=== PATIENT | female | born 1935 | race Caucasian/White ===

== ENCOUNTER 2017-03-30 09:23 | Emergency (ER) | payer OTHER ==
[2017-03-30 09:27] VITALS: BP 141/53; PULSE 71; TEMP 98.2; BMI 34.9
--- NOTE | 2017-03-30 10:12 | PDOC ---
History of Present Illness - General Chief Complaint: Pain Stated Complaint: PAIN IN LEFT ARM Time Seen by Provider: 03/30/17 09:46 History Source: Patient Exam Limitations: No Limitations - History of Present Illness Initial Comments: 03/30/17 10:08 Patient is here with complaints of left upper arm shoulder and elbow pain 1 month. Patient states had a blood draw and pain incurred after that incident. Patient is concerned may have a blood clot. Denies chest pain palpitations or shortness of breath, denies fever, redness but states has some mild swelling to her wrist. No numbness or tingling to hand. Occurred: reports: other Severity: reports: mild, moderate Pain Location: reports: upper extremity (left upper arm) Modifying Factors: improves with: None Past History - Travel Traveled outside of the country in the last 30 days: No Close contact w/someone who was outside of country & ill: No - Past Medical History Allergies/Adverse Reactions: Allergies Allergy/AdvReac Type Severity Reaction Status Date / Time No Known Allergies Allergy Verified 03/30/17 09:27 Home Medications: Ambulatory Orders Amlodipine Besylate 5 mg PO DAILY 03/30/17 Valsartan 320 mg PO DAILY 03/30/17 HTN: Yes Hypercholesterolemia: Yes Other medical history: ARHTRITIS - Surgical History Cholecystectomy: Yes - Psycho/Social/Smoking Cessation Hx Anxiety: No Suicidal Ideation: No Smoking History: Never smoked Hx Alcohol Use: No Drug/Substance Use Hx: No Substance Use Type: None Trauma Specific PMHX - Complaint Specific PMHX Back Injury: No Neck Injury: No Review of Systems - Review of Systems Able to Perform ROS?: Yes Is the patient limited German proficient: Yes Constitutional: Yes: Symptoms Reported, See HPI, Malaise HEENTM: Yes: See HPI. No: Symptoms Reported Respiratory: Yes: See HPI. No: Symptoms reported, Cough, Wheezing Cardiac (ROS): Yes: See HPI. No: Symptoms Reported, Chest Pain, Lightheadedness , Palpitations Musculoskeletal: Yes: Symptoms Reported, See HPI, Muscle Pain, Joint Stiffness ( left shoulder ) Hematologic/Lymphatic: Yes: Other All Other Systems: Reviewed and Negative *Physical Exam - Vital Signs Last Vital Signs Temp Pulse Resp BP Pulse Ox 98.2 F 71 20 141/53 98 03/30/17 09:24 03/30/17 09:24 03/30/17 09:24 03/30/17 09:24 03/30/17 09:24 - Physical Exam General Appearance: Yes: Nourished, Appropriately Dressed, Apparent Distress, Mild Distress HEENT: positive: BONNY, Normal ENT Inspection, Normal Voice, TMs Normal, Pharynx Normal Neck: positive: Supple. negative: Tender Respiratory/Chest: positive: Lungs Clear, Normal Breath Sounds Cardiovascular: positive: Regular Rhythm Gastrointestinal/Abdominal: positive: Soft. negative: Tender Musculoskeletal: positive: Normal Inspection, Other (and with flexion and extension at elbow, able to supinate and pronate without pain, has strong grasp , strong radial and ulnar pulses, and neurovascular intact fingers. Has no reproduced tenderness along the radius, ulna, or humeral shaft. Range of motion is slightly limited but has full range of motion active and passive at shoulder. No clavicle or scapular pain. Tenderness or erythema in antecubital fossa, no evidence of hematoma) Extremity: positive: Normal Capillary Refill, Normal Inspection. negative: Normal Range of Motion, Swelling (no ) Integumentary: positive: Normal Color, Dry, Warm, Pale, Other (no redness , swelling or ) Neurologic: positive: cattle dipper II-XII NML intact, Fully Oriented, Alert, Normal Mood/ Affect, Normal Response, Motor Strength 5/5 ED Treatment Course - RADIOLOGY Radiology Studies Ordered: Category Date Time Status DUPLEX VASCUL US-1 ARM [US] Stat Ultrasound 03/30/17 10:07 Ordered Progress Note - Progress Note Progress Note: Left shoulder pain, will have continue anti-inflammatories and have follow up with Orth O for possible physical therapy or other treatment. Ultrasound negative for DVT or clot, any vascular issue *DC/Admit/Observation/Transfer Diagnosis at time of Disposition: Sprain of shoulder, left Qualifiers: Encounter type: initial encounter Shoulder sprain type: unspecified sprain Qualified Code(s): S43.402A - Unspecified sprain of left shoulder joint, initial encounter - Discharge Dispostion Disposition: HOME Condition at time of disposition: Stable Admit: No - Referrals Referrals: STAFF,NOT ON [Primary Care Provider] - - Patient Instructions Additional Instructions: Rest, ice to area on and off for 15 minutes 4-6 times a day Avoid heavy lifting or exercise until pain and swelling is resolved or until further directed Keep area highly elevated to reduce swelling Use splints/Casey wrap as directed Followup with orthopedist in one to 2 days if not improving, if significantly improved may wait one week for followup with orthopedist May use ibuprofen 2-200 mg tablets every 6 hours as needed for pain - Post Discharge Activity
== END 2017-03-30 11:55 | disposition home or self-care (01) ==
LOC: JERFT 09:23
DX: S43.402A Unspecified sprain of left shoulder joint, initial encounter (principal); I10 Essential (primary) hypertension; E78.00 Pure hypercholesterolemia, unspecified; M12.9 Arthropathy, unspecified
CPT/HCPCS: 93971; 99281-25

== ENCOUNTER 2017-08-12 08:22 | Inpatient (IN) | payer OTHER ==
[2017-08-12 08:37] VITALS: BMI 34.9
[2017-08-12] MEDS ORDERED: ADENOSINE 6 MG/2 ML VIAL IVPUSH ONE ×6 (08:51→09:23)
--- NOTE | 2017-08-12 08:52 | PDOC ---
History of Present Illness - General Chief Complaint: Tachycardia Stated Complaint: Blood Pressure Problem Time Seen by Provider: 08/12/17 08:25 History Source: Patient, Family - History of Present Illness Presenting Symptoms: Chest Pain, Dizziness, Short of Breath Past History - Past Medical History Allergies/Adverse Reactions: Allergies Allergy/AdvReac Type Severity Reaction Status Date / Time No Known Allergies Allergy Verified 08/12/17 08:38 Home Medications: Ambulatory Orders Amlodipine Besylate 5 mg PO DAILY 03/30/17 Valsartan 320 mg PO DAILY 03/30/17 Metoprolol Tartrate 12.5 mg PO DAILY 08/12/17 Cardiac Disorders: Yes COPD: No HTN: Yes Hypercholesterolemia: Yes - Surgical History Cholecystectomy: Yes - Suicide/Smoking/Psychosocial Hx Smoking History: Never smoked Hx Alcohol Use: No Drug/Substance Use Hx: No Substance Use Type: None Review of Systems - Review of Systems Constitutional: No: Chills, Fever HEENTM: No: Blurred Vision Respiratory: Yes: Shortness of Breath. No: Cough Cardiac (ROS): Yes: Chest Pain ABD/GI: No: Nausea, Vomiting Neurological: Yes: Dizziness. No: Headache, Weakness *Physical Exam - Vital Signs Last Vital Signs Temp Pulse Resp BP Pulse Ox 98.4 F 113 H 16 115/56 98 08/12/17 10:25 08/12/17 10:25 08/12/17 10:25 08/12/17 10:25 08/12/17 10:25 - Physical Exam General Appearance: Yes: Appropriately Dressed. No: Apparent Distress HEENT: positive: Normal Voice Neck: positive: Supple Respiratory/Chest: positive: Lungs Clear, Normal Breath Sounds. negative: Respiratory Distress Cardiovascular: positive: S1, S2, Tachycardia Gastrointestinal/Abdominal: positive: Soft. negative: Tender Extremity: positive: Pedal Edema (trace edema b/l, s/p amp of R 2nd toe, pedal pulses intact b/l) Integumentary: positive: Dry, Warm Neurologic: positive: Fully Oriented, Alert, Normal Mood/Affect, Motor Strength 5/5, Finger to Nose. negative: Facial Droop, Confused, Disoriented ED Treatment Course - LABORATORY CBC & Chemistry Diagram: 08/12/17 09:00 08/12/17 09:00 - ADDITIONAL ORDERS Additional order review: Laboratory Results 08/12/17 09:00 Sodium 136 Potassium 4.1 Chloride 102 Carbon Dioxide 23 Anion Gap 11 BUN 18 Creatinine 1.3 H Creat Clearance w eGFR 39.31 Random Glucose 119 H Calcium 9.4 Total Bilirubin 0.9 AST 14 L ALT 20 Alkaline Phosphatase 114 Creatine Kinase 78 Troponin I 0.22 H B-Natriuretic Peptide 3318.03 H Total Protein 8.3 H Albumin 4.2 08/12/17 09:00 RBC 4.42 MCV 91.8 MCHC 33.3 RDW 13.5 MPV 8.8 Neutrophils % 74.9 Lymphocytes % 18.0 Monocytes % 5.6 Eosinophils % 0.5 Basophils % 1.0 - RADIOLOGY Radiology Studies Ordered: Category Date Time Status CHEST X-RAY PORTABLE* [RAD] Stat Radiology 08/12/17 08:37 Completed DUPLEX VASCUL US-1 LEG [US] Stat Ultrasound 08/12/17 10:14 Ordered - Medications Given in the ED: ED Medications Discontinued Medications Generic Name Dose Route Start Last Admin Trade Name Freq PRN Reason Stop Dose Admin Adenosine 6 mg 08/12/17 08:52 08/12/17 08:56 Adenocard - IVPUSH 08/12/17 08:53 6 mg ONCE ONE Administration Adenosine 12 mg 08/12/17 09:09 08/12/17 09:24 Adenocard - IVPUSH 08/12/17 09:10 Not Given ONCE ONE Adenosine 12 mg 08/12/17 09:21 08/12/17 09:24 Adenocard - IVPUSH 08/12/17 09:22 12 mg ONCE ONE Administration Adenosine 6 mg 08/12/17 09:23 08/12/17 09:24 Adenocard - IVPUSH 08/12/17 09:24 Not Given ONCE ONE Diltiazem HCl 10 mg 08/12/17 09:50 08/12/17 09:53 Cardizem Injection - IVPUSH 08/12/17 09:51 10 mg ONCE ONE Administration Diltiazem HCl 30 mg 08/12/17 10:04 08/12/17 10:10 Cardizem - PO 08/12/17 10:05 30 mg ONCE ONE Administration Medical Decision Making - Medical Decision Making 08/12/17 08:38 81-year-old female, history of HTN, on multiple medications, HLD, PVD, s/p right lower extremity angioplasty, s/p amputation of right second toe, brought in by relative for dizziness, chest pain and shortness of breath in the setting of hypotension and tachycardia. Patient states for the past 3 days when she checks her vitals at home, blood pressure has been 80s over 60s with "fast" heart rate. C/o mostly constant dizziness with no exacerbating or alleviating factors. No vertigo, GUILLEN, slurred speech or focal weakness. Also complaining of non-radiating left chest pressure with shortness of breath that appears to worsen with ambulation. States she had a stress test done a year ago but does not remember results. Also has a online marketing strategist, but does not remember name of M.D. No recent medication adjustment. States she is scheduled for surgery of R foot at outside hospital next week but does not details of surgery See exam Tachycardia C/o chest pain, sob and dizziness x 3 days Possibly SVT to 140s on EKG and monitor as d/w ED attg -adenosine/reassess -cxr -labs -admit 08/12/17 09:43 No improvement w/ 1 dose of adenosine. As per ED attg, possibly aflutter. Will consult w/ cards at this time. 08/12/17 09:56 Trop of 0.22 w/ BNP >3K, no old to compare. Possible demand ischemia. No e/o fluid overload on CXR but tarce edema on exam. Possible h/o CHF per relative but not on diuretics at home. Rpt EKG in progress. Cardizem ordered by Dr Mccallum as pt still tachy on monitor 08/12/17 09:58 08/12/17 10:04 After IV dose of Cardizem given, rpt ekg shows rate controlled afib on repeat EKG. Po cardizem in progress. Will hold off on lasix at this time as per Dr. Mccallum. Cards consult still pending. Will contact hospitalist to arrange admission at this time 08/12/17 10:[address] Mendes 08/12/17 11:09 Cards c/s and recommended cary. Hospitalist aware *DC/Admit/Observation/Transfer Diagnosis at time of Disposition: New onset a-fib, Dizziness Chest pain Qualifiers: Chest pain type: unspecified Qualified Code(s): R07.9 - Chest pain, unspecified - Discharge Dispostion Condition at time of disposition: Fair Admit: Yes Decision to Admit order Date/Time: Decision to Admit Order Category Date Time Status Decision to Admit to Hospital Routine Admission 08/12/17 10:38 Active - Referrals Referrals: Cosme Gipson [Primary Care Provider] -
[2017-08-12 09:20] LABS: EOSINOPHIL 0.5 % (0-4.5); MCH 30.5 pg (25.7-33.7); MCHC 33.3 g/dl (32.0-36.0); MEAN CELL VOLUME 91.8 fl (80-96); MEAN PLT VOLUME 8.8 fl (7.5-11.1); NEUTROPHILS 74.9 % (42.8-82.8); PLATELET COUNT 249 K/MM3 (134-434); RDW 13.5 % (11.6-15.6); WHITE BLOOD COUNT 6.3 K/mm3 (4.0-10.0)
--- NOTE | 2017-08-12 09:40 | PDOC ---
*Physical Exam - Vital Signs Last Vital Signs Temp Pulse Resp BP Pulse Ox 97.6 F 135 H 16 122/72 100 08/12/17 08:26 08/12/17 09:29 08/12/17 09:27 08/12/17 09:27 08/12/17 09:29 Heart Score/ECG Review - ECG Impressions Comment:: 08/12/17 10:47 Twelve-lead EKG was performed and reviewed by me. ekg originally performated at 8:40am Regular reate of 144 no P waves visible TWI in anterior/lateral leads, possible demand ischemia q wave in III no old ekg for [facility] ED Treatment Course - LABORATORY CBC & Chemistry Diagram: 08/12/17 09:00 08/12/17 09:00 - ADDITIONAL ORDERS Additional order review: 08/12/17 09:00 RBC 4.42 MCV 91.8 MCHC 33.3 RDW 13.5 MPV 8.8 Neutrophils % 74.9 Lymphocytes % 18.0 Monocytes % 5.6 Eosinophils % 0.5 Basophils % 1.0 - Medications Given in the ED: ED Medications Discontinued Medications Generic Name Dose Route Start Last Admin Trade Name Daniella PRN Reason Stop Dose Admin Adenosine 6 mg 08/12/17 08:52 08/12/17 08:56 Adenocard - IVPUSH 08/12/17 08:53 6 mg ONCE ONE Administration Adenosine 12 mg 08/12/17 09:09 08/12/17 09:24 Adenocard - IVPUSH 08/12/17 09:10 Not Given ONCE ONE Adenosine 12 mg 08/12/17 09:21 08/12/17 09:24 Adenocard - IVPUSH 08/12/17 09:22 12 mg ONCE ONE Administration Adenosine 6 mg 08/12/17 09:23 08/12/17 09:24 Adenocard - IVPUSH 08/12/17 09:24 Not Given ONCE ONE Medical Decision Making - Medical Decision Making 08/12/17 09:34 81y F hx of htn presents with lightheadedness, palpitations for the past 3 days , associated with chest pain yesterday. The pt notes she has had a history of some sort of arrythmia before but is uncler which but states she was never on blood thiners beside asa. on arrival the pts HR was at 144, bp was sbp 130s as documented, exam otherwise unremarkable ekg showed SVT vs aflutter with a RBBB pt was given adenosine 6, 6, 12mg - her HR slowed down, an there was an underlying P wave of 300. suspect aflutter and hiroy was in 2:1 block awaiitng call back from cards will give her 20 diltiazem 08/12/17 10:36 pt was given 10mg of dilt HR improved to 70s apperas to be underlying afib will give pt 30mg PO dilitazem and will start ac after d/w cardiology will admit for further management CRITICAL CARE DOCUMENTATION: I spent 45 minutes of Critical Care time, excluding separately billable procedures, involving high complexity decision making to assess, manipulate and support vital system function(s) to treat single or multiple vital organ system failure and/or to prevent further life threatening deterioration of the patient' s condition. A portion of this note was documented by scribe services under my direction. I have reviewed the details of the note, within reason, and agree with the documentation with the following case summary and management plan written by me 08/12/17 10:[address] talbot agreed pt will qualify for eliquis 5mg bid pt is awaitng DVT study *DC/Admit/Observation/Transfer Diagnosis at time of Disposition: New onset a-fib, Dizziness Chest pain Qualifiers: Chest pain type: unspecified Qualified Code(s): R07.9 - Chest pain, unspecified - Discharge Dispostion Condition at time of disposition: Fair - Referrals Referrals: Cosme Gipson [Primary Care Provider] -
[2017-08-12 09:41] LABS: ALBUMIN 4.2 g/dl (3.4-5.0); ANION GAP 11 (8-16); BILIRUBIN,TOTAL 0.9 mg/dL (0.2-1.0); CALCIUM 9.4 mg/dL (8.5-10.1); CO2 23 mmol/L (21-32); CREATININE 1.3 mg/dL (0.55-1.02); GLUCOSE,RANDOM 119 mg/dL (74-106); SGOT/AST 14 U/L (15-37); SGPT/ALT 20 U/L (12-78); TOT PROT 8.3 g/dl (6.4-8.2)
[2017-08-12 09:44] LABS: ALK PHOS 114 U/L (45-117); CPK 78 IU/L (26-192); TROPONIN I 0.22 ng/ml (0.00-0.05)
[2017-08-12] MEDS ORDERED: dilTIAZem HCL 50 MG/10 ML - 10 ML VIAL IVPUSH ONE ×2 (09:50→13:51)
[2017-08-12] MEDS ORDERED: dilTIAZem HCL 125 MG/25 ML - 25 ML VIAL ONE (09:55)
[2017-08-12] MEDS ORDERED: dilTIAZem HCL 30 MG TABLET (FP) PO ONE ×2 (10:04→18:15)
[2017-08-12] MEDS ORDERED: dilTIAZem HCL 30 MG TABLET (FP) ONE (10:05)
[2017-08-12] MEDS ORDERED: APIXABAN 5 MG TABLET PO ONE (10:45)
--- NOTE | 2017-08-12 11:12 | HP ---
CHIEF COMPLAINT: Lightheadedness and SOB PCP: HISTORY OF PRESENT ILLNESS: 81yo F with significant PMHx of HTN, HLD, PVD, s/p right lower extremity angioplasty, s/p amputation of right second toe,presents with 3 day history of shortness of breath and dizziness. Patient states that SOB has progressed over the past three day with associated orthopnea. Also complaining of intermittent non-radiating 5/10 left chest pressure with shortness of breath that appears to worsen with ambulation. Unsure of her previous CV testing or results. . No recent medication adjustment. States she is scheduled for surgery of R foot at outside hospital next week but does not details of surgery. Denies GUILLEN, fever, chills, abdominal pain , urinary symptoms or N/V. ER course was notable for: (1)Intial EKG showed rate of 144 SVT vs. Aflutter with RBB- given adenosine and rhythm was aflutter--> given 10mg of Cardizem rate slowed to 74 (2)Elevated troponin and BNP (3) Recent Travel:Denies PAST MEDICAL HISTORY: HTN, HLD, PVD PAST SURGICAL HISTORY:right lower extremity angioplasty, amputation of right second toe, CCY Social History: Smoking:never Alcohol: denies Drugs: denies Family History: Allergies No Known Allergies Allergy (Verified 08/12/17 08:38) HOME MEDICATIONS: Home Medications Medication Instructions Recorded Amlodipine Besylate 5 mg PO DAILY 03/30/17 Valsartan 320 mg PO DAILY 03/30/17 Metoprolol Tartrate 12.5 mg PO DAILY 08/12/17 REVIEW OF SYSTEMS CONSTITUTIONAL: Absent: fever, chills, diaphoresis, generalized weakness, malaise, loss of appetite, weight change HEENT: Absent: rhinorrhea, nasal congestion, throat pain, throat swelling, difficulty swallowing, mouth swelling, ear pain, eye pain, visual changes CARDIOVASCULAR: chest pain,palpitations, irregular heart rate, lightheadedness Absent: , syncope, , peripheral edema RESPIRATORY: shortness of breath, dyspnea with exertion, orthopnea, Absent: cough, wheezing, stridor, hemoptysis GASTROINTESTINAL: Absent: abdominal pain, abdominal distension, nausea, vomiting, diarrhea, constipation, melena, hematochezia GENITOURINARY: Absent: dysuria, frequency, urgency, hesitancy, hematuria, flank pain, genital pain MUSCULOSKELETAL: Absent: myalgia, arthralgia, joint swelling, back pain, neck pain SKIN: Absent: rash, itching, pallor HEMATOLOGIC/IMMUNOLOGIC: Absent: easy bleeding, easy bruising, lymphadenopathy, frequent infections ENDOCRINE: Absent: unexplained weight gain, unexplained weight loss, heat intolerance, cold intolerance NEUROLOGIC: Absent: headache, focal weakness or paresthesias, dizziness, unsteady gait, seizure, mental status changes, bladder or bowel incontinence PSYCHIATRIC: Absent: anxiety, depression, suicidal or homicidal ideation, hallucinations. PHYSICAL EXAMINATION Vital Signs - 24 hr 08/12/17 08/12/17 08/12/17 08:26 09:00 09:27 Temperature 97.6 F Pulse Rate 145 H Pulse Rate [ 136 H 136 H Left Apical] Respiratory 18 16 16 Rate Blood Pressure 132/82 Blood Pressure 113/81 122/72 [Right Arm] O2 Sat by Pulse 100 100 100 Oximetry (%) 08/12/17 08/12/17 08/12/17 09:29 09:45 10:25 Temperature 98.4 F Pulse Rate 135 H Pulse Rate [ 134 H 113 H Left Apical] Respiratory 16 16 Rate Blood Pressure Blood Pressure 127/80 115/56 [Right Arm] O2 Sat by Pulse 100 98 98 Oximetry (%) GENERAL:AAOx3 , mild distress HEAD: AT/NC EYES: PERRLA,EOMI, sclera anicteric, conjunctiva clear. No lid lag. EARS, NOSE, THROAT: Moist mucous membranes. NECK: Normal range of motion, supple without lymphadenopathy, JVD, or masses. LUNGS: Breath sounds equal, clear to auscultation bilaterally. No wheezes, and no crackles. No accessory muscle use. HEART: Irregularly irregular, normal s1 and s2 ABDOMEN: Soft, nontender, not distended, normoactive bowel sounds, no guarding, no rebound, no masses. No hepatomegaly or splenomegaly. MUSCULOSKELETAL: Normal range of motion at all joints. No bony deformities or tenderness. No CVA tenderness. UPPER EXTREMITIES: 2+ pulses, warm, well-perfused. No cyanosis. No clubbing. No peripheral edema. LOWER EXTREMITIES: 2+ pulses, warm, well-perfused. No calf tenderness. No peripheral edema. NEUROLOGICAL: Cranial nerves II-XII intact. Normal speech. Normal gait. PSYCHIATRIC: Cooperative. Good eye contact. Appropriate mood and affect. SKIN: Warm, dry, normal turgor, no rashes or lesions noted, normal capillary refill. Laboratory Results - last 24 hr 08/12/17 08/12/17 09:00 09:00 WBC 6.3 RBC 4.42 Hgb 13.5 Hct 40.6 MCV 91.8 MCH 30.5 MCHC 33.3 RDW 13.5 Plt Count 249 MPV 8.8 Neutrophils % 74.9 Lymphocytes % 18.0 Monocytes % 5.6 Eosinophils % 0.5 Basophils % 1.0 Sodium 136 Potassium 4.1 Chloride 102 Carbon Dioxide 23 Anion Gap 11 BUN 18 Creatinine 1.3 H Creat Clearance w eGFR 39.31 Random Glucose 119 H Calcium 9.4 Total Bilirubin 0.9 AST 14 L ALT 20 Alkaline Phosphatase 114 Creatine Kinase 78 Troponin I 0.22 H B-Natriuretic Peptide 3318.03 H Total Protein 8.3 H Albumin 4.2 ASSESSMENT/PLAN: 81yo F with significant PMHx of HTN, HLD, PVD presented with 3 day h/o worsening SOB found to be in new onset afib will be admitted to Telemetry. Problem List - Problem (1) New onset a-fib Assessment/Plan: * New onset of Afib from uncertain etiology * Admit to tele and Cardiology consult. * [id number]= 5 will need AC; will start eliquis as per Cardiology (Dr. Carrion) * TSH, UA, CXR, and duplex(r/o DVT) pending. * initially elevated BNP with no previous to compare may represent CHF but no distinct history of CHF. * Will obtain Echo to assess LV size and function as well as any valvular abnormalities. * May need sleep study as outpatient. * Repeat EKG. (2) Elevated troponin I level Assessment/Plan: * May represent demand ischemia. * Will trend trops Q6H * Echo pending. (3) HTN (hypertension) Code(s): I10 - ESSENTIAL (PRIMARY) HYPERTENSION Qualifiers: Hypertension type: essential hypertension Qualified Code(s): I10 - Essential (primary) hypertension; I10 - Essential (primary) hypertension; I10 - Essential (primary) hypertension (4) HLD (hyperlipidemia) Qualifiers: Hyperlipidemia type: unspecified Qualified Code(s): E78.5 - Hyperlipidemia, unspecified; E78.5 - Hyperlipidemia, unspecified; E78.5 - Hyperlipidemia, unspecified (5) PVD (peripheral vascular disease) Visit type - Emergency Visit Emergency Visit: Yes ED Registration Date: 08/12/17 Care time: The patient presented to the Emergency Department on the above date and was hospitalized for further evaluation of their emergent condition. - New Patient This patient is new to me today: Yes Date on this admission: 08/14/17 - Critical Care Critical Care patient: No
[2017-08-12 11:22] LABS: URINE APPEARANCE CLEAR; URINE BILIRUBIN NEGATIVE (NEGATIVE); URINE BLOOD NEGATIVE (NEGATIVE); URINE COLOR LTYELLOW; URINE GLUCOSE (UA) NEGATIVE (NEGATIVE); URINE KETONE NEGATIVE (NEGATIVE); URINE NITRITE NEGATIVE (NEGATIVE); URINE UROBILINOGEN NEGATIVE mg/dL (0.2-1.0)
[2017-08-12 11:25] LABS: URINE PROTEIN 1+ (NEGATIVE)
[2017-08-12 11:29] LABS: URINE HYALINE CAST 4 /lpf; URINE MUCUS RARE
--- NOTE | 2017-08-12 13:21 | HP ---
CHIEF COMPLAINT: Dizziness PCP: Dr. Jacob Medrano HISTORY OF PRESENT ILLNESS: Ms Méndez is an 81yo F with PMHx of HTN (on 3 antihypertensives), HLD, PVD (s/p RLE angioplasty and R 2nd toe amputation), who presented to the ER with dizziness for the past few days. She also has associated substernal chest pressure that often happens when she is anxious, sometimes with exertion. She states that she has had "numerous workups" in the past, but never a cardiac cath. She has associated palpitations and SOB which occurs mostly with exertion. She denies any pulmonary disorders, denies smoking, denies drinking. Endorses compliance with all medications. Pt states she has had an "abnormal heart murmur" as a child, does not recollect being told she has an abnormal heart rhythm. ER course was notable for: (1) EKG --> Sinus Tach 140s --> Adenosine --> New EKG shows Aflutter --> IV Cardizem 10mg IV x1 --> New EKG shows Afib --> PO Cardizem 30 (2) Call to [facility] (Cardio) - reccs Eliquis 5mg BID (3) Trop 0.22 --> 0.17 PAST MEDICAL HISTORY: HTN, HLD, PVD PAST SURGICAL HISTORY: R second toe amputation Social History: Lives at home alone Smoking: Denies Alcohol: Denies Drugs: Denies Allergies: No Known Allergies Allergy (Verified 08/12/17 08:38) HOME MEDICATIONS: Home Medications Medication Instructions Recorded Amlodipine Besylate 5 mg PO DAILY 03/30/17 Valsartan 320 mg PO DAILY 03/30/17 Metoprolol Tartrate 12.5 mg PO DAILY 08/12/17 REVIEW OF SYSTEMS CONSTITUTIONAL: Absent: fever, chills, diaphoresis, generalized weakness, malaise, loss of appetite, weight change HEENT: Absent: rhinorrhea, nasal congestion, throat pain, throat swelling, difficulty swallowing, mouth swelling, ear pain, eye pain, visual changes CARDIOVASCULAR: Absent: chest pain, syncope, palpitations, irregular heart rate, lightheadedness , peripheral edema RESPIRATORY: Absent: cough, shortness of breath, dyspnea with exertion, orthopnea, wheezing, stridor, hemoptysis GASTROINTESTINAL: Absent: abdominal pain, abdominal distension, nausea, vomiting, diarrhea, constipation, melena, hematochezia GENITOURINARY: Absent: dysuria, frequency, urgency, hesitancy, hematuria, flank pain, genital pain MUSCULOSKELETAL: Absent: myalgia, arthralgia, joint swelling, back pain, neck pain SKIN: Absent: rash, itching, pallor HEMATOLOGIC/IMMUNOLOGIC: Absent: easy bleeding, easy bruising, lymphadenopathy, frequent infections ENDOCRINE: Absent: unexplained weight gain, unexplained weight loss, heat intolerance, cold intolerance NEUROLOGIC: Absent: headache, focal weakness or paresthesias, dizziness, unsteady gait, seizure, mental status changes, bladder or bowel incontinence PSYCHIATRIC: Absent: anxiety, depression, suicidal or homicidal ideation, hallucinations. Vital Signs Temperature 98.4 F 08/12/17 10:25 Pulse Rate 113 H 08/12/17 10:25 Respiratory Rate 16 08/12/17 10:25 Blood Pressure 115/56 08/12/17 10:25 O2 Sat by Pulse Oximetry (%) 98 08/12/17 10:25 PHYSICAL EXAMINATION GEN: AAOx3, NAD, Not in respiratory distress HEENT: PERRLA, EOMI CV: S1, S2, tachycardic rate and irregularly irregular rhythm LUNG: CTABL ABD: Soft, NT, ND, normoactive BS MSK UE: No edema, no erythema, full ROM MSK LE: RLE - mild venous stasis, R 2nd toe amputation, +DP pulses, 1+ edema; LLE no amputation, no edema, no erythema, +DP pulses (weaker than R) NEURO: Strength and sensation intact, CN 2-12 grossly intact Laboratory Last Values WBC 6.3 K/mm3 (4.0-10.0) 08/12/17 09:00 RBC 4.42 M/mm3 (3.60-5.2) 08/12/17 09:00 Hgb 13.5 GM/dL (10.7-15.3) 08/12/17 09:00 Hct 40.6 % (32.4-45.2) 08/12/17 09:00 MCV 91.8 fl (80-96) 08/12/17 09:00 MCH 30.5 pg (25.7-33.7) 08/12/17 09:00 MCHC 33.3 g/dl (32.0-36.0) 08/12/17 09:00 RDW 13.5 % (11.6-15.6) 08/12/17 09:00 Plt Count 249 K/MM3 (134-434) 08/12/17 09:00 MPV 8.8 fl (7.5-11.1) 08/12/17 09:00 Neutrophils % 74.9 % (42.8-82.8) 08/12/17 09:00 Lymphocytes % 18.0 % (8-40) 08/12/17 09:00 Monocytes % 5.6 % (3.8-10.2) 08/12/17 09:00 Eosinophils % 0.5 % (0-4.5) 08/12/17 09:00 Basophils % 1.0 % (0-2.0) 08/12/17 09:00 Sodium 136 mmol/L (136-145) 08/12/17 09:00 Potassium 4.1 mmol/L (3.5-5.1) 08/12/17 09:00 Chloride 102 mmol/L (98-107) 08/12/17 09:00 Carbon Dioxide 23 mmol/L (21-32) 08/12/17 09:00 Anion Gap 11 (8-16) 08/12/17 09:00 BUN 18 mg/dL (7-18) 08/12/17 09:00 Creatinine 1.3 mg/dL (0.55-1.02) H 08/12/17 09:00 Creat Clearance w eGFR 39.31 (>60) 08/12/17 09:00 Random Glucose 119 mg/dL (74-106) H 08/12/17 09:00 Calcium 9.4 mg/dL (8.5-10.1) 08/12/17 09:00 Total Bilirubin 0.9 mg/dL (0.2-1.0) 08/12/17 09:00 AST 14 U/L (15-37) L 08/12/17 09:00 ALT 20 U/L (12-78) 08/12/17 09:00 Alkaline Phosphatase 114 U/L (45-117) 08/12/17 09:00 Creatine Kinase 78 IU/L (26-192) 08/12/17 09:00 Troponin I 0.22 ng/ml (0.00-0.05) H 08/12/17 09:00 B-Natriuretic Peptide 3318.03 pg/ml (5-450) H 08/12/17 09:00 Total Protein 8.3 g/dl (6.4-8.2) H 08/12/17 09:00 Albumin 4.2 g/dl (3.4-5.0) 08/12/17 09:00 Urine Color Ltyellow 08/12/17 10:14 Urine Appearance Clear 08/12/17 10:14 Urine pH 7.0 (5.0-8.0) 08/12/17 10:14 Ur Specific [place] 1.012 (1.001-1.035) 08/12/17 10:14 Urine Protein 1+ (NEGATIVE) H 08/12/17 10:14 Urine Glucose (UA) Negative (NEGATIVE) 08/12/17 10:14 Urine Ketones Negative (NEGATIVE) 08/12/17 10:14 Urine Blood Negative (NEGATIVE) 08/12/17 10:14 Urine Nitrite Negative (NEGATIVE) 08/12/17 10:14 Urine Bilirubin Negative (NEGATIVE) 08/12/17 10:14 Urine Urobilinogen Negative mg/dL (0.2-1.0) 08/12/17 10:14 Urine RBC 1 /hpf (0-3) 08/12/17 10:14 Urine WBC <1 /hpf (3-5) 08/12/17 10:14 Ur Epithelial Cells Rare /hpf (FEW) 08/12/17 10:14 Hyaline Casts 4 /lpf 08/12/17 10:14 Urine Mucus Rare 08/12/17 10:14 Home Medication List Medication Instructions Recorded Confirmed Type Amlodipine Besylate 5 mg PO DAILY 03/30/17 08/12/17 History Valsartan 320 mg PO DAILY 03/30/17 08/12/17 History Metoprolol Tartrate 12.5 mg PO DAILY 08/12/17 08/12/17 History Active Medications Generic Name Dose Route Start Last Admin Trade Name Freq PRN Reason Stop Dose Admin Apixaban 5 mg 08/12/17 22:00 Eliquis - PO BID [facility] Diltiazem HCl 30 mg 08/13/17 10:00 Cardizem - PO DAILY [facility] Sodium Chloride 1,000 mls @ 50 mls/hr 08/12/17 16:15 Normal Saline - IV 08/13/17 12:14 ASDIR NIKUNJ ASSESSMENT/PLAN: Ms Méndez is an 81yo F with PMHx of HTN (on 3 antihypertensives), HLD, PVD (s/p RLE angioplasty and R 2nd toe amputation), who presented to the ER with dizziness and palpitations for the past few days, found to have Afib. # Atrial Fibrillation - New onset according to PCP, hemodynamically stable, HR came down, could be 2/2 Ischemic HD, HTN, CHF, Cardiomyopathy, HyperT, unlikely pulmonary - HR improved from 140s --> 110s s/p IV Cardizem 10mg, currently on Cardizem 30mg QD, will titrate up as needed, goal HR <120, if consistently high, will start Cardizem drip at 10mg and uptitrate - [id number] score 5, continue Eliquis 5mg BID - Echo, TSH, pt never had stress test or cath # Elevated Troponins - trending down, likely 2/2 demand ischemia from tachycardia, will trend Q6H w/ serial EKGs # Shortness of Breath - likely 2/2 tachycardia, unlikely PE, Wells score 1.5, Duplex negative, CXR clear, continue to monitor # DANIELA - B/L 1.0 according to PCP, hasnt been eating, likely pre-renal, start 1 bag of IVNS, will obtain Ulytes, hold Valsartan # Frequency - No suprapubic tenderness, trace LE with 1 WBC, will not treat huseyin , monitor symptoms # HTN - well controlled now on Cardizem 30mg QD, hold Valsartan and Metoprolol and Norvasc, can titrate Cardizem up if needed # HLD - lipid panel ordered # FEN - No IVF, electrolytes wnl, sodium controlled diet for now # PPx - On Eliquis, No GI ppx, PT not needed huseyin, pt is ambulatory # Dispo - Admit to med/surg, ensure HR controlled, await cardio reccs, await echo (called echo dept, asked to take echo today) d/w Dr. Vaughn Lombardo MD - PGY1 Internal Medicine Visit type - Emergency Visit Emergency Visit: Yes ED Registration Date: 08/12/17 Care time: The patient presented to the Emergency Department on the above date and was hospitalized for further evaluation of their emergent condition. - New Patient This patient is new to me today: Yes Date on this admission: 08/12/17 - Critical Care Critical Care patient: No
[2017-08-12 13:43] LABS: URINE LEUK ESTERASE TRACE (NEGATIVE); URINE RBC 0
[2017-08-12 13:44] LABS: URINE WBC 1
--- NOTE | 2017-08-12 14:17 | CON.CARD ---
Cardiology Consult (text) - Consultation Consultation Note: CC: new onset afib 81yo F with PMHx of HTN, HLD, PVD (s/p RLE angioplasty and R 2nd toe amputation) , who presented to the ER with dizziness and noted to be in aflutter with rvr. + hypotension at home with associated blurry vision. + palps/chest discomfort with dizziness, sob. states she was told she had a cardiac arrhythmia in the past and was given metoprolol but she stopped it b/c she thought it was making her sob. states she was never told she needed a blood thinner for this rhythm abnormality. + claudication, stable. + erythema at site of toe ulceration. s/p IV Cardizem 10mg IV x1 , PO Cardizem 30 in ER. also started on eliquis and given gentle IVF. + intermediate troponin elevation. no orthopnea, pnd, le edema, PAST MEDICAL HISTORY: HTN, HLD, PVD PAST SURGICAL HISTORY: R second toe amputation Social History: Lives at home alone, never smoker, no etoh. fam hx: no premature cad ros: per hpi, no n/v/d, f/c/s, cough, congestion, h/a. Ambulatory Orders Amlodipine Besylate 5 mg PO DAILY 03/30/17 Valsartan 320 mg PO DAILY 03/30/17 Metoprolol Tartrate 12.5 mg PO DAILY 08/12/17 Current Medications Diltiazem HCl (Cardizem -) 30 mg PO DAILY [facility] Vital Signs - 24 hr 08/12/17 08/12/17 08/12/17 08:26 09:00 09:27 Temperature 97.6 F Pulse Rate 145 H Pulse Rate [ 136 H 136 H Left Apical] Respiratory 18 16 16 Rate Blood Pressure 132/82 Blood Pressure 113/81 122/72 [Right Arm] O2 Sat by Pulse 100 100 100 Oximetry (%) 08/12/17 08/12/17 08/12/17 09:29 09:45 10:25 Temperature 98.4 F Pulse Rate 135 H Pulse Rate [ 134 H 113 H Left Apical] Respiratory 16 16 Rate Blood Pressure Blood Pressure 127/80 115/56 [Right Arm] O2 Sat by Pulse 100 98 98 Oximetry (%) Intake & Output 08/10/17 08/11/17 08/12/17 08/13/17 07:59 07:59 07:59 07:59 Weight 179 lb nad, calm jvd flat, neck supple ctab, nl effort irregularly, irregular, nl s1, s2 + bs soft nt nd ext without e/c/c + dp/pt aaox3 no jaundice, diaphoresis. CBC, BMP 08/12/17 09:00 08/12/17 09:00 Laboratory Tests 08/12/17 08/12/17 09:00 15:10 Hemoglobin A1c % Magnesium Total Bilirubin 0.9 AST 14 L ALT 20 Alkaline Phosphatase 114 Creatine Kinase 78 Troponin I 0.22 H 0.17 H B-Natriuretic Peptide 3318.03 H Total Protein 8.3 H Albumin 4.2 Triglycerides Cholesterol Total LDL Cholesterol HDL Cholesterol TSH EKG: atrial tachycardia/SVT. rbbb. inferolateral ST-Twave ab subsequent EKG's: atrial tach/atrial flutter with variable conduction, rbbb. improving ST t wave ab. tele: aflutter with variable conduction, vr 100's cxr wnl echo 08/2017: 1+ conc lvh. nl fn. RV not well seen. 1+ mr. rvsp 30-40. < 1 cm pericardial effusion. 81yo F with PMHx of HTN, HLD, PVD (s/p RLE angioplasty and R 2nd toe amputation) , who presented to the ER with dizziness and noted to be in aflutter with rvr. new aflutter - rate control with diltiazem 30 po qid, ac with eliquis - echo wnl - no signs of volume overload. s/p gentle hydration in ER. mild troponin elevation - flat trend. + EKG changes when in RVR. No concern for acs, but likely demand in setting of underlying cad - medical mgm't. ? timing of ischemic evaluation. htn - con't current regimen, monitor with uptitration PVD - statin, no asa (on AC). - [facility] - monitor wound for signs of infection.
[2017-08-12 15:50] LABS: TROPONIN I 0.17 ng/ml (0.00-0.05)
--- NOTE | 2017-08-12 16:08 | PN ---
Teaching Attending Note Name of Resident: Nubia Lombardo ATTENDING PHYSICIAN STATEMENT I saw and evaluated the patient. I reviewed the resident's note and discussed the case with the resident. I agree with the resident's findings and plan as documented. SUBJECTIVE:81yo F with PMHx of HTN (on 3 antihypertensives), HLD, PVD (s/p RLE angioplasty and R 2nd toe amputation), who presented to the ER with dizziness x3 days. worse on standing up from a sitting position. started to develop retrosternal Chest pressure radiating to the epigastric area. assoc with SOB. states she never had similar symptoms in the past. reports poor po intake during this time. has had echo prior but no stress test or cardiac cath. claims medication compliances. denies fever, chills, cough, N/V/C/D OBJECTIVE: Last Vital Signs Temp Pulse Resp BP Pulse Ox 98.4 F 64 16 116/53 98 08/12/17 14:21 08/12/17 14:21 08/12/17 14:21 08/12/17 14:21 08/12/17 14:21 General NAD HEENT dry oral mucosa CV S1 S2 irregular irregular tachy Lungs CTA B/L no wheezing/rales/rhonchi Abdomen soft NT/ND Extremiteis 1+ pitting edema ASSESSMENT AND PLAN: 81yo F with PMHx of HTN (on 3 antihypertensives), HLD, PVD (s/p RLE angioplasty and R 2nd toe amputation), who presented to the ER with dizziness x3 days and found to be in SVT, was given adenosine which it broke into aflutter than afib 1. New onset afib with RVR- admit to [facility] for continuous cardiac monitoring. HR currently 140. received cardizem 10mg IVP x1 and cardizem 30mg po. will give additional 10mg IVP and monitor HR. if does not decrease to <120 will start cardizem ggt. increase cardizem po to 60mg. trend cardiac enzymes q6H, check TSH , no signs of infection (no symptoms, CXR and UA negative). [id number] 5. will start eliquis. check echo. cardio consulted 2. DANIELA- baseline Cr normal. dehydration vs medication induced. will give 1L NS. check urine lytes. avoid neprhrotoxic agents. hold ARB. if does not improve will do full renal workup 3. HTN- currently normotensive. will hold home medications. on cardizem. will re -start as needed to optimize BP 4. dyslipidemia- statin 5. PVD- s/p stent 6. DVT ppx- eliquis
[2017-08-12] MEDS ORDERED: SODIUM CHLORIDE 1,000 ML IV SCH (16:15)
[2017-08-12] MEDS: APIXABAN 5 MG TABLET PO SCH (21:34)
[2017-08-12 21:56] LABS: TROPONIN I 0.16 ng/ml (0.00-0.05)
[2017-08-13 07:26] LABS: ANION GAP 6 (8-16); CHOLESTEROL 174 mg/dL (50-200); CO2 25 mmol/L (21-32); GLUCOSE,RANDOM 91 mg/dL (74-106); MAGNESIUM 1.9 mg/dL (1.8-2.4); PHOSPHOROUS 3.2 mg/dL (2.5-4.9)
[2017-08-13 07:34] LABS: THYROID STIMULATING HORMONE 1.92 uIU/ml (0.358-3.74)
[2017-08-13] MEDS ORDERED: PT OWN MED DRAWER 7, Y5N ONE (08:00)
[2017-08-13] MEDS: dilTIAZem HCL 30 MG TABLET (FP) PO SCH ×5 (08:05→17:43)
[2017-08-13 08:08] LABS: BASOPHIL 0.9 % (0-2.0); EOSINOPHIL 1.2 % (0-4.5); MCH 31.1 pg (25.7-33.7); MCHC 33.5 g/dl (32.0-36.0); MEAN PLT VOLUME 9.2 fl (7.5-11.1); NEUTROPHILS 56.6 % (42.8-82.8); PLATELET COUNT 174 K/MM3 (134-434); RDW 13.4 % (11.6-15.6); WHITE BLOOD COUNT 4.7 K/mm3 (4.0-10.0)
[2017-08-13] MEDS: APIXABAN 5 MG TABLET PO SCH ×2 (09:30→22:17)
[2017-08-13] MEDS ORDERED: dilTIAZem HCL 50 MG/10 ML - 10 ML VIAL IVPUSH ONE (09:45)
[2017-08-13 10:17] LABS: URINE RBC 1; URINE WBC < 1
[2017-08-13 10:18] LABS: URINE HYALINE CAST 4 /lpf; URINE MUCUS RARE
--- NOTE | 2017-08-13 11:39 | PN ---
Progress Note (short form) - Note Progress Note: asymptomatic. denies feeling palpitatins, CP, SOB, fever, chills, Cough, N/V/C/D Current Medications Generic Name Dose Route Start Last Admin Trade Name Daniella PRN Reason Stop Dose Admin Apixaban 5 mg 08/12/17 22:00 08/13/17 09:30 Eliquis - PO 5 mg BID NIKUNJ Administration Diltiazem HCl 30 mg 08/13/17 10:00 08/13/17 09:35 Cardizem - PO Not Given DAILY NIKUNJ Sodium Chloride 1,000 mls @ 50 mls/hr 08/12/17 16:15 08/12/17 17:27 Normal Saline - IV 08/13/17 12:14 50 mls/hr ASDIR NIKUNJ Administration Last Vital Signs Temp Pulse Resp BP Pulse Ox 98.2 F 146 H 16 126/76 99 08/13/17 08:00 08/13/17 09:36 08/13/17 09:36 08/13/17 09:36 08/13/17 06:00 General NAD HEENT moist oral mucosa CV S1 S2 irregular irregular Lungs CTA B/L no wheezing/rales/rhonchi Abdomen soft NT/ND Extremiteis trace pitting edema CBCD WBC 4.7 K/mm3 (4.0-10.0) 08/13/17 05:10 RBC 3.72 M/mm3 (3.60-5.2) 08/13/17 05:10 Hgb 11.6 GM/dL (10.7-15.3) D 08/13/17 05:10 Hct 34.6 % (32.4-45.2) 08/13/17 05:10 MCV 93.0 fl (80-96) 08/13/17 05:10 MCHC 33.5 g/dl (32.0-36.0) 08/13/17 05:10 RDW 13.4 % (11.6-15.6) 08/13/17 05:10 Plt Count 174 K/MM3 (134-434) D 08/13/17 05:10 MPV 9.2 fl (7.5-11.1) 08/13/17 05:10 CMP Sodium 140 mmol/L (136-145) 08/13/17 05:10 Potassium 4.0 mmol/L (3.5-5.1) 08/13/17 05:10 Chloride 109 mmol/L (98-107) H 08/13/17 05:10 Carbon Dioxide 25 mmol/L (21-32) 08/13/17 05:10 Anion Gap 6 (8-16) L 08/13/17 05:10 BUN 18 mg/dL (7-18) 08/13/17 05:10 Creatinine 1.0 mg/dL (0.55-1.02) D 08/13/17 05:10 Creat Clearance w eGFR 39.31 (>60) 08/12/17 09:00 Calcium 8.0 mg/dL (8.5-10.1) L 08/13/17 05:10 Total Bilirubin 0.9 mg/dL (0.2-1.0) 08/12/17 09:00 AST 14 U/L (15-37) L 08/12/17 09:00 ALT 20 U/L (12-78) 08/12/17 09:00 Alkaline Phosphatase 114 U/L (45-117) 08/12/17 09:00 Total Protein 8.3 g/dl (6.4-8.2) H 08/12/17 09:00 Albumin 4.2 g/dl (3.4-5.0) 08/12/17 09:00 ASSESSMENT AND PLAN: 81yo F with PMHx of HTN (on 3 antihypertensives), HLD, PVD (s/p RLE angioplasty and R 2nd toe amputation), who presented to the ER with dizziness x3 days and found to be in SVT, was given adenosine which it broke into aflutter than afib 1. New onset afib with RVR- HR uncontrolled. 72-146. received cardizem 10mg IVPx2 and 30mg po x2 yesterday. HR remains uncontrolled. gave 10mg IVP stat this AM with good response. HR now 90-110. remains in afib. will give additional 30mg po and adjust cardizem dosing for tomorrow. cont to titrate as needed to maintain HR <120. pt is asymptomatic and hemodynamically stable therfore no indication for emergent cardioversion. TSH WNL. on eliquis. Cardio on board. 2. Troponemia- Trop 0.22->0.17->0.16. likely demand ischemia due to RVR. no chest pain. may require ischemia eval. which can likely be done as outpatient. 3. DANIELA- baseline Cr normal. dehydration vs medication induced. now resolved. will d/c IVF 4. HTN- currently normotensive. will hold home medications. on cardizem. will re -start as needed to optimize BP 5. dyslipidemia- statin 6. PVD- s/p stent 7. DVT ppx- eliquis Visit type - Emergency Visit Emergency Visit: Yes ED Registration Date: 08/12/17 Care time: The patient presented to the Emergency Department on the above date and was hospitalized for further evaluation of their emergent condition. - New Patient This patient is new to me today: No - Critical Care Critical Care patient: No - Discharge Referral Referred to [facility] No
[2017-08-13] MEDS ORDERED: dilTIAZem HCL 30 MG TABLET (FP) PO ONE (12:00)
--- NOTE | 2017-08-13 15:57 | PN ---
Progress Note (short form) - Note Progress Note: CC: new onset afib S: started on po diltiazem regimen today with improved rate control. Patient sx's improved. no cp, palps, dizziness, sob. Ambulatory Orders Amlodipine Besylate 5 mg PO DAILY 03/30/17 Valsartan 320 mg PO DAILY 03/30/17 Metoprolol Tartrate 12.5 mg PO DAILY 08/12/17 Current Medications Apixaban (Eliquis -) 5 mg PO BID [facility] Last Admin: 08/13/17 09:30 Dose: 5 mg Diltiazem HCl (Cardizem -) 30 mg PO QID [facility] Last Admin: 08/13/17 14:45 Dose: Not Given Vital Signs - 24 hr 08/12/17 08/12/17 08/12/17 16:49 18:25 21:00 Temperature 98.2 F Pulse Rate 118 H 138 H Respiratory 16 14 18 Rate Blood Pressure 134/94 120/74 O2 Sat by Pulse 98 96 Oximetry (%) 08/12/17 08/13/17 08/13/17 22:00 02:00 06:00 Temperature 98.8 F 97.5 F L 97.8 F Pulse Rate 100 H 115 H 72 Respiratory 14 16 18 Rate Blood Pressure 133/63 125/80 130/77 O2 Sat by Pulse 99 Oximetry (%) 08/13/17 08/13/17 08/13/17 08:00 09:36 14:00 Temperature 98.2 F 99.2 F Pulse Rate 146 H 146 H 75 Respiratory 18 16 20 Rate Blood Pressure 132/82 126/76 128/66 O2 Sat by Pulse Oximetry (%) Intake & Output 08/11/17 08/12/17 08/13/17 08/14/17 07:59 07:59 07:59 06:59 Intake Total 1560 Balance 1560 Weight 179 lb nad, calm jvd flat, neck supple ctab, nl effort irregularly, irregular, nl s1, s2 + bs soft nt nd ext without e/c/c diminishe dp/pt on right aaox3 no jaundice, diaphoresis. CBC, BMP 08/13/17 05:10 08/13/17 05:10 Laboratory Tests 08/12/17 08/12/17 08/12/17 09:00 15:10 20:30 Magnesium Troponin I 0.22 H 0.17 H 0.16 H Triglycerides Cholesterol Total LDL Cholesterol HDL Cholesterol TSH 08/13/17 05:10 Magnesium 1.9 Troponin I Triglycerides 162 H Cholesterol 174 Total LDL Cholesterol 121 H HDL Cholesterol 29 L TSH 1.92 EKG: atrial tachycardia/SVT. rbbb. inferolateral ST-Twave ab subsequent EKG's: atrial tach/atrial flutter with variable conduction, rbbb. improving ST t wave ab. tele: aflutter with variable conduction, vr 130's overnight, improved to 90's cxr wnl echo 08/2017: 1+ conc lvh. nl fn. RV not well seen. 1+ mr. rvsp 30-40. < 1 cm pericardial effusion. 81yo F with PMHx of HTN, HLD, PVD (s/p RLE angioplasty and R 2nd toe amputation) , who presented to the ER with dizziness and noted to be in aflutter with rvr. new aflutter - rate control with diltiazem 30 po qid uptitrate as needed, ac with eliquis - echo wnl - no signs of volume overload. s/p gentle hydration in ER --> normalization of cr. - lyte repletion, tsh wnl. mild troponin elevation - flat trend. + EKG changes when in RVR. No concern for acs, but likely demand in setting of underlying cad - medical mgm't, will start statin. ? timing of ischemic evaluation. htn - con't current regimen, monitor with uptitration PVD - statin, no asa (on AC). - [facility] - monitor wound for signs of infection.
--- NOTE | 2017-08-13 16:32 | EKG ---
Test Reason : Blood Pressure : / mmHG Vent. Rate : 144 BPM Atrial Rate : 076 BPM P-R Int : 000 ms QRS Dur : 122 ms QT Int : 310 ms P-R-T Axes : 000 038 -59 degrees QTc Int : 479 ms ATRIAL TACHYCARDIA RIGHT BUNDLE BRANCH BLOCK NO PREVIOUS ECGS AVAILABLE Confirmed by ELISEO ANTONIO MD ([id number]) on 08/13/2017 4:31:51 PM Referred By: Confirmed By:ELISEO ANTONIO MD
--- NOTE | 2017-08-13 16:36 | EKG ---
Test Reason : Blood Pressure : / mmHG Vent. Rate : 067 BPM Atrial Rate : 277 BPM P-R Int : 000 ms QRS Dur : 130 ms QT Int : 392 ms P-R-T Axes : 000 047 018 degrees QTc Int : 414 ms ATRIAL FLUTTER WITH VARIABLE A-V BLOCK RIGHT BUNDLE BRANCH BLOCK NONSPECIFIC T WAVE ABNORMALITY ABNORMAL ECG WHEN COMPARED WITH ECG OF 12-AUG-2017 08:40, VENT. RATE HAS DECREASED BY 77 BPM Confirmed by ELISEO ANTONIO MD ([id number]) on 08/13/2017 4:36:33 PM Referred By: Confirmed By:ELISEO ANTONIO MD
[2017-08-13] MEDS: dilTIAZem HCL 60 MG TABLET (FP) PO SCH (22:18)
--- NOTE | 2017-08-14 09:16 | PN ---
Progress Note (short form) - Note Progress Note: c/o palpitations assoc with chest tightness. symptoms at rest, has not gotten out of bed much. denies SOB, fever, chills, Cough, N/V/C/D Current Medications Generic Name Dose Route Start Last Admin Trade Name Aurelianoq PRN Reason Stop Dose Admin Apixaban 5 mg 08/12/17 22:00 08/13/17 22:17 Eliquis - PO 5 mg BID NIKUNJ Administration Diltiazem HCl 60 mg 08/13/17 22:00 08/13/17 22:18 Cardizem - PO 60 mg QID NIKUNJ Administration Last Vital Signs Temp Pulse Resp BP Pulse Ox 97.9 F 67 18 159/69 95 08/14/17 06:00 08/14/17 06:00 08/14/17 06:00 08/14/17 06:00 08/13/17 21:00 General NAD CV S1 S2 irregular irregular tachycardic Lungs CTA B/L no wheezing/rales/rhonchi Abdomen soft NT/ND Extremities trace pitting edema ASSESSMENT AND PLAN: 81yo F with PMHx of HTN (on 3 antihypertensives), HLD, PVD (s/p RLE angioplasty and R 2nd toe amputation), who presented to the ER with dizziness x3 days and found to be in SVT, was given adenosine which it broke into aflutter than afib 1. New onset afib with RVR- HR uncontrolled. 130-140. started on cardizem 60mg Q6H. received a total of 90mg yesterday. give AM dose of cardizem and monitor if remains above goal will increase cardizem. will need to consider synchornized cardioversion if HR does not improve over next 24H. on eliquis. Cardio on board. 2. Troponemia- Trop 0.22->0.17->0.16. likely demand ischemia due to RVR. no chest pain. may require ischemia eval. which can likely be done as outpatient. 3. DANIELA- baseline Cr normal. dehydration vs medication induced. now resolved. 4. HTN- currently normotensive. will hold home medications. on cardizem. will re -start as needed to optimize BP 5. dyslipidemia- statin 6. PVD- s/p stent 7. DVT ppx- eliquis Visit type - Emergency Visit Emergency Visit: Yes ED Registration Date: 08/12/17 Care time: The patient presented to the Emergency Department on the above date and was hospitalized for further evaluation of their emergent condition. - New Patient This patient is new to me today: No - Critical Care Critical Care patient: No - Discharge Referral Referred to [facility] Med [facility] No
[2017-08-14] MEDS: APIXABAN 5 MG TABLET PO SCH ×2 (09:46→21:40)
[2017-08-14] MEDS: dilTIAZem HCL 60 MG TABLET (FP) PO SCH ×3 (09:46→17:09)
[2017-08-14] MEDS ORDERED: dilTIAZem HCL 60 MG TABLET (FP) PO SCH ×3 (10:00→18:00)
--- NOTE | 2017-08-14 14:12 | PN ---
Progress Note (short form) - Note Progress Note: CC: new onset afib S: diltiazem uptitrated to 60 qid yesterday. HR reasonably controlled until this morning (written for QID and not q6h) diltiazem dosing and therefore did not receive diltiazem overnight. Current Medications Apixaban (Eliquis -) 5 mg PO BID [facility] Last Admin: 08/14/17 09:46 Dose: 5 mg Atorvastatin Calcium (Lipitor -) 80 mg PO HS [facility] Diltiazem HCl (Cardizem -) 60 mg PO Q6H [facility] Vital Signs - 24 hr 08/13/17 08/13/17 08/13/17 18:00 20:10 21:00 Temperature 98.0 F 98.2 F Pulse Rate 83 113 H Respiratory 19 18 Rate Blood Pressure 141/63 121/61 O2 Sat by Pulse 95 Oximetry (%) 08/14/17 08/14/17 08/14/17 02:00 06:00 09:00 Temperature 97.8 F 97.9 F Pulse Rate 88 67 Respiratory 18 18 18 Rate Blood Pressure 117/66 159/69 O2 Sat by Pulse 95 Oximetry (%) 08/14/17 10:00 Temperature 97.8 F Pulse Rate 135 H Respiratory 18 Rate Blood Pressure 162/75 O2 Sat by Pulse Oximetry (%) Intake & Output 08/12/17 08/13/17 08/14/17 08/15/17 08:59 08:59 07:59 07:59 Intake Total Balance Weight nad, calm jvd flat, neck supple ctab, nl effort irregularly, irregular, nl s1, s2 + bs soft nt nd ext without e/c/c diminishe dp/pt on right aaox3 no jaundice, diaphoresis. no CBC, BMP EKG: atrial tachycardia/SVT. rbbb. inferolateral ST-Twave ab subsequent EKG's: atrial tach/atrial flutter with variable conduction, rbbb. improving ST t wave ab. tele: aflutter with variable conduction, vr 60's-70's yesterday, then 120's this morning, now improved to 90's. cxr wnl echo 08/2017: 1+ conc lvh. nl fn. RV not well seen. 1+ mr. rvsp 30-40. < 1 cm pericardial effusion. 81yo F with PMHx of HTN, HLD, PVD (s/p RLE angioplasty and R 2nd toe amputation) , who presented to the ER with dizziness and noted to be in aflutter with rvr. new aflutter 08/14: HR uncontrolled this am b/c on QID dosing did not get meds from 10pm to 10 am. Corrected dosing to q6h. If HR still elevated will increase regimen to 90 mg q6h - ac with eliquis - echo wnl - no signs of volume overload. s/p gentle hydration in ER --> normalization of cr. - lyte repletion, tsh wnl. mild troponin elevation - flat trend. + EKG changes when in RVR. No concern for acs, but likely demand in setting of underlying cad - medical mgm't, will start statin. - Likely has underlying CAD, but too soon to hold diltiazem for stress testing. Plan on inpatient vs. outpatient stress testing pending stability of heart rate control. started on statin. No asa (on ac) htn - con't current regimen, monitor with uptitration PVD - statin, no asa (on AC). - [facility] - monitor wound for signs of infection. .
[2017-08-14 14:30] LABS: URINE CREATININE 89.2 mg/dL (20-320)
[2017-08-14] MEDS: ATORVASTATIN CA 80 MG TABLET (FP) PO SCH (21:40)
[2017-08-15] MEDS: dilTIAZem HCL 60 MG TABLET (FP) PO SCH ×6 (00:47→21:36)
--- NOTE | 2017-08-15 07:25 | PN ---
Physical Exam: SUBJECTIVE: Patient seen and examined. Did well overnight, but stated that after her dose of Cardizem at 6pm, she felt dizzy and chest pressure, no longer has it this AM. No fevers, chills, SOB. OBJECTIVE: Vital Signs Period Temp Pulse Resp BP Sys/Hu Pulse Ox Last 24 Hr 97.5 F-98.5 F 73-135 18-20 126-162/62-78 95-99 GEN: AAOx3, NAD, Not in respiratory distress HEENT: PERRLA, EOMI CV: S1, S2, tachycardic rate and irregularly irregular rhythm LUNG: CTABL ABD: Soft, NT, ND, normoactive BS MSK UE: No edema, no erythema, full ROM MSK LE: RLE - mild venous stasis, R 2nd toe amputation, +DP pulses, 1+ edema; LLE no amputation, no edema, no erythema, +DP pulses (weaker than R) NEURO: Strength and sensation intact, CN 2-12 grossly intact Laboratory Last Values WBC 4.7 K/mm3 (4.0-10.0) 08/13/17 05:10 RBC 3.72 M/mm3 (3.60-5.2) 08/13/17 05:10 Hgb 11.6 GM/dL (10.7-15.3) D 08/13/17 05:10 Hct 34.6 % (32.4-45.2) 08/13/17 05:10 MCV 93.0 fl (80-96) 08/13/17 05:10 MCH 31.1 pg (25.7-33.7) 08/13/17 05:10 MCHC 33.5 g/dl (32.0-36.0) 08/13/17 05:10 RDW 13.4 % (11.6-15.6) 08/13/17 05:10 Plt Count 174 K/MM3 (134-434) D 08/13/17 05:10 MPV 9.2 fl (7.5-11.1) 08/13/17 05:10 Neutrophils % 56.6 % (42.8-82.8) D 08/13/17 05:10 Lymphocytes % 32.6 % (8-40) D 08/13/17 05:10 Monocytes % 8.7 % (3.8-10.2) 08/13/17 05:10 Eosinophils % 1.2 % (0-4.5) D 08/13/17 05:10 Basophils % 0.9 % (0-2.0) 08/13/17 05:10 Sodium 140 mmol/L (136-145) 08/13/17 05:10 Potassium 4.0 mmol/L (3.5-5.1) 08/13/17 05:10 Chloride 109 mmol/L (98-107) H 08/13/17 05:10 Carbon Dioxide 25 mmol/L (21-32) 08/13/17 05:10 Anion Gap 6 (8-16) L 08/13/17 05:10 BUN 18 mg/dL (7-18) 08/13/17 05:10 Creatinine 1.0 mg/dL (0.55-1.02) D 08/13/17 05:10 Creat Clearance w eGFR 39.31 (>60) 08/12/17 09:00 Random Glucose 91 mg/dL (74-106) D 08/13/17 05:10 Hemoglobin A1c % 5.5 % (4.8-6.0) 08/13/17 05:10 Calcium 8.0 mg/dL (8.5-10.1) L 08/13/17 05:10 Phosphorus 3.2 mg/dL (2.5-4.9) 08/13/17 05:10 Magnesium 1.9 mg/dL (1.8-2.4) 08/13/17 05:10 Total Bilirubin 0.9 mg/dL (0.2-1.0) 08/12/17 09:00 AST 14 U/L (15-37) L 08/12/17 09:00 ALT 20 U/L (12-78) 08/12/17 09:00 Alkaline Phosphatase 114 U/L (45-117) 08/12/17 09:00 Creatine Kinase 59 IU/L (26-192) 08/12/17 20:30 Troponin I 0.16 ng/ml (0.00-0.05) H 08/12/17 20:30 B-Natriuretic Peptide 3318.03 pg/ml (5-450) H 08/12/17 09:00 Total Protein 8.3 g/dl (6.4-8.2) H 08/12/17 09:00 Albumin 4.2 g/dl (3.4-5.0) 08/12/17 09:00 Triglycerides 162 mg/dL (35-160) H 08/13/17 05:10 Cholesterol 174 mg/dL (50-200) 08/13/17 05:10 Total LDL Cholesterol 121 mg/dL (5-100) H 08/13/17 05:10 HDL Cholesterol 29 mg/dL (40-60) L 08/13/17 05:10 TSH 1.92 uIU/ml (0.358-3.74) 08/13/17 05:10 Urine Color Ltyellow 08/12/17 10:14 Urine Appearance Clear 08/12/17 10:14 Urine pH 7.0 (5.0-8.0) 08/12/17 10:14 Ur Specific [place] 1.012 (1.001-1.035) 08/12/17 10:14 Urine Protein 1+ (NEGATIVE) H 08/12/17 10:14 Urine Glucose (UA) Negative (NEGATIVE) 08/12/17 10:14 Urine Ketones Negative (NEGATIVE) 08/12/17 10:14 Urine Blood Negative (NEGATIVE) 08/12/17 10:14 Urine Nitrite Negative (NEGATIVE) 08/12/17 10:14 Urine Bilirubin Negative (NEGATIVE) 08/12/17 10:14 Urine Urobilinogen Negative mg/dL (0.2-1.0) 08/12/17 10:14 Ur Leukocyte Esterase Trace (NEGATIVE) H 08/12/17 10:14 Urine RBC 1 08/12/17 10:14 Urine WBC < 1 08/12/17 10:14 Ur Epithelial Cells Rare /HPF 08/12/17 10:14 Hyaline Casts 4 /lpf 08/12/17 10:14 Urine Mucus Rare 08/12/17 10:14 Ur Random Sodium 141 MMOL/L 08/14/17 13:56 Ur Random Potassium 32.1 MMOL/L 08/14/17 13:56 Ur Random Chloride 166 MMOL/L 08/14/17 13:56 Urine Creatinine 89.2 mg/dL (20-320) 08/14/17 13:56 Active Medications Generic Name Dose Route Start Last Admin Trade Name Freq PRN Reason Stop Dose Admin Apixaban 5 mg 08/12/17 22:00 08/14/17 21:40 Eliquis - PO 5 mg BID NIKUNJ Administration Atorvastatin Calcium 80 mg 08/14/17 22:00 08/14/17 21:40 Lipitor - PO 80 mg HS NIKUNJ Administration Diltiazem HCl 90 mg 08/14/17 18:00 08/15/17 06:31 Cardizem - PO 90 mg Q6HPO NIKUNJ Administration ASSESSMENT/PLAN: Ms Méndez is an 81yo F with PMHx of HTN (on 3 antihypertensives), HLD, PVD (s/p RLE angioplasty and R 2nd toe amputation), who presented to the ER with dizziness and palpitations for the past few days, found to have Afib. # Atrial Fibrillation - New onset, presented in RVR, likely 2/2 ischemic HD, TSH wnl, Echo wnl, on Eliquis 5m BID - Rate controlled on Cardizem 90mg Q6H, but pt feels dizzy, per Cardio reccs , will decrease to 60mg Q6H. Also felt chest pressure, but troponins are trending down. - Scheduled for persantine stress test tmrw (NPO after midnight, no need to hold Cardizem) # Elevated Troponins - trending down, was likely 2/2 demand ischemia from Afib w / RVR # DANIELA - resolved, B/L 1.0 according to PCP, resolved w/ fluids # HTN - well controlled, reduced Cardizem to 60mg Q6H, hold home meds (Valsartan , Toprol, Norvasc), monitor BP on lowered dose # HLD - lipid panel ordered, LDL >100, started on Lipitor 80mg QHS # FEN - No IVF, electrolytes wnl, sodium controlled diet for now, NPO after midnight for stress test # PPx - On Eliquis, No GI ppx, PT not needed huseyin, pt is ambulatory # Dispo Get HR and symptoms under control, nuclear stress test 08/16 as per Cardio d/w Dr Mendes and Dr. Natalya Lombardo MD - PGY1 Internal Medicine Visit type - Emergency Visit Emergency Visit: No - New Patient This patient is new to me today: No - Critical Care Critical Care patient: No - Discharge Referral Referred to [facility] Med P.C.: No
[2017-08-15] MEDS: APIXABAN 5 MG TABLET PO SCH ×2 (09:51→21:36)
[2017-08-15 10:38] LABS: BASOPHIL 0.9 % (0-2.0); MCH 30.7 pg (25.7-33.7); MCHC 33.1 g/dl (32.0-36.0); MEAN CELL VOLUME 92.7 fl (80-96); MEAN PLT VOLUME 9.1 fl (7.5-11.1); PLATELET COUNT 200 K/MM3 (134-434); RDW 13.6 % (11.6-15.6); WHITE BLOOD COUNT 6.3 K/mm3 (4.0-10.0)
[2017-08-15 11:02] LABS: ANION GAP 12 (8-16); CALCIUM 8.8 mg/dL (8.5-10.1); CO2 22 mmol/L (21-32); GLUCOSE,RANDOM 113 mg/dL (74-106)
[2017-08-15 12:13] LABS: CPK 65 IU/L (26-192); TROPONIN I 0.07 ng/ml (0.00-0.05)
--- NOTE | 2017-08-15 12:22 | PN ---
Progress Note, Physician Chief Complaint: afib History of Present Illness: transient dizziness and bilat chest heaviness yest pm after diltiazem dose given no more of these sx's today no sob, orthopnea no palpitations never cigs - Current Medication List Current Medications: Active Medications Apixaban (Eliquis -) 5 mg PO BID [facility] Last Admin: 08/15/17 09:51 Dose: 5 mg Atorvastatin Calcium (Lipitor -) 80 mg PO HS [facility] Last Admin: 08/14/17 21:40 Dose: 80 mg Diltiazem HCl (Cardizem -) 90 mg PO Q6HPO [facility] Last Admin: 08/15/17 06:31 Dose: 90 mg - Objective Vital Signs: Vital Signs Temperature 97.8 F 08/15/17 10:00 Pulse Rate 80 08/15/17 10:00 Respiratory Rate 18 08/15/17 10:00 Blood Pressure 148/69 08/15/17 10:00 O2 Sat by Pulse Oximetry (%) 99 08/15/17 09:00 Constitutional: Yes: No Distress, Calm, Obese Eyes: No: Sclera Icterus HENT: No: Nasal Congestion Cardiovascular: Yes: Pulse Irregular, S1, S2, Other (PMI non diplaced). No: JVD , Gallop, Murmur Respiratory: Yes: CTA Bilaterally. No: Accessory Muscle Use, Rales, Wheezes Gastrointestinal: Yes: Normal Bowel Sounds, Soft. No: Tenderness Musculoskeletal: Yes: Other (No kyphosis) Extremities: No: Cold Edema: No Integumentary: No: Jaundice Neurological: Yes: Alert, Oriented (x3) Psychiatric: No: Agitated Labs: CBC, BMP 08/15/17 10:10 08/15/17 10:10 - ....Imaging EKG: Other (afib, HR 60s-70s) Assessment/Plan EKG: atrial tachycardia/SVT. rbbb. inferolateral ST-Twave ab subsequent EKG's: atrial tach/atrial flutter with variable conduction, rbbb. improving ST t wave ab. cxr: clear lungs/pleura echo 08/2017: 1+ conc lvh. nl LV fn. RV not well seen. 1+ mr. rvsp 30-40. < 1 cm pericardial effusion. 81yo F with PMHx of HTN, HLD, PVD (s/p RLE angioplasty and R 2nd toe amputation) , who presented to the ER with dizziness and noted to be in aflutter with rvr. new aflutter -08/14: HR uncontrolled on diltiazem 60mg QID, then q6h schedule--incr'd to 90mg q6h. -08/25: pt became dizzy after 90mg dose this am; HRs 60s-70s--change back to 60mg q6h -cont ac with eliquis - echo wnl mild troponin elevation - flat trend. + EKG changes when in RVR. not c/w ACS--likely demand ischemia in setting of underlying cad - atyp sx's here (chest heaviness after diltiazem dose, assctd with dizziness) - cont statin. - no ASA (on AC) - rec risk stratification with nuclear stress test (pharm) without holding CCB-- ordered for 08/16 htn - con't current regimen, monitor with uptitration PVD - statin, no asa (on AC). - [facility] - per hospitalist
--- NOTE | 2017-08-15 13:18 | PN ---
Teaching Attending Note Name of Resident: Nubia Lombardo ATTENDING PHYSICIAN STATEMENT I saw and evaluated the patient. I reviewed the resident's note and discussed the case with the resident. I agree with the resident's findings and plan as documented. SUBJECTIVE:c/o dizziness assoc with chest pressure after getting cardizem dose last night. no repeat in symptoms. have not gotten out of bed much since hospitalization and unable to assess if she has on exertion. denies fever, chills, cough, N/V/C/D OBJECTIVE: Last Vital Signs Temp Pulse Resp BP Pulse Ox 97.8 F 80 18 148/69 99 08/15/17 10:00 08/15/17 10:00 08/15/17 10:00 08/15/17 10:00 08/15/17 09:00 General NAD CV S1 S2 irregular irregular Lungs CTA B/L no wheezing/rales/rhonchi ASSESSMENT AND PLAN: 81yo F with PMHx of HTN (on 3 antihypertensives), HLD, PVD (s/p RLE angioplasty and R 2nd toe amputation), who presented to the ER with dizziness x3 days and found to be in SVT, was given adenosine which it broke into aflutter than afib 1. New onset afib with RVR- HR controlled. symptomatic may be due to decreased HR. will check cardiac markers to ensure no more demand on the heart due to persistent tachycardia the past few days. spoke with cardio. agree with decreasing cardizem dose to 60mg (was increased to 90mg last night) and monitoring. NPO for NMST in the AM. on eliquis. 2. Troponemia- Trop 0.22->0.17->0.16. likely demand ischemia due to RVR. repeat troponin now. NMST in the AM 3. DANIELA- baseline Cr normal. dehydration vs medication induced. now resolved. 4. HTN- currently normotensive. will hold home medications. on cardizem. will re -start as needed to optimize BP 5. dyslipidemia- statin 6. PVD- s/p stent 7. DVT ppx- eliquis
[2017-08-15] MEDS: ATORVASTATIN CA 80 MG TABLET (FP) PO SCH (21:36)
--- NOTE | 2017-08-16 08:38 | PN ---
Physical Exam: SUBJECTIVE: Patient seen and examined. Asymptomatic. No CP, SOB, fevers, chills. States that she doesnt feel dizzy, but hasn't walked far since PT saw her yesterday. On tele, no VT, pt is 70s-80s while awake, and 40s-50s at times w / some 2 sec pauses. OBJECTIVE: Vital Signs Period Temp Pulse Resp BP Sys/Hu Pulse Ox Last 24 Hr 97.8 F-99.3 F 55-96 18-19 128-152/57-77 99-99 GEN: AAOx3, NAD, Not in respiratory distress HEENT: PERRLA, EOMI CV: S1, S2, tachycardic rate and irregularly irregular rhythm LUNG: CTABL ABD: Soft, NT, ND, normoactive BS MSK UE: No edema, no erythema, full ROM MSK LE: RLE - mild venous stasis, R 2nd toe amputation, +DP pulses, 1+ edema; LLE no amputation, no edema, no erythema, +DP pulses NEURO: Strength and sensation intact, CN 2-12 grossly intact Laboratory Last Values WBC 6.3 K/mm3 (4.0-10.0) D 08/15/17 10:10 RBC 3.76 M/mm3 (3.60-5.2) 08/15/17 10:10 Hgb 11.5 GM/dL (10.7-15.3) 08/15/17 10:10 Hct 34.8 % (32.4-45.2) 08/15/17 10:10 MCV 92.7 fl (80-96) 08/15/17 10:10 MCH 30.7 pg (25.7-33.7) 08/15/17 10:10 MCHC 33.1 g/dl (32.0-36.0) 08/15/17 10:10 RDW 13.6 % (11.6-15.6) 08/15/17 10:10 Plt Count 200 K/MM3 (134-434) 08/15/17 10:10 MPV 9.1 fl (7.5-11.1) 08/15/17 10:10 Neutrophils % 64.0 % (42.8-82.8) 08/15/17 10:10 Lymphocytes % 25.8 % (8-40) D 08/15/17 10:10 Monocytes % 8.3 % (3.8-10.2) 08/15/17 10:10 Eosinophils % 1.0 % (0-4.5) 08/15/17 10:10 Basophils % 0.9 % (0-2.0) 08/15/17 10:10 Sodium 139 mmol/L (136-145) 08/15/17 10:10 Potassium 3.8 mmol/L (3.5-5.1) 08/15/17 10:10 Chloride 105 mmol/L (98-107) 08/15/17 10:10 Carbon Dioxide 22 mmol/L (21-32) 08/15/17 10:10 Anion Gap 12 (8-16) 08/15/17 10:10 BUN 15 mg/dL (7-18) 08/15/17 10:10 Creatinine 1.0 mg/dL (0.55-1.02) 08/15/17 10:10 Creat Clearance w eGFR 39.31 (>60) 08/12/17 09:00 Random Glucose 113 mg/dL (74-106) H D 08/15/17 10:10 Hemoglobin A1c % 5.5 % (4.8-6.0) 08/13/17 05:10 Calcium 8.8 mg/dL (8.5-10.1) 08/15/17 10:10 Phosphorus 3.2 mg/dL (2.5-4.9) 08/13/17 05:10 Magnesium 1.9 mg/dL (1.8-2.4) 08/13/17 05:10 Total Bilirubin 0.9 mg/dL (0.2-1.0) 08/12/17 09:00 AST 14 U/L (15-37) L 08/12/17 09:00 ALT 20 U/L (12-78) 08/12/17 09:00 Alkaline Phosphatase 114 U/L (45-117) 08/12/17 09:00 Creatine Kinase 65 IU/L (26-192) 08/15/17 10:10 Troponin I 0.07 ng/ml (0.00-0.05) H 08/15/17 10:10 B-Natriuretic Peptide 3318.03 pg/ml (5-450) H 08/12/17 09:00 Total Protein 8.3 g/dl (6.4-8.2) H 08/12/17 09:00 Albumin 4.2 g/dl (3.4-5.0) 08/12/17 09:00 Triglycerides 162 mg/dL (35-160) H 08/13/17 05:10 Cholesterol 174 mg/dL (50-200) 08/13/17 05:10 Total LDL Cholesterol 121 mg/dL (5-100) H 08/13/17 05:10 HDL Cholesterol 29 mg/dL (40-60) L 08/13/17 05:10 TSH 1.92 uIU/ml (0.358-3.74) 08/13/17 05:10 Urine Color Ltyellow 08/12/17 10:14 Urine Appearance Clear 08/12/17 10:14 Urine pH 7.0 (5.0-8.0) 08/12/17 10:14 Ur Specific [place] 1.012 (1.001-1.035) 08/12/17 10:14 Urine Protein 1+ (NEGATIVE) H 08/12/17 10:14 Urine Glucose (UA) Negative (NEGATIVE) 08/12/17 10:14 Urine Ketones Negative (NEGATIVE) 08/12/17 10:14 Urine Blood Negative (NEGATIVE) 08/12/17 10:14 Urine Nitrite Negative (NEGATIVE) 08/12/17 10:14 Urine Bilirubin Negative (NEGATIVE) 08/12/17 10:14 Urine Urobilinogen Negative mg/dL (0.2-1.0) 08/12/17 10:14 Ur Leukocyte Esterase Trace (NEGATIVE) H 08/12/17 10:14 Urine RBC 1 08/12/17 10:14 Urine WBC < 1 08/12/17 10:14 Ur Epithelial Cells Rare /HPF 08/12/17 10:14 Hyaline Casts 4 /lpf 08/12/17 10:14 Urine Mucus Rare 08/12/17 10:14 Ur Random Sodium 141 MMOL/L 08/14/17 13:56 Ur Random Potassium 32.1 MMOL/L 08/14/17 13:56 Ur Random Chloride 166 MMOL/L 08/14/17 13:56 Urine Creatinine 89.2 mg/dL (20-320) 08/14/17 13:56 Active Medications Generic Name Dose Route Start Last Admin Trade Name Freq PRN Reason Stop Dose Admin Apixaban 5 mg 08/12/17 22:00 08/15/17 21:36 Eliquis - PO 5 mg BID NIKUNJ Administration Atorvastatin Calcium 80 mg 08/14/17 22:00 08/15/17 21:36 Lipitor - PO 80 mg HS NIKUNJ Administration Diltiazem HCl 60 mg 08/15/17 14:00 08/15/17 21:36 Cardizem - PO 60 mg QID NIKUNJ Administration ASSESSMENT/PLAN: Ms Méndez is an 81yo F with PMHx of HTN (on 3 antihypertensives), HLD, PVD (s/p RLE angioplasty and R 2nd toe amputation), who presented to the ER with dizziness and palpitations for the past few days, found to have Afib. # Atrial Fibrillation - New onset, presented in RVR, likely 2/2 ischemic HD, TSH wnl, Echo wnl, on Eliquis 5m BID - On Cardizem 60mg Q6H, pauses < 3 sec at night, pt is tachy (130s-140s) w/ activity, d/w [place], not concerning, will keep current dose - Persantine stress test today # Elevated Troponins - trending down, was likely 2/2 demand ischemia from Afib w / RVR # DANIELA - resolved w/ fluids # HTN - well controlled, on Cardizem, continue to hold home meds (Valsartan, Toprol, Norvasc) # HLD - LDL >100, started on Lipitor 80mg QHS # FEN - No IVF, elec wnl, NPO for stress test # PPx - On Eliquis, No GI ppx, PT ordered. Pt walks 50ft, limited by dizziness # Dispo Continue controlling HR, stress test today d/w Dr Andrews and Dr. Willie Lombardo MD - PGY1 Internal Medicine Visit type - Emergency Visit Emergency Visit: No - New Patient This patient is new to me today: No - Critical Care Critical Care patient: No - Discharge Referral Referred to [facility] Med P.C.: No
--- NOTE | 2017-08-16 09:14 | EKG ---
Test Reason : Blood Pressure : / mmHG Vent. Rate : 088 BPM Atrial Rate : 086 BPM P-R Int : 000 ms QRS Dur : 124 ms QT Int : 400 ms P-R-T Axes : 000 046 006 degrees QTc Int : 484 ms ATRIAL FLUTTER WITH VARIABLE A-V BLOCK RIGHT BUNDLE BRANCH BLOCK NONSPECIFIC T WAVE ABNORMALITY ABNORMAL ECG WHEN COMPARED WITH ECG OF 12-AUG-2017 14:52, NO SIGNIFICANT CHANGE WAS FOUND Confirmed by PACO ROSADO, ELISEO ([id number]) on 08/16/2017 9:14:04 AM Referred By: Confirmed By:ELISEO ANTONIO MD
[2017-08-16] MEDS ORDERED: DIPYRIDAMOLE STRESS TEST IVPB ONE (10:30)
[2017-08-16] MEDS ORDERED: WATER IVPB ONE (10:30)
[2017-08-16] MEDS ORDERED: DEXTROSE 5% IVPB ONE (10:30)
--- NOTE | 2017-08-16 12:25 | PN ---
Teaching Attending Note Name of Resident: Nubia Lombardo ATTENDING PHYSICIAN STATEMENT I saw and evaluated the patient. I reviewed the resident's note and discussed the case with the resident. I agree with the resident's findings and plan as documented. SUBJECTIVE: patient seen and examined, came back from stress test, no complaints. Denies any chest pain, palpitations, dyspnea, dizziness, abdominal or urinary symptoms. OBJECTIVE: Vital Signs Period Temp Pulse Resp BP Sys/Hu Pulse Ox Last 24 Hr 97.5 F-99.3 F 55-96 18-19 128-152/57-77 99-99 Intake & Output 08/14/17 08/14/17 08/15/17 08/16/17 00:59 23:59 23:59 23:59 Intake Total 1070 10 Balance 1070 10 Home Medication List Medication Instructions Recorded Confirmed Type Amlodipine Besylate 5 mg PO DAILY 03/30/17 08/12/17 History Valsartan 320 mg PO DAILY 03/30/17 08/12/17 History Metoprolol Tartrate 12.5 mg PO DAILY 08/12/17 08/12/17 History Active Medications Generic Name Dose Route Start Last Admin Trade Name Freq PRN Reason Stop Dose Admin Apixaban 5 mg 08/12/17 22:00 08/15/17 21:36 Eliquis - PO 5 mg BID NIKUNJ Administration Atorvastatin Calcium 80 mg 08/14/17 22:00 08/15/17 21:36 Lipitor - PO 80 mg HS NIKUNJ Administration Diltiazem HCl 60 mg 08/15/17 14:00 08/15/17 21:36 Cardizem - PO 60 mg QID NIKUNJ Administration ASSESSMENT AND PLAN: 81 yof with HTN, HLD, PVD (RLE angioplasty with right 2nd toe amputation) admitted with dizziness x 3 days, initially SVT, s/p adenosis, broke into atrial flutter then atrial fibrillation -Atrial fibrillation with RVR -Possible tachy monalisa syndrome on cardizem (with upto 2 sec pauses on telemetry) -Elevated troponin, suspect demand induced type II NSTEMI from rapid AFib, with EKG changes suggests underlying CAD -HTN Plan: Cardizem decreased, follow up with cardiology. Continue eliquis. follow up stress test results. Continue statin. HOld additional anti-hypertensives for now. Dispo planning pending stress test and rate control. PT eval.
[2017-08-16] MEDS ORDERED: WATER IVPUSH ONE (12:45)
[2017-08-16] MEDS ORDERED: DEXTROSE 5% IVPUSH ONE (12:45)
[2017-08-16] MEDS ORDERED: AMINOPHYLLINE IVPUSH ONE (12:45)
[2017-08-16] MEDS: APIXABAN 5 MG TABLET PO SCH ×2 (13:14→22:08)
[2017-08-16] MEDS: dilTIAZem HCL 60 MG TABLET (FP) PO SCH ×4 (13:14→22:08)
[2017-08-16] MEDS: ATORVASTATIN CA 80 MG TABLET (FP) PO SCH (22:07)
--- NOTE | 2017-08-17 08:58 | PN ---
Physical Exam: SUBJECTIVE: Patient seen and examined. States overnight no events, but this AM while eating breakfast and talking she felt dizzy. HR at the time was 110s- 140s. Overnight she was 90s in late afternoon, 60s while sleeping OBJECTIVE: Vital Signs Period Temp Pulse Resp BP Sys/Hu Pulse Ox Last 24 Hr 97.8 F-98.7 F 77-144 18-18 118-160/41-81 99-99 GEN: AAOx3, NAD, Not in respiratory distress HEENT: PERRLA, EOMI CV: S1, S2, tachycardic rate and irregularly irregular rhythm LUNG: CTABL ABD: Soft, NT, ND, normoactive BS MSK UE: No edema, no erythema, full ROM MSK LE: RLE - mild venous stasis, R 2nd toe amputation, +DP pulses, 1+ edema; LLE no amputation, no edema, no erythema, +DP pulses NEURO: Strength and sensation intact, CN 2-12 grossly intact Active Medications Generic Name Dose Route Start Last Admin Trade Name Aurelianoq PRN Reason Stop Dose Admin Apixaban 5 mg 08/12/17 22:00 08/17/17 10:06 Eliquis - PO 5 mg BID NIKUNJ Administration Atorvastatin Calcium 80 mg 08/14/17 22:00 08/16/17 22:07 Lipitor - PO 80 mg HS NIKUNJ Administration Metoprolol Succinate 50 mg 08/17/17 14:06 Toprol Xl - PO BID NIKUNJ ASSESSMENT/PLAN: Ms Méndez is an 81yo F with PMHx of HTN (on 3 antihypertensives), HLD, PVD (s/p RLE angioplasty and R 2nd toe amputation), who presented to the ER with dizziness and palpitations for the past few days, found to have Afib. # Atrial Fibrillation - New onset, presented in RVR, likely 2/2 ischemic HD, TSH wnl, Echo wnl, on Eliquis 5m BID - On Cardizem 60mg Q6H, pt tachy with minimal mvmt (110s-140s) w/ dizziness. Spoke to Cardio, change to Metoprolol XL 50mg BID - Persantine stress test shows small subtle anteroseptal wall defects, cannot r/o ischemia, insignificant as per Cardio # Elevated Troponins - trending down, was likely 2/2 demand ischemia from Afib w / RVR # DANIELA - resolved w/ fluids # HTN - well controlled, on Cardizem, continue to hold home meds (Valsartan, Toprol, Norvasc) # HLD - LDL >100, started on Lipitor 80mg QHS # FEN - No IVF, elec wnl, sodium controlled diet # PPx - On Eliquis, No GI ppx, PT ordered. Pt walks 50ft, limited by dizziness # Dispo Continue controlling HR, since pt gets tachy w/ movement, changed Cardizem to Toprol XL, as per Cardio no need to cardiovert huseyin d/w Dr Andrews and Dr Sheyla Lombardo MD - PGY1 Internal Medicine Visit type - Emergency Visit Emergency Visit: No - New Patient This patient is new to me today: No - Critical Care Critical Care patient: No - Discharge Referral [facility] Med [facility] No
[2017-08-17] MEDS: dilTIAZem HCL 60 MG TABLET (FP) PO SCH ×2 (10:06→14:17)
[2017-08-17] MEDS: APIXABAN 5 MG TABLET PO SCH ×2 (10:06→21:28)
--- NOTE | 2017-08-17 11:47 | PN ---
Progress Note (short form) - Note Progress Note: Chief Complaint: afib History of Present Illness: no cp sob palps; +dizzy Current Medications Generic Name Dose Route Start Last Admin Trade Name Daniella PRN Reason Stop Dose Admin Apixaban 5 mg 08/12/17 22:00 08/17/17 10:06 Eliquis - PO 5 mg BID NIKUNJ Administration Atorvastatin Calcium 80 mg 08/14/17 22:00 08/16/17 22:07 Lipitor - PO 80 mg HS NIKUNJ Administration Diltiazem HCl 60 mg 08/15/17 14:00 08/17/17 10:06 Cardizem - PO 60 mg QID NIKUNJ Administration Vital Signs Period Temp Pulse Resp BP Sys/Hu Pulse Ox Last 24 Hr 97.8 F-98.7 F 77-144 18-18 118-160/41-81 99 Constitutional: Yes: No Distress, Calm, Obese Eyes: No: Sclera Icterus HENT: No: Nasal Congestion Cardiovascular: Yes: Pulse Irregular, S1, S2, Other (PMI non diplaced). No: JVD , Gallop, Murmur Respiratory: Yes: CTA Bilaterally. No: Accessory Muscle Use, Rales, Wheezes Gastrointestinal: Yes: Normal Bowel Sounds, Soft. No: Tenderness Musculoskeletal: Yes: Other (No kyphosis) Extremities: No: Cold Edema: No Integumentary: No: Jaundice Neurological: Yes: Alert, Oriented (x3) Psychiatric: No: Agitated Labs: CBC, BMP 08/15/17 10:10 08/15/17 10:10 - ....Imaging EKG: Other (afib, HR controlled) EKG: atrial tachycardia/SVT. rbbb. inferolateral ST-Twave ab subsequent EKG's: atrial tach/atrial flutter with variable conduction, rbbb. improving ST t wave ab. cxr: clear lungs/pleura echo 08/2017: 1+ conc lvh. nl LV fn. RV not well seen. 1+ mr. rvsp 30-40. < 1 cm pericardial effusion. a/p: 81yo F with PMHx of HTN, HLD, PVD (s/p RLE angioplasty and R 2nd toe amputation), who presented to the ER with dizziness and noted to be in aflutter with rvr. new aflutter -rate controlled on dilt -echo wnl -cont ac with eliquis mild troponin elevation - flat trend. + EKG changes when in RVR. not c/w ACS--likely demand ischemia in setting of underlying cad - atyp sx's here (chest heaviness after diltiazem dose, assctd with dizziness) - cont statin. - no ASA (on AC) - rec risk stratification with nuclear stress test-->done here and showed no significant ischemia. htn -stable PVD - statin, no asa (on AC). - [facility] - per hospitalist
--- NOTE | 2017-08-17 12:58 | PN ---
Teaching Attending Note Name of Resident: Nubia Lombardo ATTENDING PHYSICIAN STATEMENT Time of evaluation: 10:30 AM I saw and evaluated the patient. I reviewed the resident's note and discussed the case with the resident. I agree with the resident's findings and plan as documented. SUBJECTIVE: Patient seen and examined. Had an episode of dizziness earlier today while having breakfast, last episode yesterday afternoon. Otherwise feels well. OBJECTIVE: Vital Signs Period Temp Pulse Resp BP Sys/Hu Pulse Ox Last 24 Hr 97.8 F-98.7 F 77-144 18-18 118-160/41-81 99 Intake & Output 08/14/17 08/15/17 08/16/17 08/17/17 23:59 23:59 23:59 23:59 Intake Total 1070 400 Balance 1070 400 General: sitting in bed in no acute distress CVS S1S2 irregularly irregular Chest CTAB, no rales or wheezing abdomen soft, obese, NT Extremities no edema Home Medication List Medication Instructions Recorded Confirmed Type Amlodipine Besylate 5 mg PO DAILY 03/30/17 08/12/17 History Valsartan 320 mg PO DAILY 03/30/17 08/12/17 History Metoprolol Tartrate 12.5 mg PO DAILY 08/12/17 08/12/17 History Active Medications Generic Name Dose Route Start Last Admin Trade Name Aurelianoq PRN Reason Stop Dose Admin Apixaban 5 mg 08/12/17 22:00 08/17/17 10:06 Eliquis - PO 5 mg BID NIKUNJ Administration Atorvastatin Calcium 80 mg 08/14/17 22:00 08/16/17 22:07 Lipitor - PO 80 mg HS NIKUNJ Administration Diltiazem HCl 60 mg 08/15/17 14:00 08/17/17 10:06 Cardizem - PO 60 mg QID NIKUNJ Administration Stress test small subtle anteroseptal wall defect ASSESSMENT AND PLAN: 81 yof with HTN, HLD, PVD (RLE angioplasty with right 2nd toe amputation) admitted with dizziness x 3 days, initially SVT, s/p adenosine, broke into atrial flutter then atrial fibrillation -Atrial fibrillation with RVR -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 INtermittent tachycardia, overall corelates with symptoms of dizziness. Dr. Carrion to discuss further plan, ?cardioversion given intermittent tachy 140s with symptoms. Continue eliquis Stress test noted, Continue medical management and follow up with cardiology. Continue statin. Hold additional anti-hypertensives for now. Dispo pending HR control and cardiology input. PLan discussed with patient in detail, all questions answered.
--- NOTE | 2017-08-17 13:25 | EKG ---
Test Reason : Blood Pressure : / mmHG Vent. Rate : 089 BPM Atrial Rate : 300 BPM P-R Int : 000 ms QRS Dur : 136 ms QT Int : 366 ms P-R-T Axes : 000 052 -26 degrees QTc Int : 445 ms ATRIAL FLUTTER WITH VARIABLE A-V BLOCK RIGHT BUNDLE BRANCH BLOCK NONSPECIFIC T WAVE ABNORMALITY ABNORMAL ECG WHEN COMPARED WITH ECG OF 12-AUG-2017 14:58, NO SIGNIFICANT CHANGE WAS FOUND Confirmed by PACO ROSADO, ELISEO ([id number]) on 08/17/2017 1:25:10 PM Referred By: Esthela FERRIS Confirmed By:ELISEO ANTONIO MD
[2017-08-17] MEDS: METOPROLOL SUCCINATE 50 MG TAB.SR.24H (FP) PO SCH ×2 (14:21→21:28)
[2017-08-17] MEDS: ATORVASTATIN CA 80 MG TABLET (FP) PO SCH (21:28)
[2017-08-18] MEDS: APIXABAN 5 MG TABLET PO SCH ×2 (11:05→21:13)
[2017-08-18] MEDS: METOPROLOL SUCCINATE 50 MG TAB.SR.24H (FP) PO SCH (11:05)
--- NOTE | 2017-08-18 11:25 | PN ---
Teaching Attending Note Name of Resident: Nubia Lombardo ATTENDING PHYSICIAN STATEMENT Time of evaluation: 9:30 AM I saw and evaluated the patient. I reviewed the resident's note and discussed the case with the resident. I agree with the resident's findings and plan as documented. SUBJECTIVE: Patient seen and examined. Feels weak and dizzy after walking from bed to the chair. Was fine this AM, while walking but some dizziness prior to visit, feeling better now. No chest pain or dyspnea noted. OBJECTIVE: Vital Signs Period Temp Pulse Resp BP Sys/Hu Pulse Ox Last 24 Hr 97.9 F-98.4 F 64-98 18-20 129-144/65-81 96 Intake & Output 08/15/17 08/16/17 08/17/17 08/18/17 23:59 23:59 23:59 23:59 Intake Total 1070 400 0 Balance 1070 400 0 General: sitting in chair, no acute distress CVS S1S2 irregular rapid Chest CTAB, no rales or wheezing abdomen soft, obese, non tender Extremities no edema Home Medication List Medication Instructions Recorded Confirmed Type Amlodipine Besylate 5 mg PO DAILY 03/30/17 08/12/17 History Valsartan 320 mg PO DAILY 03/30/17 08/12/17 History Metoprolol Tartrate 12.5 mg PO DAILY 08/12/17 08/12/17 History Active Medications Generic Name Dose Route Start Last Admin Trade Name Freq PRN Reason Stop Dose Admin Apixaban 5 mg 08/12/17 22:00 08/18/17 11:05 Eliquis - PO 5 mg BID NIKUNJ Administration Atorvastatin Calcium 80 mg 08/14/17 22:00 08/17/17 21:28 Lipitor - PO 80 mg HS NIKUNJ Administration Metoprolol Succinate 50 mg 08/17/17 14:06 08/18/17 11:05 Toprol Xl - PO 50 mg BID NIKUNJ Administration ASSESSMENT AND PLAN: 81 yof with HTN, HLD, PVD (RLE angioplasty with right 2nd toe amputation) admitted with dizziness x 3 days, initially SVT, s/p adenosine, broke into atrial flutter then atrial fibrillation -Atrial fibrillation with RVR -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 Still symptomatic tachycardia with minimal activity, discussed with cardiology, increase metoprolol to 75 mg BID, follow up if will need cardioversion if persistent tachycardia and medications limited by bradycardia. Continue eliquis. Interval labs to check lytes. Stress test noted, Continue medical management and follow up with cardiology. Continue statin. Hold additional anti-hypertensives for now. Dispo pending HR control and cardiology input. PLan discussed with patient in detail, all questions answered.
--- NOTE | 2017-08-18 11:47 | PN ---
Physical Exam: SUBJECTIVE: Patient seen and examined. Doing well this AM. No events overnight. HR was in 70s throughout night. Walked with pt this AM, HR went up to 120s, with some dizziness afterwards. No CP, SOB, fevers, chills. OBJECTIVE: Vital Signs Period Temp Pulse Resp BP Sys/Hu Pulse Ox Last 24 Hr 97.9 F-98.4 F 64-98 18-20 129-144/65-81 96 GEN: AAOx3, NAD, Not in respiratory distress HEENT: PERRLA, EOMI CV: S1, S2, tachycardic rate and irregularly irregular rhythm LUNG: CTABL ABD: Soft, NT, ND, normoactive BS MSK UE: No edema, no erythema, full ROM MSK LE: RLE - mild venous stasis, R 2nd toe amputation, +DP pulses, 1+ edema; LLE no amputation, no edema, no erythema, +DP pulses NEURO: Strength and sensation intact, CN 2-12 grossly intact Active Medications Generic Name Dose Route Start Last Admin Trade Name Aurelianoq PRN Reason Stop Dose Admin Apixaban 5 mg 08/12/17 22:00 08/18/17 11:05 Eliquis - PO 5 mg BID NIKUNJ Administration Atorvastatin Calcium 80 mg 08/14/17 22:00 08/17/17 21:28 Lipitor - PO 80 mg HS NIKUNJ Administration Metoprolol Succinate 50 mg 08/17/17 14:06 08/18/17 11:05 Toprol Xl - PO 50 mg BID NIKUNJ Administration ASSESSMENT/PLAN: Ms Méndez is an 81yo F with PMHx of HTN (on 3 antihypertensives), HLD, PVD (s/p RLE angioplasty and R 2nd toe amputation), who presented to the ER with dizziness and palpitations for the past few days, found to have Afib. # Atrial Fibrillation - New onset, presented in RVR, likely 2/2 ischemic HD, TSH wnl, Echo wnl, on Eliquis 5m BID - With Metoprolol XL 50mg BID, pt still still tachy (120s) + dizzy w/ minimal effort, spoke to Dr. Carrion (cardio), will change to Metoprolol XL 75mg BID - Persantine stress test shows insignificant small subtle anteroseptal wall defects # Elevated Troponins - trended down, was likely 2/2 demand ischemia from Afib w / RVR # DANIELA - resolved w/ fluids # HTN - well controlled, on Cardizem, continue to hold home meds (Valsartan, Toprol, Norvasc) # HLD - LDL >100, started on Lipitor 80mg QHS # FEN - No IVF, elec wnl, sodium controlled diet # PPx - On Eliquis, No GI ppx, PT ordered. Pt walks 50ft, limited by dizziness # Dispo Since pt gets tachy w/ movement, increased dose Metoprolol XL 75mg BID , as per Cardio no need to cardiovert huseyin, will likely d/c tmrw if HR is controlled w/ movement on new Toprol dose. d/w Dr Andrews and Dr Sheyla Lombardo MD - PGY1 Internal Medicine Visit type - Emergency Visit Emergency Visit: No - New Patient This patient is new to me today: No - Critical Care Critical Care patient: No - Discharge Referral Referred to [facility] No
--- NOTE | 2017-08-18 12:36 | PN ---
Progress Note (short form) - Note Progress Note: Chief Complaint: afib History of Present Illness: no cp sob palps; +dizzy but less than yesterday Current Medications Generic Name Dose Route Start Last Admin Trade Name Daniella PRN Reason Stop Dose Admin Apixaban 5 mg 08/12/17 22:00 08/18/17 11:05 Eliquis - PO 5 mg BID NIKUNJ Administration Atorvastatin Calcium 80 mg 08/14/17 22:00 08/17/17 21:28 Lipitor - PO 80 mg HS NIKUNJ Administration Metoprolol Succinate 75 mg 08/18/17 12:28 Toprol Xl - PO BID NIKUNJ Metoprolol Succinate 25 mg 08/18/17 12:29 Toprol Xl - PO 08/18/17 12:30 ONCE ONE Vital Signs Period Temp Pulse Resp BP Sys/Hu Pulse Ox Last 24 Hr 97.9 F-98.4 F 64-98 18-20 129-144/65-81 96 Constitutional: Yes: No Distress, Calm, Obese Eyes: No: Sclera Icterus HENT: No: Nasal Congestion Cardiovascular: Yes: Pulse Irregular, S1, S2, Other (PMI non diplaced). No: JVD , Gallop, Murmur Respiratory: Yes: CTA Bilaterally. No: Accessory Muscle Use, Rales, Wheezes Gastrointestinal: Yes: Normal Bowel Sounds, Soft. No: Tenderness Musculoskeletal: Yes: Other (No kyphosis) Extremities: No: Cold Edema: No Integumentary: No: Jaundice Neurological: Yes: Alert, Oriented (x3) Psychiatric: No: Agitated Labs: CBC, BMP 08/15/17 10:10 08/15/17 10:10 - ....Imaging EKG: Other (afib, HR mostly controlled) EKG: atrial tachycardia/SVT. rbbb. inferolateral ST-Twave ab subsequent EKG's: atrial tach/atrial flutter with variable conduction, rbbb. improving ST t wave ab. cxr: clear lungs/pleura echo 08/2017: 1+ conc lvh. nl LV fn. RV not well seen. 1+ mr. rvsp 30-40. < 1 cm pericardial effusion. a/p: 81yo F with PMHx of HTN, HLD, PVD (s/p RLE angioplasty and R 2nd toe amputation), who presented to the ER with dizziness and noted to be in aflutter with rvr. new aflutter -rate better controlled after changing dilt to toprol -still with some rvr with activity so will increase toprol to 75 bid today and monitor on tele -echo wnl -cont ac with eliquis mild troponin elevation - flat trend. + EKG changes when in RVR. not c/w ACS--likely demand ischemia in setting of underlying cad - atyp sx's here (chest heaviness after diltiazem dose, assctd with dizziness) - cont statin. - no ASA (on AC) - rec risk stratification with nuclear stress test-->done here and showed no significant ischemia. htn -stable PVD - statin, no asa (on AC). - follows with [facility] - per hospitalist
[2017-08-18] MEDS ORDERED: METOPROLOL SUCCINATE 25 MG TAB.SR.24H (FP) PO ONE (12:45)
[2017-08-18 13:01] LABS: MCHC 32.9 g/dl (32.0-36.0); PLATELET COUNT 248 K/MM3 (134-434); RDW 13.5 % (11.6-15.6); WHITE BLOOD COUNT 6.9 K/mm3 (4.0-10.0)
[2017-08-18 13:24] LABS: ANION GAP 6 (8-16); CALCIUM 8.7 mg/dL (8.5-10.1); CO2 29 mmol/L (21-32); CREATININE 1.1 mg/dL (0.55-1.02); GLUCOSE,RANDOM 124 mg/dL (74-106)
[2017-08-18] MEDS: ATORVASTATIN CA 80 MG TABLET (FP) PO SCH (21:13)
[2017-08-18] MEDS ORDERED: METOPROLOL SUCCINATE 25 MG TAB.SR.24H (FP) PO SCH (22:00)
[2017-08-18] MEDS ORDERED: METOPROLOL SUCCINATE 50 MG TAB.SR.24H (FP) PO SCH (22:00)
--- NOTE | 2017-08-19 07:51 | PN ---
Physical Exam: SUBJECTIVE: Patient seen and examined. Doing well, slept well last night. Asymptomatic. HR max 130s yest afternoon, overnight 90s-low 100s. Walked pt today, asymptomatic, HR stayed stable. OBJECTIVE: Vital Signs Period Temp Pulse Resp BP Sys/Hu Pulse Ox Last 24 Hr 97.7 F-98.6 F 88-123 18-20 116-148/66-97 97-98 GEN: AAOx3, NAD, Not in respiratory distress HEENT: PERRLA, EOMI CV: S1, S2, tachycardic rate and irregularly irregular rhythm LUNG: CTABL ABD: Soft, NT, ND, normoactive BS MSK UE: No edema, no erythema, full ROM MSK LE: RLE - mild venous stasis, R 2nd toe amputation, +DP pulses, 1+ edema; LLE no amputation, no edema, no erythema, +DP pulses NEURO: Strength and sensation intact, CN 2-12 grossly intact Laboratory Results - last 24 hr 08/18/17 08/18/17 12:40 12:40 WBC 6.9 RBC 3.98 Hgb 12.3 Hct 37.4 MCV 94.0 MCH 31.0 MCHC 32.9 RDW 13.5 Plt Count 248 D MPV 9.0 Sodium 139 Potassium 4.2 Chloride 104 Carbon Dioxide 29 D Anion Gap 6 L BUN 18 Creatinine 1.1 H Random Glucose 124 H Calcium 8.7 Active Medications Generic Name Dose Route Start Last Admin Trade Name Freq PRN Reason Stop Dose Admin Apixaban 5 mg 08/12/17 22:00 08/18/17 21:13 Eliquis - PO 5 mg BID NIKUNJ Administration Atorvastatin Calcium 80 mg 08/14/17 22:00 08/18/17 21:13 Lipitor - PO 80 mg HS NIKUNJ Administration Metoprolol Succinate 50 mg 08/18/17 22:00 08/18/17 21:13 Toprol Xl - PO 50 mg BID NIKUNJ Administration Metoprolol Succinate 25 mg 08/18/17 22:00 08/18/17 21:14 Toprol Xl - PO 25 mg BID NIKUNJ Administration ASSESSMENT/PLAN: Ms Méndez is an 81yo F with PMHx of HTN (on 3 antihypertensives), HLD, PVD (s/p RLE angioplasty and R 2nd toe amputation), who presented to the ER with dizziness and palpitations for the past few days, found to have Afib. # Atrial Fibrillation - New onset, presented in RVR, likely 2/2 ischemic HD, TSH wnl, Echo wnl, on Eliquis 5m BID - Will increase to Toprol 100mg BID for better control - Persantine stress test shows insignificant small subtle anteroseptal wall defects # Elevated Troponins - trended down, was likely 2/2 demand ischemia from Afib w / RVR # DANIELA - resolved w/ fluids # HTN - well controlled, on Toprol XL, continue to hold home meds (Valsartan, Toprol, Norvasc) # HLD - continue Lipitor 80mg QHS # FEN - No IVF, elec wnl, sodium controlled diet # PPx - On Eliquis, No GI ppx # Dispo Pt doing better on new Toprol dose 75mg BID, but still highest 110s- 120s, will increase to 100mg BID, likely dc today, will d/w cardio to d/w Dr Andrews and Dr Sheyla Lombardo MD - PGY1 Internal Medicine Visit type - Emergency Visit Emergency Visit: No - New Patient This patient is new to me today: No - Critical Care Critical Care patient: No - Discharge Referral Referred to [facility] No
[2017-08-19] MEDS: APIXABAN 5 MG TABLET PO SCH ×2 (09:50→21:46)
[2017-08-19] MEDS: METOPROLOL SUCCINATE 100 MG TAB.SR.24H (FP) PO SCH ×2 (09:50→21:46)
--- NOTE | 2017-08-19 11:15 | PN ---
Progress Note (short form) - Note Progress Note: Chief Complaint: afib History of Present Illness: no cp sob palps; feeling better today, no further dizzy Current Medications Generic Name Dose Route Start Last Admin Trade Name Daniella PRN Reason Stop Dose Admin Apixaban 5 mg 08/12/17 22:00 08/19/17 09:50 Eliquis - PO 5 mg BID NIKUNJ Administration Atorvastatin Calcium 80 mg 08/14/17 22:00 08/18/17 21:13 Lipitor - PO 80 mg HS NIKUNJ Administration Metoprolol Succinate 100 mg 08/19/17 09:27 08/19/17 09:50 Toprol Xl - PO 100 mg BID NIKUNJ Administration Vital Signs Period Temp Pulse Resp BP Sys/Hu Pulse Ox Last 24 Hr 97.7 F-98.7 F 95-123 18-20 116-161/71-97 97-97 Constitutional: Yes: No Distress, Calm, Obese Eyes: No: Sclera Icterus HENT: No: Nasal Congestion Cardiovascular: Yes: Pulse Irregular, S1, S2, Other (PMI non diplaced). No: JVD , Gallop, Murmur Respiratory: Yes: CTA Bilaterally. No: Accessory Muscle Use, Rales, Wheezes Gastrointestinal: Yes: Normal Bowel Sounds, Soft. No: Tenderness Musculoskeletal: Yes: Other (No kyphosis) Extremities: No: Cold Edema: No Integumentary: No: Jaundice Neurological: Yes: Alert, Oriented (x3) Psychiatric: No: Agitated Labs: CBC, BMP 08/18/17 12:40 08/18/17 12:40 - ....Imaging EKG: Other (afib, HR acceptable) EKG: atrial tachycardia/SVT. rbbb. inferolateral ST-Twave ab subsequent EKG's: atrial tach/atrial flutter with variable conduction, rbbb. improving ST t wave ab. cxr: clear lungs/pleura echo 08/2017: 1+ conc lvh. nl LV fn. RV not well seen. 1+ mr. rvsp 30-40. < 1 cm pericardial effusion. a/p: 81yo F with PMHx of HTN, HLD, PVD (s/p RLE angioplasty and R 2nd toe amputation), who presented to the ER with dizziness and noted to be in aflutter with rvr. new aflutter -rate better controlled after changing dilt to toprol 75 bid -today pt reports no further dizziness -HR mostly acceptable, could be slightly better, so will increase toprol to 100 bid -echo wnl -cont ac with eliquis mild troponin elevation - flat trend. + EKG changes when in RVR. not c/w ACS--likely demand ischemia in setting of underlying cad - atyp sx's here (chest heaviness after diltiazem dose, assctd with dizziness) - cont statin. - no ASA (on AC) - rec risk stratification with nuclear stress test-->done here and showed no significant ischemia. htn -stable PVD - statin, no asa (on AC). - [facility] with [facility]
--- NOTE | 2017-08-19 13:14 | DS ---
Physical Exam: SUBJECTIVE: Patient seen and examined. No symptoms. She states that she is no longer dizzy. No CP, SOB, fevers, chills OBJECTIVE: Vital Signs Period Temp Pulse Resp BP Sys/Hu Pulse Ox Last 24 Hr 97.7 F-98.7 F 95-123 18-20 116-161/71-97 97-97 PHYSICAL EXAM GEN: AAOx3, NAD, Not in respiratory distress HEENT: PERRLA, EOMI CV: S1, S2, tachycardic rate and irregularly irregular rhythm LUNG: CTABL ABD: Soft, NT, ND, normoactive BS MSK UE: No edema, no erythema, full ROM MSK LE: RLE - mild venous stasis, R 2nd toe amp, +DP pulses, 1+ edema; LLE no amp, no edema, no erythema, +DP pulses NEURO: Strength and sensation intact, CN 2-12 grossly intact LABS Laboratory Results - last 24 hr 08/18/17 08/18/17 12:40 12:40 WBC 6.9 RBC 3.98 Hgb 12.3 Hct 37.4 MCV 94.0 MCH 31.0 MCHC 32.9 RDW 13.5 Plt Count 248 D MPV 9.0 Sodium 139 Potassium 4.2 Chloride 104 Carbon Dioxide 29 D Anion Gap 6 L BUN 18 Creatinine 1.1 H Random Glucose 124 H Calcium 8.7 HOSPITAL COURSE: Date of Admission:08/12/17 Date of Discharge: 08/19/17 Briefly, Ms Méndez, is an 81yo F with a PMHx of HTN (on 3 antihypertensives), HLD , RLE AVM (s/p RLE angioplasty and R 2nd toe amputation), who presented to the ER with dizziness for the past few days. She was found to have new onset Atrial Fibrillation, presenting in rapid ventricular response with HR in the 140s- 150s. She was started on Cardizem, which was titrated up with minimal response. She was then switched to Toprol XL with improved response, and will be discharged on Toprol XL 100mg BID. A persantine stress test showed insignificant small subtle anteroseptal wall defects. She was also started on Eliquis 5mg BID, to be continued as an outpatient. Her blood pressure was well managed on Toprol. She will discontinue her home BP medications (Norvasc, Valsartan, and Toprol immediate release). Patient understands the hospital course and agrees with the plan. Minutes to complete discharge: 45 Discharge Summary Reason For Visit: NEW ONSET ATRIAL FIB Current Active Problems Dizziness (Acute) Elevated troponin I level (Acute) New onset a-fib (Acute) HLD (hyperlipidemia) (Chronic) HTN (hypertension) (Chronic) PVD (peripheral vascular disease) (Chronic) Condition: Improved - Instructions Diet, Activity, Other Instructions: RECOMMENDATIONS: - You were diagnosed with Atrial Fibrillation, an abnormal heart rhythm. - Take your new medications exactly as directed - Learn to take your own heart rate, keep a note of when your heart rate gets too fast - Limit your intake of coffee, tea, cola, and other beverages with caffeine - Do not take stimulants such as amphetamines or cocaine - Call your provider if you experience weakness, dizziness, fainting, fatigue - You are started on blood thinner Eliquis. Please take as directed. Notify your doctor if any bleeding that doesn't stop. Also you cannot have spinal procedures or puncture while on this medication. -If occasionally dizzy transiently, notify your doctor about the same. If persistent or increased dizziness call 911 or come to ED. -Advise home BP monitoring till your doctor visit. Notify your doctor if SBP (upper BP) < 100 or persistently > 140 or any dizziness noted. MEDICATIONS CHANGES: - STOP taking your Metoprolol Tartrate - STOP taking your Valsartan - STOP taking your Norvasc (Amlodipine) - START taking Metoprolol Succinate XL 100mg two times a day - START taking Eliquis (Apixaban) 5mg two times a day - START taking Atorvastatin 80mg once at night FOLLOWUPS: - Dr. Jacob Medrano (Primary Care Provider) - please followup with him in 1 week to check your heart rate and blood pressure and see if you need to change your medications - Dr. Carrion (Cloth Framer) - please followup in 1 week. If you experience any severe chest pain and shortness of breath, please return back to the ER Referrals: Jacob Medrano [Other] - 1 Week Krzysztof Carrion MD [Staff Physician] - 1 Week Disposition: HOME - Home Medications Comprehensive Discharge Medication List: Ambulatory Orders Apixaban [Eliquis -] 5 mg PO BID #60 tablet 08/19/17 Atorvastatin Ca [Lipitor] 80 mg PO HS #30 tablet 08/19/17 Metoprolol Succinate [Toprol XL -] 100 mg PO BID #60 tab.sr.24h 08/19/17 This patient is new to me today: No Emergency Visit: No Critical Care patient: No - Discharge Referral Referred to [facility] No
--- NOTE | 2017-08-19 16:31 | PN ---
Teaching Attending Note Name of Resident: Nubia Lombardo ATTENDING PHYSICIAN STATEMENT Time of evaluation: 9:40 AM I saw and evaluated the patient. I reviewed the resident's note and discussed the case with the resident. I agree with the resident's findings and plan as documented. SUBJECTIVE: Patient seen and examined. no complaints. no further dizziness over last 24 hours. OBJECTIVE: Vital Signs Period Temp Pulse Resp BP Sys/Hu Pulse Ox Last 24 Hr 97.7 F-98.7 F 95-123 18-20 116-161/73-97 97-97 Intake & Output 08/16/17 08/17/17 08/18/17 08/19/17 23:59 23:59 23:59 23:59 Intake Total 400 0 240 0 Balance 400 0 240 0 General: sitting in bed in no acute distress CVS: S1S2 irregular Chest CTAB, no rales or wheezing abdomen: soft, obese, NT extremities no edema Active Medications Generic Name Dose Route Start Last Admin Trade Name Freq PRN Reason Stop Dose Admin Apixaban 5 mg 08/12/17 22:00 08/19/17 09:50 Eliquis - PO 5 mg BID NIKUNJ Administration Atorvastatin Calcium 80 mg 08/14/17 22:00 08/18/17 21:13 Lipitor - PO 80 mg HS NIKUNJ Administration Metoprolol Succinate 100 mg 08/19/17 09:27 08/19/17 09:50 Toprol Xl - PO 100 mg BID NIKUNJ Administration ASSESSMENT AND PLAN: -New onset AFib with RVR -NSTEMI type II, demand induced from tachycardia -HTN Plan: HR improved 90s-100s, asymptomatic with activity. Discussed with cardiology, increase metoprolol to 100 mg PO BID with outpatient follow up for additional cardiac testing. Discussed in detail about apixaban,bleeding risk and need for monitoring. Patient relays full understanding. D/c home today with outpatient cardiology follow up.
[2017-08-19] MEDS: ATORVASTATIN CA 80 MG TABLET (FP) PO SCH (21:46)
[2017-08-20 07:17] VITALS: BP 140/98; PULSE 117; TEMP 98
[2017-08-20] MEDS: METOPROLOL SUCCINATE 100 MG TAB.SR.24H (FP) PO SCH (08:07)
[2017-08-20] MEDS: APIXABAN 5 MG TABLET PO SCH (08:07)
--- NOTE | 2017-08-20 08:49 | PN ---
Teaching Attending Note Name of Resident: Ramandeep Andrews ATTENDING PHYSICIAN STATEMENT Time of evaluation: 8:30 AM I saw and evaluated the patient. I reviewed the resident's note and discussed the case with the resident. I agree with the resident's findings and plan as documented. SUBJECTIVE: Patient seen and examined, no complaints, uneventful overnight. OBJECTIVE: Vital Signs Period Temp Pulse Resp BP Sys/Hu Pulse Ox Last 24 Hr 97.4 F-98.7 F 95-124 18-20 137-161/73-98 97-98 Intake & Output 08/17/17 08/18/17 08/19/17 08/20/17 23:59 23:59 23:59 23:59 Intake Total 0 240 0 Balance 0 240 0 General sitting in bed in no acute distress CVS: S1S2 irregular Chest: CTAB, no rales or wheezing abdomen: soft, NT ASSESSMENT AND PLAN: -New onset AFib with RVR 0Symptomatic dizziness -NSTEMI type II demand induced in the setting of tachycardia -HLD -HTN Plan; tele reviewed, uneventful overnight. did not leave yesterday as no ride and unable to reach family. D.c home today.
== END 2017-08-20 08:32 | disposition home or self-care (01) | DRG 281 ==
LOC: JER 08:22 → JERBED 10:38 → J4W 16:31
PROVIDERS: ADMIT Internal Medicine; ATTEND Hospitalist
DX: I48.91 Unspecified atrial fibrillation (principal); I21.A1 Myocardial infarction type 2; N17.9 Acute kidney failure, unspecified; I10 Essential (primary) hypertension; E78.00 Pure hypercholesterolemia, unspecified; I73.9 Peripheral vascular disease, unspecified; Z89.421 Acquired absence of other right toe(s); I48.92 Unspecified atrial flutter; I25.10 Atherosclerotic heart disease of native coronary artery without angina pectoris; I45.10 Unspecified right bundle-branch block; E66.9 Obesity, unspecified; Z68.35 Body mass index [BMI] 35.0-35.9, adult; R42 Dizziness and giddiness
CPT/HCPCS: 36415; 71010-TC; 78452-TC; 80048; 80053; 80061; 81003; 81015; 82436; 82550; 82570; 83036; 83721; 83735; 83880; 84100; 84133; 84300; 84443; 84484; 85025; 85027; 93005; 93010; 93017; 93306-TC; 93971-TC; 97116-GP; 97161-GP; 99285-25; A9502

== ENCOUNTER 2017-08-29 05:06 | Inpatient (IN) | payer OTHER ==
[2017-08-29 05:29] VITALS: BMI 32.7
--- NOTE | 2017-08-29 05:32 | PDOC ---
History of Present Illness - General History Source: Patient Exam Limitations: No Limitations - History of Present Illness Initial Comments: 08/29/17 06:44 Patient is a 81 year old female with a significant past medical history of HTN ( on 3 antihypertensives), HLD, PVD (s/p RLE angioplasty and R 2nd toe amputation) , who presents to the ED with complaints of chest pain that began 2 weeks ago. Patient reports experiencing chest pain that began 2 weeks ago, leading to her getting admitted to hospital. Patient was discharged August 15 from hospital and prescribed medication. She reports taking medication prescribed but states she felt increased increased SOB, weakness and dizziness after ingestion. She reports experiencing intermittent back pain but is not sure if it is related to her chest pain. Patient states she has an appointment on tuesday with PCP. Patient states SOB is currently resolved with O2 Denies fever, chills. Denies nausea, vomiting. Denies out of state travel, contact with sick individuals. Denies any other symptoms. Allergies: None Social history: No smoking. No alcohol. No illicit drugs. Surgical history: R second toe amputation PMD: Dr. Jacob Medrano <Jame Patterson - Last Filed: 08/29/17 06:44> <Lawrence Myers - Last Filed: 09/01/17 08:15> - General Chief Complaint: Shortness of Breath Stated Complaint: SHORTNESS OF BREATH Time Seen by Provider: 08/29/17 05:31 Past History <Jame Patterson - Last Filed: 08/29/17 06:44> - Past Medical History Cardiac Disorders: Yes COPD: No HTN: Yes Hypercholesterolemia: Yes - Surgical History Cholecystectomy: Yes - Suicide/Smoking/Psychosocial Hx Smoking History: Never smoked Have you smoked in the past 12 months: No Information on smoking cessation initiated: No Hx Alcohol Use: No Drug/Substance Use Hx: No Substance Use Type: None <Lawrence Myers - Last Filed: 09/01/17 08:15> - Past Medical History Allergies/Adverse Reactions: Allergies Allergy/AdvReac Type Severity Reaction Status Date / Time No Known Allergies Allergy Verified 08/29/17 05:27 Home Medications: Ambulatory Orders Apixaban [Eliquis -] 5 mg PO BID #60 tablet 08/19/17 Atorvastatin Ca [Lipitor] 80 mg PO HS #30 tablet 08/19/17 Metoprolol Succinate [Toprol XL -] 100 mg PO BID #60 tab.sr.24h 08/19/17 Amoxicillin/Potassium Clav [Augmentin 875-125 Tablet] 1 each PO BID #14 tablet 08/31/17 Azithromycin 500 mg PO DAILY #3 tablet 08/31/17 Review of Systems - Review of Systems Able to Perform ROS?: Yes Comments:: 08/29/17 06:44 GENERAL/CONSTITUTIONAL: No fever or chills. No weakness. HEAD, EYES, EARS, NOSE AND THROAT: No change in vision. No ear pain or discharge. No sore throat. CARDIOVASCULAR: +Chest pain. +SOB. RESPIRATORY: No cough, wheezing, or hemoptysis. GASTROINTESTINAL: No nausea, vomiting, diarrhea or constipation. GENITOURINARY: No dysuria, frequency, or change in urination. MUSCULOSKELETAL: +Back pain. No joint or muscle swelling or pain. No neck SKIN: No rash NEUROLOGIC: +Dizziness. No headache, vertigo, loss of consciousness, ENDOCRINE: No increased thirst. No abnormal weight change. HEMATOLOGIC/LYMPHATIC: No anemia, easy bleeding, or history of blood clots. ALLERGIC/IMMUNOLOGIC: No hives or skin allergy. All Other Systems: Reviewed and Negative <Jame Patterson - Last Filed: 08/29/17 06:44> *Physical Exam - Vital Signs Last Vital Signs Temp Pulse Resp BP Pulse Ox 98.1 F 62 16 207/65 96 08/29/17 05:27 08/29/17 05:27 08/29/17 05:27 08/29/17 05:27 08/29/17 05:27 - Physical Exam Comments: 08/29/17 06:44 GENERAL: Awake, alert, and fully oriented, in no acute distress HEAD: No signs of trauma EYES: PERRLA, EOMI, sclera anicteric, conjunctiva clear ENT: Auricles normal inspection, hearing grossly normal, nares patent, oropharynx clear without exudates. Moist mucosa NECK: Normal ROM, supple, no lymphadenopathy, JVD, or masses LUNGS: Breath sounds equal, clear to auscultation bilaterally. No wheezes, and no crackles HEART: Regular rate and rhythm, normal S1 and S2, no murmurs, rubs or gallops ABDOMEN: Soft, nontender, normoactive bowel sounds. No guarding, no rebound. No masses EXTREMITIES: Normal range of motion, no edema. No clubbing or cyanosis. No cords, erythema, or tenderness NEUROLOGICAL: Cranial nerves II through XII grossly intact. Normal speech, SKIN: Warm, Dry, normal turgor, no rashes or lesions noted. <Jame Patterson - Last Filed: 08/29/17 06:44> - Vital Signs Last Vital Signs Temp Pulse Resp BP Pulse Ox 98.1 F 62 16 207/65 96 08/29/17 05:27 08/29/17 05:27 08/29/17 05:27 08/29/17 05:27 08/29/17 05:27 <Lawrence Myers - Last Filed: 09/01/17 08:15> ED Treatment Course - LABORATORY CBC & Chemistry Diagram: 08/29/17 06:00 08/29/17 06:00 <Jame Patterson - Last Filed: 08/29/17 06:44> - LABORATORY CBC & Chemistry Diagram: 08/30/17 06:49 08/30/17 06:49 <Lawrence Myers - Last Filed: 09/01/17 08:15> *DC/Admit/Observation/Transfer - Attestations Scribe Attestion: 08/29/17 06:45 Documentation prepared by Jame Patterson, acting as director biomedical engineering for Lawrence Myers MD/. <Jame Patterson - Last Filed: 08/29/17 06:44> - Attestations Physician Attestion: 08/29/17 05:31 I, Dr. Lawrence Myers, attest that this document has been prepared under my direction and personally reviewed by me in its entirety. I further attest, that it accurately reflects all work, treatment, procedures and medical decision -making performed by me. <Lawrence Myers - Last Filed: 09/01/17 08:15> Diagnosis at time of Disposition: Dyspnea Qualifiers: Dyspnea type: unspecified Qualified Code(s): R06.00 - Dyspnea, unspecified Pneumonia Qualifiers: Pneumonia type: due to unspecified organism Laterality: unspecified laterality Lung location: unspecified part of lung Qualified Code(s): J18.9 - Pneumonia, unspecified organism CHF (congestive heart failure) Qualifiers: Congestive heart failure type: combined Congestive heart failure chronicity: acute on chronic Qualified Code(s): I50.43 - Acute on chronic combined systolic (congestive) and diastolic (congestive) heart failure - Discharge Dispostion Condition at time of disposition: Fair
[2017-08-29] MEDS ORDERED: ASPIRIN 81 MG CHEWABLE TABLETS PO ONE (05:50)
[2017-08-29] MEDS ORDERED: SODIUM CHLORIDE 1,000 ML IV SCH (06:00)
[2017-08-29 06:44] LABS: BASOPHIL 0.5 % (0-2.0); EOSINOPHIL 0.8 % (0-4.5); MCHC 33.5 g/dl (32.0-36.0); MEAN CELL VOLUME 92.4 fl (80-96); MEAN PLT VOLUME 9.5 fl (7.5-11.1); PLATELET COUNT 199 K/MM3 (134-434); RDW 13.6 % (11.6-15.6); WHITE BLOOD COUNT 7.7 K/mm3 (4.0-10.0)
[2017-08-29] MEDS ORDERED: ASPIRIN 81 MG CHEWABLE TABLETS ONE (06:45)
[2017-08-29 07:14] LABS: INR 2.48 (0.82-1.09)
--- NOTE | 2017-08-29 07:19 | PDOC ---
*Physical Exam - Vital Signs Last Vital Signs Temp Pulse Resp BP Pulse Ox 98.1 F 62 16 207/65 96 08/29/17 05:27 08/29/17 05:27 08/29/17 05:27 08/29/17 05:27 08/29/17 05:27 - Physical Exam Comments: 08/29/17 07:28 Gen: awake, nad heart: +s1s2 reg Lungs: diminished bs b/l bases abd: mild epigastric ttp ext: trace edema LE ED Treatment Course - LABORATORY CBC & Chemistry Diagram: 08/29/17 06:00 08/29/17 06:00 - ADDITIONAL ORDERS Additional order review: Laboratory Results 08/29/17 06:00 PT with INR 28.00 H INR 2.48 H 08/29/17 06:00 RBC 3.50 L MCV 92.4 MCHC 33.5 RDW 13.6 MPV 9.5 Neutrophils % 84.0 H D Lymphocytes % 8.2 D Monocytes % 6.5 Eosinophils % 0.8 Basophils % 0.5 - Medications Given in the ED: ED Medications Discontinued Medications Generic Name Dose Route Start Last Admin Trade Name Aurelianoq PRN Reason Stop Dose Admin Aspirin 162 mg 08/29/17 05:50 08/29/17 06:52 Asa - PO 08/29/17 05:51 162 mg ONCE ONE Administration Medical Decision Making - Medical Decision Making 08/29/17 07:29 a/p: 81yo female with SOB -signed out from the prior attending pending re-eval, labs, cxr -cxr shows poss early infiltrate to L base. Pt admits to cough recently. No fevers. Will start abx -labs pending 08/29/17 08:58 microblog sent to hospitalists who state that Dr. Miranda is doing unassigned admissions even though the patient was on their service 2 weeks ago elevated bnp, congestion on xray, lll infiltrate will start lasix and abx cultures sent 08/29/17 08:[address] miranda who accepts the patient to the hospital. *DC/Admit/Observation/Transfer Diagnosis at time of Disposition: Dyspnea, Pneumonia, CHF (congestive heart failure) - Discharge Dispostion Condition at time of disposition: Fair Admit: Yes - Referrals - Patient Instructions - Post Discharge Activity
[2017-08-29 07:30] LABS: ALBUMIN 3.4 g/dl (3.4-5.0); ANION GAP 7 (8-16); CALCIUM 8.6 mg/dL (8.5-10.1); CO2 28 mmol/L (21-32); CREATININE 1.1 mg/dL (0.55-1.02); GLUCOSE,RANDOM 103 mg/dL (74-106); MAGNESIUM 1.9 mg/dL (1.8-2.4); SGOT/AST 18 U/L (15-37); SGPT/ALT 48 U/L (12-78); TOT PROT 6.6 g/dl (6.4-8.2)
[2017-08-29] MEDS ORDERED: LEVOFLOXACIN 750 MG IVPB 750 MG/150 ML BAG IVPB ONE ×2 (07:30→08:30)
[2017-08-29 07:33] LABS: ALK PHOS 117 U/L (45-117); CPK 58 IU/L (26-192); TROPONIN I 0.05 ng/ml (0.00-0.05)
[2017-08-29] MEDS ORDERED: FUROSEMIDE 40 MG/4 ML INJECTABLE VIAL IVPUSH ONE (08:08)
[2017-08-29] MEDS ORDERED: FUROSEMIDE 40 MG/4 ML INJECTABLE VIAL ONE (08:46)
[2017-08-29 08:59] LABS: URINE APPEARANCE SLCLOUDY; URINE BILIRUBIN NEGATIVE (NEGATIVE); URINE BLOOD NEGATIVE (NEGATIVE); URINE COLOR YELLOW; URINE GLUCOSE (UA) NEGATIVE (NEGATIVE); URINE KETONE NEGATIVE (NEGATIVE); URINE NITRITE NEGATIVE (NEGATIVE); URINE UROBILINOGEN NEGATIVE mg/dL (0.2-1.0)
[2017-08-29 09:01] LABS: URINE PROTEIN 2+ (NEGATIVE)
[2017-08-29 09:07] LABS: URINE MUCUS RARE; URINE RBC 1; URINE WBC 4
[2017-08-29 13:37] LABS: URINE LEUK ESTERASE Negative (NEGATIVE)
--- NOTE | 2017-08-29 13:57 | EKG ---
Test Reason : Blood Pressure : / mmHG Vent. Rate : 057 BPM Atrial Rate : 057 BPM P-R Int : 158 ms QRS Dur : 130 ms QT Int : 456 ms P-R-T Axes : 063 058 012 degrees QTc Int : 443 ms SINUS BRADYCARDIA RIGHT BUNDLE BRANCH BLOCK ABNORMAL ECG WHEN COMPARED WITH ECG OF 13-AUG-2017 11:20, SINUS RHYTHM HAS REPLACED ATRIAL FIBRILLATION VENT. RATE HAS DECREASED BY 32 BPM T WAVE VARIATION Confirmed by FARSHAD SHERMAN MD ([id number]) on 08/29/2017 1:57:22 PM Referred By: Confirmed By:FARSHAD SHERMAN MD
--- NOTE | 2017-08-29 16:56 | HP ---
Admitting History and Physical - Primary Care Physician PCP: Dani Duran - Admission History of Present Illness: a 81 year old female with a significant past medical history of HTN (on 3 antihypertensives), HLD, PVD (s/p RLE angioplasty and R 2nd toe amputation), who presents to the ED with complaints of chest pain that began 2 weeks ago. Patient reports experiencing chest pain that began 2 weeks ago, leading to her getting admitted to hospital. Patient was discharged August 15 from hospital and prescribed medication. She reports taking medication prescribed but states she felt increased increased SOB, weakness and dizziness after ingestion. She reports experiencing intermittent back pain but is not sure if it is related to her chest pain. Patient states she has an appointment on tuesday with PCP. - Past Medical History Cardiovascular: Yes: HTN, Hyperlipdemia - Smoking History Smoking history: Never smoked Have you smoked in the past 12 months: No - Alcohol/Substance Use Hx Alcohol Use: No Home Medications - Allergies Allergies/Adverse Reactions: Allergies Allergy/AdvReac Type Severity Reaction Status Date / Time No Known Allergies Allergy Verified 08/29/17 05:27 - Home Medications Home Medications: Ambulatory Orders Apixaban [Eliquis -] 5 mg PO BID #60 tablet 08/19/17 Atorvastatin Ca [Lipitor] 80 mg PO HS #30 tablet 08/19/17 Metoprolol Succinate [Toprol XL -] 100 mg PO BID #60 tab.sr.24h 08/19/17 Physical Examination Vital Signs: Vital Signs Temperature 98.6 F 08/29/17 13:36 Pulse Rate 55 L 08/29/17 13:36 Respiratory Rate 20 08/29/17 13:36 Blood Pressure 146/61 08/29/17 13:36 O2 Sat by Pulse Oximetry (%) 2 L 08/29/17 10:15 Constitutional: Yes: No Distress HENT: Yes: Atraumatic Neck: Yes: Supple Cardiovascular: Yes: Regular Rate and Rhythm Respiratory: Yes: CTA Bilaterally Gastrointestinal: Yes: Normal Bowel Sounds Extremities: Yes: WNL Neurological: Yes: Alert, Oriented Labs: CBC, BMP 08/29/17 06:00 08/29/17 06:00 Problem List - Problems (1) Dyspnea Code(s): R06.00 - DYSPNEA, UNSPECIFIED (2) Pneumonia Assessment/Plan: on iv abx bcx Code(s): J18.9 - PNEUMONIA, UNSPECIFIED ORGANISM (3) HLD (hyperlipidemia) Assessment/Plan: on meds Code(s): E78.5 - HYPERLIPIDEMIA, UNSPECIFIED Qualifiers: (4) HTN (hypertension) Assessment/Plan: on meds stable Code(s): I10 - ESSENTIAL (PRIMARY) HYPERTENSION Qualifiers: Assessment/Plan Laboratory Tests 08/29/17 08/29/17 08/29/17 06:00 06:00 06:00 WBC 7.7 RBC 3.50 L Hgb 10.8 D Hct 32.3 L MCV 92.4 MCH 31.0 MCHC 33.5 RDW 13.6 Plt Count 199 MPV 9.5 Neutrophils % 84.0 H D Lymphocytes % 8.2 D Monocytes % 6.5 Eosinophils % 0.8 Basophils % 0.5 PT with INR 28.00 H INR 2.48 H Sodium 138 Potassium 4.0 Chloride 103 Carbon Dioxide 28 Anion Gap 7 L BUN 13 D Creatinine 1.1 H Creat Clearance w eGFR 47.67 Random Glucose 103 Calcium 8.6 Magnesium 1.9 Total Bilirubin 1.0 AST 18 D ALT 48 D Alkaline Phosphatase 117 Creatine Kinase 58 Troponin I 0.05 B-Natriuretic Peptide 1148.47 H Total Protein 6.6 D Albumin 3.4 Urine Color Urine Appearance Urine pH Ur Specific [place] Urine Protein Urine Glucose (UA) Urine Ketones Urine Blood Urine Nitrite Urine Bilirubin Urine Urobilinogen Ur Leukocyte Esterase Urine WBC (Auto) Urine RBC (Auto) Ur Epithelial Cells Urine Mucus Blood Type Antibody Screen 08/29/17 08/29/17 06:00 07:34 WBC RBC Hgb Hct MCV MCH MCHC RDW Plt Count MPV Neutrophils % Lymphocytes % Monocytes % Eosinophils % Basophils % PT with INR INR Sodium Potassium Chloride Carbon Dioxide Anion Gap BUN Creatinine Creat Clearance w eGFR Random Glucose Calcium Magnesium Total Bilirubin AST ALT Alkaline Phosphatase Creatine Kinase Troponin I B-Natriuretic Peptide Total Protein Albumin Urine Color Yellow Urine Appearance Slcloudy Urine pH 5.0 D Ur Specific [place] 1.019 Urine Protein 2+ H Urine Glucose (UA) Negative Urine Ketones Negative Urine Blood Negative Urine Nitrite Negative Urine Bilirubin Negative Urine Urobilinogen Negative Ur Leukocyte Esterase Negative Urine WBC (Auto) 4 Urine RBC (Auto) 1 Ur Epithelial Cells Rare Urine Mucus Rare Blood Type O POSITIVE Antibody Screen Negative Active Medications Generic Name Dose Route Start Last Admin Trade Name Freq PRN Reason Stop Dose Admin Apixaban 5 mg 08/29/17 22:00 Eliquis - PO BID NIKUNJ Atorvastatin Calcium 80 mg 08/29/17 22:00 Lipitor - PO HS NIKUNJ Sodium Chloride 1,000 mls @ 125 mls/hr 08/29/17 06:00 08/29/17 06:52 Normal Saline - IV 125 mls/hr ASDIR NIKUNJ Administration Metoprolol Succinate 100 mg 08/29/17 22:00 Toprol Xl - PO BID NIKUNJ
--- NOTE | 2017-08-29 17:03 | CON.ID ---
Consult Consult Specialty:: infectious diseases Reason for Consultation:: pna,sob - History of Present Illness Chief Complaint: sob History of Present Illness: 81 year old female with a significant past medical history of HTN , HLD, PVD ( and R 2nd toe amputation, admitted with complaints of chest pain that began 2 weeks ago. Patient reports experiencing chest pain that began 2 weeks ago, leading to her getting admitted to hospital. Patient was discharged August 15 from hospital and prescribed medication. She reports taking medication prescribed but states she felt increased increased SOB, weakness and dizziness after ingestion. She reports experiencing intermittent back pain but is not sure if it is related to her chest pain. Patient states she has an appointment on tuesday with PCP. currently she feels ok but when she lies down gets sob - History Source History Provided By: Patient, Medical Record Limitations to Obtaining History: Language Barrier - Alcohol/Substance Use Hx Alcohol Use: No - Smoking History Smoking history: Never smoked Have you smoked in the past 12 months: No Home Medications - Allergies Allergies/Adverse Reactions: Allergies Allergy/AdvReac Type Severity Reaction Status Date / Time No Known Allergies Allergy Verified 08/29/17 05:27 - Home Medications Home Medications: Ambulatory Orders Apixaban [Eliquis -] 5 mg PO BID #60 tablet 08/19/17 Atorvastatin Ca [Lipitor] 80 mg PO HS #30 tablet 08/19/17 Metoprolol Succinate [Toprol XL -] 100 mg PO BID #60 tab.sr.24h 08/19/17 Amoxicillin/Potassium Clav [Augmentin 875-125 Tablet] 1 each PO BID #14 tablet 08/31/17 Azithromycin 500 mg PO DAILY #3 tablet 08/31/17 Review of Systems - Review of Systems Constitutional: reports: No Symptoms Eyes: reports: No Symptoms HENT: reports: No Symptoms Neck: reports: No Symptoms Cardiovascular: reports: Chest Pain Respiratory: reports: SOB Gastrointestinal: reports: No Symptoms Genitourinary: reports: No Symptoms Musculoskeletal: reports: No Symptoms Integumentary: reports: No Symptoms Neurological: reports: No Symptoms Endocrine: reports: No Symptoms Hematology/Lymphatic: reports: No Symptoms Psychiatric: reports: No Symptoms Physical Exam Vital Signs: Vital Signs Temperature 98.6 F 08/29/17 13:36 Pulse Rate 55 L 08/29/17 13:36 Respiratory Rate 20 08/29/17 13:36 Blood Pressure 146/61 08/29/17 13:36 O2 Sat by Pulse Oximetry (%) 2 L 08/29/17 10:15 Constitutional: Yes: Well Nourished, No Distress, Calm Eyes: Yes: Conjunctiva Clear Neck: Yes: Supple Cardiovascular: Yes: Regular Rate and Rhythm Respiratory: Yes: Regular, Poor Air Entry (bases) Gastrointestinal: Yes: Normal Bowel Sounds, Soft Musculoskeletal: Yes: WNL Extremities: Yes: WNL Neurological: Yes: Alert, Oriented Psychiatric: Yes: Alert, Oriented Labs: CBC, BMP 08/29/17 06:00 08/29/17 06:00 Imaging - Results Chest X-ray: Report Reviewed, Image Reviewed Assessment/Plan Problem List - Problems (1) Dyspnea Code(s): R06.00 - DYSPNEA, UNSPECIFIED (2) Pneumonia Assessment/Plan: on iv abx bcx Code(s): J18.9 - PNEUMONIA, UNSPECIFIED ORGANISM (3) HLD (hyperlipidemia) Assessment/Plan: on meds Code(s): E78.5 - HYPERLIPIDEMIA, UNSPECIFIED Qualifiers: (4) HTN (hypertension) Assessment/Plan: on meds stable Code(s): I10 - ESSENTIAL (PRIMARY) HYPERTENSION Qualifiers: plan will start patient on unasyn continue zithro incentive cale rest as per primary
[2017-08-29] MEDS: AZITHROMYCIN 250 MG TABLET PO SCH (18:05)
[2017-08-29] MEDS ORDERED: PT OWN MED DRAWER 7, Y5N ONE (21:40)
[2017-08-29] MEDS: AMPICILLIN NA/SULBACTAM NA 3 GM in SODIUM CHLORIDE 100 ML IVPB SCH (21:57)
[2017-08-29] MEDS: ATORVASTATIN CA 80 MG TABLET (FP) PO SCH (21:58)
[2017-08-29] MEDS: APIXABAN 5 MG TABLET PO SCH (21:58)
[2017-08-29] MEDS: METOPROLOL SUCCINATE 100 MG TAB.SR.24H (FP) PO SCH (21:58)
[2017-08-30] MEDS: AMPICILLIN NA/SULBACTAM NA 3 GM in SODIUM CHLORIDE 100 ML IVPB SCH ×5 (02:12→22:02)
[2017-08-30 07:02] LABS: BASOPHIL 0.4 % (0-2.0); EOSINOPHIL 1.1 % (0-4.5); MCH 30.4 pg (25.7-33.7); MCHC 32.7 g/dl (32.0-36.0); MEAN CELL VOLUME 92.8 fl (80-96); MEAN PLT VOLUME 9.7 fl (7.5-11.1); NEUTROPHILS 69.1 % (42.8-82.8); PLATELET COUNT 160 K/MM3 (134-434); RDW 13.8 % (11.6-15.6); WHITE BLOOD COUNT 7.1 K/mm3 (4.0-10.0)
[2017-08-30 07:24] LABS: ALK PHOS 97 U/L (45-117); ANION GAP 6 (8-16); BILIRUBIN,TOTAL 1.2 mg/dL (0.2-1.0); CALCIUM 8.4 mg/dL (8.5-10.1); CO2 33 mmol/L (21-32); GLUCOSE,RANDOM 94 mg/dL (74-106); SGOT/AST 12 U/L (15-37); SGPT/ALT 35 U/L (12-78)
[2017-08-30] MEDS ORDERED: PT OWN MED DRAWER 7, Y5N ONE ×2 (09:31→21:14)
[2017-08-30] MEDS: METOPROLOL SUCCINATE 100 MG TAB.SR.24H (FP) PO SCH ×2 (09:38→22:04)
[2017-08-30] MEDS: AZITHROMYCIN 250 MG TABLET PO SCH (09:38)
[2017-08-30] MEDS: APIXABAN 5 MG TABLET PO SCH ×2 (09:38→22:02)
[2017-08-30] MEDS ORDERED: CEFTRIAXONE 1 GM in DEXTROSE 5%-WATER - 100 ML IVPB SCH (10:00)
--- NOTE | 2017-08-30 14:27 | PN ---
Progress Note, Physician History of Present Illness: feels better still sob - Current Medication List Current Medications: Active Medications Apixaban (Eliquis -) 5 mg PO BID [facility] Last Admin: 08/30/17 09:38 Dose: 5 mg Atorvastatin Calcium (Lipitor -) 80 mg PO HS [facility] Last Admin: 08/29/17 21:58 Dose: 80 mg Azithromycin (Zithromax -) 500 mg PO DAILY [facility] Last Admin: 08/30/17 09:38 Dose: 500 mg Ampicillin Sodium/Sulbactam (Sodium 3 gm/ Sodium Chloride) 100 mls @ 200 mls/ hr IVPB Q6H-IV [facility] Last Admin: 08/30/17 09:39 Dose: 200 mls/hr Metoprolol Succinate (Toprol Xl -) 100 mg PO BID [facility] Last Admin: 08/30/17 09:38 Dose: 100 mg - Objective Vital Signs: Vital Signs Temperature 98.9 F 08/30/17 10:00 Pulse Rate 56 L 08/30/17 10:00 Respiratory Rate 20 08/30/17 10:00 Blood Pressure 136/64 08/30/17 10:00 O2 Sat by Pulse Oximetry (%) 99 08/30/17 09:00 Constitutional: Yes: No Distress, Calm Cardiovascular: Yes: Regular Rate and Rhythm Respiratory: Yes: Regular, Poor Air Entry Gastrointestinal: Yes: Normal Bowel Sounds, Soft Musculoskeletal: Yes: WNL Extremities: Yes: WNL Neurological: Yes: Alert, Oriented Psychiatric: Yes: Alert, Oriented Labs: CBC, BMP 08/30/17 06:49 08/30/17 06:49 INR, PTT INR 2.48 (0.82-1.09) H 08/29/17 06:00 Assessment/Plan Problem List - Problems (1) Dyspnea Code(s): R06.00 - DYSPNEA, UNSPECIFIED (2) Pneumonia Assessment/Plan: on iv abx bcx Code(s): J18.9 - PNEUMONIA, UNSPECIFIED ORGANISM (3) HLD (hyperlipidemia) Assessment/Plan: on meds Code(s): E78.5 - HYPERLIPIDEMIA, UNSPECIFIED Qualifiers: (4) HTN (hypertension) Assessment/Plan: on meds stable Code(s): I10 - ESSENTIAL (PRIMARY) HYPERTENSION Qualifiers: plan conitnue abx incentive cale rest as per primary
--- NOTE | 2017-08-30 20:11 | PN ---
Progress Note, Physician - Current Medication List Current Medications: Active Medications Apixaban (Eliquis -) 5 mg PO BID [facility] Last Admin: 08/30/17 09:38 Dose: 5 mg Atorvastatin Calcium (Lipitor -) 80 mg PO HS [facility] Last Admin: 08/29/17 21:58 Dose: 80 mg Azithromycin (Zithromax -) 500 mg PO DAILY [facility] Last Admin: 08/30/17 09:38 Dose: 500 mg Ampicillin Sodium/Sulbactam (Sodium 3 gm/ Sodium Chloride) 100 mls @ 200 mls/ hr IVPB Q6H-IV [facility] Last Admin: 08/30/17 15:09 Dose: 200 mls/hr Metoprolol Succinate (Toprol Xl -) 100 mg PO BID [facility] Last Admin: 08/30/17 09:38 Dose: 100 mg - Objective Vital Signs: Vital Signs Temperature 97.4 F L 08/30/17 14:34 Pulse Rate 49 L 08/30/17 14:34 Respiratory Rate 16 08/30/17 14:34 Blood Pressure 156/66 08/30/17 14:34 O2 Sat by Pulse Oximetry (%) 99 08/30/17 09:00 Constitutional: Yes: No Distress HENT: Yes: Atraumatic Neck: Yes: Supple Cardiovascular: Yes: Regular Rate and Rhythm Respiratory: Yes: CTA Bilaterally, Rhonchi Gastrointestinal: Yes: Normal Bowel Sounds Extremities: Yes: WNL Neurological: Yes: Alert, Oriented Labs: CBC, BMP 08/30/17 06:49 08/30/17 06:49 INR, PTT INR 2.48 (0.82-1.09) H 08/29/17 06:00 Problem List - Problems (1) Dyspnea Code(s): R06.00 - DYSPNEA, UNSPECIFIED (2) Pneumonia Assessment/Plan: on iv abx bcx Code(s): J18.9 - PNEUMONIA, UNSPECIFIED ORGANISM (3) HLD (hyperlipidemia) Assessment/Plan: on meds Code(s): E78.5 - HYPERLIPIDEMIA, UNSPECIFIED Qualifiers: (4) HTN (hypertension) Assessment/Plan: on meds stable Code(s): I10 - ESSENTIAL (PRIMARY) HYPERTENSION Qualifiers:
[2017-08-30] MEDS: ATORVASTATIN CA 80 MG TABLET (FP) PO SCH (22:02)
[2017-08-31] MEDS: AMPICILLIN NA/SULBACTAM NA 3 GM in SODIUM CHLORIDE 100 ML IVPB SCH ×4 (02:04→21:19)
[2017-08-31] MEDS: APIXABAN 5 MG TABLET PO SCH ×2 (09:27→21:19)
[2017-08-31] MEDS: AZITHROMYCIN 250 MG TABLET PO SCH (09:27)
[2017-08-31] MEDS: METOPROLOL SUCCINATE 100 MG TAB.SR.24H (FP) PO SCH ×2 (09:27→21:19)
--- NOTE | 2017-08-31 18:02 | PN ---
Progress Note, Physician History of Present Illness: feels better no complaints breathing better - Current Medication List Current Medications: Active Medications Apixaban (Eliquis -) 5 mg PO BID [facility] Last Admin: 08/31/17 09:27 Dose: 5 mg Atorvastatin Calcium (Lipitor -) 80 mg PO HS [facility] Last Admin: 08/30/17 22:02 Dose: 80 mg Azithromycin (Zithromax -) 500 mg PO DAILY [facility] Last Admin: 08/31/17 09:27 Dose: 500 mg Ampicillin Sodium/Sulbactam (Sodium 3 gm/ Sodium Chloride) 100 mls @ 200 mls/ hr IVPB Q6H-IV [facility] Last Admin: 08/31/17 15:19 Dose: 200 mls/hr Metoprolol Succinate (Toprol Xl -) 100 mg PO BID [facility] Last Admin: 08/31/17 09:27 Dose: 100 mg - Objective Vital Signs: Vital Signs Temperature 98.2 F 08/31/17 14:05 Pulse Rate 53 L 08/31/17 14:05 Respiratory Rate 16 08/31/17 14:05 Blood Pressure 150/55 08/31/17 14:05 O2 Sat by Pulse Oximetry (%) 99 08/31/17 09:00 Constitutional: Yes: No Distress, Calm Cardiovascular: Yes: Regular Rate and Rhythm Respiratory: Yes: Regular, CTA Bilaterally Gastrointestinal: Yes: Normal Bowel Sounds, Soft Musculoskeletal: Yes: WNL Extremities: Yes: WNL Neurological: Yes: Alert, Oriented Psychiatric: Yes: Alert, Oriented Labs: CBC, BMP 08/30/17 06:49 08/30/17 06:49 INR, PTT INR 2.48 (0.82-1.09) H 08/29/17 06:00 Assessment/Plan Problem List - Problems (1) Dyspnea Code(s): R06.00 - DYSPNEA, UNSPECIFIED (2) Pneumonia Assessment/Plan: on iv abx bcx Code(s): J18.9 - PNEUMONIA, UNSPECIFIED ORGANISM (3) HLD (hyperlipidemia) Assessment/Plan: on meds Code(s): E78.5 - HYPERLIPIDEMIA, UNSPECIFIED Qualifiers: (4) HTN (hypertension) Assessment/Plan: on meds stable Code(s): I10 - ESSENTIAL (PRIMARY) HYPERTENSION Qualifiers: plan conitnue abx incentive cale rest as per primary can change to oral augmentin complete course of zithro
--- NOTE | 2017-08-31 18:21 | PN ---
Progress Note, Physician History of Present Illness: doing well - Current Medication List Current Medications: Active Medications Apixaban (Eliquis -) 5 mg PO BID [facility] Last Admin: 08/31/17 09:27 Dose: 5 mg Atorvastatin Calcium (Lipitor -) 80 mg PO HS [facility] Last Admin: 08/30/17 22:02 Dose: 80 mg Azithromycin (Zithromax -) 500 mg PO DAILY [facility] Last Admin: 08/31/17 09:27 Dose: 500 mg Ampicillin Sodium/Sulbactam (Sodium 3 gm/ Sodium Chloride) 100 mls @ 200 mls/ hr IVPB Q6H-IV [facility] Last Admin: 08/31/17 15:19 Dose: 200 mls/hr Metoprolol Succinate (Toprol Xl -) 100 mg PO BID [facility] Last Admin: 08/31/17 09:27 Dose: 100 mg - Objective Vital Signs: Vital Signs Temperature 98.2 F 08/31/17 14:05 Pulse Rate 53 L 08/31/17 14:05 Respiratory Rate 16 08/31/17 14:05 Blood Pressure 150/55 08/31/17 14:05 O2 Sat by Pulse Oximetry (%) 99 08/31/17 09:00 Constitutional: Yes: No Distress HENT: Yes: Atraumatic Neck: Yes: Supple Cardiovascular: Yes: Regular Rate and Rhythm Respiratory: Yes: CTA Bilaterally Gastrointestinal: Yes: Normal Bowel Sounds Extremities: Yes: WNL Neurological: Yes: Alert, Oriented Labs: CBC, BMP 08/30/17 06:49 08/30/17 06:49 INR, PTT INR 2.48 (0.82-1.09) H 08/29/17 06:00 Problem List - Problems (1) Dyspnea Code(s): R06.00 - DYSPNEA, UNSPECIFIED (2) Pneumonia Assessment/Plan: will switch to po abx dc tomorrow if stable Code(s): J18.9 - PNEUMONIA, UNSPECIFIED ORGANISM (3) HLD (hyperlipidemia) Assessment/Plan: on meds Code(s): E78.5 - HYPERLIPIDEMIA, UNSPECIFIED Qualifiers: (4) HTN (hypertension) Assessment/Plan: on meds stable Code(s): I10 - ESSENTIAL (PRIMARY) HYPERTENSION Qualifiers:
[2017-08-31] MEDS ORDERED: PT OWN MED DRAWER 7, Y5N ONE (21:08)
[2017-08-31] MEDS: ATORVASTATIN CA 80 MG TABLET (FP) PO SCH (21:19)
[2017-09-01] MEDS: AMPICILLIN NA/SULBACTAM NA 3 GM in SODIUM CHLORIDE 100 ML IVPB SCH ×4 (02:37→21:27)
[2017-09-01] MEDS: AZITHROMYCIN 250 MG TABLET PO SCH (09:33)
[2017-09-01] MEDS: APIXABAN 5 MG TABLET PO SCH ×2 (09:34→21:27)
[2017-09-01] MEDS: METOPROLOL SUCCINATE 100 MG TAB.SR.24H (FP) PO SCH ×2 (09:34→21:27)
[2017-09-01] MEDS ORDERED: ACETAMINOPHEN 325 MG TABLET (FP) ONE (17:36)
[2017-09-01] MEDS: ACETAMINOPHEN 325 MG TABLET (FP) PO PRN (18:00)
--- NOTE | 2017-09-01 18:36 | PN ---
Progress Note, Physician History of Present Illness: llex pain - Current Medication List Current Medications: Active Medications Apixaban (Eliquis -) 5 mg PO BID [facility] Last Admin: 09/01/17 09:34 Dose: 5 mg Atorvastatin Calcium (Lipitor -) 80 mg PO HS [facility] Last Admin: 08/31/17 21:19 Dose: 80 mg Azithromycin (Zithromax -) 500 mg PO DAILY [facility] Last Admin: 09/01/17 09:33 Dose: 500 mg Ampicillin Sodium/Sulbactam (Sodium 3 gm/ Sodium Chloride) 100 mls @ 200 mls/ hr IVPB Q6H-IV [facility] Last Admin: 09/01/17 16:43 Dose: 200 mls/hr Metoprolol Succinate (Toprol Xl -) 100 mg PO BID [facility] Last Admin: 09/01/17 09:34 Dose: 100 mg - Objective Vital Signs: Vital Signs Temperature 98.6 F 09/01/17 14:40 Pulse Rate 53 L 09/01/17 14:40 Respiratory Rate 18 09/01/17 14:40 Blood Pressure 149/58 09/01/17 14:40 O2 Sat by Pulse Oximetry (%) 98 09/01/17 09:00 Constitutional: Yes: No Distress HENT: Yes: Atraumatic Neck: Yes: Supple Cardiovascular: Yes: Regular Rate and Rhythm Respiratory: Yes: CTA Bilaterally Extremities: Yes: WNL, Other (no calf tenderness) Neurological: Yes: Alert, Oriented Labs: CBC, BMP 08/30/17 06:49 08/30/17 06:49 INR, PTT INR 2.48 (0.82-1.09) H 08/29/17 06:00 Problem List - Problems (1) Dyspnea Code(s): R06.00 - DYSPNEA, UNSPECIFIED Qualifiers: Dyspnea type: unspecified Qualified Code(s): R06.00 - Dyspnea, unspecified (2) Pneumonia Code(s): J18.9 - PNEUMONIA, UNSPECIFIED ORGANISM Qualifiers: Pneumonia type: due to unspecified organism Laterality: unspecified laterality Lung location: unspecified part of lung Qualified Code(s): J18.9 - Pneumonia, unspecified organism (3) HLD (hyperlipidemia) Code(s): E78.5 - HYPERLIPIDEMIA, UNSPECIFIED Qualifiers: (4) HTN (hypertension) Code(s): I10 - ESSENTIAL (PRIMARY) HYPERTENSION Qualifiers: Assessment/Plan dopple negative for dvt it is probably herathritis prn tylenol
[2017-09-01] MEDS ORDERED: PT OWN MED DRAWER 7, Y5N ONE (21:23)
[2017-09-01] MEDS: ATORVASTATIN CA 80 MG TABLET (FP) PO SCH (21:27)
[2017-09-02] MEDS: AMPICILLIN NA/SULBACTAM NA 3 GM in SODIUM CHLORIDE 100 ML IVPB SCH ×3 (02:59→15:06)
[2017-09-02] MEDS ORDERED: PT OWN MED DRAWER 7, Y5N ONE (09:17)
[2017-09-02] MEDS: METOPROLOL SUCCINATE 100 MG TAB.SR.24H (FP) PO SCH ×3 (09:29→21:03)
[2017-09-02] MEDS: AZITHROMYCIN 250 MG TABLET PO SCH (09:29)
[2017-09-02] MEDS: ACETAMINOPHEN 325 MG TABLET (FP) PO PRN ×2 (09:29→21:05)
[2017-09-02] MEDS: APIXABAN 5 MG TABLET PO SCH ×2 (09:30→21:04)
--- NOTE | 2017-09-02 10:19 | PN ---
Progress Note, Physician History of Present Illness: c/o of pain in the left leg breating no issues - Current Medication List Current Medications: Active Medications Acetaminophen (Tylenol -) 650 mg PO Q6H PRN PRN Reason: FEVER OR PAIN Last Admin: 09/02/17 09:29 Dose: 650 mg Apixaban (Eliquis -) 5 mg PO BID [facility] Last Admin: 09/02/17 09:30 Dose: 5 mg Atorvastatin Calcium (Lipitor -) 80 mg PO HS [facility] Last Admin: 09/01/17 21:27 Dose: 80 mg Azithromycin (Zithromax -) 500 mg PO DAILY [facility] Last Admin: 09/02/17 09:29 Dose: 500 mg Ampicillin Sodium/Sulbactam (Sodium 3 gm/ Sodium Chloride) 100 mls @ 200 mls/ hr IVPB Q6H-IV [facility] Last Admin: 09/02/17 09:28 Dose: 200 mls/hr Metoprolol Succinate (Toprol Xl -) 100 mg PO BID [facility] Last Admin: 09/02/17 09:29 Dose: 100 mg - Objective Vital Signs: Vital Signs Temperature 97.8 F 09/02/17 06:00 Pulse Rate 50 L 09/02/17 06:00 Respiratory Rate 20 09/02/17 06:00 Blood Pressure 168/68 09/02/17 06:00 O2 Sat by Pulse Oximetry (%) 95 09/01/17 21:00 Constitutional: Yes: No Distress, Calm Cardiovascular: Yes: Regular Rate and Rhythm Respiratory: Yes: Regular, CTA Bilaterally Gastrointestinal: Yes: Normal Bowel Sounds, Soft Musculoskeletal: Yes: Other Extremities: Yes: Other (left knee pain) Neurological: Yes: Alert, Oriented Psychiatric: Yes: Alert, Oriented Labs: CBC, BMP 08/30/17 06:49 08/30/17 06:49 INR, PTT INR 2.48 (0.82-1.09) H 08/29/17 06:00 Assessment/Plan Problem List - Problems (1) Dyspnea Code(s): R06.00 - DYSPNEA, UNSPECIFIED (2) Pneumonia Assessment/Plan: on iv abx bcx Code(s): J18.9 - PNEUMONIA, UNSPECIFIED ORGANISM (3) HLD (hyperlipidemia) Assessment/Plan: on meds Code(s): E78.5 - HYPERLIPIDEMIA, UNSPECIFIED Qualifiers: (4) HTN (hypertension) Assessment/Plan: on meds stable Code(s): I10 - ESSENTIAL (PRIMARY) HYPERTENSION Qualifiers: plan augmentin 500 mg for 3 more days zithro for one more day
[2017-09-02] MEDS ORDERED: FUROSEMIDE 40 MG/4 ML INJECTABLE VIAL IVPUSH ONE (15:00)
[2017-09-02] MEDS: amLODIPine BESYLATE 10 MG TABLET (FP) PO SCH (15:06)
--- NOTE | 2017-09-02 16:41 | PN ---
Progress Note, Physician History of Present Illness: feeling better - Current Medication List Current Medications: Active Medications Acetaminophen (Tylenol -) 650 mg PO Q6H PRN PRN Reason: FEVER OR PAIN Last Admin: 09/02/17 09:29 Dose: 650 mg Amlodipine Besylate (Norvasc -) 10 mg PO DAILY [facility] Last Admin: 09/02/17 15:06 Dose: 10 mg Amoxicillin/Clavulanate Potassium (Augmentin - 875mg Tablet) 1 tab PO BID@0800, 1730 [facility] Apixaban (Eliquis -) 5 mg PO BID [facility] Last Admin: 09/02/17 09:30 Dose: 5 mg Atorvastatin Calcium (Lipitor -) 80 mg PO HS [facility] Last Admin: 09/01/17 21:27 Dose: 80 mg Azithromycin (Zithromax -) 500 mg PO DAILY [facility] Last Admin: 09/02/17 09:29 Dose: 500 mg Metoprolol Succinate (Toprol Xl -) 100 mg PO BID [facility] Last Admin: 09/02/17 09:29 Dose: 100 mg - Objective Vital Signs: Vital Signs Temperature 98.3 F 09/02/17 14:00 Pulse Rate 60 09/02/17 14:41 Respiratory Rate 18 09/02/17 14:41 Blood Pressure 210/96 09/02/17 14:41 O2 Sat by Pulse Oximetry (%) 95 09/02/17 10:00 Constitutional: Yes: No Distress HENT: Yes: Atraumatic Neck: Yes: Supple Cardiovascular: Yes: Regular Rate and Rhythm Respiratory: Yes: CTA Bilaterally Gastrointestinal: Yes: Normal Bowel Sounds Extremities: Yes: WNL Edema: No Peripheral Pulses WNL: Yes Neurological: Yes: Alert, Oriented Labs: CBC, BMP 08/30/17 06:49 08/30/17 06:49 INR, PTT INR 2.48 (0.82-1.09) H 08/29/17 06:00 Problem List - Problems (1) Dyspnea Assessment/Plan: resolve Code(s): R06.00 - DYSPNEA, UNSPECIFIED Qualifiers: Dyspnea type: unspecified Qualified Code(s): R06.00 - Dyspnea, unspecified (2) Pneumonia Assessment/Plan: will switch to po abx dc azithromycin Code(s): J18.9 - PNEUMONIA, UNSPECIFIED ORGANISM Qualifiers: Pneumonia type: due to unspecified organism Laterality: unspecified laterality Lung location: unspecified part of lung Qualified Code(s): J18.9 - Pneumonia, unspecified organism (3) HLD (hyperlipidemia) Code(s): E78.5 - HYPERLIPIDEMIA, UNSPECIFIED Qualifiers: (4) HTN (hypertension) Assessment/Plan: bp has been high will give a doser of lasix and start norvasc 10 mg po daily Code(s): I10 - ESSENTIAL (PRIMARY) HYPERTENSION Qualifiers: Assessment/Plan dopple negative for dvt it is probably herathritis prn tylenol DC IN AM
[2017-09-02] MEDS: AMOX TR/POT CLAV 875MG/125MG TABLETS (FP) PO SCH (17:52)
[2017-09-02 19:48] LABS: BASOPHIL 0.9 % (0-2.0); EOSINOPHIL 1.8 % (0-4.5); MCH 31.4 pg (25.7-33.7); MCHC 33.8 g/dl (32.0-36.0); MEAN CELL VOLUME 92.8 fl (80-96); MEAN PLT VOLUME 9.5 fl (7.5-11.1); NEUTROPHILS 72.6 % (42.8-82.8); PLATELET COUNT 186 K/MM3 (134-434); RDW 13.4 % (11.6-15.6); WHITE BLOOD COUNT 7.1 K/mm3 (4.0-10.0)
[2017-09-02 20:34] LABS: ALBUMIN 3.4 g/dl (3.4-5.0); ALK PHOS 99 U/L (45-117); ANION GAP 8 (8-16); BILIRUBIN,TOTAL 0.9 mg/dL (0.2-1.0); CALCIUM 8.3 mg/dL (8.5-10.1); CO2 31 mmol/L (21-32); CREATININE 1.1 mg/dL (0.55-1.02); GLUCOSE,RANDOM 109 mg/dL (74-106); SGOT/AST 14 U/L (15-37); SGPT/ALT 25 U/L (12-78)
[2017-09-02] MEDS: ATORVASTATIN CA 80 MG TABLET (FP) PO SCH (21:04)
[2017-09-02] MEDS ORDERED: POTASSIUM CHLORIDE TABS 20 MEQ TABLET.ER (FP) PO ONE (22:30)
[2017-09-03] MEDS: APIXABAN 5 MG TABLET PO SCH ×2 (09:42→21:36)
[2017-09-03] MEDS: METOPROLOL SUCCINATE 100 MG TAB.SR.24H (FP) PO SCH ×2 (09:42→21:36)
[2017-09-03] MEDS: amLODIPine BESYLATE 10 MG TABLET (FP) PO SCH (09:42)
[2017-09-03] MEDS: AZITHROMYCIN 250 MG TABLET PO SCH (09:42)
[2017-09-03] MEDS: AMOX TR/POT CLAV 875MG/125MG TABLETS (FP) PO SCH (09:42)
--- NOTE | 2017-09-03 12:36 | PN ---
Progress Note, Physician History of Present Illness: Pt seen and examined. Reports, labs reviewed. Patient currently without cough or wheezing, afebrile. Has had loose BMs today. - Current Medication List Current Medications: Active Medications Acetaminophen (Tylenol -) 650 mg PO Q6H PRN PRN Reason: FEVER OR PAIN Last Admin: 09/02/17 21:05 Dose: 650 mg Amlodipine Besylate (Norvasc -) 10 mg PO DAILY [facility] Last Admin: 09/03/17 09:42 Dose: 10 mg Amoxicillin/Clavulanate Potassium (Augmentin - 875mg Tablet) 1 tab PO BID@0800, 1730 [facility] Last Admin: 09/03/17 09:42 Dose: 1 tab Apixaban (Eliquis -) 5 mg PO BID [facility] Last Admin: 09/03/17 09:42 Dose: 5 mg Atorvastatin Calcium (Lipitor -) 80 mg PO HS [facility] Last Admin: 09/02/17 21:04 Dose: 80 mg Azithromycin (Zithromax -) 500 mg PO DAILY [facility] Last Admin: 09/03/17 09:42 Dose: 500 mg Metoprolol Succinate (Toprol Xl -) 100 mg PO BID [facility] Last Admin: 09/03/17 09:42 Dose: 100 mg - Objective Vital Signs: Vital Signs Temperature 97.8 F 09/03/17 09:47 Pulse Rate 117 H 09/03/17 11:31 Respiratory Rate 20 09/03/17 11:31 Blood Pressure 131/73 09/03/17 11:31 O2 Sat by Pulse Oximetry (%) 90 L 09/03/17 09:00 Constitutional: Yes: No Distress, Calm HENT: Yes: WNL Neck: Yes: Supple Cardiovascular: Yes: Regular Rate and Rhythm Respiratory: Yes: CTA Bilaterally Gastrointestinal: Yes: Normal Bowel Sounds, Soft Genitourinary: Yes: WNL Extremities: Yes: WNL Neurological: Yes: Alert, Oriented Labs: CBC, BMP 09/02/17 18:30 09/02/17 18:30 INR, PTT INR 2.48 (0.82-1.09) H 08/29/17 06:00 - ....Imaging X-ray: Report Reviewed Problem List - Problems (1) CHF (congestive heart failure) Code(s): I50.9 - HEART FAILURE, UNSPECIFIED Qualifiers: Congestive heart failure type: combined Congestive heart failure chronicity : acute on chronic Qualified Code(s): I50.43 - Acute on chronic combined systolic (congestive) and diastolic (congestive) heart failure (2) Pneumonia Code(s): J18.9 - PNEUMONIA, UNSPECIFIED ORGANISM Qualifiers: Pneumonia type: due to unspecified organism Laterality: unspecified laterality Lung location: unspecified part of lung Qualified Code(s): J18.9 - Pneumonia, unspecified organism Assessment/Plan - Patient symptomatically improved, for d/c home - diarrhea, suggest stool CDT - to follow up PMD - finishes course of zithromax, suggest d/c augmentin case d/w Dr. Duran
--- NOTE | 2017-09-03 18:56 | PN ---
Progress Note, Physician History of Present Illness: had diarrhea earlier - Current Medication List Current Medications: Active Medications Acetaminophen (Tylenol -) 650 mg PO Q6H PRN PRN Reason: FEVER OR PAIN Last Admin: 09/02/17 21:05 Dose: 650 mg Amlodipine Besylate (Norvasc -) 5 mg PO DAILY [facility] Apixaban (Eliquis -) 5 mg PO BID [facility] Last Admin: 09/03/17 09:42 Dose: 5 mg Atorvastatin Calcium (Lipitor -) 80 mg PO HS [facility] Last Admin: 09/02/17 21:04 Dose: 80 mg Azithromycin (Zithromax -) 500 mg PO DAILY [facility] Last Admin: 09/03/17 09:42 Dose: 500 mg Metoprolol Succinate (Toprol Xl -) 100 mg PO BID [facility] Last Admin: 09/03/17 09:42 Dose: 100 mg Potassium Chloride (K-Dur -) 40 meq PO DAILY [facility] - Objective Vital Signs: Vital Signs Temperature 98.4 F 09/03/17 18:40 Pulse Rate 123 H 09/03/17 18:40 Respiratory Rate 18 09/03/17 18:40 Blood Pressure 118/74 09/03/17 18:40 O2 Sat by Pulse Oximetry (%) 90 L 09/03/17 09:00 Constitutional: Yes: No Distress HENT: Yes: Atraumatic Neck: Yes: Supple Cardiovascular: Yes: Regular Rate and Rhythm Respiratory: Yes: CTA Bilaterally Gastrointestinal: Yes: Normal Bowel Sounds Extremities: Yes: WNL Edema: No Neurological: Yes: Alert, Oriented Labs: CBC, BMP 09/02/17 18:30 09/02/17 18:30 INR, PTT INR 2.48 (0.82-1.09) H 08/29/17 06:00 Problem List - Problems (1) Dyspnea Assessment/Plan: resolved Code(s): R06.00 - DYSPNEA, UNSPECIFIED Qualifiers: Dyspnea type: unspecified Qualified Code(s): R06.00 - Dyspnea, unspecified (2) Pneumonia Assessment/Plan: completed abx course d/w id Code(s): J18.9 - PNEUMONIA, UNSPECIFIED ORGANISM Qualifiers: Pneumonia type: due to unspecified organism Laterality: unspecified laterality Lung location: unspecified part of lung Qualified Code(s): J18.9 - Pneumonia, unspecified organism (3) HLD (hyperlipidemia) Assessment/Plan: on meds Code(s): E78.5 - HYPERLIPIDEMIA, UNSPECIFIED Qualifiers: (4) HTN (hypertension) Assessment/Plan: stable now will cut down norvasc to 5 mg po daily Code(s): I10 - ESSENTIAL (PRIMARY) HYPERTENSION Qualifiers: (5) Hypokalemia Assessment/Plan: on replacement will monitor Code(s): E87.6 - HYPOKALEMIA Assessment/Plan c diff pending
[2017-09-03] MEDS: POTASSIUM CHLORIDE TABS 20 MEQ TABLET.ER (FP) PO SCH (19:10)
[2017-09-03] MEDS: ATORVASTATIN CA 80 MG TABLET (FP) PO SCH (21:37)
[2017-09-04 07:39] LABS: EOSINOPHIL 2.3 % (0-4.5); MCH 30.3 pg (25.7-33.7); MCHC 32.5 g/dl (32.0-36.0); MEAN CELL VOLUME 93.2 fl (80-96); MEAN PLT VOLUME 9.7 fl (7.5-11.1); NEUTROPHILS 68.1 % (42.8-82.8); PLATELET COUNT 207 K/MM3 (134-434); RDW 13.3 % (11.6-15.6); WHITE BLOOD COUNT 5.6 K/mm3 (4.0-10.0)
[2017-09-04 08:50] LABS: ALBUMIN 3.1 g/dl (3.4-5.0); ALK PHOS 95 U/L (45-117); ANION GAP 9 (8-16); BILIRUBIN,TOTAL 0.9 mg/dL (0.2-1.0); CALCIUM 8.7 mg/dL (8.5-10.1); CO2 28 mmol/L (21-32); CREATININE 0.9 mg/dL (0.55-1.02); GLUCOSE,RANDOM 100 mg/dL (74-106); SGOT/AST 20 U/L (15-37); SGPT/ALT 22 U/L (12-78); TOT PROT 6.5 g/dl (6.4-8.2)
[2017-09-04 09:39] VITALS: BP 115/89; PULSE 120; TEMP 98
[2017-09-04] MEDS: POTASSIUM CHLORIDE TABS 20 MEQ TABLET.ER (FP) PO SCH (09:45)
[2017-09-04] MEDS: AZITHROMYCIN 250 MG TABLET PO SCH (09:45)
[2017-09-04] MEDS: METOPROLOL SUCCINATE 100 MG TAB.SR.24H (FP) PO SCH (09:46)
[2017-09-04] MEDS: APIXABAN 5 MG TABLET PO SCH (09:46)
[2017-09-04] MEDS ORDERED: amLODIPine BESYLATE 5 MG TABLET (FP) PO SCH (10:00)
--- NOTE | 2017-09-05 18:10 | DS ---
Physical Examination Vital Signs: Vital Signs Temperature 98 F 09/04/17 09:38 Pulse Rate 120 H 09/04/17 09:38 Respiratory Rate 18 09/04/17 09:38 Blood Pressure 115/89 09/04/17 09:38 O2 Sat by Pulse Oximetry (%) 93 L 09/04/17 08:35 Labs: CBC, BMP 09/04/17 06:10 09/04/17 06:10 Discharge Summary Reason For Visit: CHF,DYSPNEA Condition: Fair - Instructions Diet, Activity, Other Instructions: antibiotic course completed follow up with pmd next week Disposition: HOME HEALTH CARE - Home Medications Comprehensive Discharge Medication List: Ambulatory Orders Apixaban [Eliquis -] 5 mg PO BID #60 tablet 08/19/17 Atorvastatin Ca [Lipitor] 80 mg PO HS #30 tablet 08/19/17 Metoprolol Succinate [Toprol XL -] 100 mg PO BID #60 tab.sr.24h 08/19/17 Amlodipine Besylate [Norvasc -] 5 mg PO DAILY #30 tablet 09/03/17 fl home
== END 2017-09-04 10:15 | disposition home health service (06) | DRG 193 ==
LOC: JER 05:06 → JERBED 08:59 → J4S 11:04
PROVIDERS: ADMIT Internal Medicine; ATTEND Internal Medicine
DX: J18.9 Pneumonia, unspecified organism (principal); I50.43 Acute on chronic combined systolic (congestive) and diastolic (congestive) heart failure; I11.0 Hypertensive heart disease with heart failure; E87.6 Hypokalemia; E78.5 Hyperlipidemia, unspecified; R06.00 Dyspnea, unspecified
CPT/HCPCS: 36415; 71010-TC; 71020-TC; 80053; 81003; 81015; 82550; 83735; 83880; 84484; 85025; 85610; 86850; 86900; 86901; 87040; 87324; 87449; 93005; 93010; 93970-TC; 94761; 97116-GP; 97161-GP; 99285-25

== ENCOUNTER 2017-09-13 13:41 | Inpatient (IN) | payer OTHER ==
--- NOTE | 2017-09-13 14:02 | PDOC ---
History of Present Illness <Krzysztof Basurto - Last Filed: 09/13/17 15:32> - History of Present Illness Initial Comments: 09/13/17 16:40 81yo woman with PMH of Afib (on Xarelto), HTN, HLD, PVD (s/p RLE angioplasty and R 2nd toe amputation) who was BIBEMS for lightheadedness, dyspnea, and diaphoresis. She has had several recent admissions. 09/13/17 16:55 <Liliana Kulkarni - Last Filed: 09/13/17 16:55> - General Stated Complaint: WEAKNESS Time Seen by Provider: 09/13/17 14:01 Past History <Krzysztof Basurto - Last Filed: 09/13/17 15:32> - Past Medical History Cardiac Disorders: Yes COPD: No HTN: Yes Hypercholesterolemia: Yes - Surgical History Cholecystectomy: Yes - Immunization History Immunization Up to Date: No - Suicide/Smoking/Psychosocial Hx Smoking History: Never smoked Have you smoked in the past 12 months: No Hx Alcohol Use: No Drug/Substance Use Hx: No Substance Use Type: None <Liliana Kulkarni - Last Filed: 09/13/17 16:55> - Past Medical History Allergies/Adverse Reactions: Allergies Allergy/AdvReac Type Severity Reaction Status Date / Time No Known Allergies Allergy Verified 09/13/17 14:03 Home Medications: Ambulatory Orders Atorvastatin Ca [Lipitor] 80 mg PO HS #30 tablet 08/19/17 Metoprolol Succinate [Toprol XL -] 100 mg PO BID #60 tab.sr.24h 08/19/17 Acetaminophen [Tylenol Extra Strength] 500 mg PO PRN 09/13/17 Amlodipine Besylate [Norvasc -] 10 mg PO DAILY 09/13/17 Ascorbate Calcium [Vitamin C] 500 mg PO DAILY 09/13/17 Rivaroxaban [Xarelto -] 20 mg PO DAILY 09/13/17 *Physical Exam - Vital Signs Last Vital Signs Temp Pulse Resp BP Pulse Ox 98.2 F 74 16 107/77 97 09/13/17 14:32 09/13/17 14:32 09/13/17 14:32 09/13/17 14:32 09/13/17 14:32 <Krzysztof Basurto - Last Filed: 09/13/17 15:32> ED Treatment Course - LABORATORY CBC & Chemistry Diagram: 09/13/17 14:19 09/13/17 14:19 - ADDITIONAL ORDERS Additional order review: Laboratory Results 09/13/17 09/13/17 14:19 14:19 Sodium 138 Potassium 4.3 Chloride 106 Carbon Dioxide 26 Anion Gap 6 L BUN 17 D Creatinine 1.1 H D Creat Clearance w eGFR 47.67 Random Glucose 107 H Calcium 8.6 Total Bilirubin 0.4 D AST 20 ALT 25 Alkaline Phosphatase 107 Troponin I 0.02 B-Natriuretic Peptide 1932.83 H Total Protein 7.1 Albumin 3.5 09/13/17 14:19 RBC 3.73 MCV 93.9 MCHC 32.4 RDW 14.1 MPV 9.4 Neutrophils % 62.6 Lymphocytes % 24.4 D Monocytes % 10.5 H Eosinophils % 1.8 Basophils % 0.7 - RADIOLOGY Radiology Studies Ordered: Category Date Time Status CXRPORT [CHEST X-RAY PORTABLE*] [RAD] Stat Radiology 09/13/17 14:11 Completed <Krzysztof Basurto - Last Filed: 09/13/17 15:32> - LABORATORY CBC & Chemistry Diagram: 09/13/17 14:19 09/13/17 14:19 <Liliana Kulkarni - Last Filed: 09/13/17 16:55> *DC/Admit/Observation/Transfer - Discharge Dispostion Admit: Yes <Krzysztof Basurto - Last Filed: 09/13/17 15:32> <Liliana Kulkarni - Last Filed: 09/13/17 16:55> Diagnosis at time of Disposition: CHF (congestive heart failure) Qualifiers: Congestive heart failure type: unspecified congestive heart failure type Congestive heart failure chronicity: unspecified congestive heart failure chronicity Qualified Code(s): I50.9 - Heart failure, unspecified
[2017-09-13 14:03] VITALS: BMI 33.7
--- NOTE | 2017-09-13 14:19 | PDOC ---
Attending Attestation - HPI HPI: 09/13/17 16:11 The patient is a 81 year old female with a significant past medical history of HTN (reportedly taking 3 antihypertensives), HLD, PVD (s/p RLE angioplasty and 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 As per the patient she was able to find a neighbor who called ems for the patient. She denies chest pain headache and dizziness. She denies fever, chills, nausea, vomit, diarrhea and constipation. She denies dysuria, frequency, urgency and hematuria. Allergies: None Social history: No smoking. No alcohol. No illicit drugs. Surgical history: R second toe amputation PMD: Dr. Jacob Medrano - Physicial Exam PE: 09/13/17 16:11 Vitals: Triage vital signs reviewed General Appearance: No acute distress, well nourished, well developed Head: Atraumatic Neck: Supple; No nuchal rigidity Chest Wall: Nontender Cardiac: Regular rate and rhythm, no murmurs, no rubs, no gallops Lungs: Clear to auscultation bilateral, good air movement bilaterally Abdomen: Soft, nondistended, normal bowel sounds, nontender to palpation Genitourinary: Rectal: Exam deferred Extremities: Full range of motion to all extremities, no cyanosis, clubbing, or edema Skin: Warm and dry, no rashes or lesions, no rash, no petechiae Neuro: AOX3; Cranial Nerves 2-12 grossly intact, Strength intact to all extremities, Sensation intact to all extremities, gait normal Psych: Normal mood, normal affect - Medical Decision Making 09/13/17 15:28 Dr. Kemp called at the office and the patient's case was discussed at length. Dr. Kemp accepts the patient for admission at this time. <Fay Borrego - Last Filed: 09/13/17 16:11> - Resident Resident Name: Liliana Kulkarni - ED Attending Attestation I have performed the following: I have examined & evaluated the patient, The case was reviewed & discussed with the resident, I agree w/resident's findings & plan, Exceptions are as noted - Medical Decision Making Near syncope, diaphoresis, in pt. with multiple medical problems. Workup in ED concerning for CHF exacerbation. Will admit to medicine for further management 09/13/17 17:08 <Krzysztof Basurto - Last Filed: 09/13/17 17:09> Heart Score/ECG Review - ECG Intrepretation Comment:: 09/13/17 15:11 EKG performed at 14:13 demonstrates rate of 82 bpm rhythm of atrial fibrillation , axis equal to normal. Nonspecific ST and T wave abnormality. RSR or QR pattern in V1 suggests right right ventricular conduction delay. <Fay Borrego - Last Filed: 09/13/17 16:11>
[2017-09-13 14:37] LABS: BASOPHIL 0.7 % (0-2.0); EOSINOPHIL 1.8 % (0-4.5); MCH 30.4 pg (25.7-33.7); MCHC 32.4 g/dl (32.0-36.0); MEAN CELL VOLUME 93.9 fl (80-96); MEAN PLT VOLUME 9.4 fl (7.5-11.1); NEUTROPHILS 62.6 % (42.8-82.8); PLATELET COUNT 277 K/MM3 (134-434); RDW 14.1 % (11.6-15.6); WHITE BLOOD COUNT 5.7 K/mm3 (4.0-10.0)
[2017-09-13 15:00] LABS: ALBUMIN 3.5 g/dl (3.4-5.0); ALK PHOS 107 U/L (45-117); ANION GAP 6 (8-16); BILIRUBIN,TOTAL 0.4 mg/dL (0.2-1.0); CALCIUM 8.6 mg/dL (8.5-10.1); CO2 26 mmol/L (21-32); CREATININE 1.1 mg/dL (0.55-1.02); GLUCOSE,RANDOM 107 mg/dL (74-106); SGOT/AST 20 U/L (15-37); SGPT/ALT 25 U/L (12-78); TOT PROT 7.1 g/dl (6.4-8.2)
[2017-09-13 15:02] LABS: TROPONIN I 0.02 ng/ml (0.00-0.05)
[2017-09-13 20:49] LABS: TROPONIN I 0.02 ng/ml (0.00-0.05)
[2017-09-13] MEDS: ATORVASTATIN CA 80 MG TABLET (FP) PO SCH (21:24)
[2017-09-13] MEDS: METOPROLOL SUCCINATE 100 MG TAB.SR.24H (FP) PO SCH (21:24)
[2017-09-13] MEDS: ACETAMINOPHEN 325 MG TABLET (FP) PO PRN (23:00)
[2017-09-14 07:23] LABS: EOSINOPHIL 1.7 % (0-4.5); MCH 30.7 pg (25.7-33.7); MCHC 32.6 g/dl (32.0-36.0); MEAN CELL VOLUME 94.1 fl (80-96); MEAN PLT VOLUME 9.5 fl (7.5-11.1); NEUTROPHILS 65.6 % (42.8-82.8); PLATELET COUNT 218 K/MM3 (134-434); RDW 13.8 % (11.6-15.6); WHITE BLOOD COUNT 5.6 K/mm3 (4.0-10.0)
[2017-09-14 07:34] LABS: ALBUMIN 3.1 g/dl (3.4-5.0); ANION GAP 7 (8-16); BILIRUBIN,TOTAL 0.5 mg/dL (0.2-1.0); CALCIUM 8.1 mg/dL (8.5-10.1); CHOLESTEROL 69 mg/dL (50-200); CO2 27 mmol/L (21-32); CREATININE 1.1 mg/dL (0.55-1.02); GLUCOSE,RANDOM 94 mg/dL (74-106); SGOT/AST 17 U/L (15-37); SGPT/ALT 24 U/L (12-78); TOT PROT 6.3 g/dl (6.4-8.2)
[2017-09-14 07:35] LABS: ALK PHOS 94 U/L (45-117); CPK 51 IU/L (26-192); TROPONIN I 0.02 ng/ml (0.00-0.05)
--- NOTE | 2017-09-14 07:39 | EKG ---
Test Reason : Blood Pressure : / mmHG Vent. Rate : 082 BPM Atrial Rate : 084 BPM P-R Int : 000 ms QRS Dur : 124 ms QT Int : 392 ms P-R-T Axes : 000 053 -15 degrees QTc Int : 457 ms ATRIAL FIBRILLATION RSR' OR QR PATTERN IN V1 SUGGESTS RIGHT VENTRICULAR CONDUCTION DELAY NONSPECIFIC ST AND T WAVE ABNORMALITY ABNORMAL ECG WHEN COMPARED WITH ECG OF 29-AUG-2017 05:10, ATRIAL FIBRILLATION HAS REPLACED SINUS RHYTHM RSR' PATTERN IN V1 HAS REPLACED RIGHT BUNDLE BRANCH BLOCK Confirmed by Giuseppe Saha ([id number]) on 09/13/2017 2:24:44 PM Also confirmed by MD Yifan, Giuseppe ([id number]), photographic editor GIUSEPPE CADENA ([id number]) on 09/14/2017 7:38:51 AM Referred By: Confirmed By:Giuseppe Saha MD
--- NOTE | 2017-09-14 08:27 | HP ---
Admitting History and Physical - Admission History of Present Illness: The patient is a 81 year old female with a significant past medical history of HTN (reportedly taking 3 antihypertensives), HLD, PVD (s/p RLE angioplasty and 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 As per the patient she was able to find a neighbor who called ems for the patient. - Past Medical History Cardiovascular: Yes: AFIB, CAD, HTN, Hyperlipdemia Pulmonary: Yes: Pneumonia - Smoking History Smoking history: Never smoked Have you smoked in the past 12 months: No - Alcohol/Substance Use Hx Alcohol Use: No Home Medications - Allergies Allergies/Adverse Reactions: Allergies Allergy/AdvReac Type Severity Reaction Status Date / Time No Known Allergies Allergy Verified 09/13/17 14:03 - Home Medications Home Medications: Ambulatory Orders Atorvastatin Ca [Lipitor] 80 mg PO HS #30 tablet 08/19/17 Metoprolol Succinate [Toprol XL -] 100 mg PO BID #60 tab.sr.24h 08/19/17 Acetaminophen [Tylenol Extra Strength] 500 mg PO PRN 09/13/17 Amlodipine Besylate [Norvasc -] 10 mg PO DAILY 09/13/17 Ascorbate Calcium [Vitamin C] 500 mg PO DAILY 09/13/17 Rivaroxaban [Xarelto -] 20 mg PO DAILY 09/13/17 Review of Systems - Review of Systems Cardiovascular: denies: Chest Pain, Edema Respiratory: reports: SOB on Exertion Neurological: reports: Dizziness, Unsteady Gait Physical Examination Vital Signs: Vital Signs Temperature 98.9 F 09/14/17 07:23 Pulse Rate 65 09/14/17 07:23 Respiratory Rate 18 09/14/17 07:26 Blood Pressure 127/59 09/14/17 07:23 O2 Sat by Pulse Oximetry (%) 98 09/14/17 07:26 Labs: CBC, BMP 09/14/17 06:45 09/14/17 06:45 Imaging - Results Cat Scan: Report Reviewed Problem List - Problems (1) Afib Assessment/Plan: ON XARELTO MONITOR ON TELE Code(s): I48.91 - UNSPECIFIED ATRIAL FIBRILLATION (2) Pericardial effusion Assessment/Plan: CT OF CHEST CARDIO Code(s): I31.3 - PERICARDIAL EFFUSION (NONINFLAMMATORY) (3) CHF (congestive heart failure) Assessment/Plan: MONITOR OFF DIURETICS Code(s): I50.9 - HEART FAILURE, UNSPECIFIED Qualifiers: Congestive heart failure type: unspecified congestive heart failure type Congestive heart failure chronicity: unspecified congestive heart failure chronicity Qualified Code(s): I50.9 - Heart failure, unspecified (4) Dizziness Assessment/Plan: ORTHOSTATIC BP MONITOR LABS TELE Code(s): R42 - DIZZINESS AND GIDDINESS (5) HTN (hypertension) Code(s): I10 - ESSENTIAL (PRIMARY) HYPERTENSION Qualifiers: (6) PVD (peripheral vascular disease) Code(s): I73.9 - PERIPHERAL VASCULAR DISEASE, UNSPECIFIED (7) CAD (coronary artery disease) Assessment/Plan: MILD ISCHEMIA ON STATIN Code(s): I25.10 - ATHSCL HEART DISEASE OF [place] CORONARY ARTERY W/O ANG PCTRS
[2017-09-14] MEDS: RIVAROXABAN 20 MG TABLET PO SCH (09:53)
[2017-09-14] MEDS: amLODIPine BESYLATE 10 MG TABLET (FP) PO SCH (09:53)
[2017-09-14] MEDS: METOPROLOL SUCCINATE 100 MG TAB.SR.24H (FP) PO SCH ×2 (09:53→23:18)
[2017-09-14] MEDS: ASPIRIN COATED 81 MG TABLET.EC PO SCH (09:53)
[2017-09-14 13:01] LABS: BASOPHIL 1.1 % (0-2.0); EOSINOPHIL 1.5 % (0-4.5); MCH 30.4 pg (25.7-33.7); MCHC 32.4 g/dl (32.0-36.0); MEAN CELL VOLUME 93.9 fl (80-96); MEAN PLT VOLUME 8.8 fl (7.5-11.1); NEUTROPHILS 70.1 % (42.8-82.8); PLATELET COUNT 243 K/MM3 (134-434); RDW 14.3 % (11.6-15.6); WHITE BLOOD COUNT 6.5 K/mm3 (4.0-10.0)
[2017-09-14 13:38] LABS: FERRITIN 51.12 ng/ml (6.9-282.5)
--- NOTE | 2017-09-14 17:01 | CON.CARD ---
Consult Consult Specialty:: Cardiology Reason for Consultation:: Atrial Fibrillation - History of Present Illness History of Present Illness: This is an 81 year old female with a PMH of Afib (on Xarelto), HTN, HLD, and PVD. S/P RLE angioplasty and a right second toe ambulation. She presents now with near syncope. EKG Atrial fibrillation at [address] and T wave abnormality. RSR or QR pattern in V1 suggests right right ventricular conduction delay. BNP 1933 - Past Medical History Cardio/Vascular: Yes: AFIB, CAD, HTN, Hyperlipdemia Pulmonary: Yes: Pneumonia - Alcohol/Substance Use Hx Alcohol Use: No - Smoking History Smoking history: Never smoked Have you smoked in the past 12 months: No Home Medications - Allergies Allergies/Adverse Reactions: Allergies Allergy/AdvReac Type Severity Reaction Status Date / Time No Known Allergies Allergy Verified 09/13/17 14:03 - Home Medications Home Medications: Ambulatory Orders Atorvastatin Ca [Lipitor] 80 mg PO HS #30 tablet 08/19/17 Metoprolol Succinate [Toprol XL -] 100 mg PO BID #60 tab.sr.24h 08/19/17 Acetaminophen [Tylenol Extra Strength] 500 mg PO PRN 09/13/17 Amlodipine Besylate [Norvasc -] 10 mg PO DAILY 09/13/17 Ascorbate Calcium [Vitamin C] 500 mg PO DAILY 09/13/17 Rivaroxaban [Xarelto -] 20 mg PO DAILY 09/13/17 Review of Systems Unable to obtain ROS, reason: As per HPI Vital Signs: Vital Signs Temperature 98.8 F 09/14/17 14:00 Pulse Rate 55 L 09/14/17 14:00 Respiratory Rate 18 09/14/17 07:26 Blood Pressure 126/71 09/14/17 14:00 O2 Sat by Pulse Oximetry (%) 98 09/14/17 07:26 Constitutional: Yes: No Distress Neck: Yes: WNL Respiratory: Yes: CTA Bilaterally Gastrointestinal: Yes: Soft Cardiovascular: Yes: Regular Rate and Rhythm (NL S1S2, no MRHG) Extremities: Yes: WNL Edema: No Neurological: Yes: Alert, Oriented (Grossly nonfocal) - Other Data Labs, Other Data: CBC, BMP 09/14/17 12:40 09/14/17 06:45 Troponin, BNP 09/13/17 09/14/17 18:15 06:45 Troponin I 0.02 0.02 Troponin, BNP 09/13/17 09/14/17 18:15 06:45 Troponin I 0.02 0.02 Assessment/Plan Near Syncope Keep monitored on Telem Check orthostatic BP's Obtain an Echocardiogram AFIB Continue AC with Xarelto Continue rate control with Metoprolol 100 mg BP BID HTN Continue Amlodipine 10 mg daily HLD Continue Lipitor 80 mg daily and ASA 81 mg daily
[2017-09-14] MEDS: ACETAMINOPHEN 325 MG TABLET (FP) PO PRN ×2 (17:03→21:25)
[2017-09-14] MEDS: FUROSEMIDE 40 MG/4 ML INJECTABLE VIAL IVPUSH SCH (17:03)
--- NOTE | 2017-09-14 19:28 | CONSULT ---
Consult - text type - Consultation Consultation Note: NEUROLOGY CONSULTATION is greatly appreciated: Events reviewed, patient examined. This 81 yo RH, [place]riot speaking woman with h/oHTN, Chol, ASHD, AFib, PVD is s/p fem-pop bypass and small toe amputation. On atorvastatin, metoprolol, amlodipine, and xarelto. Admitted with progressive weakness, fatigue and c/o numbness and heaviness in legs. Unsteady gait. [place] as if she might fall or faint. I think she is also expressing cognitive complaints of forgetting. B12 level = 180 pg% CLARISSE: Mod. obese. No bruits. Neck supple. NEURO: [facility] ([facility] 2016 Speech fluent in Cypriot. Frontal release findings absent CN II-XII normal withouot nystagmus Motor: No drift or tremor. Normal strength, tone and bult. Normal reflexes except reduced AJ's. Toes downgoing. Coord: No FTN dystaxia Sensory: Normal vibration over feet. Gait: sl wide-based and shuffling. IMP: Non-focal exam with mild cognitive and gait abnormality. This presentation could be c/w combined systems disease (B12 deficiency). SUGGEST: Repeat B12 level with homocysteine and methylmalonic acid. Check TSH, T4, CK, U/A and C&S. Complete cardiac evaluation. Aggressive replacement of B12 if repeat level, homocysteine and MMA confirm. PT for gait with walker. After parenteral B12 contdine oral B12 1000 pg PO daily forever. Follow levels as out patient. Thank you very much, Jacob Hicks MD
[2017-09-14] MEDS: ATORVASTATIN CA 80 MG TABLET (FP) PO SCH (21:25)
[2017-09-14] MEDS: CYANOCOBALAMIN (VITAMIN B-12) 1000 MCG/1 ML VIAL IM SCH (21:25)
[2017-09-15] MEDS: METOPROLOL SUCCINATE 100 MG TAB.SR.24H (FP) PO SCH ×2 (01:00→10:37)
[2017-09-15] MEDS: ACETAMINOPHEN 325 MG TABLET (FP) PO PRN ×4 (02:22→21:28)
[2017-09-15 06:08] LABS: SERUM IRON 43 ug/dL (27-139); TOTAL IRON BINDING CAPACITY 330 ug/dL (250-450); UIBC 287 ug/dL (118-369)
[2017-09-15 07:27] LABS: BASOPHIL 1.1 % (0-2.0); EOSINOPHIL 2.6 % (0-4.5); MCH 30.7 pg (25.7-33.7); MEAN PLT VOLUME 9.5 fl (7.5-11.1); NEUTROPHILS 65.9 % (42.8-82.8); PLATELET COUNT 195 K/MM3 (134-434); RDW 13.7 % (11.6-15.6); WHITE BLOOD COUNT 4.9 K/mm3 (4.0-10.0)
[2017-09-15] MEDS: FUROSEMIDE 40 MG/4 ML INJECTABLE VIAL IVPUSH SCH (10:36)
[2017-09-15] MEDS: ASPIRIN COATED 81 MG TABLET.EC PO SCH (10:36)
[2017-09-15] MEDS: amLODIPine BESYLATE 10 MG TABLET (FP) PO SCH (10:37)
[2017-09-15] MEDS: RIVAROXABAN 20 MG TABLET PO SCH (10:37)
[2017-09-15] MEDS: CYANOCOBALAMIN (VITAMIN B-12) 1000 MCG/1 ML VIAL IM SCH (10:37)
--- NOTE | 2017-09-15 11:40 | EKG ---
Test Reason : Blood Pressure : / mmHG Vent. Rate : 129 BPM Atrial Rate : 129 BPM P-R Int : 138 ms QRS Dur : 120 ms QT Int : 314 ms P-R-T Axes : -27 130 -28 degrees QTc Int : 460 ms POOR DATA QUALITY, INTERPRETATION MAY BE ADVERSELY AFFECTED SINUS TACHYCARDIA RIGHT BUNDLE BRANCH BLOCK ABNORMAL ECG Confirmed by PAUL HALL MD ([id number]) on 09/15/2017 11:40:41 AM Referred By: Confirmed By:PAUL HALL MD
--- NOTE | 2017-09-15 13:03 | CON.PULM ---
Consult Consult Specialty:: PULM/CCM Referred by:: GALEN Reason for Consultation:: Abnormal CT / SOB - History of Present Illness Chief Complaint: SOB History of Present Illness: 81 F, HTN, HLD, PVD, S/P RLE angioplasty and Right 2nd toe amputation. Admitted via the ER due to lightheadedness, shortness of breath, and near syncopal event. Apparently a neighbor called the EMS. No fever or febrile illness symptoms. No apparent travel history or sick contacts. No hemoptysis or night sweats. CT: consistent with Pulmonary vascular congestion. Non-specific RUL 8mm nodule and AUGUSTO 6mm nodule. There is no previous CT imaging for comparison. - History Source History Provided By: Patient, Medical Record Limitations to Obtaining History: Language Barrier - Past Medical History Cardio/Vascular: Yes: AFIB, CAD, HTN, Hyperlipdemia Pulmonary: Yes: Pneumonia - Alcohol/Substance Use Hx Alcohol Use: No - Smoking History Smoking history: Never smoked Have you smoked in the past 12 months: No Home Medications - Allergies Allergies/Adverse Reactions: Allergies Allergy/AdvReac Type Severity Reaction Status Date / Time No Known Allergies Allergy Verified 09/13/17 14:03 - Home Medications Home Medications: Ambulatory Orders Atorvastatin Ca [Lipitor] 80 mg PO HS #30 tablet 08/19/17 Metoprolol Succinate [Toprol XL -] 100 mg PO BID #60 tab.sr.24h 08/19/17 Acetaminophen [Tylenol Extra Strength] 500 mg PO PRN 09/13/17 Amlodipine Besylate [Norvasc -] 10 mg PO DAILY 09/13/17 Ascorbate Calcium [Vitamin C] 500 mg PO DAILY 09/13/17 Rivaroxaban [Xarelto -] 20 mg PO DAILY 09/13/17 Review of Systems - Review of Systems Constitutional: reports: Malaise. denies: Chills, Fever, Loss of Appetite, Night Sweats, Unintentional Wgt. Loss Eyes: reports: No Symptoms HENT: reports: No Symptoms Neck: reports: No Symptoms Cardiovascular: reports: Edema, Palpitations, Shortness of Breath. denies: Chest Pain Respiratory: reports: Cough, SOB, SOB on Exertion. denies: Hemoptysis, Snoring , Wheezing Gastrointestinal: reports: No Symptoms Genitourinary: reports: No Symptoms Breasts: reports: No Symptoms Reported Musculoskeletal: reports: No Symptoms Integumentary: reports: No Symptoms Neurological: reports: No Symptoms Endocrine: reports: No Symptoms Hematology/Lymphatic: reports: No Symptoms Psychiatric: reports: No Symptoms Physical Exam Vital Sings: Vital Signs Temperature 98.0 F 09/15/17 10:00 Pulse Rate 53 L 09/15/17 10:00 Respiratory Rate 20 09/15/17 10:00 Blood Pressure 127/72 09/15/17 10:00 O2 Sat by Pulse Oximetry (%) 97 09/15/17 10:00 Constitutional: Yes: No Distress, Obese Eyes: Yes: Conjunctiva Clear, EOM Intact HENT: Yes: Atraumatic, Normocephalic Neck: Yes: Supple, Trachea Midline Cardiovascular: Yes: Pulse Irregular Respiratory: Yes: Diminished, On Nasal O2, Rales, Rhonchi. No: Accessory Muscle Use, Stridor, Tachypnea, Wheezes ...Inspection: Yes: WNL ...Clubbing: No Gastrointestinal: Yes: Normal Bowel Sounds, Soft, Abdomen, Obese Musculoskeletal: Yes: WNL Extremities: Yes: WNL Edema: Yes Peripheral Pulses WNL: Yes Integumentary: Yes: Laceration Neurological: Yes: WNL, Alert, Oriented ...Motor Strength: WNL Psychiatric: Yes: Alert Labs: CBC, BMP 09/15/17 07:05 09/14/17 06:45 Imaging - Results Chest X-ray: Report Reviewed, Image Reviewed Cat Scan: Report Reviewed, Image Reviewed Problem List - Problems (1) Lung nodule, multiple Code(s): R91.8 - OTHER NONSPECIFIC ABNORMAL FINDING OF LUNG FIELD (2) Afib Code(s): I48.91 - UNSPECIFIED ATRIAL FIBRILLATION (3) CAD (coronary artery disease) Code(s): I25.10 - ATHSCL HEART DISEASE OF [place] CORONARY ARTERY W/O ANG PCTRS (4) CHF (congestive heart failure) Code(s): I50.9 - HEART FAILURE, UNSPECIFIED Qualifiers: Congestive heart failure type: unspecified congestive heart failure type Congestive heart failure chronicity: unspecified congestive heart failure chronicity Qualified Code(s): I50.9 - Heart failure, unspecified (5) Dizziness Code(s): R42 - DIZZINESS AND GIDDINESS (6) Dyspnea Code(s): R06.00 - DYSPNEA, UNSPECIFIED Qualifiers: Dyspnea type: unspecified Qualified Code(s): R06.00 - Dyspnea, unspecified (7) HLD (hyperlipidemia) Code(s): E78.5 - HYPERLIPIDEMIA, UNSPECIFIED Qualifiers: (8) HTN (hypertension) Code(s): I10 - ESSENTIAL (PRIMARY) HYPERTENSION Qualifiers: (9) PVD (peripheral vascular disease) Code(s): I73.9 - PERIPHERAL VASCULAR DISEASE, UNSPECIFIED Assessment/Plan Lasix O2 as needed Monitor off ABX Xarelto CT follow up of likely benign non-specific nodules in 6 months Will follow Thank you. Dr Davis
[2017-09-15 14:08] LABS: URINE APPEARANCE CLEAR; URINE BILIRUBIN NEGATIVE (NEGATIVE); URINE BLOOD NEGATIVE (NEGATIVE); URINE COLOR LTYELLOW; URINE GLUCOSE (UA) NEGATIVE (NEGATIVE); URINE KETONE NEGATIVE (NEGATIVE); URINE LEUK ESTERASE NEGATIVE (NEGATIVE); URINE NITRITE NEGATIVE (NEGATIVE); URINE PROTEIN NEGATIVE (NEGATIVE); URINE UROBILINOGEN NEGATIVE mg/dL (0.2-1.0)
--- NOTE | 2017-09-15 14:21 | PN ---
Progress Note, Physician Chief Complaint: patient in chair complaining of knee pain comor[place] speaking female - Current Medication List Current Medications: Active Medications Acetaminophen (Tylenol -) 650 mg PO Q4H PRN PRN Reason: PAIN Last Admin: 09/15/17 10:37 Dose: 650 mg Amlodipine Besylate (Norvasc -) 10 mg PO DAILY [facility] Last Admin: 09/15/17 10:37 Dose: 10 mg Aspirin (Ecotrin -) 81 mg PO DAILY [facility] Last Admin: 09/15/17 10:36 Dose: 81 mg Atorvastatin Calcium (Lipitor -) 80 mg PO HS [facility] Last Admin: 09/14/17 21:25 Dose: 80 mg Cyanocobalamin (Vitamin B12 Injection -) 1,000 mcg IM DAILY [facility] Last Admin: 09/15/17 10:37 Dose: 1,000 mcg Furosemide (Lasix Injection -) 40 mg IVPUSH DAILY [facility] Last Admin: 09/15/17 10:36 Dose: 40 mg Metoprolol Succinate (Toprol Xl -) 100 mg PO BID [facility] Last Admin: 09/15/17 10:37 Dose: 100 mg Rivaroxaban (Xarelto -) 20 mg PO DAILY [facility] Last Admin: 09/15/17 10:37 Dose: 20 mg - Objective Vital Signs: Vital Signs Temperature 98.0 F 09/15/17 10:00 Pulse Rate 53 L 09/15/17 10:00 Respiratory Rate 20 09/15/17 10:00 Blood Pressure 127/72 09/15/17 10:00 O2 Sat by Pulse Oximetry (%) 97 09/15/17 10:00 Constitutional: Yes: Calm Neck: Yes: Trachea Midline Cardiovascular: Yes: Regular Rate and Rhythm, S1, S2 Respiratory: Yes: CTA Bilaterally Gastrointestinal: Yes: Normal Bowel Sounds, Soft Musculoskeletal: Yes: Other (knee pain of left knee) Edema: No Neurological: Yes: Alert, Oriented Labs: CBC, BMP 09/15/17 07:05 09/14/17 06:45 Problem List - Problems (1) Afib Assessment/Plan: tele xarelto rate control Code(s): I48.91 - UNSPECIFIED ATRIAL FIBRILLATION (2) CHF (congestive heart failure) Assessment/Plan: iv lasix Code(s): I50.9 - HEART FAILURE, UNSPECIFIED Qualifiers: Congestive heart failure type: unspecified congestive heart failure type Congestive heart failure chronicity: unspecified congestive heart failure chronicity Qualified Code(s): I50.9 - Heart failure, unspecified (3) Lung nodule, multiple Assessment/Plan: appreicate pulm consult ct chest in 6 month as outpatient to follow up Code(s): R91.8 - OTHER NONSPECIFIC ABNORMAL FINDING OF LUNG FIELD (4) Anemia Assessment/Plan: iron panel noted start on ferrous sulfate and vitamin C Code(s): D64.9 - ANEMIA, UNSPECIFIED (5) Knee pain, left Assessment/Plan: xray ortho Code(s): M25.562 - PAIN IN LEFT KNEE
[2017-09-15] MEDS: FERROUS SO4 325 MG TABLET (FP) PO SCH (17:58)
[2017-09-15 19:44] LABS: URINE LEUK ESTERASE Negative (NEGATIVE)
[2017-09-15] MEDS: ATORVASTATIN CA 80 MG TABLET (FP) PO SCH (21:28)
[2017-09-16] MEDS: METHYL SALICYLATE/MENTHOL OINT 30 GM TUBE TP SCH ×3 (00:33→22:21)
[2017-09-16] MEDS: METOPROLOL SUCCINATE 100 MG TAB.SR.24H (FP) PO SCH ×3 (00:35→13:46)
[2017-09-16 07:27] LABS: BASOPHIL 0.8 % (0-2.0); EOSINOPHIL 2.4 % (0-4.5); MCH 30.8 pg (25.7-33.7); MCHC 33.4 g/dl (32.0-36.0); MEAN CELL VOLUME 92.2 fl (80-96); MEAN PLT VOLUME 9.7 fl (7.5-11.1); NEUTROPHILS 66.6 % (42.8-82.8); PLATELET COUNT 185 K/MM3 (134-434); WHITE BLOOD COUNT 5.2 K/mm3 (4.0-10.0)
[2017-09-16 07:32] LABS: ALBUMIN 3.2 g/dl (3.4-5.0); ANION GAP 9 (8-16); CO2 25 mmol/L (21-32); GLUCOSE,RANDOM 87 mg/dL (74-106)
[2017-09-16 07:35] LABS: ALK PHOS 93 U/L (45-117); CREATININE 1.2 mg/dL (0.55-1.02); SGOT/AST 12 U/L (15-37); SGPT/ALT 20 U/L (12-78); TOT PROT 6.2 g/dl (6.4-8.2)
--- NOTE | 2017-09-16 09:11 | PN ---
Progress Note, Physician - Current Medication List Current Medications: Active Medications Acetaminophen (Tylenol -) 650 mg PO Q4H PRN PRN Reason: PAIN Last Admin: 09/15/17 21:28 Dose: 650 mg Amlodipine Besylate (Norvasc -) 10 mg PO DAILY [facility] Last Admin: 09/15/17 10:37 Dose: 10 mg Aspirin (Ecotrin -) 81 mg PO DAILY [facility] Last Admin: 09/15/17 10:36 Dose: 81 mg Atorvastatin Calcium (Lipitor -) 80 mg PO HS [facility] Last Admin: 09/15/17 21:28 Dose: 80 mg Cyanocobalamin (Vitamin B12 Injection -) 1,000 mcg IM DAILY [facility] Last Admin: 09/15/17 10:37 Dose: 1,000 mcg Ferrous Sulfate (Feosol -) 325 mg PO BIDWM [facility] Last Admin: 09/15/17 17:58 Dose: 325 mg Furosemide (Lasix Injection -) 40 mg IVPUSH DAILY [facility] Last Admin: 09/15/17 10:36 Dose: 40 mg Methyl Salicylate ([place]-Swenson -) 1 applic TP BID [facility] Last Admin: 09/16/17 00:33 Dose: 1 applic Metoprolol Succinate (Toprol Xl -) 100 mg PO BID [facility] Last Admin: 09/16/17 00:35 Dose: Not Given Prednisone (Deltasone -) 20 mg PO DAILY [facility] Rivaroxaban (Xarelto -) 20 mg PO DAILY [facility] Last Admin: 09/15/17 10:37 Dose: 20 mg - Objective Vital Signs: Vital Signs Temperature 98.0 F 09/16/17 05:43 Pulse Rate 52 L 09/16/17 05:43 Respiratory Rate 20 09/16/17 05:43 Blood Pressure 153/65 09/16/17 05:43 O2 Sat by Pulse Oximetry (%) 94 L 09/15/17 22:00 Labs: CBC, BMP 09/16/17 05:05 09/16/17 05:05 Problem List - Problems (1) Afib Code(s): I48.91 - UNSPECIFIED ATRIAL FIBRILLATION (2) Pericardial effusion Code(s): I31.3 - PERICARDIAL EFFUSION (NONINFLAMMATORY) (3) CHF (congestive heart failure) Code(s): I50.9 - HEART FAILURE, UNSPECIFIED Qualifiers: Congestive heart failure type: unspecified congestive heart failure type Congestive heart failure chronicity: unspecified congestive heart failure chronicity Qualified Code(s): I50.9 - Heart failure, unspecified (4) Dizziness Code(s): R42 - DIZZINESS AND GIDDINESS (5) HTN (hypertension) Code(s): I10 - ESSENTIAL (PRIMARY) HYPERTENSION Qualifiers: (6) PVD (peripheral vascular disease) Code(s): I73.9 - PERIPHERAL VASCULAR DISEASE, UNSPECIFIED (7) CAD (coronary artery disease) Code(s): I25.10 - ATHSCL HEART DISEASE OF [place] CORONARY ARTERY W/O ANG PCTRS Assessment/Plan - Problems (1) Afib Assessment/Plan: tele xarelto rate control Code(s): I48.91 - UNSPECIFIED ATRIAL FIBRILLATION (2) CHF (congestive heart failure) Assessment/Plan: iv lasix Code(s): I50.9 - HEART FAILURE, UNSPECIFIED Qualifiers: Congestive heart failure type: unspecified congestive heart failure type Congestive heart failure chronicity: unspecified congestive heart failure chronicity Qualified Code(s): I50.9 - Heart failure, unspecified (3) Lung nodule, multiple Assessment/Plan: appreciate pulm consult ct chest in 6 month as outpatient to follow up Code(s): R91.8 - OTHER NONSPECIFIC ABNORMAL FINDING OF LUNG FIELD (4) Anemia Assessment/Plan: iron panel noted start on ferrous sulfate and vitamin C Code(s): D64.9 - ANEMIA, UNSPECIFIED (5) Knee pain, left Assessment/Plan: xray djd ortho start prednisone pt Code(s): M25.562 - PAIN IN LEFT KNEE
[2017-09-16] MEDS ORDERED: PT OWN MED DRAWER 7, Y5N ONE (09:34)
[2017-09-16] MEDS: ASPIRIN COATED 81 MG TABLET.EC PO SCH (09:37)
[2017-09-16] MEDS: predniSONE 20 MG TABLET (UD) PO SCH (09:37)
[2017-09-16] MEDS: amLODIPine BESYLATE 10 MG TABLET (FP) PO SCH (09:37)
[2017-09-16] MEDS: FERROUS SO4 325 MG TABLET (FP) PO SCH ×2 (09:37→16:43)
[2017-09-16] MEDS: CYANOCOBALAMIN (VITAMIN B-12) 1000 MCG/1 ML VIAL IM SCH (09:38)
[2017-09-16] MEDS: FUROSEMIDE 40 MG/4 ML INJECTABLE VIAL IVPUSH SCH (09:38)
[2017-09-16] MEDS: RIVAROXABAN 20 MG TABLET PO SCH (09:38)
--- NOTE | 2017-09-16 12:09 | PN ---
Progress Note, Physician History of Present Illness: PULMONARY ALERT,NAD,-SOB,-CP - Current Medication List Current Medications: Active Medications Acetaminophen (Tylenol -) 650 mg PO Q4H PRN PRN Reason: PAIN Last Admin: 09/15/17 21:28 Dose: 650 mg Amlodipine Besylate (Norvasc -) 10 mg PO DAILY [facility] Last Admin: 09/16/17 09:37 Dose: 10 mg Aspirin (Ecotrin -) 81 mg PO DAILY [facility] Last Admin: 09/16/17 09:37 Dose: 81 mg Atorvastatin Calcium (Lipitor -) 80 mg PO HS [facility] Last Admin: 09/15/17 21:28 Dose: 80 mg Cyanocobalamin (Vitamin B12 Injection -) 1,000 mcg IM DAILY [facility] Last Admin: 09/16/17 09:38 Dose: 1,000 mcg Ferrous Sulfate (Feosol -) 325 mg PO BIDWM [facility] Last Admin: 09/16/17 09:37 Dose: 325 mg Furosemide (Lasix Injection -) 40 mg IVPUSH DAILY [facility] Last Admin: 09/16/17 09:38 Dose: 40 mg Methyl Salicylate ([place]-Swenson -) 1 applic TP BID [facility] Last Admin: 09/16/17 09:38 Dose: 1 applic Metoprolol Succinate (Toprol Xl -) 100 mg PO BID [facility] Last Admin: 09/16/17 10:31 Dose: Not Given Prednisone (Deltasone -) 20 mg PO DAILY [facility] Last Admin: 09/16/17 09:37 Dose: 20 mg Rivaroxaban (Xarelto -) 20 mg PO DAILY [facility] Last Admin: 09/16/17 09:38 Dose: 20 mg - Objective Vital Signs: Vital Signs Temperature 98.1 F 09/16/17 10:00 Pulse Rate 55 L 09/16/17 10:00 Respiratory Rate 20 09/16/17 10:00 Blood Pressure 138/61 09/16/17 10:00 O2 Sat by Pulse Oximetry (%) 95 09/16/17 10:00 Constitutional: Yes: Well Nourished, Calm Eyes: Yes: WNL HENT: Yes: WNL Neck: Yes: WNL Cardiovascular: Yes: Pulse Irregular, S1, S2 Respiratory: Yes: Diminished Gastrointestinal: Yes: Normal Bowel Sounds, Soft Extremities: Yes: WNL Edema: Yes Labs: CBC, BMP 09/16/17 05:05 09/16/17 05:05 Assessment/Plan Problem List - Problems (1) Lung nodule, multiple Code(s): R91.8 - OTHER NONSPECIFIC ABNORMAL FINDING OF LUNG FIELD (2) Afib Code(s): I48.91 - UNSPECIFIED ATRIAL FIBRILLATION (3) CAD (coronary artery disease) Code(s): I25.10 - ATHSCL HEART DISEASE OF [place] CORONARY ARTERY W/O ANG PCTRS (4) CHF (congestive heart failure) Code(s): I50.9 - HEART FAILURE, UNSPECIFIED Qualifiers: Congestive heart failure type: unspecified congestive heart failure type Congestive heart failure chronicity: unspecified congestive heart failure chronicity Qualified Code(s): I50.9 - Heart failure, unspecified (5) Dizziness Code(s): R42 - DIZZINESS AND GIDDINESS (6) Dyspnea Code(s): R06.00 - DYSPNEA, UNSPECIFIED Qualifiers: Dyspnea type: unspecified Qualified Code(s): R06.00 - Dyspnea, unspecified (7) HLD (hyperlipidemia) Code(s): E78.5 - HYPERLIPIDEMIA, UNSPECIFIED Qualifiers: (8) HTN (hypertension) Code(s): I10 - ESSENTIAL (PRIMARY) HYPERTENSION Qualifiers: (9) PVD (peripheral vascular disease) Code(s): I73.9 - PERIPHERAL VASCULAR DISEASE, UNSPECIFIED Assessment/Plan Lasix O2 as needed Monitor off ABX Xarelto CT follow up of likely benign non-specific nodules in [address] BRIGGS
[2017-09-16] MEDS: ACETAMINOPHEN 325 MG TABLET (FP) PO PRN (13:39)
[2017-09-16] MEDS ORDERED: methylPREDNISolone ACET (DEPO) 80 MG/1 ML VIAL IAR ONE (14:52)
--- NOTE | 2017-09-16 14:54 | PN ---
Progress Note (short form) - Note Progress Note: Ortho Full consult dictated by Dr. See a/p- left knee djd lido/depo injection ordered to the floor, will inject this weekend
--- NOTE | 2017-09-16 15:53 | PN ---
Progress Note, Physician History of Present Illness: This is an 81 year old female with a PMH of Afib (on Xarelto), HTN, HLD, and PVD. S/P RLE angioplasty and a right second toe ambulation. She presents now with near syncope. EKG Atrial fibrillation at [address] and T wave abnormality. RSR or QR pattern in V1 suggests right right ventricular conduction delay. BNP 1933 09/16/17 Toprol XL reduced to 100 mg Qam adn 50 mg Qpm because of slow heart rates. - Current Medication List Current Medications: Active Medications Acetaminophen (Tylenol -) 650 mg PO Q4H PRN PRN Reason: PAIN Last Admin: 09/16/17 13:39 Dose: 650 mg Amlodipine Besylate (Norvasc -) 10 mg PO DAILY [facility] Last Admin: 09/16/17 09:37 Dose: 10 mg Aspirin (Ecotrin -) 81 mg PO DAILY [facility] Last Admin: 09/16/17 09:37 Dose: 81 mg Atorvastatin Calcium (Lipitor -) 80 mg PO HS [facility] Last Admin: 09/15/17 21:28 Dose: 80 mg Cyanocobalamin (Vitamin B12 Injection -) 1,000 mcg IM DAILY [facility] Last Admin: 09/16/17 09:38 Dose: 1,000 mcg Ferrous Sulfate (Feosol -) 325 mg PO BIDWM [facility] Last Admin: 09/16/17 09:37 Dose: 325 mg Furosemide (Lasix Injection -) 40 mg IVPUSH DAILY [facility] Last Admin: 09/16/17 09:38 Dose: 40 mg Methyl Salicylate ([place]-Swenson -) 1 applic TP BID [facility] Last Admin: 09/16/17 09:38 Dose: 1 applic Metoprolol Succinate (Toprol Xl -) 100 mg PO DAILY [facility] Last Admin: 09/16/17 13:46 Dose: 100 mg Metoprolol Succinate (Toprol Xl -) 50 mg PO HS [facility] Prednisone (Deltasone -) 20 mg PO DAILY [facility] Last Admin: 09/16/17 09:37 Dose: 20 mg Rivaroxaban (Xarelto -) 20 mg PO DAILY [facility] Last Admin: 09/16/17 09:38 Dose: 20 mg - Objective Vital Signs: Vital Signs Temperature 98.7 F 09/16/17 14:00 Pulse Rate 58 L 09/16/17 14:00 Respiratory Rate 20 09/16/17 14:00 Blood Pressure 121/52 09/16/17 14:00 O2 Sat by Pulse Oximetry (%) 95 09/16/17 10:00 Constitutional: Yes: No Distress Cardiovascular: Yes: Pulse Irregular (NL S1S2, no MRHG) Respiratory: Yes: CTA Bilaterally Gastrointestinal: Yes: Soft Extremities: Yes: WNL Edema: No Edema: LLE: 1+, RLE: 1+ Neurological: Yes: Alert, Oriented (NL S1S2, no MRHG) Labs: CBC, BMP 09/16/17 05:05 09/16/17 05:05 Assessment/Plan Near Syncope Beta Blockers adjusted Reduced to Toprol XL 100 mg Qam and 50 mg Qpm HR presentlt 58 BPM AFIB Continue AC with Xarelto Continue rate control with Metoprolol as above HTN Continue Amlodipine 10 mg daily HLD Continue Lipitor 80 mg daily and ASA 81 mg daily CHF Acute diastolic CHF S/P diuresis with daily IV Lasix Would switch to PO Lasix 40 mg daily
--- NOTE | 2017-09-16 20:17 | CON.GI ---
Consult Consult Specialty:: GI Referred by:: Dr Kemp Reason for Consultation:: Anemia - History of Present Illness Chief Complaint: near syncope History of Present Illness: 81 yo F with h/o HTN, HLD, PVD with RLE angioplasty , admitted after a near syncopal event at home. - History Source History Provided By: Patient, Medical Record Limitations to Obtaining History: No Limitations - Past Medical History Cardio/Vascular: Yes: AFIB, CAD, HTN, Hyperlipdemia Pulmonary: Yes: Pneumonia - Alcohol/Substance Use Hx Alcohol Use: No - Smoking History Smoking history: Never smoked Have you smoked in the past 12 months: No Home Medications - Allergies Allergies/Adverse Reactions: Allergies Allergy/AdvReac Type Severity Reaction Status Date / Time No Known Allergies Allergy Verified 09/13/17 14:03 - Home Medications Home Medications: Ambulatory Orders Atorvastatin Ca [Lipitor] 80 mg PO HS #30 tablet 08/19/17 Metoprolol Succinate [Toprol XL -] 100 mg PO BID #60 tab.sr.24h 08/19/17 Acetaminophen [Tylenol Extra Strength] 500 mg PO PRN 09/13/17 Amlodipine Besylate [Norvasc -] 10 mg PO DAILY 09/13/17 Ascorbate Calcium [Vitamin C] 500 mg PO DAILY 09/13/17 Rivaroxaban [Xarelto -] 20 mg PO DAILY 09/13/17 Physical Exam-GI Vital Signs: Vital Signs Temperature 97.9 F 09/16/17 18:00 Pulse Rate 58 L 09/16/17 18:00 Respiratory Rate 19 09/16/17 18:00 Blood Pressure 131/58 09/16/17 18:00 O2 Sat by Pulse Oximetry (%) 95 09/16/17 10:00 Constitutional: Yes: Well Nourished, Obese HENT: Yes: Atraumatic Neck: Yes: Supple Cardiovascular: Yes: Regular Rate and Rhythm Respiratory: Yes: CTA Bilaterally Gastrointestinal Inspection: Yes: WNL ...Auscultate: Yes: Normoactive Bowel Sounds ...Palpate: Yes: Soft. No: Tenderness Labs: CBC, BMP 09/16/17 05:05 09/16/17 05:05 Hepatic Panel Total Bilirubin 1.0 mg/dL (0.2-1.0) D 09/16/17 05:05 AST 12 U/L (15-37) L D 09/16/17 05:05 ALT 20 U/L (12-78) 09/16/17 05:05 Alkaline Phosphatase 93 U/L (45-117) 09/16/17 05:05 Albumin 3.2 g/dl (3.4-5.0) L 09/16/17 05:05 Assessment/Plan Patient with normocytic anemia likely multifactorial, incl renal insufficiency, inflammation, chronic illness, hydration. She states she had a normal colon ~10 years ago. No procedure indicated at this time in this context unless active bleeding should occur. Guaiac stools, check CEA, follow H&H
[2017-09-16] MEDS: ATORVASTATIN CA 80 MG TABLET (FP) PO SCH (22:21)
[2017-09-16] MEDS: METOPROLOL SUCCINATE 50 MG TAB.SR.24H (FP) PO SCH (22:21)
--- NOTE | 2017-09-16 22:37 | CONS ---
DATE OF CONSULTATION: 09/16/2017 HISTORY OF PRESENT ILLNESS: Patient is an 81-year-old female admitted to telemetry for cardiac issues, but she is complaining of worsening pain of her left knee over the past few weeks. No recent fall or trauma. No fever or chills. PHYSICAL EXAMINATION: She has good motion of hip, ankle, and toes. She has significant tenderness, especially medially and in the patellofemoral joint, of her left knee. No erythema, swelling, ecchymosis. Good stability, varus/valgus, anterior/posterior. Some crepitus with range of motion of the patellofemoral joint. No tibial tubercle, the patellar tendon, or the patella itself. Range of motion of 0 to 110. X-rays taken in the hospital showed significant medial DJD of the knee (these were not standing x-rays, and I suspect that the DJD is worse with standing films). IMPRESSION: Degenerative joint disease of the left knee. PLAN: I do not know if the patient can be on any anti-inflammatories now, especially if she is being worked up for cardiac issues. We will order cortisone and lidocaine to the floor to give an intraarticular injection of cortisone. We will probably do that once the medication comes to the floor over the next day or two as the patient is in the hospital. We will follow the patient as an outpatient and see how she is doing. Patient may need a joint replacement in the future, but currently, we will try to treat the patient conservatively. ALBAN MORALES M.D. [id number]
[2017-09-17] MEDS: RIVAROXABAN 20 MG TABLET PO SCH (09:32)
[2017-09-17] MEDS: METOPROLOL SUCCINATE 100 MG TAB.SR.24H (FP) PO SCH (09:32)
[2017-09-17] MEDS: amLODIPine BESYLATE 10 MG TABLET (FP) PO SCH (09:32)
[2017-09-17] MEDS: FUROSEMIDE 40 MG/4 ML INJECTABLE VIAL IVPUSH SCH (09:32)
[2017-09-17] MEDS: FERROUS SO4 325 MG TABLET (FP) PO SCH ×2 (09:32→17:12)
[2017-09-17] MEDS: predniSONE 20 MG TABLET (UD) PO SCH (09:32)
[2017-09-17] MEDS: ASPIRIN COATED 81 MG TABLET.EC PO SCH (09:32)
[2017-09-17] MEDS: CYANOCOBALAMIN (VITAMIN B-12) 1000 MCG/1 ML VIAL IM SCH (09:33)
[2017-09-17] MEDS: METHYL SALICYLATE/MENTHOL OINT 30 GM TUBE TP SCH ×2 (09:33→22:06)
[2017-09-17] MEDS ORDERED: LIDOCAINE HCL 1%, 10 MG/ML (20ML VIAL) ONE (09:43)
[2017-09-17] MEDS ORDERED: PT OWN MED DRAWER 7, Y5N ONE ×2 (09:43→21:59)
--- NOTE | 2017-09-17 10:02 | PN ---
Progress Note (short form) - Note Progress Note: Ortho Pt seen and examined. c/o pain in left knee Left knee- +swelling, + ttp, decr rom, nvi a/p- left knee djd Lido/depo injection administered under sterile technique, injection tolerated well with no acute reactions will take 3-4 days to work ice 15 min 3-4 times per day wbat PT will follow d/w Dr. See
[2017-09-17] MEDS ORDERED: POTASSIUM CHLORIDE TABS 20 MEQ TABLET.ER (FP) PO ONE (11:30)
--- NOTE | 2017-09-17 12:15 | PN ---
Progress Note, Physician History of Present Illness: FEELS BETTER WITH BREATHING KNEE PAIN - Current Medication List Current Medications: Active Medications Acetaminophen (Tylenol -) 650 mg PO Q4H PRN PRN Reason: PAIN Last Admin: 09/16/17 13:39 Dose: 650 mg Amlodipine Besylate (Norvasc -) 10 mg PO DAILY [facility] Last Admin: 09/17/17 09:32 Dose: 10 mg Aspirin (Ecotrin -) 81 mg PO DAILY [facility] Last Admin: 09/17/17 09:32 Dose: 81 mg Atorvastatin Calcium (Lipitor -) 80 mg PO HS [facility] Last Admin: 09/16/17 22:21 Dose: 80 mg Cyanocobalamin (Vitamin B12 Injection -) 1,000 mcg IM DAILY [facility] Last Admin: 09/17/17 09:33 Dose: 1,000 mcg Ferrous Sulfate (Feosol -) 325 mg PO BIDWM [facility] Last Admin: 09/17/17 09:32 Dose: 325 mg Furosemide (Lasix -) 40 mg PO DAILY [facility] Methyl Salicylate (Everton-Swenson -) 1 applic TP BID [facility] Last Admin: 09/17/17 09:33 Dose: 1 applic Metoprolol Succinate (Toprol Xl -) 100 mg PO DAILY [facility] Last Admin: 09/17/17 09:32 Dose: Not Given Metoprolol Succinate (Toprol Xl -) 50 mg PO HS [facility] Last Admin: 09/16/17 22:21 Dose: 50 mg Prednisone (Deltasone -) 20 mg PO DAILY [facility] Last Admin: 09/17/17 09:32 Dose: 20 mg Rivaroxaban (Xarelto -) 20 mg PO DAILY [facility] Last Admin: 09/17/17 09:32 Dose: 20 mg - Objective Vital Signs: Vital Signs Temperature 98.9 F 09/17/17 10:00 Pulse Rate 57 L 09/17/17 10:00 Respiratory Rate 20 09/17/17 10:00 Blood Pressure 140/72 09/17/17 10:00 O2 Sat by Pulse Oximetry (%) 95 09/16/17 22:00 Cardiovascular: Yes: Regular Rate and Rhythm Respiratory: Yes: Regular, CTA Bilaterally Gastrointestinal: Yes: Normal Bowel Sounds, Soft Labs: CBC, BMP 09/16/17 05:05 09/16/17 05:05 Problem List - Problems (1) Afib Code(s): I48.91 - UNSPECIFIED ATRIAL FIBRILLATION (2) Pericardial effusion Code(s): I31.3 - PERICARDIAL EFFUSION (NONINFLAMMATORY) (3) CHF (congestive heart failure) Code(s): I50.9 - HEART FAILURE, UNSPECIFIED Qualifiers: Congestive heart failure type: unspecified congestive heart failure type Congestive heart failure chronicity: unspecified congestive heart failure chronicity Qualified Code(s): I50.9 - Heart failure, unspecified (4) Dizziness Code(s): R42 - DIZZINESS AND GIDDINESS (5) HTN (hypertension) Code(s): I10 - ESSENTIAL (PRIMARY) HYPERTENSION Qualifiers: (6) PVD (peripheral vascular disease) Code(s): I73.9 - PERIPHERAL VASCULAR DISEASE, UNSPECIFIED (7) CAD (coronary artery disease) Code(s): I25.10 - ATHSCL HEART DISEASE OF [place] CORONARY ARTERY W/O ANG PCTRS Assessment/Plan - Problems (1) Afib Assessment/Plan: tele xarelto rate control Code(s): I48.91 - UNSPECIFIED ATRIAL FIBRILLATION (2) CHF (congestive heart failure) Assessment/Plan: iv lasix--TO PO Code(s): I50.9 - HEART FAILURE, UNSPECIFIED Qualifiers: Congestive heart failure type: unspecified congestive heart failure type Congestive heart failure chronicity: unspecified congestive heart failure chronicity Qualified Code(s): I50.9 - Heart failure, unspecified (3) Lung nodule, multiple Assessment/Plan: appreciate pulm consult ct chest in 6 month as outpatient to follow up Code(s): R91.8 - OTHER NONSPECIFIC ABNORMAL FINDING OF LUNG FIELD (4) Anemia Assessment/Plan: iron panel noted start on ferrous sulfate and vitamin C Code(s): D64.9 - ANEMIA, UNSPECIFIED (5) Knee pain, left Assessment/Plan: xray djd ortho start prednisone pt Code(s): M25.562 - PAIN IN LEFT KNEE
--- NOTE | 2017-09-17 16:26 | PN ---
Progress Note, Physician History of Present Illness: Cardiology consult follow up. No dyspnea TELEM NSR HR 50-60 81 year old female with a PMH of Afib (on Xarelto), HTN, HLD, and PVD. S/P RLE angioplasty and a right second toe ambulation. She presents now with near syncope. EKG Atrial fibrillation at [address] and T wave abnormality. RSR or QR pattern in V1 suggests right right ventricular conduction delay. BNP 1933 09/16/17 Toprol XL reduced to 100 mg Qam adn 50 mg Qpm because of slow heart rates. - Current Medication List Current Medications: Active Medications Acetaminophen (Tylenol -) 650 mg PO Q4H PRN PRN Reason: PAIN Last Admin: 09/16/17 13:39 Dose: 650 mg Amlodipine Besylate (Norvasc -) 10 mg PO DAILY [facility] Last Admin: 09/17/17 09:32 Dose: 10 mg Aspirin (Ecotrin -) 81 mg PO DAILY [facility] Last Admin: 09/17/17 09:32 Dose: 81 mg Atorvastatin Calcium (Lipitor -) 80 mg PO HS [facility] Last Admin: 09/16/17 22:21 Dose: 80 mg Cyanocobalamin (Vitamin B12 Injection -) 1,000 mcg IM DAILY [facility] Last Admin: 09/17/17 09:33 Dose: 1,000 mcg Ferrous Sulfate (Feosol -) 325 mg PO BIDWM [facility] Last Admin: 09/17/17 09:32 Dose: 325 mg Furosemide (Lasix -) 40 mg PO DAILY [facility] Methyl Salicylate (Everton-Swenson -) 1 applic TP BID [facility] Last Admin: 09/17/17 09:33 Dose: 1 applic Metoprolol Succinate (Toprol Xl -) 100 mg PO DAILY [facility] Last Admin: 09/17/17 09:32 Dose: Not Given Metoprolol Succinate (Toprol Xl -) 50 mg PO HS [facility] Last Admin: 09/16/17 22:21 Dose: 50 mg Potassium Chloride (K-Dur -) 20 meq PO DAILY [facility] Prednisone (Deltasone -) 20 mg PO DAILY [facility] Last Admin: 09/17/17 09:32 Dose: 20 mg Rivaroxaban (Xarelto -) 20 mg PO DAILY [facility] Last Admin: 09/17/17 09:32 Dose: 20 mg - Objective Vital Signs: Vital Signs Temperature 97.7 F 09/17/17 14:26 Pulse Rate 57 L 09/17/17 14:26 Respiratory Rate 20 09/17/17 14:26 Blood Pressure 116/56 09/17/17 14:26 O2 Sat by Pulse Oximetry (%) 95 09/16/17 22:00 Constitutional: Yes: Well Nourished, No Distress Eyes: Yes: Conjunctiva Clear HENT: Yes: Atraumatic, Normocephalic Neck: Yes: Supple, Trachea Midline Cardiovascular: Yes: Regular Rate and Rhythm Respiratory: Yes: Regular, CTA Bilaterally Gastrointestinal: Yes: Normal Bowel Sounds Edema: No Labs: CBC, BMP 09/16/17 05:05 09/16/17 05:05 Problem List - Problems (1) Afib Code(s): I48.91 - UNSPECIFIED ATRIAL FIBRILLATION Assessment/Plan COntinues to be bradycardic. Heart failure improved. Advise lowering Metoprolol XL 100mg QD only.
--- NOTE | 2017-09-17 16:47 | PN ---
Progress Note (short form) - Note Progress Note: PULMONARY States breathing is improving. No cough or wheezing. No chest pain. Last Vital Signs Temp Pulse Resp BP Pulse Ox 97.7 F 57 L 20 116/56 95 09/17/17 14:26 09/17/17 14:26 09/17/17 14:26 09/17/17 14:26 09/16/17 22:00 Gen: NAD at rest Heart: irregular Lung: decreased breath sounds at the bases Abd: soft, nontender Ext: + edema CBC, BMP 09/16/17 05:05 09/16/17 05:05 Active Medications Acetaminophen (Tylenol -) 650 mg PO Q4H PRN PRN Reason: PAIN Last Admin: 09/16/17 13:39 Dose: 650 mg Amlodipine Besylate (Norvasc -) 10 mg PO DAILY [facility] Last Admin: 09/17/17 09:32 Dose: 10 mg Aspirin (Ecotrin -) 81 mg PO DAILY [facility] Last Admin: 09/17/17 09:32 Dose: 81 mg Atorvastatin Calcium (Lipitor -) 80 mg PO HS [facility] Last Admin: 09/16/17 22:21 Dose: 80 mg Cyanocobalamin (Vitamin B12 Injection -) 1,000 mcg IM DAILY [facility] Last Admin: 09/17/17 09:33 Dose: 1,000 mcg Ferrous Sulfate (Feosol -) 325 mg PO BIDWM [facility] Last Admin: 09/17/17 09:32 Dose: 325 mg Furosemide (Lasix -) 40 mg PO DAILY [facility] Methyl Salicylate (Everton-Swenson -) 1 applic TP BID [facility] Last Admin: 09/17/17 09:33 Dose: 1 applic Metoprolol Succinate (Toprol Xl -) 100 mg PO DAILY [facility] Last Admin: 09/17/17 09:32 Dose: Not Given Metoprolol Succinate (Toprol Xl -) 50 mg PO HS [facility] Last Admin: 09/16/17 22:21 Dose: 50 mg Potassium Chloride (K-Dur -) 20 meq PO DAILY [facility] Prednisone (Deltasone -) 20 mg PO DAILY [facility] Last Admin: 09/17/17 09:32 Dose: 20 mg Rivaroxaban (Xarelto -) 20 mg PO DAILY [facility] Last Admin: 09/17/17 09:32 Dose: 20 mg A/P Acute on Chronic CHF Atrial Fibrillation PAD Lung Nodules HTN Hyperlipidemia - continue lasix - monitor urine output, creatinine - rate control - continue anticoagulation - echo - outpt f/u of nodules
[2017-09-17] MEDS: METOPROLOL SUCCINATE 50 MG TAB.SR.24H (FP) PO SCH ×2 (18:46→22:03)
[2017-09-17] MEDS: ACETAMINOPHEN 325 MG TABLET (FP) PO PRN (22:02)
[2017-09-17] MEDS: ATORVASTATIN CA 80 MG TABLET (FP) PO SCH (22:03)
[2017-09-18 07:37] LABS: BASOPHIL 0.1 % (0-2.0); MCH 30.7 pg (25.7-33.7); MEAN CELL VOLUME 93.1 fl (80-96); MEAN PLT VOLUME 9.8 fl (7.5-11.1); PLATELET COUNT 198 K/MM3 (134-434); RDW 13.9 % (11.6-15.6); WHITE BLOOD COUNT 9.7 K/mm3 (4.0-10.0)
[2017-09-18 08:11] LABS: ALBUMIN 3.3 g/dl (3.4-5.0); ANION GAP 7 (8-16); BILIRUBIN,TOTAL 0.6 mg/dL (0.2-1.0); CALCIUM 8.7 mg/dL (8.5-10.1); CO2 27 mmol/L (21-32); CREATININE 1.1 mg/dL (0.55-1.02); GLUCOSE,RANDOM 126 mg/dL (74-106); SGOT/AST 11 U/L (15-37); SGPT/ALT 20 U/L (12-78)
[2017-09-18 08:12] LABS: ALK PHOS 91 U/L (45-117); TOT PROT 6.8 g/dl (6.4-8.2)
[2017-09-18] MEDS: ASPIRIN COATED 81 MG TABLET.EC PO SCH (09:40)
[2017-09-18] MEDS: amLODIPine BESYLATE 10 MG TABLET (FP) PO SCH (09:40)
[2017-09-18] MEDS: predniSONE 20 MG TABLET (UD) PO SCH (09:40)
[2017-09-18] MEDS: RIVAROXABAN 20 MG TABLET PO SCH (09:40)
[2017-09-18] MEDS: POTASSIUM CHLORIDE TABS 20 MEQ TABLET.ER (FP) PO SCH (09:40)
[2017-09-18] MEDS: FERROUS SO4 325 MG TABLET (FP) PO SCH ×2 (09:40→17:49)
[2017-09-18] MEDS: METOPROLOL SUCCINATE 100 MG TAB.SR.24H (FP) PO SCH ×2 (09:40→10:38)
[2017-09-18] MEDS: FUROSEMIDE 40 MG TABLET (FP) PO SCH (09:40)
[2017-09-18] MEDS: METHYL SALICYLATE/MENTHOL OINT 30 GM TUBE TP SCH ×2 (09:41→21:44)
[2017-09-18] MEDS: CYANOCOBALAMIN (VITAMIN B-12) 1000 MCG/1 ML VIAL IM SCH (09:41)
--- NOTE | 2017-09-18 13:03 | PN ---
Progress Note (short form) - Note Progress Note: Ortho Pt seen and examined. c/o pain in left knee Left knee- +swelling, + ttp, decr rom, nvi a/p- left knee djd was given injection yesterday educated pt that injection will take 3-4 days up to a week to take full effect wbat PT will follow february d/c from ortho pov d/w Dr. See
[2017-09-18] MEDS ORDERED: BISACODYL 5 MG TABLET.DR (FP) PO ONE (13:42)
--- NOTE | 2017-09-18 13:45 | PN ---
Progress Note, Physician History of Present Illness: FEELS BETTER WITH BREATHING KNEE PAIN C/O CONSTIPATION - Current Medication List Current Medications: Active Medications Acetaminophen (Tylenol -) 650 mg PO Q4H PRN PRN Reason: PAIN Last Admin: 09/17/17 22:02 Dose: 650 mg Amlodipine Besylate (Norvasc -) 10 mg PO DAILY [facility] Last Admin: 09/18/17 09:40 Dose: 10 mg Aspirin (Ecotrin -) 81 mg PO DAILY [facility] Last Admin: 09/18/17 09:40 Dose: 81 mg Atorvastatin Calcium (Lipitor -) 80 mg PO HS [facility] Last Admin: 09/17/17 22:03 Dose: 80 mg Bisacodyl (Dulcolax -) 5 mg PO ONCE ONE Stop: 09/18/17 13:43 Cyanocobalamin (Vitamin B12 Injection -) 1,000 mcg IM DAILY [facility] Last Admin: 09/18/17 09:41 Dose: 1,000 mcg Ferrous Sulfate (Feosol -) 325 mg PO BIDWM [facility] Last Admin: 09/18/17 09:40 Dose: 325 mg Furosemide (Lasix -) 40 mg PO DAILY [facility] Last Admin: 09/18/17 09:40 Dose: 40 mg Methyl Salicylate (Everton-Swenson -) 1 applic TP BID [facility] Last Admin: 09/18/17 09:41 Dose: 1 applic Metoprolol Succinate (Toprol Xl -) 100 mg PO DAILY [facility] Last Admin: 09/18/17 10:38 Dose: Not Given Metoprolol Succinate (Toprol Xl -) 50 mg PO HS [facility] Last Admin: 09/17/17 22:03 Dose: 50 mg Potassium Chloride (K-Dur -) 20 meq PO DAILY [facility] Last Admin: 09/18/17 09:40 Dose: 20 meq Prednisone (Deltasone -) 20 mg PO DAILY [facility] Last Admin: 09/18/17 09:40 Dose: 20 mg Rivaroxaban (Xarelto -) 20 mg PO DAILY [facility] Last Admin: 09/18/17 09:40 Dose: 20 mg - Objective Vital Signs: Vital Signs Temperature 98.7 F 09/17/17 20:36 Pulse Rate 68 09/17/17 20:36 Respiratory Rate 18 09/17/17 20:38 Blood Pressure 131/57 09/17/17 20:36 O2 Sat by Pulse Oximetry (%) 96 09/17/17 22:00 Respiratory: Yes: Regular, CTA Bilaterally Gastrointestinal: Yes: Normal Bowel Sounds, Soft Musculoskeletal: Yes: Joint Stiffness, Muscle Weakness Labs: CBC, BMP 09/18/17 05:48 09/18/17 05:48 Problem List - Problems (1) Afib Code(s): I48.91 - UNSPECIFIED ATRIAL FIBRILLATION (2) Pericardial effusion Code(s): I31.3 - PERICARDIAL EFFUSION (NONINFLAMMATORY) (3) CHF (congestive heart failure) Code(s): I50.9 - HEART FAILURE, UNSPECIFIED Qualifiers: Congestive heart failure type: unspecified congestive heart failure type Congestive heart failure chronicity: unspecified congestive heart failure chronicity Qualified Code(s): I50.9 - Heart failure, unspecified (4) Dizziness Code(s): R42 - DIZZINESS AND GIDDINESS (5) HTN (hypertension) Code(s): I10 - ESSENTIAL (PRIMARY) HYPERTENSION Qualifiers: (6) PVD (peripheral vascular disease) Code(s): I73.9 - PERIPHERAL VASCULAR DISEASE, UNSPECIFIED (7) CAD (coronary artery disease) Code(s): I25.10 - ATHSCL HEART DISEASE OF [place] CORONARY ARTERY W/O ANG PCTRS Assessment/Plan - Problems (1) Afib Assessment/Plan: tele xarelto rate control Code(s): I48.91 - UNSPECIFIED ATRIAL FIBRILLATION (2) CHF (congestive heart failure) Assessment/Plan: iv lasix--TO PO Code(s): I50.9 - HEART FAILURE, UNSPECIFIED Qualifiers: Congestive heart failure type: unspecified congestive heart failure type Congestive heart failure chronicity: unspecified congestive heart failure chronicity Qualified Code(s): I50.9 - Heart failure, unspecified (3) Lung nodule, multiple Assessment/Plan: appreciate pulm consult ct chest in 6 month as outpatient to follow up Code(s): R91.8 - OTHER NONSPECIFIC ABNORMAL FINDING OF LUNG FIELD (4) Anemia Assessment/Plan: iron panel noted start on ferrous sulfate and vitamin C Code(s): D64.9 - ANEMIA, UNSPECIFIED (5) Knee pain, left Assessment/Plan: xray djd ortho-INJECTED KNEE start prednisone pt--CONSIDER SNF Code(s): M25.562 - PAIN IN LEFT KNEE (6) Constipation Assessment/Plan: MIRALAX
[2017-09-18] MEDS: POLYETHYLENE GLYCOL 3350 119 GM BTL PO SCH (17:47)
[2017-09-18] MEDS: ATORVASTATIN CA 80 MG TABLET (FP) PO SCH (21:44)
[2017-09-18] MEDS: METOPROLOL SUCCINATE 50 MG TAB.SR.24H (FP) PO SCH (21:45)
--- NOTE | 2017-09-19 08:35 | PN ---
Progress Note (short form) - Note Progress Note: Ortho Pt seen and examined. c/o pain in left knee Left knee- +swelling, + ttp, decr rom, nvi a/p- left knee djd educated pt that injection will take 3-4 days up to a week to take full effect wbat PT will follow february d/c from ortho pov d/w Dr. See
[2017-09-19] MEDS: METHYL SALICYLATE/MENTHOL OINT 30 GM TUBE TP SCH (10:23)
[2017-09-19] MEDS: ASPIRIN COATED 81 MG TABLET.EC PO SCH (10:24)
[2017-09-19] MEDS: METOPROLOL SUCCINATE 100 MG TAB.SR.24H (FP) PO SCH (10:24)
[2017-09-19] MEDS: FERROUS SO4 325 MG TABLET (FP) PO SCH (10:24)
[2017-09-19] MEDS: FUROSEMIDE 40 MG TABLET (FP) PO SCH (10:24)
[2017-09-19] MEDS: POTASSIUM CHLORIDE TABS 20 MEQ TABLET.ER (FP) PO SCH (10:24)
[2017-09-19] MEDS: predniSONE 20 MG TABLET (UD) PO SCH (10:24)
[2017-09-19] MEDS: ACETAMINOPHEN 325 MG TABLET (FP) PO PRN (10:24)
[2017-09-19] MEDS: CYANOCOBALAMIN (VITAMIN B-12) 1000 MCG/1 ML VIAL IM SCH (10:26)
[2017-09-19] MEDS: amLODIPine BESYLATE 10 MG TABLET (FP) PO SCH (10:26)
[2017-09-19] MEDS: POLYETHYLENE GLYCOL 3350 119 GM BTL PO SCH (10:26)
[2017-09-19] MEDS: RIVAROXABAN 20 MG TABLET PO SCH (10:26)
--- NOTE | 2017-09-19 12:03 | DS ---
Physical Examination Vital Signs: Vital Signs Temperature 98.2 F 09/19/17 08:05 Pulse Rate 60 09/19/17 08:05 Respiratory Rate 14 09/19/17 08:05 Blood Pressure 146/66 09/19/17 08:05 O2 Sat by Pulse Oximetry (%) 94 L 09/19/17 06:00 Constitutional: Yes: Calm Neck: Yes: Trachea Midline Cardiovascular: Yes: Regular Rate and Rhythm, S1, S2 Respiratory: Yes: CTA Bilaterally Gastrointestinal: Yes: Normal Bowel Sounds, Soft Musculoskeletal: Yes: Other (knee pain) Neurological: Yes: Alert, Oriented Labs: CBC, BMP 09/18/17 05:48 09/18/17 05:48 Discharge Summary Reason For Visit: CHF Current Active Problems Afib (Acute) Anemia (Acute) CAD (coronary artery disease) (Acute) CHF (congestive heart failure) (Acute) Knee pain (Acute) Knee pain, left (Acute) Lung nodule, multiple (Acute) Pericardial effusion (Acute) Hospital Course: Admission History of Present Illness: The patient is a 81 year old female with a significant past medical history of HTN (reportedly taking 3 antihypertensives), HLD, PVD (s/p RLE angioplasty and 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 As per the patient she was able to find a neighbor who called ems for the patient. - Past Medical History Cardiovascular: Yes: AFIB, CAD, HTN, Hyperlipdemia Pulmonary: Yes: Pneumonia - Smoking History Smoking history: Never smoked Have you smoked in the past 12 months: No - Alcohol/Substance Use Hx Alcohol Use: No Home Medications diastolic Heart failure'-iv lasix to po lasix left knee DJD got injection by ortho- to follow up with dr paulson seen by GI as well afib on xarelto toprol dose decrease given slow heart rate from 100mg to 50mg Condition: Improved - Instructions Disposition: VNS/HOME HEALTH CARE - Home Medications Comprehensive Discharge Medication List: Ambulatory Orders Atorvastatin Ca [Lipitor] 80 mg PO HS #30 tablet 08/19/17 Metoprolol Succinate [Toprol XL -] 100 mg PO BID #60 tab.sr.24h 08/19/17 Acetaminophen [Tylenol Extra Strength] 500 mg PO PRN 12/05/17 Amlodipine Besylate [Norvasc -] 10 mg PO DAILY 09/13/17 Ascorbate Calcium [Vitamin C] 500 mg PO DAILY 09/13/17 Rivaroxaban [Xarelto -] 20 mg PO DAILY 09/13/17
--- NOTE | 2017-09-19 12:20 | PN ---
Progress Note, Physician History of Present Illness: PULMONARY ALERT,OOB -CHAIR,COMFORTABLE,C/O L KNEE PAIN - Current Medication List Current Medications: Active Medications Acetaminophen (Tylenol -) 650 mg PO Q4H PRN PRN Reason: PAIN Last Admin: 09/19/17 10:24 Dose: 650 mg Amlodipine Besylate (Norvasc -) 10 mg PO DAILY [facility] Last Admin: 09/19/17 10:26 Dose: 10 mg Aspirin (Ecotrin -) 81 mg PO DAILY [facility] Last Admin: 09/19/17 10:24 Dose: 81 mg Atorvastatin Calcium (Lipitor -) 80 mg PO HS [facility] Last Admin: 09/18/17 21:44 Dose: 80 mg Ferrous Sulfate (Feosol -) 325 mg PO BIDWM [facility] Last Admin: 09/19/17 10:24 Dose: 325 mg Furosemide (Lasix -) 40 mg PO DAILY [facility] Last Admin: 09/19/17 10:24 Dose: 40 mg Methyl Salicylate (Ever[place]-Swenson -) 1 applic TP BID [facility] Last Admin: 09/19/17 10:23 Dose: 1 applic Metoprolol Succinate (Toprol Xl -) 50 mg PO HS [facility] Last Admin: 09/18/17 21:45 Dose: 50 mg Metoprolol Succinate (Toprol Xl -) 100 mg PO DAILY [facility] Polyethylene Glycol (Miralax (For Daily Use) -) 17 gm PO DAILY [facility] Last Admin: 09/19/17 10:26 Dose: 17 gm Potassium Chloride (K-Dur -) 20 meq PO DAILY [facility] Last Admin: 09/19/17 10:24 Dose: 20 meq Prednisone (Deltasone -) 20 mg PO DAILY [facility] Last Admin: 09/19/17 10:24 Dose: 20 mg Rivaroxaban (Xarelto -) 20 mg PO DAILY [facility] Last Admin: 09/19/17 10:26 Dose: 20 mg - Objective Vital Signs: Vital Signs Temperature 98.2 F 09/19/17 08:05 Pulse Rate 60 09/19/17 08:05 Respiratory Rate 14 09/19/17 08:05 Blood Pressure 146/66 09/19/17 08:05 O2 Sat by Pulse Oximetry (%) 94 L 09/19/17 06:00 Constitutional: Yes: Well Nourished, Calm Eyes: Yes: WNL HENT: Yes: WNL Neck: Yes: WNL Cardiovascular: Yes: Regular Rate and Rhythm, S1, S2 Respiratory: Yes: Diminished Gastrointestinal: Yes: Normal Bowel Sounds, Soft Extremities: Yes: WNL Edema: Yes Labs: CBC, BMP 09/18/17 05:48 09/18/17 05:48 Assessment/Plan Problem List - Problems (1) Lung nodule, multiple Code(s): R91.8 - OTHER NONSPECIFIC ABNORMAL FINDING OF LUNG FIELD (2) Afib Code(s): I48.91 - UNSPECIFIED ATRIAL FIBRILLATION (3) CAD (coronary artery disease) Code(s): I25.10 - ATHSCL HEART DISEASE OF [place] CORONARY ARTERY W/O ANG PCTRS (4) CHF (congestive heart failure) Code(s): I50.9 - HEART FAILURE, UNSPECIFIED Qualifiers: Congestive heart failure type: unspecified congestive heart failure type Congestive heart failure chronicity: unspecified congestive heart failure chronicity Qualified Code(s): I50.9 - Heart failure, unspecified (5) Dizziness Code(s): R42 - DIZZINESS AND GIDDINESS (6) Dyspnea Code(s): R06.00 - DYSPNEA, UNSPECIFIED Qualifiers: Dyspnea type: unspecified Qualified Code(s): R06.00 - Dyspnea, unspecified (7) HLD (hyperlipidemia) Code(s): E78.5 - HYPERLIPIDEMIA, UNSPECIFIED Qualifiers: (8) HTN (hypertension) Code(s): I10 - ESSENTIAL (PRIMARY) HYPERTENSION Qualifiers: (9) PVD (peripheral vascular disease) Code(s): I73.9 - PERIPHERAL VASCULAR DISEASE, UNSPECIFIED Assessment/Plan Lasix O2 as needed Xarelto CT follow up of likely benign non-specific nodules in [address] BRIGGS
--- NOTE | 2017-09-19 12:24 | PN ---
Progress Note (short form) - Note Progress Note: patient to FU with dr paulson in one week steroid taper sent to pharmacy spoke to [facility] patient has aide at home and vns serkenyace will go home seen PT note Problem List - Problems (1) Afib Code(s): I48.91 - UNSPECIFIED ATRIAL FIBRILLATION (2) CHF (congestive heart failure) Code(s): I50.9 - HEART FAILURE, UNSPECIFIED Qualifiers: Congestive heart failure type: unspecified congestive heart failure type Congestive heart failure chronicity: unspecified congestive heart failure chronicity Qualified Code(s): I50.9 - Heart failure, unspecified (3) Lung nodule, multiple Code(s): R91.8 - OTHER NONSPECIFIC ABNORMAL FINDING OF LUNG FIELD (4) Anemia Code(s): D64.9 - ANEMIA, UNSPECIFIED (5) Knee pain, left Code(s): M25.562 - PAIN IN LEFT KNEE
[2017-09-19 13:35] VITALS: BP 141/73; PULSE 64; TEMP 97.6
--- NOTE | 2017-09-19 13:51 | PN ---
Progress Note, Physician Chief Complaint: Fatigue History of Present Illness: 81-year-old female presenting with symptomatic bradycardia. - Current Medication List Current Medications: Active Medications Acetaminophen (Tylenol -) 650 mg PO Q4H PRN PRN Reason: PAIN Last Admin: 09/19/17 10:24 Dose: 650 mg Amlodipine Besylate (Norvasc -) 10 mg PO DAILY [facility] Last Admin: 09/19/17 10:26 Dose: 10 mg Aspirin (Ecotrin -) 81 mg PO DAILY [facility] Last Admin: 09/19/17 10:24 Dose: 81 mg Atorvastatin Calcium (Lipitor -) 80 mg PO HS [facility] Last Admin: 09/18/17 21:44 Dose: 80 mg Ferrous Sulfate (Feosol -) 325 mg PO BIDWM [facility] Last Admin: 09/19/17 10:24 Dose: 325 mg Furosemide (Lasix -) 40 mg PO DAILY [facility] Last Admin: 09/19/17 10:24 Dose: 40 mg Methyl Salicylate ([place]-Swenson -) 1 applic TP BID [facility] Last Admin: 09/19/17 10:23 Dose: 1 applic Polyethylene Glycol (Miralax (For Daily Use) -) 17 gm PO DAILY [facility] Last Admin: 09/19/17 10:26 Dose: 17 gm Potassium Chloride (K-Dur -) 20 meq PO DAILY [facility] Last Admin: 09/19/17 10:24 Dose: 20 meq Rivaroxaban (Xarelto -) 20 mg PO DAILY [facility] Last Admin: 09/19/17 10:26 Dose: 20 mg - Objective Vital Signs: Vital Signs Temperature 97.6 F 09/19/17 13:33 Pulse Rate 64 09/19/17 13:33 Respiratory Rate 16 09/19/17 13:33 Blood Pressure 141/73 09/19/17 13:33 O2 Sat by Pulse Oximetry (%) 95 09/19/17 10:00 Constitutional: Yes: No Distress, Calm, Obese Eyes: Yes: WNL, Conjunctiva Clear HENT: Yes: WNL, Atraumatic, Normocephalic Neck: Yes: WNL, Supple, Trachea Midline Cardiovascular: Yes: WNL, Regular Rate and Rhythm, Bradycardia, S1, S2 Respiratory: Yes: WNL, Regular, CTA Bilaterally Gastrointestinal: Yes: WNL, Normal Bowel Sounds, Soft ...Rectal Exam: Yes: Deferred Musculoskeletal: Yes: WNL Extremities: Yes: WNL Edema: No Peripheral Pulses WNL: Yes Neurological: Yes: WNL Labs: CBC, BMP 09/18/17 05:48 09/18/17 05:48 Assessment/Plan The patient is comfortable. Denies chest pains and shortness of breath. She is in sinus bradycardia. Toprol-XL has been on hold because of bradycardia. Please decrease Toprol-XL to 25 mg daily. Consider outpatient ambulatory monitoring. There is no need for further cardiac workup at this point. The patient is stable. Please do not hesitate to call us PRN.
[2017-09-20] MEDS ORDERED: METOPROLOL SUCCINATE 100 MG TAB.SR.24H (FP) PO SCH (10:00)
== END 2017-09-19 13:53 | disposition home health service (06) | DRG 292 ==
LOC: JER 13:41 → JERBED 15:33 → J4W 17:30
PROVIDERS: ADMIT Family Medicine; ATTEND Family Medicine
PROC: 3E0U33Z Introduction of Anti-inflammatory into Joints, Percutaneous Approach (ICD-10-PCS; principal; 2017-09-16)
DX: I11.0 Hypertensive heart disease with heart failure (principal); I31.3 Pericardial effusion (noninflammatory); R91.8 Other nonspecific abnormal finding of lung field; I48.91 Unspecified atrial fibrillation; I25.10 Atherosclerotic heart disease of native coronary artery without angina pectoris; R42 Dizziness and giddiness; E78.5 Hyperlipidemia, unspecified; I73.9 Peripheral vascular disease, unspecified; D64.9 Anemia, unspecified; M25.562 Pain in left knee; K59.00 Constipation, unspecified; R55 Syncope and collapse; R00.1 Bradycardia, unspecified; I50.33 Acute on chronic diastolic (congestive) heart failure; M17.12 Unilateral primary osteoarthritis, left knee
CPT/HCPCS: 36415; 71010-TC; 71250-TC; 73562-TC-LT; 80053; 80061; 81003; 82136; 82550; 82607; 82728; 83036; 83540; 83550; 83721; 83735; 83880; 83918; 84484; 85025; 85730; 87086; 93005; 93010; 97116-GP; 97161-GP; 99282-25

== ENCOUNTER 2017-11-11 09:31 | Emergency (ER) | payer OTHER ==
[2017-11-11 09:54] VITALS: BMI 34.9
--- NOTE | 2017-11-11 11:08 | PDOC ---
History of Present Illness - History of Present Illness Initial Comments: Ms Méndez is an 81yo Belarusian speaking F with a PMHx of Afib (on Xarelto), HTN, and RLE Arterio-Venous Malformation who presents with sudden onset hemorrhage in the location of AVM. Patient was diagnosed and treated w/ a R second toe amputation about 25 years ago. She generally does not have RLE pain, but noted sudden onset bursting around the AVM site. She had profuse bleeding, which later scabbed over before presenting to the ER. She currently has throbbing pain. Has since very intermittently followed up with vascular/interventional radiology at [place]. Collateral information from [place] medical records indicate that the patient was seen by Dr Tommy Lan (Vascular surgeon) in 2013, and then subsequently had a R foot AVM embolization in 2015 by Interventional Radiology. She is a nondiabetic, sensation is intact. She denies CP, SOB, palpitations. <Nubia Lombardo - Last Filed: 11/11/17 18:46> <Naomi Nagy - Last Filed: 11/11/17 20:11> - General Chief Complaint: Wound Stated Complaint: BLEEDING Time Seen by Provider: 11/11/17 09:38 Past History - Past Medical History Cardiac Disorders: Yes COPD: No HTN: Yes Hypercholesterolemia: Yes - Surgical History Abdominal Surgery: Yes (tubal ligation) Cholecystectomy: Yes - Immunization History Immunization Up to Date: No - Suicide/Smoking/Psychosocial Hx Smoking History: Never smoked Have you smoked in the past 12 months: No Hx Alcohol Use: No Drug/Substance Use Hx: No Substance Use Type: None <Nubia Lombardo - Last Filed: 11/11/17 18:46> <Naomi Nagy - Last Filed: 11/11/17 20:11> - Past Medical History Allergies/Adverse Reactions: Allergies Allergy/AdvReac Type Severity Reaction Status Date / Time No Known Allergies Allergy Verified 11/11/17 09:52 Home Medications: Ambulatory Orders Rivaroxaban [Xarelto -] 20 mg PO DAILY 09/13/17 Ferrous Sulfate [Feosol] 325 mg PO BIDWM #30 ud MDD 2 09/19/17 Furosemide [Lasix -] 40 mg PO DAILY #10 tablet MDD 1 09/19/17 Methyl Salicylate/Menthol Oint [Analgesic [place] -] 1 applic TP BID #1 tube MDD 2 09/19/17 Metoprolol Succinate [Toprol Xl] 25 mg PO DAILY #30 tab.er.24h MDD 1 09/19/17 Potassium Chloride [K-Dur -] 20 meq PO DAILY #10 tablet.er MDD 1 09/19/17 Digoxin [Lanoxin -] 0.125 mg PO DAILY 11/11/17 Gabapentin 100 mg PO ASDIR 11/11/17 Simvastatin 40 mg PO ASDIR 11/11/17 *Physical Exam - Vital Signs Last Vital Signs Temp Pulse Resp BP Pulse Ox 98.5 F 60 16 165/83 95 11/11/17 09:35 11/11/17 09:35 11/11/17 09:35 11/11/17 09:35 11/11/17 09:35 - Physical Exam Comments: GEN: AAOx3, NAD, Lying comfortably HEENT: PERRLA, EOMi CV: S1, S2, RRR LUNG: CTABL ABD: Soft, NT, ND, normoactive MSK: R foot - appears slightly more swollen than left, R foot 2nd toe amputated, scabbed area of dried blood on R palmar surface NEURO: CN 2-12 intact <Nubia Lombardo - Last Filed: 11/11/17 18:46> - Vital Signs Last Vital Signs Temp Pulse Resp BP Pulse Ox 98.6 F 75 16 160/72 97 11/11/17 16:33 11/11/17 16:33 11/11/17 16:33 11/11/17 16:33 11/11/17 16:33 <Naomi Nagy - Last Filed: 11/11/17 20:11> ED Treatment Course - LABORATORY CBC & Chemistry Diagram: 11/11/17 12:00 11/11/17 12:00 <Nubia Lombardo - Last Filed: 11/11/17 18:46> - LABORATORY CBC & Chemistry Diagram: 11/11/17 12:00 11/11/17 12:00 - ADDITIONAL ORDERS Additional order review: Laboratory Results 11/11/17 11/11/17 11/11/17 12:00 12:00 12:00 PT with INR 14.60 H INR 1.29 H D Sodium 140 Potassium 4.3 Chloride 107 Carbon Dioxide 27 Anion Gap 6 L BUN 11 Creatinine 0.9 Creat Clearance w eGFR > 60 Random Glucose 96 Calcium 8.2 L Total Bilirubin 0.8 D AST 13 L ALT 16 Alkaline Phosphatase 97 Total Protein 6.4 Albumin 3.3 L Blood Type O POSITIVE Antibody Screen Negative 11/11/17 12:00 RBC 3.31 L MCV 93.7 MCHC 32.1 RDW 15.3 D MPV 8.5 D Neutrophils % 71.1 D Lymphocytes % 16.7 D Monocytes % 9.9 D Eosinophils % 1.6 D Basophils % 0.7 D - Medications Given in the ED: ED Medications Discontinued Medications Generic Name Dose Route Start Last Admin Trade Name Freq PRN Reason Stop Dose Admin Acetaminophen 650 mg 11/11/17 11:36 11/11/17 12:00 Tylenol - PO 11/11/17 11:37 650 mg ONCE ONE Administration <Naomi Nagy - Last Filed: 11/11/17 20:11> Medical Decision Making - Medical Decision Making 81yo F with PMHx of Afib, R Lower Extremity AVM who presents with sudden RLE bleeding. I suspect this is a rupture of her RLE AVM. The bleeding has scabbed over but area is pulsatile. Patient has been followed with [place] vascular/ interventional radiology. -- CBC, CMP -- T&S, Coags -- Call Placed to Dr. Fatima who endorses wrapping area w/ TIAN bandage and Ultrasound of leg. He will evaluate patient in ER 11/11/17 17:28 During the hospital course, multiple providers have examined the patient, and have determined that she is not safe to be discharged home for risk of rupture recurrence. I have discussed the case with Dr Fatima who states that he will not embolize the patient and strongly prefers her to have care at [facility]. I have also spoken to Dr Castillo who noted that he is not able to perform embolization without the proper imaging, and would strongly recommend transferring to [facility]. I have personally spoken to Dr Jacob Arreguin, the Interventional Radiologist who was well involved in the care of the patient's AVM. Case was discussed, and Dr Arreguin, who states that it is medically necessary for the [facility] physicians to review her foot and evaluate for embolization. He requested that the patient be transferred to [facility] to be observed under hospitalist service and get seen by Dr Trevizo (IR). I have spoken to the ED physicians at [facility], patient is accepted under Dr Sutton. Transfer care is being coordinated. Patient and are aware. Awaiting transport. <Nubia Lombardo - Last Filed: 11/11/17 18:46> - Medical Decision Making 11/11/17 20:07 At this time, transport has not arrived. Our lab clerk Liliana has microblogged Kathy to see where we are in terms of transport. <Naomi Nagy - Last Filed: 11/11/17 20:11> *DC/Admit/Observation/Transfer <Nubia Lombardo - Last Filed: 11/11/17 18:46> <Naomi Nagy - Last Filed: 11/11/17 20:11> Diagnosis at time of Disposition: Arteriovenous malformation - Referrals Referrals: ON STAFF,NOT [Primary Care Provider] - - Patient Instructions - Post Discharge Activity
[2017-11-11] MEDS ORDERED: ACETAMINOPHEN 325 MG TABLET (FP) PO ONE (11:36)
[2017-11-11] MEDS ORDERED: ACETAMINOPHEN 325 MG TABLET (FP) ONE (12:07)
[2017-11-11 12:38] LABS: BASO % 0.7 % (0-2.0); EOS % 1.6 % (0-4.5); HEMOGLOBIN 9.9 GM/dL (10.7-15.3); LYMPH % 16.7 % (8-40); MCHC 32.1 g/dl (32.0-36.0); MEAN CELL VOLUME 93.7 fl (80-96); MEAN PLT VOLUME 8.5 fl (7.5-11.1); MONO % 9.9 % (3.8-10.2); NEUT % 71.1 % (42.8-82.8); PLATELET COUNT 230 K/MM3 (134-434); RBC 3.31 M/mm3 (3.60-5.2); RDW 15.3 % (11.6-15.6); WHITE BLOOD COUNT 7.1 K/mm3 (4.0-10.0)
[2017-11-11 13:00] LABS: INR 1.29 (0.82-1.09); PROTHROMBIN TIME (PATIENT) 14.6 SEC (9.98-11.88)
[2017-11-11 13:08] LABS: ALBUMIN 3.3 g/dl (3.4-5.0); ANION GAP 6 (8-16); BLOOD UREA NITROGEN 11 mg/dL (7-18); CALCIUM 8.2 mg/dL (8.5-10.1); CHLORIDE 107 mmol/L (98-107); CO2 27 mmol/L (21-32); CREATININE 0.9 mg/dL (0.55-1.02); GLUCOSE,RANDOM 96 mg/dL (74-106); POTASSIUM 4.3 mmol/L (3.5-5.1); SGOT/AST 13 U/L (15-37); SODIUM 140 mmol/L (136-145)
[2017-11-11 13:14] LABS: ALK PHOS 97 U/L (45-117); BILIRUBIN,TOTAL 0.8 mg/dL (0.2-1.0); SGPT/ALT 16 U/L (12-78); TOT PROT 6.4 g/dl (6.4-8.2)
--- NOTE | 2017-11-11 13:29 | PDOC ---
Attending Attestation - Resident Resident Name: GrupoNubia - ED Attending Attestation I have performed the following: I have examined & evaluated the patient, The case was reviewed & discussed with the resident, I agree w/resident's findings & plan, Exceptions are as noted - HPI HPI: 11/11/17 13:56 The patient is a 81 year old female with a significant PMH of Afib (on Xarelto) , HTN, R foot AVM s/p embolization 2015, R second toe amputation ~25 years ago who presents to the emergency department with sudden onset bleeding from the AVM site. At presentation, the area has scabbed and there is no active bleeding. The patient denies trauma, reports she was resting and woke up and found dried blood on her foot and on the sheet. The patient denies chest pain, shortness of breath, palpitations, headache and dizziness. Denies fever, chills, nausea, vomit, diarrhea and constipation. Denies dysuria, frequency, urgency and hematuria. Allergies: NKA Social history: No reported alcohol, drug, or cigarette use. - Physicial Exam PE: 11/11/17 13:56 GENERAL: Awake, alert, and fully oriented, in no acute distress HEAD: No signs of trauma EYES: PERRLA, EOMI, sclera anicteric, conjunctiva clear ENT: Auricles normal inspection, hearing grossly normal, nares patent, oropharynx clear without exudates. Moist mucosa NECK: Normal ROM, supple, no lymphadenopathy, JVD, or masses LUNGS: Breath sounds equal, clear to auscultation bilaterally. No wheezes, and no crackles HEART: Regular rate and rhythm, normal S1 and S2, no murmurs, rubs or gallops ABDOMEN: Soft, nontender, normoactive bowel sounds. No guarding, no rebound. No masses EXTREMITIES: R foot with scab over plantar surface near base of 2nd amputated toe. +pulsatile mass consistent with known AVM. Otherwise, normal range of motion, no edema. No clubbing or cyanosis. No cords , erythema, or tenderness NEUROLOGICAL: Normal speech, cranial nerves intact, negative pronator drift, 5/ 5 strength in all 4 extremities, normal sensation to light touch in all 4 extremities, normal cerebellar exam, normal gait, normal reflexes and tone SKIN: Warm, Dry, normal turgor, no rashes or lesions noted. - Medical Decision Making 11/11/17 13:56 81-year-old female with multiple medical problems including A. fib on xarelto and right foot AVM status post embolization 3 years ago presents with bleeding from right foot AVM that has since stopped. Vitals are unremarkable. Exam with pulsatile mass in the right foot with dried blood on the plantar surface. Patient is at high risk for rebleeding from the AVM, especially since she is on Xarelto. Dr. Fatima from vascular has been consulted and recommends embolization. Case discussed with interventional radiology here who states they do not have the ability to embolize the AVM here. The patient will likely require transfer for embolization of her AVM. Wll hold her xarelto in the meantime
--- NOTE | 2017-11-11 14:31 | PN ---
Progress Note (short form) - Note Progress Note: Vascular Surgery: Pt seen and examined today. She had an episode of Right foot bleeding and came to the ER. It stopped prior to presenting to the ER and has stable during her ER visit. Case D/w Farheen Fatima, the patient has had emboization treatment in the past by the IR department at [facility]. She remains on xarelto for afib Vital Signs Period Temp Pulse Resp BP Sys/Hu Pulse Ox Last 24 Hr 98.5 F 60 16 165/83 95 Right foot: dressing changed. No active bleeding, plantar aspect with pulsatile mass. Plantar surface with callous and no active bleeding, small area of breakdown in the skin where pulsation is visable. Xeroform dressing placed over callous, 4x4 dressing, lelia wrap and coban applied to the right foot. CBC, BMP 11/11/17 12:00 11/11/17 12:00 A/P: 81 yo female with h/o of right AVM and treatment by embolization D/w ER attending physician, plans for transfer to either [facility] or [facility] for IR consultation and treatment of AVM continue lelia wrap/coban non weight bearing on that extremity <Clarissa Brink - Last Filed: 11/11/17 14:32> - Note Progress Note: Case discussed with PA and ER resident. No active bleeding reported. Patient requires evaluation by radiologist at [facility] where she has had mnultiple procedures for the AVM of the foot. If bleeding resumes I will be available to see patient. <Makrel Fatima - Last Filed: 11/12/17 12:11>
[2017-11-11 16:34] VITALS: TEMP 98.6
[2017-11-11] MEDS ORDERED: METOPROLOL TARTRATE 25 MG TABLET (FP) ONE (21:46)
[2017-11-11] MEDS ORDERED: METOPROLOL SUCCINATE 25 MG TAB.SR.24H (FP) PO ONE (21:50)
[2017-11-11 22:52] VITALS: BP 193/87; PULSE 62
== END 2017-11-11 22:00 | disposition short-term general hospital (02) ==
LOC: JER 09:31
DX: Q27.30 Arteriovenous malformation, site unspecified (principal); I48.91 Unspecified atrial fibrillation
CPT/HCPCS: 36415; 80053; 85025; 85610; 86850; 86900; 86901; 93925-TC; 99283-25

== ENCOUNTER 2018-02-25 08:52 | Inpatient (IN) | payer OTHER ==
[2018-02-25 09:10] VITALS: BMI 32.2
[2018-02-25] MEDS ORDERED: NITROGLYCERIN SUBLINGUAL 1/150 0.4 MG TAB SL ONE (09:44)
--- NOTE | 2018-02-25 09:44 | PDOC ---
History of Present Illness - General Chief Complaint: Shortness of Breath Stated Complaint: CHEST PAIN Time Seen by Provider: 02/25/18 09:15 History Source: Patient Exam Limitations: No Limitations - History of Present Illness Initial Comments: CHIEF COMPLAINT: 82 y/o afebrile, iranian speaking female with PMH afib (on xarelto), HTN, RLE AV malformation (corrective surgical procedure yesterday at [facility]) c/o high blood pressure, GUILLEN, CP and SOB this morning. HISTORY OF PRESENT ILLNESS: the patient had surgery on her right foot yesterday to correct an AV malformation. the surgery was performed at [facility]. She states her blood pressure was high after the surgery but they discharged her anyway. She states this morning she woke up with high blood pressure, a headache, anterior chest pain and SOB. She does admit she has not been on Xarelto for some time because the AV malformation in her foot was bleeding spontaneously. She denies fever, hemoptysis, vomiting, diarrhea, abd pain, back pain, left arm pain, facial droop, slurred speech, hematuria, dysuria. She is accompanied by her home health aide who is at bedside. The patient is not on oxygen at home. She has not taken anything for pain because she was scared to. Her chest pain was relieved by Nitro SL and oxygen in the ambulance. PMD in [place] Vascular surgeon at [facility] Bean Dumper Vital signs on arrival are notable for BP of 211/67. REVIEW OF SYSTEMS: GENERAL/CONSTITUTIONAL: No fever/chills. No weakness. No weight change. HEAD, EYES, EARS, NOSE AND THROAT: No change in vision. No ear pain or discharge. No sore throat. CARDIOVASCULAR: +chest pain and SOB RESPIRATORY: No cough, wheezing, or hemoptysis. GASTROINTESTINAL: +nausea. No vomiting, diarrhea or constipation. No abdominal pain. GENITOURINARY: No dysuria, frequency, or change in urination. MUSCULOSKELETAL: No joint or muscle swelling or pain. No neck or back pain. SKIN: No rash or easy bruising. NEUROLOGIC: +headache. No vertigo, loss of consciousness, or loss of sensation. PHYSICAL EXAM: GENERAL: The patient is awake, alert, and fully oriented, in no acute distress. She is well appearing and pleasant. HEAD: Normal with no signs of trauma. ENT: Pupils equal, round and reactive to light, extraocular movements intact, sclera anicteric, conjunctiva clear. No pain with EOMs. No entrapment. LUNGS: Clear to auscultation bilaterally. Normal excursion. No respiratory distress or use of accessory muscles. CV: RRR, S1/S2, no MRG. Cap refill < 2 sec. ABDOMEN: Soft, non-distended, TTP of epigastric region, no hepatomegaly or splenomegaly, no masses. EXTREMITIES: Normal range of motion, no edema. NEUROLOGICAL: Normal speech. CN II-XII grossly intact. No slurred speech. No facial droop. SKIN: Warm, dry, normal turgor, no rashes or lesions noted. 02/25/18 15:13 Past History - Past Medical History Allergies/Adverse Reactions: Allergies Allergy/AdvReac Type Severity Reaction Status Date / Time No Known Allergies Allergy Verified 02/25/18 09:04 Home Medications: Ambulatory Orders Rivaroxaban [Xarelto -] 20 mg PO DAILY 09/13/17 Ferrous Sulfate [Feosol] 325 mg PO BIDWM #30 ud MDD 2 09/19/17 Furosemide [Lasix -] 40 mg PO DAILY #10 tablet MDD 1 09/19/17 Methyl Salicylate/Menthol Oint [Analgesic [place] -] 1 applic TP BID #1 tube MDD 2 09/19/17 Metoprolol Succinate [Toprol Xl] 25 mg PO DAILY #30 tab.er.24h MDD 1 09/19/17 Potassium Chloride [K-Dur -] 20 meq PO DAILY #10 tablet.er MDD 1 09/19/17 Digoxin [Lanoxin -] 0.125 mg PO DAILY 11/11/17 Gabapentin 100 mg PO ASDIR 11/11/17 Simvastatin 40 mg PO ASDIR 11/11/17 Cardiac Disorders: Yes COPD: No HTN: Yes Hypercholesterolemia: Yes - Surgical History Abdominal Surgery: Yes (tubal ligation) Cholecystectomy: Yes - Immunization History Immunization Up to Date: No - Suicide/Smoking/Psychosocial Hx Smoking History: Unknown if ever smoked Have you smoked in the past 12 months: No Hx Alcohol Use: No Drug/Substance Use Hx: No Substance Use Type: None *Physical Exam - Vital Signs Last Vital Signs Temp Pulse Resp BP Pulse Ox 98.4 F 60 17 214/69 100 02/25/18 14:15 02/25/18 14:15 02/25/18 14:15 02/25/18 14:15 02/25/18 14:15 Heart Score/ECG Review - History History: Slightly suspicious - Electrocardiogram EKG: Non specific repolarization disturbance - Age Age: >/= 65 - Risk Factors Risk Factors Heart Score: Yes Hx Hypercholesterolemia, Yes Hx Hypertension Based on the list above the patient has:: >/=3 risk factors or Hx atherosclerotic disease - Troponin Troponin: 1-3x normal limit - Score Heart Score - Total: 6 - ECG Intrepretation Comment:: Twelve-lead EKG was performed and reviewed by Dr. James. There is sinus bradycardia with nonspecific ST and T wave abnormality. Impression: Abnormal twelve-lead EKG Flipped T wavesin leads V2-V6 are new since prior of 09/2017 ED Treatment Course - LABORATORY CBC & Chemistry Diagram: 02/25/18 10:00 02/25/18 10:00 - ADDITIONAL ORDERS Additional order review: Laboratory Results 02/25/18 02/25/18 02/25/18 11:25 11:25 11:25 PT with INR 12.20 INR 1.08 PTT (Actin FS) 23.1 L D Sodium Potassium Chloride Carbon Dioxide Anion Gap BUN Creatinine Creat Clearance w eGFR Random Glucose Calcium Magnesium Total Bilirubin AST ALT Alkaline Phosphatase Creatine Kinase Troponin I B-Natriuretic Peptide 3875.83 H Total Protein Albumin Blood Type O POSITIVE Antibody Screen Negative 02/25/18 02/25/18 10:00 10:00 PT with INR 12.20 INR 1.08 PTT (Actin FS) Sodium 136 Potassium 4.5 Chloride 102 Carbon Dioxide 27 Anion Gap 7 L BUN 10 Creatinine 0.9 Creat Clearance w eGFR 59.94 Random Glucose 99 Calcium 8.4 L Magnesium 2.4 Total Bilirubin 1.1 H D AST 15 ALT 9 L Alkaline Phosphatase 104 Creatine Kinase 136 Troponin I 0.06 H B-Natriuretic Peptide Total Protein 6.4 Albumin 3.3 L Blood Type Antibody Screen 02/25/18 10:00 RBC 2.85 L MCV 92.7 MCHC 33.5 RDW 15.7 H MPV 8.7 Neutrophils % 85.5 H D Lymphocytes % 7.7 L D Monocytes % 5.8 Eosinophils % 0.4 Basophils % 0.6 - RADIOLOGY Radiology Studies Ordered: Category Date Time Status CHEST CTA [CT] Stat CT Scan 02/25/18 11:[address] WITHOUT CONTRAST [CT] Stat CT Scan 02/25/18 11:07 Completed CHEST PA & LAT [RAD] Stat Radiology 02/25/18 09:44 Completed - Medications Given in the ED: ED Medications Discontinued Medications Generic Name Dose Route Start Last Admin Trade Name Daniella PRN Reason Stop Dose Admin Acetaminophen 1,000 mg 02/25/18 09:45 02/25/18 09:54 Ofirmev Injection - IVPB 02/25/18 09:46 1,000 mg ONCE ONE Administration Aspirin 162 mg 02/25/18 09:44 02/25/18 10:51 Asa - PO 02/25/18 09:45 Not Given ONCE ONE Nitroglycerin 0.4 mg 02/25/18 09:44 02/25/18 09:54 Nitrostat - SL 02/25/18 09:45 0.4 mg ONCE ONE Administration Medical Decision Making - Medical Decision Making A/P: 82 y/o female with chest pain, HTN, SOB and GUILLEN s/p right foot AV malformation surgical procedure yesterday. Plan is to do a full cardiac work up. -Ordered Sl nitro -Ordered IV Ofirmev for pain -Head CT -CTA chest Chest CTA IMPRESSION: Moderate b/l pleural effusions. No evidence of DVT Head CT IMPRESSION: No evidence of acute infarct or bleed. Patient with troponin of 0.06. BNP elevated. slightly anemic. Will order repeat trop and lasix Will admit to tele. Spoke with Dr. Kemp who accepts admission and would like Dr. Marc to consult. Patient and aide made aware. *DC/Admit/Observation/Transfer Diagnosis at time of Disposition: Elevated troponin, Pleural effusion Chest pain Qualifiers: Chest pain type: unspecified Qualified Code(s): R07.9 - Chest pain, unspecified Anemia Qualifiers: Anemia type: unspecified type Qualified Code(s): D64.9 - Anemia, unspecified - Discharge Dispostion Condition at time of disposition: Fair Decision to Admit order: Yes Decision to Admit order Date/Time: Decision to Admit Order Category Date Time Status Decision to Admit to Hospital Routine Admission 02/25/18 15:14 Active - Referrals Referrals: ON STAFF,NOT [Primary Care Provider] - - Patient Instructions - Post Discharge Activity
[2018-02-25] MEDS ORDERED: ACETAMINOPHEN 1000 MG/100 ML VIAL (NON FORMULARY) IVPB ONE (09:45)
[2018-02-25] MEDS: ASPIRIN 81 MG CHEWABLE TABLETS PO ONE ×2 (09:54→10:51)
[2018-02-25] MEDS ORDERED: NITROGLYCERIN SUBLINGUAL 1/150 0.4 MG TAB ONE ×2 (10:01→10:08)
[2018-02-25] MEDS ORDERED: ASPIRIN 81 MG CHEWABLE TABLETS ONE (10:01)
[2018-02-25] MEDS ORDERED: ACETAMINOPHEN INJECTION 100 ML IVPB ONE (10:01)
[2018-02-25 10:26] LABS: BASO % 0.6 % (0-2.0); EOS % 0.4 % (0-4.5); HEMATOCRIT 26.4 % (32.4-45.2); HEMOGLOBIN 8.8 GM/dL (10.7-15.3); LYMPH % 7.7 % (8-40); MCHC 33.5 g/dl (32.0-36.0); MEAN CELL VOLUME 92.7 fl (80-96); MEAN PLT VOLUME 8.7 fl (7.5-11.1); MONO % 5.8 % (3.8-10.2); NEUT % 85.5 % (42.8-82.8); PLATELET COUNT 195 K/MM3 (134-434); RBC 2.85 M/mm3 (3.60-5.2); RDW 15.7 % (11.6-15.6); WHITE BLOOD COUNT 8.3 K/mm3 (4.0-10.0)
[2018-02-25 10:39] LABS: INR 1.08 (0.82-1.09); PROTHROMBIN TIME (PATIENT) 12.2 SEC (9.7-13.0)
[2018-02-25 10:57] LABS: ALBUMIN 3.3 g/dl (3.4-5.0); ANION GAP 7 (8-16); BILIRUBIN,TOTAL 1.1 mg/dL (0.2-1.0); BLOOD UREA NITROGEN 10 mg/dL (7-18); CALCIUM 8.4 mg/dL (8.5-10.1); CHLORIDE 102 mmol/L (98-107); CO2 27 mmol/L (21-32); CREATININE 0.9 mg/dL (0.55-1.02); GLUCOSE,RANDOM 99 mg/dL (74-106); MAGNESIUM 2.4 mg/dL (1.8-2.4); POTASSIUM 4.5 mmol/L (3.5-5.1); SGOT/AST 15 U/L (15-37); SGPT/ALT 9 U/L (12-78); SODIUM 136 mmol/L (136-145); TOT PROT 6.4 g/dl (6.4-8.2)
[2018-02-25 11:00] LABS: ALK PHOS 104 U/L (45-117)
[2018-02-25 11:54] LABS: INR 1.08 (0.82-1.09); PROTHROMBIN TIME (PATIENT) 12.2 SEC (9.7-13.0)
[2018-02-25 11:57] LABS: ACTIVATED PTT 23.1 SECONDS (26.9-34.4)
[2018-02-25] MEDS ORDERED: FUROSEMIDE 40 MG/4 ML INJECTABLE VIAL IVPUSH ONE (15:25)
[2018-02-25] MEDS ORDERED: FUROSEMIDE 40 MG/4 ML INJECTABLE VIAL ONE (15:42)
[2018-02-25] MEDS: FUROSEMIDE 40 MG/4 ML INJECTABLE VIAL IVPUSH SCH (15:52)
[2018-02-25 19:06] LABS: URINE APPEARANCE CLEAR; URINE BILIRUBIN NEGATIVE (<2.0 mg/dL); URINE COLOR STRAW; URINE GLUCOSE (UA) NEGATIVE (NEGATIVE); URINE KETONE NEGATIVE (NEGATIVE); URINE LEUK ESTERASE NEGATIVE (NEGATIVE); URINE NITRITE NEGATIVE (NEGATIVE); URINE PROTEIN NEGATIVE (NEGATIVE); URINE UROBILINOGEN NEGATIVE mg/dL (0.2-1.0)
[2018-02-25] MEDS: ACETAMINOPHEN 325 MG TABLET (FP) PO PRN (20:35)
[2018-02-25] MEDS: FERROUS SO4 325 MG TABLET (FP) PO SCH (20:35)
[2018-02-25] MEDS ORDERED: ATORVASTATIN CA 20 MG TABLET (FP) PO SCH (22:00)
[2018-02-26] MEDS: ACETAMINOPHEN 325 MG TABLET (FP) PO PRN ×3 (05:32→21:07)
[2018-02-26] MEDS: FUROSEMIDE 40 MG/4 ML INJECTABLE VIAL IVPUSH SCH ×2 (05:34→15:00)
[2018-02-26 06:48] LABS: BASO % 0.6 % (0-2.0); EOS % 3.5 % (0-4.5); LYMPH % 17.3 % (8-40); MCH 31.1 pg (25.7-33.7); MCHC 33.3 g/dl (32.0-36.0); MEAN CELL VOLUME 93.4 fl (80-96); MEAN PLT VOLUME 9.1 fl (7.5-11.1); MONO % 9.9 % (3.8-10.2); NEUT % 68.7 % (42.8-82.8); PLATELET COUNT 187 K/MM3 (134-434); RBC 2.89 M/mm3 (3.60-5.2); RDW 15.8 % (11.6-15.6); WHITE BLOOD COUNT 7.2 K/mm3 (4.0-10.0)
[2018-02-26 07:10] LABS: ALBUMIN 3.5 g/dl (3.4-5.0); CHLORIDE 100 mmol/L (98-107); POTASSIUM 4.1 mmol/L (3.5-5.1); SODIUM 137 mmol/L (136-145)
[2018-02-26 07:23] LABS: ALK PHOS 105 U/L (45-117); ANION GAP 5 (8-16); BLOOD UREA NITROGEN 9 mg/dL (7-18); CALCIUM 8.5 mg/dL (8.5-10.1); CHOLESTEROL 145 mg/dL (50-200); CO2 32 mmol/L (21-32); GLUCOSE,RANDOM 92 mg/dL (74-106); HDL CHOLESTEROL 33 mg/dL (40-60); MAGNESIUM 2.1 mg/dL (1.8-2.4); SGOT/AST 21 U/L (15-37); SGPT/ALT 11 U/L (12-78); TOT PROT 6.5 g/dl (6.4-8.2); TRIGLYCERIDES 152 mg/dL (35-160)
[2018-02-26] MEDS ORDERED: METOPROLOL TARTRATE 5 MG/5 ML VIAL IVPUSH ONE ×3 (07:45→13:30)
[2018-02-26] MEDS: METOPROLOL TARTRATE 25 MG TABLET (FP) PO ONE ×2 (07:56→08:00)
[2018-02-26] MEDS ORDERED: METOPROLOL TARTRATE 25 MG TABLET (FP) PO ONE (08:00)
[2018-02-26] MEDS: RIVAROXABAN 20 MG TABLET PO SCH (09:10)
[2018-02-26] MEDS: FERROUS SO4 325 MG TABLET (FP) PO SCH ×2 (09:10→18:23)
[2018-02-26] MEDS: POTASSIUM CHLORIDE TABS 20 MEQ TABLET.ER (FP) PO SCH (09:11)
--- NOTE | 2018-02-26 09:20 | HP ---
Admitting History and Physical - Admission History of Present Illness: 82 y/o afebrile, kenyan speaking female with PMH afib (on xarelto), HTN, RLE AV malformation (corrective surgical procedure on 02/24 at [facility]) c/o high blood pressure, GUILLEN, CP and SOB this morning. the patient had surgery on her right foot to correct an AV malformation. the surgery was performed at [facility]. She states her blood pressure was high after the surgery but they discharged her anyway. She states this morning she woke up with high blood pressure, a headache, anterior chest pain and SOB. She does admit she has not been on Xarelto for some time because the AV malformation in her foot was bleeding spontaneously. She denies fever, hemoptysis, vomiting, diarrhea, abd pain, back pain, left arm pain, facial droop , slurred speech, hematuria, dysuria. Her chest pain was relieved by Nitro SL and oxygen in the ambulance. This am pt c/o chest tightness and palpitations - Past Medical History Cardiovascular: Yes: AFIB, CAD, HTN, Hyperlipdemia Pulmonary: Yes: Pneumonia - Smoking History Smoking history: Never smoked Have you smoked in the past 12 months: No - Alcohol/Substance Use Hx Alcohol Use: No Home Medications - Allergies Allergies/Adverse Reactions: Allergies Allergy/AdvReac Type Severity Reaction Status Date / Time No Known Allergies Allergy Verified 02/25/18 09:04 - Home Medications Home Medications: Ambulatory Orders Rivaroxaban [Xarelto -] 20 mg PO DAILY 09/13/17 Ferrous Sulfate [Feosol] 325 mg PO BIDWM #30 ud MDD 2 09/19/17 Furosemide [Lasix -] 40 mg PO DAILY #10 tablet MDD 1 09/19/17 Methyl Salicylate/Menthol Oint [Analgesic [place] -] 1 applic TP BID #1 tube MDD 2 09/19/17 Metoprolol Succinate [Toprol Xl] 25 mg PO DAILY #30 tab.er.24h MDD 1 09/19/17 Potassium Chloride [K-Dur -] 20 meq PO DAILY #10 tablet.er MDD 1 09/19/17 Digoxin [Lanoxin -] 0.125 mg PO DAILY 11/11/17 Gabapentin 100 mg PO ASDIR 11/11/17 Simvastatin 40 mg PO ASDIR 11/11/17 Review of Systems - Review of Systems Cardiovascular: reports: Chest Pain, Palpitations Respiratory: reports: SOB, SOB on Exertion Gastrointestinal: denies: Abdominal Pain Musculoskeletal: denies: No Symptoms Neurological: reports: No Symptoms Physical Examination Vital Signs: Vital Signs Temperature 98.4 F 02/26/18 09:00 Pulse Rate 137 H 02/26/18 09:10 Respiratory Rate 19 02/26/18 09:00 Blood Pressure 146/82 02/26/18 09:00 O2 Sat by Pulse Oximetry (%) 100 02/26/18 09:00 Neck: Yes: Supple Cardiovascular: Yes: Tachycardia, Pulse Irregular, S1, S2 Respiratory: Yes: Regular, CTA Bilaterally Gastrointestinal: Yes: Normal Bowel Sounds, Soft Edema: Yes Labs: CBC, BMP 02/26/18 06:00 02/26/18 06:00 Imaging - Results Cat Scan: Report Reviewed (No PE) Problem List - Problems (1) Afib Assessment/Plan: -Rapid -on metoprolol --will increase to 50 bid -cardizem 5 ivp prn -continue with dig--check level -on AC -cardio Code(s): I48.91 - UNSPECIFIED ATRIAL FIBRILLATION (2) Chest pain Assessment/Plan: -Maybe due to rapid afib -monitor ekg and trop Code(s): R07.9 - CHEST PAIN, UNSPECIFIED Qualifiers: Chest pain type: unspecified Qualified Code(s): R07.9 - Chest pain, unspecified (3) Elevated troponin Assessment/Plan: -as above -prob demand ischemia Code(s): R74.8 - ABNORMAL LEVELS OF OTHER SERUM ENZYMES (4) CHF (congestive heart failure) Assessment/Plan: -IV Lasix -follow cxr -monitor labs Code(s): I50.9 - HEART FAILURE, UNSPECIFIED (5) Arteriovenous malformation Assessment/Plan: -S/P foot surgery -surgical consult Code(s): Q27.30 - ARTERIOVENOUS MALFORMATION, SITE UNSPECIFIED
[2018-02-26] MEDS ORDERED: dilTIAZem HCL 50 MG/10 ML - 10 ML VIAL IVPUSH PRN (09:22)
[2018-02-26] MEDS ORDERED: DIGOXIN 0.125 MG TABLET (FP) PO SCH (10:00)
[2018-02-26] MEDS ORDERED: metoPROLOL SUCCINATE 25 MG TAB.SR.24H (FP) PO SCH (10:00)
[2018-02-26] MEDS ORDERED: ASPIRIN COATED 81 MG TABLET.EC PO SCH (10:00)
[2018-02-26] MEDS: DILTIAZEM INJECTION 125 MG in DEXTROSE 5%-WATER - 100 ML IVPB SCH (11:35)
[2018-02-26] MEDS: oxyCODONE HCL 5 MG TABLET PO PRN ×2 (11:40→19:38)
--- NOTE | 2018-02-26 12:49 | CON.CARD ---
Consult Consult Specialty:: Cardiology Reason for Consultation:: dyspnea and Afib - History of Present Illness History of Present Illness: 82 y/o albanian speaking female with PMH paroxysmal afib , HTN, RLE AV malformation folllowed by Dr. Wren in [facility] and is post surgical interventuion on 02/24/18 was admitted for dyspnea and rapid Afib. She has frequent palpitations and dyspnea with effort. Reporting difficulty with laying flat due to her SOB. After her operation, Dr. Wren cleared her for full anticoagulation (my phone conversation with Dr. Wren). Has had admissions for rapid Afib in the past managed with metoprolol. Echocardiogram 12/2017 showed normal LV function witohut valvular pathology and elevated LA pressure. Massive Rt leg AV malformation. Has been advised to consider Rt leg amputation. Had surgery on 02/24 - History Source History Provided By: Patient, Medical Record - Past Medical History Cardio/Vascular: Yes: AFIB, CAD, HTN, Hyperlipdemia Pulmonary: Yes: Pneumonia - Alcohol/Substance Use Hx Alcohol Use: No - Smoking History Smoking history: Never smoked Have you smoked in the past 12 months: No Home Medications - Allergies Allergies/Adverse Reactions: Allergies Allergy/AdvReac Type Severity Reaction Status Date / Time No Known Allergies Allergy Verified 02/25/18 09:04 - Home Medications Home Medications: Ambulatory Orders Rivaroxaban [Xarelto -] 20 mg PO DAILY 09/13/17 Ferrous Sulfate [Feosol] 325 mg PO BIDWM #30 ud MDD 2 09/19/17 Furosemide [Lasix -] 40 mg PO DAILY #10 tablet MDD 1 09/19/17 Methyl Salicylate/Menthol Oint [Analgesic [place] -] 1 applic TP BID #1 tube MDD 2 09/19/17 Metoprolol Succinate [Toprol Xl] 25 mg PO DAILY #30 tab.er.24h MDD 1 09/19/17 Potassium Chloride [K-Dur -] 20 meq PO DAILY #10 tablet.er MDD 1 09/19/17 Digoxin [Lanoxin -] 0.125 mg PO DAILY 11/11/17 Gabapentin 100 mg PO ASDIR 11/11/17 Simvastatin 40 mg PO ASDIR 11/11/17 Review of Systems - Review of Systems Constitutional: denies: Chills, Diaphoresis, Fever Eyes: reports: No Symptoms HENT: reports: No Symptoms Neck: reports: No Symptoms Cardiovascular: reports: Chest Pain, Palpitations, Shortness of Breath. denies : Edema Respiratory: reports: Cough, Exercise Intolerance, SOB Gastrointestinal: reports: No Symptoms Neurological: reports: No Symptoms Endocrine: reports: No Symptoms Vital Signs: Vital Signs Temperature 98.4 F 02/26/18 09:00 Pulse Rate 128 H 02/26/18 12:27 Respiratory Rate 22 02/26/18 12:27 Blood Pressure 137/89 02/26/18 12:27 O2 Sat by Pulse Oximetry (%) 100 02/26/18 09:00 Constitutional: Yes: Well Nourished, Mild Distress Eyes: Yes: Conjunctiva Clear, EOM Intact HENT: Yes: Atraumatic, Normocephalic Neck: Yes: Supple, Trachea Midline Respiratory: Yes: Regular, Rales Gastrointestinal: Yes: Normal Bowel Sounds, Soft Cardiovascular: Yes: Tachycardia, Pulse Irregular JVD: Yes PMI: Non-Displaced Heart Sounds: Yes: S1, S2 Murmur: No: Systolic Murmur, Diastolic Murmur Edema: No - Other Data Labs, Other Data: CBC, BMP 02/26/18 06:00 02/26/18 06:00 INR, PTT INR 1.08 (0.82-1.09) 02/25/18 11:25 Troponin, BNP 02/25/18 02/25/18 02/26/18 14:58 16:25 06:00 Troponin I 0.07 H 0.07 H 0.09 H Troponin, BNP Laboratory Tests 02/25/18 02/25/18 02/25/18 11:25 14:58 16:25 Creatine Kinase 214 H Creatine Kinase Index 0.9 Troponin I 0.07 H 0.07 H B-Natriuretic Peptide 3875.83 H 02/26/18 06:00 Creatine Kinase 354 H Creatine Kinase Index 0.6 Troponin I 0.09 H B-Natriuretic Peptide Afib RBBB Rapid Vent response nl axis diffuse T wave abnormality. Imaging - Results Chest X-ray: Report Reviewed Cat Scan: Report Reviewed (bialteral effusions) Problem List - Problems (1) Afib Assessment/Plan: Known paroxysmal Afib. Rapid vent response resulting in heart failure. Had recent echocardiogram 12/25 showing normal LV function. Continue Diltiazem IV for rate control. Continue Metoprolol XL 50mg bid DC digoxin DC Asa Would add Amiodarone if converts to NSR given recurrence of symptomatic Afib with poor rate control. 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 I discussed safety of AC with Vascular surgeon Dr. Wren and he agreed to keep patient on AC. Code(s): I48.91 - UNSPECIFIED ATRIAL FIBRILLATION (2) CHF (congestive heart failure) Assessment/Plan: HfPEF. Continue IV lasix 40mg BID Code(s): I50.9 - HEART FAILURE, UNSPECIFIED (3) Elevated troponin Assessment/Plan: Minimally elevated TP level in setting of acute heart failure. COntinue medical management. Code(s): R74.8 - ABNORMAL LEVELS OF OTHER SERUM ENZYMES
[2018-02-26] MEDS: ATORVASTATIN CA 40 MG TABLET (FP) PO SCH (21:07)
[2018-02-27] MEDS: oxyCODONE HCL 5 MG TABLET PO PRN ×3 (01:17→23:44)
[2018-02-27] MEDS: FUROSEMIDE 40 MG/4 ML INJECTABLE VIAL IVPUSH SCH ×2 (05:28→16:00)
[2018-02-27 07:09] LABS: ALBUMIN 3.3 g/dl (3.4-5.0); ANION GAP 6 (8-16); BILIRUBIN,TOTAL 0.7 mg/dL (0.2-1.0); BLOOD UREA NITROGEN 13 mg/dL (7-18); CALCIUM 8.5 mg/dL (8.5-10.1); CHLORIDE 96 mmol/L (98-107); CO2 33 mmol/L (21-32); CREATININE 1.6 mg/dL (0.55-1.02); GLUCOSE,RANDOM 87 mg/dL (74-106); POTASSIUM 4.3 mmol/L (3.5-5.1); SGOT/AST 21 U/L (15-37); SGPT/ALT 12 U/L (12-78); SODIUM 135 mmol/L (136-145); TOT PROT 6.3 g/dl (6.4-8.2)
[2018-02-27 07:11] LABS: ALK PHOS 103 U/L (45-117)
[2018-02-27 07:40] LABS: BASO % 0.7 % (0-2.0); EOS % 3.5 % (0-4.5); HEMATOCRIT 28.5 % (32.4-45.2); HEMOGLOBIN 9.3 GM/dL (10.7-15.3); LYMPH % 18.5 % (8-40); MCH 30.8 pg (25.7-33.7); MCHC 32.7 g/dl (32.0-36.0); MEAN PLT VOLUME 9.5 fl (7.5-11.1); MONO % 13.4 % (3.8-10.2); NEUT % 63.9 % (42.8-82.8); PLATELET COUNT 240 K/MM3 (134-434); RBC 3.03 M/mm3 (3.60-5.2); RDW 16.1 % (11.6-15.6); WHITE BLOOD COUNT 7.9 K/mm3 (4.0-10.0)
[2018-02-27] MEDS: FERROUS SO4 325 MG TABLET (FP) PO SCH ×2 (10:04→17:39)
[2018-02-27] MEDS: RIVAROXABAN 20 MG TABLET PO SCH (10:04)
[2018-02-27] MEDS: DILTIAZEM INJECTION 125 MG in DEXTROSE 5%-WATER - 100 ML IVPB SCH (10:04)
[2018-02-27] MEDS: POTASSIUM CHLORIDE TABS 20 MEQ TABLET.ER (FP) PO SCH (10:04)
--- NOTE | 2018-02-27 14:53 | PN ---
Progress Note, Physician History of Present Illness: seen and examined today in [facility]. no new complaints. converted to NSR overnight. - Current Medication List Current Medications: Active Medications Acetaminophen (Tylenol -) 650 mg PO Q6H PRN PRN Reason: PAIN LEVEL 7 - 10 Last Admin: 02/26/18 21:07 Dose: 650 mg Atorvastatin Calcium (Lipitor -) 40 mg PO HS [facility] Last Admin: 02/26/18 21:07 Dose: 40 mg Ferrous Sulfate (Feosol -) 325 mg PO BIDWM [facility] Last Admin: 02/27/18 10:04 Dose: 325 mg Furosemide (Lasix Injection -) 40 mg IVPUSH BIDLASIX [facility] Last Admin: 02/27/18 05:28 Dose: 40 mg Diltiazem HCl 125 mg/ Dextrose 125 mls @ 5 mls/hr IVPB TITR NIKUNJ; 5 MG/HR PRN Reason: Protocol Last Admin: 02/27/18 10:04 Dose: Not Given Metoprolol Succinate (Toprol Xl -) 50 mg PO BID [facility] Last Admin: 02/27/18 12:23 Dose: Not Given Oxycodone HCl (Roxicodone -) 5 mg PO Q4H PRN PRN Reason: PAIN LEVEL 6-10 Last Admin: 02/27/18 05:27 Dose: 5 mg Potassium Chloride (K-Dur -) 20 meq PO DAILY [facility] Last Admin: 02/27/18 10:04 Dose: 20 meq Rivaroxaban (Xarelto -) 20 mg PO DAILY [facility] Last Admin: 02/27/18 10:04 Dose: 20 mg - Objective Vital Signs: Vital Signs Temperature 98.2 F 02/27/18 13:58 Pulse Rate 49 L 02/27/18 13:58 Respiratory Rate 18 02/27/18 13:58 Blood Pressure 132/59 02/27/18 13:58 O2 Sat by Pulse Oximetry (%) 96 02/27/18 10:00 Constitutional: Yes: Well Nourished, No Distress, Calm Eyes: Yes: WNL, Conjunctiva Clear, EOM Intact, PERRL HENT: Yes: WNL, Atraumatic, Normocephalic Neck: Yes: WNL, Supple, Trachea Midline Cardiovascular: Yes: Regular Rate and Rhythm, S1, S2. No: Bradycardia, Tachycardia, Pulse Irregular, Bruit, JVD, Gallop, Murmur, Rub, S3, S4, Varicosities Respiratory: Yes: WNL, Regular, CTA Bilaterally. No: Rales, Rhonchi, Wheezes Gastrointestinal: Yes: WNL, Normal Bowel Sounds, Soft. No: Distention, Tenderness Musculoskeletal: Yes: WNL Extremities: Yes: WNL Edema: No Peripheral Pulses WNL: Yes Peripheral Pulses: Left Doralis Pedis: 2+, Right Dorsalis Pedis: 2+ Integumentary: Yes: WNL Neurological: Yes: WNL, Alert, Oriented, Cran Nerves II-XII Intact ...Motor Strength: WNL Psychiatric: Yes: WNL, Alert, Oriented Labs: CBC, BMP 02/27/18 06:25 02/27/18 06:25 INR, PTT INR 1.08 (0.82-1.09) 02/25/18 11:25 - ....Imaging Chest X-ray: Report Reviewed, Image Reviewed EKG: Report Reviewed, Image Reviewed Other: Report Reviewed, Image Reviewed (tele-Sinus monalisa, converted from Afib last night 1230am) Assessment/Plan 82 y/o bulgarian speaking female with PMH paroxysmal afib , HTN, RLE AV malformation folllowed by Dr. Wren in [facility] and is post surgical interventuion on 02/24/18 was admitted for dyspnea and rapid Afib. She has frequent palpitations and dyspnea with effort. Reporting difficulty with laying flat due to her SOB. After her operation, Dr. Wren cleared her for full anticoagulation (my phone conversation with Dr. Wren). Has had admissions for rapid Afib in the past managed with metoprolol. Echocardiogram 12/2017 showed normal LV function witohut valvular pathology and elevated LA pressure. Massive Rt leg AV malformation. Has been advised to consider Rt leg amputation. Had surgery on 02/24 Afib-converted to Sinus last night, now Sinus monalisa 40-50s -Cardizem Dcd -Digoxin dcd -Hold metoprolol for now given bradycardia -Known paroxysmal Afib. Rapid vent response resulting in heart failure. -Had recent echocardiogram 12/25 showing normal LV function. -cont AC with Xarelto (deemed safe by vascular) -Start Amiodarone 400mg bid for now with plan for 200mg daily maintenance after loading to help maintain NSR -cont to monitor on tele given sinus monalisa and issues with bradycardia in the past CHF (congestive heart failure) -Acute on chronic diastolic CHF likely secondary to Afib -maintain NSR as above -creat increased and pt appears to be more euvolemic -transition to po Lasix Elevated troponin Minimally elevated TP level in setting of acute heart failure. COntinue medical management.
--- NOTE | 2018-02-27 17:17 | PN ---
Progress Note, Physician Chief Complaint: NOTES AND EVENTS REVIEWED AWAKE ALERT C/O THE RIGHT FOOT WOUND ASSOCIATED WITH HER BRADYCARDIA?? DENIES CHEST PAIN NO SOB - Current Medication List Current Medications: Active Medications Acetaminophen (Tylenol -) 650 mg PO Q6H PRN PRN Reason: PAIN LEVEL 7 - 10 Last Admin: 02/26/18 21:07 Dose: 650 mg Amiodarone HCl (Cordarone -) 400 mg PO BID [facility] Atorvastatin Calcium (Lipitor -) 40 mg PO HS [facility] Last Admin: 02/26/18 21:07 Dose: 40 mg Ferrous Sulfate (Feosol -) 325 mg PO BIDWM [facility] Last Admin: 02/27/18 10:04 Dose: 325 mg Furosemide (Lasix -) 40 mg PO DAILY [facility] Metoprolol Succinate (Toprol Xl -) 50 mg PO BID [facility] Last Admin: 02/27/18 12:23 Dose: Not Given Oxycodone HCl (Roxicodone -) 5 mg PO Q4H PRN PRN Reason: PAIN LEVEL 6-10 Last Admin: 02/27/18 05:27 Dose: 5 mg Potassium Chloride (K-Dur -) 20 meq PO DAILY [facility] Last Admin: 02/27/18 10:04 Dose: 20 meq Rivaroxaban (Xarelto -) 20 mg PO DAILY [facility] Last Admin: 02/27/18 10:04 Dose: 20 mg - Objective Vital Signs: Vital Signs Temperature 98.2 F 02/27/18 13:58 Pulse Rate 49 L 02/27/18 13:58 Respiratory Rate 18 02/27/18 13:58 Blood Pressure 132/59 02/27/18 13:58 O2 Sat by Pulse Oximetry (%) 96 02/27/18 10:00 Constitutional: Yes: Mild Distress Eyes: Yes: WNL HENT: Yes: WNL, Other Cardiovascular: Yes: Pulse Irregular Respiratory: Yes: WNL Gastrointestinal: Yes: WNL Genitourinary: Yes: WNL Musculoskeletal: Yes: Muscle Weakness Extremities: Yes: Deformity Edema: Yes Edema: LLE: 1+, RLE: 1+ Peripheral Pulses WNL: Yes Integumentary: Yes: Pressure Ulcer, Other Wound/Incision: Yes: Dressing Dry and Intact, Unapproximated Neurological: Yes: Paresthesia, Pre-Existing Deficit ...Motor Strength: RLE Psychiatric: Yes: Other Labs: CBC, BMP 02/27/18 06:25 02/27/18 06:25 INR, PTT INR 1.08 (0.82-1.09) 02/25/18 11:25 Problem List - Problems (1) Acute renal failure Code(s): N17.9 - ACUTE KIDNEY FAILURE, UNSPECIFIED (2) Anemia Code(s): D64.9 - ANEMIA, UNSPECIFIED Qualifiers: Anemia type: unspecified type Qualified Code(s): D64.9 - Anemia, unspecified (3) Chest pain Code(s): R07.9 - CHEST PAIN, UNSPECIFIED Qualifiers: Chest pain type: unspecified Qualified Code(s): R07.9 - Chest pain, unspecified (4) Elevated troponin Code(s): R74.8 - ABNORMAL LEVELS OF OTHER SERUM ENZYMES (5) Afib Code(s): I48.91 - UNSPECIFIED ATRIAL FIBRILLATION (6) Arteriovenous malformation Code(s): Q27.30 - ARTERIOVENOUS MALFORMATION, SITE UNSPECIFIED Assessment/Plan TELEMETRY MONITORING CONTINUED CARDIOLOGY WORKUP IN [facility] RIGHT FOOT AVM D/W SURGERY AND PATIENT [facility] HAS CARED AND PERFORMED SURGICAL COILING TO [facility] LAST WEEK AND F/U THERE. BASIC WOUND CARE FOR NOW WITH WET TO DRY AND DRESSING WITH BACITRACIN OINTMENT DAILY. WILL NEED TO F/U WITH [facility] ONCE CARDIOLOGY WORKUP COMPLETE
[2018-02-27] MEDS: AMIODARONE HCL 200 MG TABLET (FP) PO SCH ×2 (17:39→21:31)
[2018-02-27] MEDS: ATORVASTATIN CA 40 MG TABLET (FP) PO SCH (21:32)
--- NOTE | 2018-02-27 22:13 | PN ---
Progress Note (short form) - Note Progress Note: Vascular Surgery: Pt known to the surgical service from a prior surgical visit in 11/11/2017. At that time she had bleeding from her right foot, AVM. This a chronic condition for her and has been receiving treatments by IR in [facility]. Although last week she underwent a coilization of her Right AVM by Dr. Wren at [facility] on 02/24/2018. She was admitted to [facility] for CP, HTN , headache. I spoke with her daughter via the phone to address her right foot wound. She sates that she does daily dry dressing changes. The Vascular surgeon is recommending a possible amputation because of the severity of her disease and difficulty treating the wound. Currently she has no active bleeding in her foot. Although she has some plantar tingling/pain according to the patient and daughter. Vital Signs Period Temp Pulse Resp BP Sys/Hu Pulse Ox Last 24 Hr 97.5 F-98.3 F 45-68 18-20 114-183/48-63 96 GEN: appears comfortable Right foot: warm, +2 Dp pulse, plantar surface pulse palpable. Small dry tissue between great toe/2nd toe. No foul odor or erythema. No drainage noted. Callous skin over plantar surface. base of 2nd/3rd toe. A/P: 82 yo female with Right known AVM, receiving treatment at [facility] for this condition No active bleeding from her foot, she remains on Xarelto. Admitted to the medical service on telemetry for observation. H/o paroxsymal A fib with rapid response during hospital course Local wound care orders D/w and ordered No further vascular needs, recommend for the patient to F/u with Dr. Wren at [facility]
--- NOTE | 2018-02-28 00:06 | EKG ---
Test Reason : Blood Pressure : / mmHG Vent. Rate : 135 BPM Atrial Rate : 077 BPM P-R Int : 000 ms QRS Dur : 124 ms QT Int : 354 ms P-R-T Axes : 000 057 -49 degrees QTc Int : 531 ms UNDETERMINED RHYTHM RIGHT BUNDLE BRANCH BLOCK T WAVE ABNORMALITY, CONSIDER INFERIOR ISCHEMIA ABNORMAL ECG WHEN COMPARED WITH ECG OF 25-FEB-2018 16:22, CURRENT UNDETERMINED RHYTHM PRECLUDES RHYTHM COMPARISON, NEEDS REVIEW Confirmed by LANE ROSADO, FARSHAD ([id number]) on 02/28/2018 12:06:25 AM Referred By: Amaury JOSEPH Confirmed By:FARSHAD SHERMAN MD
--- NOTE | 2018-02-28 00:36 | EKG ---
Test Reason : Blood Pressure : / mmHG Vent. Rate : 059 BPM Atrial Rate : 059 BPM P-R Int : 160 ms QRS Dur : 124 ms QT Int : 432 ms P-R-T Axes : 057 055 018 degrees QTc Int : 427 ms SINUS BRADYCARDIA RSR' OR QR PATTERN IN V1 SUGGESTS RIGHT VENTRICULAR CONDUCTION DELAY NONSPECIFIC ST AND T WAVE ABNORMALITY ABNORMAL ECG WHEN COMPARED WITH ECG OF 13-SEP-2017 14:13, SINUS RHYTHM HAS REPLACED ATRIAL FIBRILLATION Confirmed by FARSHAD SHERMAN MD ([id number]) on 02/28/2018 12:36:12 AM Referred By: Confirmed By:FARSHAD SHERMAN MD
[2018-02-28] MEDS: ACETAMINOPHEN 325 MG TABLET (FP) PO PRN (05:38)
[2018-02-28 08:04] LABS: HEMATOCRIT 26.3 % (32.4-45.2); HEMOGLOBIN 8.8 GM/dL (10.7-15.3); MCH 31.3 pg (25.7-33.7); MCHC 33.5 g/dl (32.0-36.0); MEAN CELL VOLUME 93.4 fl (80-96); PLATELET COUNT 196 K/MM3 (134-434); RBC 2.81 M/mm3 (3.60-5.2); RDW 15.7 % (11.6-15.6); WHITE BLOOD COUNT 6.7 K/mm3 (4.0-10.0)
[2018-02-28 08:20] LABS: CHLORIDE 97 mmol/L (98-107); POTASSIUM 4.2 mmol/L (3.5-5.1); SODIUM 134 mmol/L (136-145)
[2018-02-28 08:51] LABS: ANION GAP 8 (8-16); BLOOD UREA NITROGEN 20 mg/dL (7-18); CALCIUM 8.6 mg/dL (8.5-10.1); CO2 29 mmol/L (21-32); CREATININE 1.7 mg/dL (0.55-1.02); GLUCOSE,RANDOM 92 mg/dL (74-106)
[2018-02-28] MEDS ORDERED: PT OWN MED DRAWER 7, Y5N ONE (09:50)
[2018-02-28] MEDS: FERROUS SO4 325 MG TABLET (FP) PO SCH ×2 (09:56→17:37)
[2018-02-28] MEDS: AMIODARONE HCL 200 MG TABLET (FP) PO SCH ×2 (09:56→22:33)
[2018-02-28] MEDS: RIVAROXABAN 20 MG TABLET PO SCH (09:56)
[2018-02-28] MEDS: POTASSIUM CHLORIDE TABS 20 MEQ TABLET.ER (FP) PO SCH (09:56)
[2018-02-28] MEDS: BACITRACIN 15 GM TUBE TOPICAL OINTMENT TP SCH (09:57)
[2018-02-28] MEDS ORDERED: FUROSEMIDE 40 MG TABLET (FP) PO SCH (10:00)
[2018-02-28] MEDS: oxyCODONE HCL 5 MG TABLET PO PRN ×2 (10:05→23:56)
--- NOTE | 2018-02-28 15:07 | PN ---
Progress Note, Physician History of Present Illness: seen and examined today in [facility]. no overnight events. no new complaints. - Current Medication List Current Medications: Active Medications Acetaminophen (Tylenol -) 650 mg PO Q6H PRN PRN Reason: PAIN LEVEL 7 - 10 Last Admin: 02/28/18 05:38 Dose: 650 mg Amiodarone HCl (Cordarone -) 400 mg PO BID [facility] Last Admin: 02/28/18 09:56 Dose: 400 mg Amlodipine Besylate (Norvasc -) 2.5 mg PO DAILY [facility] Atorvastatin Calcium (Lipitor -) 40 mg PO HS [facility] Last Admin: 02/27/18 21:32 Dose: 40 mg Bacitracin (Bacitracin -) 1 applic TP DAILY [facility] Last Admin: 02/28/18 09:57 Dose: 1 applic Ferrous Sulfate (Feosol -) 325 mg PO BIDWM [facility] Last Admin: 02/28/18 09:56 Dose: 325 mg Furosemide (Lasix -) 40 mg PO DAILY [facility] Last Admin: 02/28/18 09:56 Dose: 40 mg Metoprolol Succinate (Toprol Xl -) 50 mg PO BID [facility] Last Admin: 02/28/18 09:56 Dose: 50 mg Oxycodone HCl (Roxicodone -) 5 mg PO Q4H PRN PRN Reason: PAIN LEVEL 6-10 Last Admin: 02/28/18 10:05 Dose: 5 mg Potassium Chloride (K-Dur -) 20 meq PO DAILY [facility] Last Admin: 02/28/18 09:56 Dose: 20 meq Rivaroxaban (Xarelto -) 20 mg PO DAILY [facility] Last Admin: 02/28/18 09:56 Dose: 20 mg - Objective Vital Signs: Vital Signs Temperature 98.2 F 02/28/18 05:39 Pulse Rate 52 L 02/28/18 05:39 Respiratory Rate 20 02/28/18 05:39 Blood Pressure 170/61 02/28/18 05:39 O2 Sat by Pulse Oximetry (%) 98 02/27/18 21:00 Constitutional: Yes: Well Nourished, No Distress, Calm Eyes: Yes: WNL, Conjunctiva Clear, EOM Intact, PERRL HENT: Yes: WNL, Atraumatic, Normocephalic Neck: Yes: WNL, Supple, Trachea Midline Cardiovascular: Yes: Bradycardia, S1, S2. No: Regular Rate and Rhythm, Tachycardia, Pulse Irregular, Bruit, JVD, Gallop, Murmur, Rub, S3, S4, Varicosities Respiratory: Yes: WNL, Regular, CTA Bilaterally. No: Rales, Rhonchi, Wheezes Gastrointestinal: Yes: WNL, Normal Bowel Sounds, Soft. No: Distention, Tenderness Musculoskeletal: Yes: WNL Extremities: Yes: WNL Edema: No Peripheral Pulses WNL: Yes Peripheral Pulses: Left Doralis Pedis: 2+, Right Dorsalis Pedis: 2+ Integumentary: Yes: WNL Neurological: Yes: WNL, Alert, Oriented Psychiatric: Yes: Alert, Oriented Labs: CBC, BMP 02/28/18 06:51 02/28/18 06:51 INR, PTT INR 1.08 (0.82-1.09) 02/25/18 11:25 - ....Imaging Chest X-ray: Report Reviewed, Image Reviewed EKG: Report Reviewed, Image Reviewed Other: Report Reviewed, Image Reviewed (tele-sinus monalisa 50s no further afib) Assessment/Plan 82 y/o turkmen speaking female with PMH paroxysmal afib , HTN, RLE AV malformation folllowed by Dr. Wren in [facility] and is post surgical interventuion on 02/24/18 was admitted for dyspnea and rapid Afib. She has frequent palpitations and dyspnea with effort. Reporting difficulty with laying flat due to her SOB. After her operation, Dr. Wren cleared her for full anticoagulation (my phone conversation with Dr. Wren). Has had admissions for rapid Afib in the past managed with metoprolol. Echocardiogram 12/2017 showed normal LV function witohut valvular pathology and elevated LA pressure. Massive Rt leg AV malformation. Has been advised to consider Rt leg amputation. Had surgery on 02/24 Afib-converted to Sinus 02/27, now Sinus monalisa 50s -Cardizem Dcd -Digoxin dcd -Hold metoprolol for now given bradycardia -Known paroxysmal Afib. Rapid vent response resulting in heart failure. -Had recent echocardiogram 12/25 showing normal LV function. -cont AC with Xarelto (deemed safe by vascular) -Start Amiodarone 400mg bid for now with plan for 200mg daily maintenance after loading (5 days loading total 4gm) to help maintain NSR -if remains sinus monalisa would dc Bblocker CHF (congestive heart failure) -Acute on chronic diastolic CHF likely secondary to Afib -maintain NSR as above -creat increased and pt appears to be more euvolemic -transition to po Lasix Elevated troponin Minimally elevated TP level in setting of acute heart failure. COntinue medical management.
--- NOTE | 2018-02-28 15:08 | PN ---
Progress Note, Physician Chief Complaint: AWAKE ALERT MILD DISTRESS RIGHT FOOT DRESSING REMOVED - Current Medication List Current Medications: Active Medications Acetaminophen (Tylenol -) 650 mg PO Q6H PRN PRN Reason: PAIN LEVEL 7 - 10 Last Admin: 02/28/18 05:38 Dose: 650 mg Amiodarone HCl (Cordarone -) 400 mg PO BID [facility] Last Admin: 02/28/18 09:56 Dose: 400 mg Amlodipine Besylate (Norvasc -) 2.5 mg PO DAILY [facility] Atorvastatin Calcium (Lipitor -) 40 mg PO HS [facility] Last Admin: 02/27/18 21:32 Dose: 40 mg Bacitracin (Bacitracin -) 1 applic TP DAILY [facility] Last Admin: 02/28/18 09:57 Dose: 1 applic Ferrous Sulfate (Feosol -) 325 mg PO BIDWM [facility] Last Admin: 02/28/18 09:56 Dose: 325 mg Metoprolol Succinate (Toprol Xl -) 50 mg PO BID [facility] Last Admin: 02/28/18 09:56 Dose: 50 mg Oxycodone HCl (Roxicodone -) 5 mg PO Q4H PRN PRN Reason: PAIN LEVEL 6-10 Last Admin: 02/28/18 10:05 Dose: 5 mg Potassium Chloride (K-Dur -) 20 meq PO DAILY [facility] Last Admin: 02/28/18 09:56 Dose: 20 meq Rivaroxaban (Xarelto -) 20 mg PO DAILY [facility] Last Admin: 02/28/18 09:56 Dose: 20 mg - Objective Vital Signs: Vital Signs Temperature 98.2 F 02/28/18 05:39 Pulse Rate 52 L 02/28/18 05:39 Respiratory Rate 20 02/28/18 05:39 Blood Pressure 170/61 02/28/18 05:39 O2 Sat by Pulse Oximetry (%) 98 02/27/18 21:00 Constitutional: Yes: Mild Distress Eyes: Yes: WNL HENT: Yes: WNL Neck: Yes: WNL Cardiovascular: Yes: Bradycardia Respiratory: Yes: WNL Gastrointestinal: Yes: WNL Genitourinary: Yes: WNL Musculoskeletal: Yes: Muscle Weakness Extremities: Yes: Other Edema: No Peripheral Pulses WNL: Yes Integumentary: Yes: Erythema, Other Wound/Incision: Yes: Dressing Removed, Excoriated, Unapproximated, Other (BLACK PIGMENTED COLOR AVM) Neurological: Yes: Pre-Existing Deficit ...Motor Strength: RLE Psychiatric: Yes: WNL Labs: CBC, BMP 02/28/18 06:51 02/28/18 06:51 INR, PTT INR 1.08 (0.82-1.09) 02/25/18 11:25 Problem List - Problems (1) Acute renal failure Code(s): N17.9 - ACUTE KIDNEY FAILURE, UNSPECIFIED (2) Anemia Code(s): D64.9 - ANEMIA, UNSPECIFIED Qualifiers: Anemia type: unspecified type Qualified Code(s): D64.9 - Anemia, unspecified (3) Chest pain Code(s): R07.9 - CHEST PAIN, UNSPECIFIED Qualifiers: Chest pain type: unspecified Qualified Code(s): R07.9 - Chest pain, unspecified (4) Elevated troponin Code(s): R74.8 - ABNORMAL LEVELS OF OTHER SERUM ENZYMES (5) Afib Code(s): I48.91 - UNSPECIFIED ATRIAL FIBRILLATION (6) Arteriovenous malformation Code(s): Q27.30 - ARTERIOVENOUS MALFORMATION, SITE UNSPECIFIED Assessment/Plan TELEMETRY MONITORING CONTINUED CARDIOLOGY WORKUP IN PROGRESS WOUND CARE RIGHT FOOT AVM D/W SURGERY AND PATIENT [facility] SURGERY HAS CARED AND PERFORMED SURGICAL COILING TO AREA LAST WEEK AND F/U THERE. BASIC WOUND CARE FOR NOW WITH WET TO DRY AND DRESSING WITH BACITRACIN OINTMENT DAILY. WILL NEED TO F/U WITH [facility] ONCE CARDIOLOGY WORKUP COMPLETE
[2018-02-28] MEDS ORDERED: amLODIPine BESYLATE 2.5 MG TABLET (FP) PO SCH (15:30)
--- NOTE | 2018-02-28 15:43 | CONSULT ---
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 She was admitted to for workup. She had a ct angio to r/p PE. I was called to evaluate her as her creatinine is rising. She denies history of CKD. SHe denies nsaid use. She denies chest pain or shortness of breath. She says that her blood pressure was very high before coming to the ER. She had her procedure done at [facility] on 02/24. - History Source History Provided By: Patient, Medical Record - Past Medical History Cardio/Vascular: Yes: AFIB, CAD, HTN, Hyperlipdemia Pulmonary: Yes: Pneumonia - Past Surgical History Additional Surgical History: a-v malfmormation of leg - Alcohol/Substance Use Hx Alcohol Use: No - Smoking History Smoking history: Never smoked Have you smoked in the past 12 months: No Home Medications - Allergies Allergies/Adverse Reactions: Allergies Allergy/AdvReac Type Severity Reaction Status Date / Time No Known Allergies Allergy Verified 02/25/18 09:04 - Home Medications Home Medications: Ambulatory Orders Rivaroxaban [Xarelto -] 20 mg PO DAILY 09/13/17 Ferrous Sulfate [Feosol] 325 mg PO BIDWM #30 ud MDD 2 09/19/17 Furosemide [Lasix -] 40 mg PO DAILY #10 tablet MDD 1 09/19/17 Methyl Salicylate/Menthol Oint [Analgesic [place] -] 1 applic TP BID #1 tube MDD 2 09/19/17 Metoprolol Succinate [Toprol Xl] 25 mg PO DAILY #30 tab.er.24h MDD 1 09/19/17 Potassium Chloride [K-Dur -] 20 meq PO DAILY #10 tablet.er MDD 1 09/19/17 Digoxin [Lanoxin -] 0.125 mg PO DAILY 11/11/17 Gabapentin 100 mg PO ASDIR 11/11/17 Simvastatin 40 mg PO ASDIR 11/11/17 Family Disease History - Family Disease History Family History: Denies Review of Systems - Review of Systems Constitutional: reports: Malaise, Weakness Eyes: reports: No Symptoms HENT: reports: No Symptoms Neck: reports: No Symptoms Cardiovascular: reports: No Symptoms Respiratory: reports: No Symptoms Gastrointestinal: reports: No Symptoms Genitourinary: reports: No Symptoms Musculoskeletal: reports: Other (right leg pain) Integumentary: reports: No Symptoms Neurological: reports: No Symptoms Endocrine: reports: No Symptoms Hematology/Lymphatic: reports: No Symptoms Physical Exam Vital Signs: Vital Signs Temperature 98.2 F 02/28/18 14:00 Pulse Rate 54 L 02/28/18 14:00 Respiratory Rate 20 02/28/18 05:39 Blood Pressure 185/53 02/28/18 14:00 O2 Sat by Pulse Oximetry (%) 98 02/27/18 21:00 Constitutional: Yes: Calm Eyes: Yes: Conjunctiva Clear HENT: Yes: Atraumatic Cardiovascular: Yes: S1, S2 Respiratory: Yes: CTA Bilaterally Gastrointestinal: Yes: Soft Musculoskeletal: Yes: Other (right leg pain) Edema: Yes Edema: RLE: Trace Neurological: Yes: Oriented Psychiatric: Yes: Oriented Labs: CBC, BMP 02/28/18 06:51 02/28/18 06:51 Laboratory Tests 09/16/17 09/18/17 02/25/18 05:05 05:48 10:00 WBC RBC Creatinine 1.2 H 1.1 H 0.9 Urine Color Urine Appearance Urine Protein Urine Blood 02/25/18 02/26/18 02/27/18 17:30 06:00 06:25 WBC RBC Creatinine 1.0 1.6 H Urine Color Straw Urine Appearance Clear Urine Protein Negative Urine Blood Negative 02/28/18 02/28/18 06:51 06:51 WBC 6.7 RBC 2.81 L Creatinine 1.7 H Urine Color Urine Appearance Urine Protein Urine Blood Imaging - Results Cat Scan: Report Reviewed Problem List - Problems (1) Acute renal failure Code(s): N17.9 - ACUTE KIDNEY FAILURE, UNSPECIFIED (2) Chest pain Code(s): R07.9 - CHEST PAIN, UNSPECIFIED Qualifiers: Chest pain type: unspecified Qualified Code(s): R07.9 - Chest pain, unspecified (3) Pleural effusion Code(s): J90 - PLEURAL EFFUSION, NOT ELSEWHERE CLASSIFIED (4) Afib Code(s): I48.91 - UNSPECIFIED ATRIAL FIBRILLATION (5) Arteriovenous malformation Code(s): Q27.30 - ARTERIOVENOUS MALFORMATION, SITE UNSPECIFIED Assessment/Plan Current Medications Generic Name Dose Route Start Last Admin Trade Name Freq PRN Reason Stop Dose Admin Acetaminophen 650 mg 02/25/18 20:16 02/28/18 05:38 Tylenol - PO 650 mg Q6H PRN Administration PAIN LEVEL 7 - 10 Amiodarone HCl 400 mg 02/27/18 16:00 02/28/18 09:56 Cordarone - PO 400 mg BID NIKUNJ Administration Amlodipine Besylate 2.5 mg 02/28/18 15:30 02/28/18 15:47 Norvasc - PO 2.5 mg DAILY NIKUNJ Administration Atorvastatin Calcium 40 mg 02/26/18 22:00 02/27/18 21:32 Lipitor - PO 40 mg HS NIKUNJ Administration Bacitracin 1 applic 02/28/18 10:00 02/28/18 09:57 Bacitracin - TP 1 applic DAILY NIKUNJ Administration Ferrous Sulfate 325 mg 02/25/18 17:30 02/28/18 09:56 Feosol - PO 325 mg BIDWM NIKUNJ Administration Vancomycin HCl 1 gm in 200 mls @ 200 mls/hr 02/28/18 16:15 Vancomycin 1 Gm Premix - IVPB Q24H NIKUNJ Protocol Ampicillin Sodium/Sulbactam 100 mls @ 200 mls/hr 02/28/18 16:45 Sodium 1.5 gm/ Sodium Chloride IVPB BID NIKUNJ Metoprolol Succinate 50 mg 02/26/18 10:00 02/28/18 09:56 Toprol Xl - PO 50 mg BID NIKUNJ Administration Oxycodone HCl 5 mg 02/26/18 09:48 02/28/18 10:05 Roxicodone - PO 5 mg Q4H PRN Administration PAIN LEVEL 6-10 Potassium Chloride 20 meq 02/26/18 10:00 02/28/18 09:56 K-Dur - PO 20 meq DAILY NIKUNJ Administration Rivaroxaban 20 mg 02/26/18 10:00 02/28/18 09:56 Xarelto - PO 20 mg DAILY NIKUNJ Administration Impression 1. DANIELA 2. av-malformation 3. HTN 4. a-fib 5. pleural effusion Plan - check renal ultrasound - check urine fitter type bar and segment and urine na - pt may have renal involvement from contrast - repeat labs in am - will comment more on etiology after reviewing data - increase amlodipine to 5 mg, give an addition 2.5 mg now - repeat labs in am - will follow
--- NOTE | 2018-02-28 15:55 | PN ---
Progress Note (short form) - Note Progress Note: ID Consult dictated Cellulitis v. ischemia R foot S/P AVM coiling Chest pain syndrome Azotemia Obtain BC ESR CRP Empiric vancomycin/ unasyn
[2018-02-28] MEDS ORDERED: amLODIPine BESYLATE 2.5 MG TABLET (FP) PO ONE (16:55)
--- NOTE | 2018-02-28 17:01 | CONS ---
INFECTIOUS DISEASE CONSULTATION DATE OF CONSULTATION: DATE OF DICTATION: 02/28/2018 The patient is an 82-year-old female who is evaluated for cellulitis of the right foot. The patient has a history of AV malformation of the right lower extremity. She underwent an embolization of the AV malformation at [facility] on February 24, 2018. She reports that postoperatively her course was complicated by elevated blood pressure. She was discharged home. She was admitted to [facility] on February 25, 2018, with complaints of headache, chest pain, shortness of breath, and elevated blood pressure. She was found to have elevated blood pressure. Her course was complicated by rapid atrial fibrillation and elevated troponins. She was admitted for cardiac workup. A CT angiogram was performed and was negative for acute pulmonary embolism. It did show bilateral pleural effusions. She complains of right foot pain which has been chronic in nature. The foot has a necrotic eschar present on the plantar surface and on the left great toe. She has extreme pain when the foot is manipulated or moved. She denies any associated fever or chills. PAST MEDICAL HISTORY: Positive for AV malformation of the right lower extremity. She had presented with bleeding from her foot and has been followed for this chronic condition by interventional radiologists at [facility]. At one point, she was advised by a vascular surgeon for amputation of the foot because of the severity of the disease and difficulty treating the wound. She reported intermittent bleeding from the right foot wound. No reports of any purulent drainage. Past medical history also includes atrial fibrillation, hypertension, and hyperlipidemia. PAST SURGICAL HISTORY: Status post cholecystectomy and tubal ligation. ALLERGIES: No known drug allergies. MEDICATIONS AT THE PRESENT TIME: Include Tylenol, amiodarone, Xarelto, Toprol, Norvasc, Lipitor, Feosol, oxycodone, K-Dur. SOCIAL HISTORY: She resides at home. She is a nonsmoker, nondrinker. She is Frisian speaking. SYSTEMS REVIEW: Neurologic: No loss of consciousness, seizure activity, focal weakness. Cardiac: As per HPI. Respiratory: Positive for shortness of breath. No cough or sputum production. Gastrointestinal: Negative vomiting or diarrhea. Genitourinary: Negative for urinary tract infection. LABORATORY DATA: White count 6.7, hematocrit 26.3, platelet count 196. BUN 20, creatinine 1.7. Urinalysis negative leukocyte esterase. Chest x-ray negative. PHYSICAL EXAMINATION: General: She is awake and alert. She is in moderate distress secondary to right foot pain. Vital Signs: Temperature 98.2; blood pressure 170/61; pulse 52, regular; respirations 20 per minute. HEENT: Sclerae anicteric. Heart: Sounds S1, S2. Lungs: Clear. Abdomen: Obese, soft, nontender. Right Foot: The right foot is warm. There is a necrotic eschar present on the plantar aspect of the right foot over the 2nd and 3rd metatarsal heads. There is also an area of necrotic eschar present on the lateral aspect of the right great toe. The foot appears swollen. It is hyperemic involving the toes and dorsum of the foot. It is warm to touch, exquisitely tender to manipulation. There is no purulent drainage or foul odor noted. IMPRESSION: 1. Cellulitis versus ischemia of the right lower extremity. 2. Necrotic wound of the right foot. 3. Status post embolization of right lower extremity arteriovenous malformation. 4. Azotemia. 5. Chest pain syndrome. Right foot appears erythematous. It is warm to touch, cannot rule out a superimposed cellulitis. Will obtain blood cultures, sedimentation rate, C-reactive protein and empirically treat with vancomycin and Unasyn adjusted for her azotemia. After clearance by Cardiology, patient needs to follow up with her providers at [facility] for her AV malformation. Thank you for the kind referral. NAYELY TURPIN M.D. [id number]
[2018-02-28] MEDS ORDERED: NIFEdipine E.R. 30 MG TABLET (FP) PO ONE (17:15)
[2018-02-28] MEDS ORDERED: SODIUM CHLORIDE 100 ML IVPB ONE (17:32)
[2018-02-28] MEDS ORDERED: AMPICILLIN NA/SULBACTAM NA 1.5 GM VIAL ONE (17:32)
[2018-02-28] MEDS: AMPICILLIN NA/SULBACTAM NA 1.5 GM in SODIUM CHLORIDE 100 ML IVPB SCH (17:40)
[2018-02-28] MEDS: VANCOMYCIN 1 GM PREMIX - 1 GM/200 ML BAG IVPB SCH (17:40)
--- NOTE | 2018-02-28 17:45 | PN ---
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 Recently had coiling of AV malformation at [facility]. Pt has a good DP and PT pulse. PT pulse feels like a thrill. Gangrene probably secondary to the AV malformation emoblizing. Once cardiology issues resolve, recommend pt return back to [facility] for further eval of her av malformation. Right foot is warm, pink, and stable. Rubin Dixon DO
[2018-02-28] MEDS: ATORVASTATIN CA 40 MG TABLET (FP) PO SCH (22:32)
[2018-03-01] MEDS: ACETAMINOPHEN 325 MG TABLET (FP) PO PRN ×3 (02:19→21:13)
[2018-03-01] MEDS: oxyCODONE HCL 5 MG TABLET PO PRN ×2 (04:18→23:37)
[2018-03-01 07:47] LABS: ANION GAP 7 (8-16); BLOOD UREA NITROGEN 17 mg/dL (7-18); CALCIUM 8.5 mg/dL (8.5-10.1); CHLORIDE 99 mmol/L (98-107); CO2 31 mmol/L (21-32); CREATININE 1.2 mg/dL (0.55-1.02); GLUCOSE,RANDOM 94 mg/dL (74-106); POTASSIUM 4.6 mmol/L (3.5-5.1); SODIUM 137 mmol/L (136-145)
[2018-03-01] MEDS: FERROUS SO4 325 MG TABLET (FP) PO SCH ×2 (08:30→18:07)
[2018-03-01] MEDS ORDERED: AMPICILLIN NA/SULBACTAM NA 1.5 GM VIAL ONE ×2 (08:52→21:09)
[2018-03-01] MEDS ORDERED: SODIUM CHLORIDE 100 ML IVPB ONE ×2 (08:53→21:09)
[2018-03-01] MEDS: BACITRACIN 15 GM TUBE TOPICAL OINTMENT TP SCH (09:25)
[2018-03-01] MEDS: AMIODARONE HCL 200 MG TABLET (FP) PO SCH ×2 (09:25→21:15)
[2018-03-01] MEDS: amLODIPine BESYLATE 5 MG TABLET (FP) PO SCH (09:26)
[2018-03-01] MEDS: POTASSIUM CHLORIDE TABS 20 MEQ TABLET.ER (FP) PO SCH (09:26)
[2018-03-01] MEDS: AMPICILLIN NA/SULBACTAM NA 1.5 GM in SODIUM CHLORIDE 100 ML IVPB SCH ×2 (09:27→21:16)
[2018-03-01] MEDS: RIVAROXABAN 20 MG TABLET PO SCH (09:28)
--- NOTE | 2018-03-01 10:32 | PN ---
Progress Note, Physician - Current Medication List Current Medications: Active Medications Acetaminophen (Tylenol -) 650 mg PO Q6H PRN PRN Reason: PAIN LEVEL 7 - 10 Last Admin: 03/01/18 02:19 Dose: 650 mg Amiodarone HCl (Cordarone -) 400 mg PO BID [facility] Last Admin: 03/01/18 09:25 Dose: 400 mg Amlodipine Besylate (Norvasc -) 5 mg PO DAILY [facility] Last Admin: 03/01/18 09:26 Dose: 5 mg Atorvastatin Calcium (Lipitor -) 40 mg PO HS [facility] Last Admin: 02/28/18 22:32 Dose: 40 mg Bacitracin (Bacitracin -) 1 applic TP DAILY [facility] Last Admin: 03/01/18 09:25 Dose: 1 applic Ferrous Sulfate (Feosol -) 325 mg PO BIDWM [facility] Last Admin: 03/01/18 08:30 Dose: 325 mg Vancomycin HCl (Vancomycin 1 Gm Premix -) 1 gm in 200 mls @ 200 mls/hr IVPB Q24H [facility]; Protocol Last Admin: 02/28/18 17:40 Dose: 200 mls/hr Ampicillin Sodium/Sulbactam (Sodium 1.5 gm/ Sodium Chloride) 100 mls @ 200 mls/ hr IVPB BID [facility] Last Admin: 03/01/18 09:27 Dose: 200 mls/hr Metoprolol Succinate (Toprol Xl -) 50 mg PO BID [facility] Last Admin: 03/01/18 09:27 Dose: Not Given Oxycodone HCl (Roxicodone -) 5 mg PO Q4H PRN PRN Reason: PAIN LEVEL 6-10 Last Admin: 03/01/18 04:18 Dose: 5 mg Potassium Chloride (K-Dur -) 20 meq PO DAILY [facility] Last Admin: 03/01/18 09:26 Dose: 20 meq Rivaroxaban (Xarelto -) 20 mg PO DAILY [facility] Last Admin: 03/01/18 09:28 Dose: 20 mg - Objective Vital Signs: Vital Signs Temperature 97.2 F L 03/01/18 09:36 Pulse Rate 50 L 03/01/18 09:36 Respiratory Rate 18 03/01/18 09:36 Blood Pressure 118/56 03/01/18 09:36 O2 Sat by Pulse Oximetry (%) 98 02/28/18 21:00 Labs: CBC, BMP 02/28/18 06:51 03/01/18 06:00 INR, PTT INR 1.08 (0.82-1.09) 02/25/18 11:25 Assessment/Plan 82 y/o south african speaking female with PMH paroxysmal afib , HTN, RLE AV malformation folllowed by Dr. Wren in [facility] and is post surgical interventuion on 02/24/18 was admitted for dyspnea and rapid Afib. She has frequent palpitations and dyspnea with effort. Reporting difficulty with laying flat due to her SOB. After her operation, Dr. Wren cleared her for full anticoagulation (my phone conversation with Dr. Wren). Has had admissions for rapid Afib in the past managed with metoprolol. Echocardiogram 12/2017 showed normal LV function witohut valvular pathology and elevated LA pressure. Massive Rt leg AV malformation. Has been advised to consider Rt leg amputation. Had surgery on 02/24 Afib-converted to Sinus 02/27, now Sinus monalisa 50s -Cardizem Dcd -Digoxin dcd -will dc metoprolol for now given bradycardia, if HR tolerates in future can resume -Known paroxysmal Afib. Rapid vent response resulting in heart failure. -Had recent echocardiogram 12/25 showing normal LV function. -cont AC with Xarelto (deemed safe by vascular) -Cont Amiodarone 400mg bid for now with plan for 200mg daily maintenance after loading (5 days loading total 4gm) to help maintain NSR CHF (congestive heart failure) -Acute on chronic diastolic CHF likely secondary to Afib -maintain NSR as above -euvolemic and creat improving now that has been in NSR -can hold off on Lasix for now Elevated troponin Minimally elevated TP level in setting of acute heart failure. COntinue medical management.
--- NOTE | 2018-03-01 11:07 | PN ---
Progress Note, Physician Chief Complaint: AWAKE ALERT C/O PAIN RIGHT LEG DENEIS CHEST PAIN NO SOB STILL BRADYCARDIC - Current Medication List Current Medications: Active Medications Acetaminophen (Tylenol -) 650 mg PO Q6H PRN PRN Reason: PAIN LEVEL 7 - 10 Last Admin: 03/01/18 02:19 Dose: 650 mg Amiodarone HCl (Cordarone -) 400 mg PO BID [facility] Last Admin: 03/01/18 09:25 Dose: 400 mg Amlodipine Besylate (Norvasc -) 5 mg PO DAILY [facility] Last Admin: 03/01/18 09:26 Dose: 5 mg Atorvastatin Calcium (Lipitor -) 40 mg PO HS [facility] Last Admin: 02/28/18 22:32 Dose: 40 mg Bacitracin (Bacitracin -) 1 applic TP DAILY [facility] Last Admin: 03/01/18 09:25 Dose: 1 applic Ferrous Sulfate (Feosol -) 325 mg PO BIDWM [facility] Last Admin: 03/01/18 08:30 Dose: 325 mg Vancomycin HCl (Vancomycin 1 Gm Premix -) 1 gm in 200 mls @ 200 mls/hr IVPB Q24H [facility]; Protocol Last Admin: 02/28/18 17:40 Dose: 200 mls/hr Ampicillin Sodium/Sulbactam (Sodium 1.5 gm/ Sodium Chloride) 100 mls @ 200 mls/ hr IVPB BID [facility] Last Admin: 03/01/18 09:27 Dose: 200 mls/hr Oxycodone HCl (Roxicodone -) 5 mg PO Q4H PRN PRN Reason: PAIN LEVEL 6-10 Last Admin: 03/01/18 04:18 Dose: 5 mg Potassium Chloride (K-Dur -) 20 meq PO DAILY [facility] Last Admin: 03/01/18 09:26 Dose: 20 meq Rivaroxaban (Xarelto -) 20 mg PO DAILY [facility] Last Admin: 03/01/18 09:28 Dose: 20 mg - Objective Vital Signs: Vital Signs Temperature 97.2 F L 03/01/18 09:36 Pulse Rate 50 L 03/01/18 09:36 Respiratory Rate 18 03/01/18 09:36 Blood Pressure 118/56 03/01/18 09:36 O2 Sat by Pulse Oximetry (%) 98 02/28/18 21:00 Constitutional: Yes: Mild Distress Eyes: Yes: WNL HENT: Yes: WNL, Tonsillar Exudate Cardiovascular: Yes: Bradycardia Respiratory: Yes: WNL Gastrointestinal: Yes: WNL Genitourinary: Yes: WNL Musculoskeletal: Yes: Muscle Weakness Extremities: Yes: Deformity Edema: Yes Edema: RLE: 1+ Peripheral Pulses WNL: Yes Integumentary: Yes: Pressure Ulcer, Venous Stasis Changes, Other Wound/Incision: Yes: Dressing Dry and Intact (RIGHT LEG) Neurological: Yes: Pre-Existing Deficit ...Motor Strength: RLE Labs: CBC, BMP 02/28/18 06:51 03/01/18 06:00 INR, PTT INR 1.08 (0.82-1.09) 02/25/18 11:25 Problem List - Problems (1) Acute renal failure Code(s): N17.9 - ACUTE KIDNEY FAILURE, UNSPECIFIED (2) Anemia Code(s): D64.9 - ANEMIA, UNSPECIFIED Qualifiers: Anemia type: unspecified type Qualified Code(s): D64.9 - Anemia, unspecified (3) Chest pain Code(s): R07.9 - CHEST PAIN, UNSPECIFIED Qualifiers: Chest pain type: unspecified Qualified Code(s): R07.9 - Chest pain, unspecified (4) Elevated troponin Code(s): R74.8 - ABNORMAL LEVELS OF OTHER SERUM ENZYMES (5) Afib Code(s): I48.91 - UNSPECIFIED ATRIAL FIBRILLATION (6) Arteriovenous malformation Code(s): Q27.30 - ARTERIOVENOUS MALFORMATION, SITE UNSPECIFIED Assessment/Plan STILL WITH BRADYCARDIA STOPPING METOPROLOL ON AMIODARONE WOUND CARE PER SURGERY WILL F/U WITH [facility] WOUND [facility] AND PODIATRY
[2018-03-01 12:18] LABS: URINE APPEARANCE CLEAR; URINE COLOR YELLOW; URINE GLUCOSE (UA) NEGATIVE (NEGATIVE)
[2018-03-01 12:19] LABS: URINE BILIRUBIN NEGATIVE (<2.0 mg/dL); URINE KETONE NEGATIVE (NEGATIVE); URINE LEUK ESTERASE TRACE (NEGATIVE); URINE NITRITE NEGATIVE (NEGATIVE); URINE PROTEIN NEGATIVE (NEGATIVE)
[2018-03-01 12:22] LABS: EPI CELLS RARE /HPF (FEW); URINE HYALINE CAST 4 /lpf; URINE MUCUS RARE
--- NOTE | 2018-03-01 15:11 | PN ---
Progress Note, Physician History of Present Illness: Pt seen and examined at bedside. She is awake and appears comfortable. She denies shortness of breath. - Current Medication List Current Medications: Active Medications Acetaminophen (Tylenol -) 650 mg PO Q6H PRN PRN Reason: PAIN LEVEL 7 - 10 Last Admin: 03/01/18 14:16 Dose: 650 mg Amiodarone HCl (Cordarone -) 400 mg PO BID [facility] Stop: 03/03/18 22:01 Last Admin: 03/01/18 09:25 Dose: 400 mg Amiodarone HCl (Cordarone -) 200 mg PO DAILY [facility] Amlodipine Besylate (Norvasc -) 5 mg PO DAILY [facility] Last Admin: 03/01/18 09:26 Dose: 5 mg Atorvastatin Calcium (Lipitor -) 40 mg PO HS [facility] Last Admin: 02/28/18 22:32 Dose: 40 mg Bacitracin (Bacitracin -) 1 applic TP DAILY [facility] Last Admin: 03/01/18 09:25 Dose: 1 applic Ferrous Sulfate (Feosol -) 325 mg PO BIDWM [facility] Last Admin: 03/01/18 08:30 Dose: 325 mg Vancomycin HCl (Vancomycin 1 Gm Premix -) 1 gm in 200 mls @ 200 mls/hr IVPB Q24H [facility]; Protocol Last Admin: 02/28/18 17:40 Dose: 200 mls/hr Ampicillin Sodium/Sulbactam (Sodium 1.5 gm/ Sodium Chloride) 100 mls @ 200 mls/ hr IVPB BID [facility] Last Admin: 03/01/18 09:27 Dose: 200 mls/hr Oxycodone HCl (Roxicodone -) 5 mg PO Q4H PRN PRN Reason: PAIN LEVEL 6-10 Last Admin: 03/01/18 04:18 Dose: 5 mg Potassium Chloride (K-Dur -) 20 meq PO DAILY [facility] Last Admin: 03/01/18 09:26 Dose: 20 meq Rivaroxaban (Xarelto -) 20 mg PO DAILY [facility] Last Admin: 03/01/18 09:28 Dose: 20 mg - Objective Vital Signs: Vital Signs Temperature 97.2 F L 03/01/18 09:36 Pulse Rate 50 L 03/01/18 09:36 Respiratory Rate 18 03/01/18 09:36 Blood Pressure 118/56 03/01/18 09:36 O2 Sat by Pulse Oximetry (%) 98 03/01/18 09:00 Constitutional: Yes: Calm Eyes: Yes: Conjunctiva Clear HENT: Yes: Atraumatic Neck: Yes: Supple Cardiovascular: Yes: S1, S2 Respiratory: Yes: CTA Bilaterally Gastrointestinal: Yes: Soft Genitourinary: Yes: WNL Extremities: Yes: Other (right foot dressing in place) Edema: No Neurological: Yes: Oriented Psychiatric: Yes: Oriented Labs: CBC, BMP 02/28/18 06:51 03/01/18 06:00 INR, PTT INR 1.08 (0.82-1.09) 02/25/18 11:25 Problem List - Problems (1) Acute renal failure Code(s): N17.9 - ACUTE KIDNEY FAILURE, UNSPECIFIED (2) Chest pain Code(s): R07.9 - CHEST PAIN, UNSPECIFIED Qualifiers: Chest pain type: unspecified Qualified Code(s): R07.9 - Chest pain, unspecified (3) Pleural effusion Code(s): J90 - PLEURAL EFFUSION, NOT ELSEWHERE CLASSIFIED (4) Afib Code(s): I48.91 - UNSPECIFIED ATRIAL FIBRILLATION (5) Arteriovenous malformation Code(s): Q27.30 - ARTERIOVENOUS MALFORMATION, SITE UNSPECIFIED Assessment/Plan Current Medications Generic Name Dose Route Start Last Admin Trade Name Freq PRN Reason Stop Dose Admin Acetaminophen 650 mg 02/25/18 20:16 03/01/18 14:16 Tylenol - PO 650 mg Q6H PRN Administration PAIN LEVEL 7 - 10 Amiodarone HCl 400 mg 02/27/18 16:00 03/01/18 09:25 Cordarone - PO 03/03/18 22:01 400 mg BID NIKUNJ Administration Amiodarone HCl 200 mg 03/04/18 10:00 Cordarone - PO DAILY [facility] Amlodipine Besylate 5 mg 03/01/18 10:00 03/01/18 09:26 Norvasc - PO 5 mg DAILY NIKUNJ Administration Atorvastatin Calcium 40 mg 02/26/18 22:00 02/28/18 22:32 Lipitor - PO 40 mg HS NIKUNJ Administration Bacitracin 1 applic 02/28/18 10:00 03/01/18 09:25 Bacitracin - TP 1 applic DAILY NIKUNJ Administration Ferrous Sulfate 325 mg 02/25/18 17:30 03/01/18 08:30 Feosol - PO 325 mg BIDWM NIKUNJ Administration Vancomycin HCl 1 gm in 200 mls @ 200 mls/hr 02/28/18 16:15 02/28/18 17:40 Vancomycin 1 Gm Premix - IVPB 200 mls/hr Q24H NIK[facility]J Administration Protocol Ampicillin Sodium/Sulbactam 100 mls @ 200 mls/hr 02/28/18 16:45 03/01/18 09: 27 Sodium 1.5 gm/ Sodium Chloride IVPB 200 mls/hr BID NIKUNJ Administration Oxycodone HCl 5 mg 02/26/18 09:48 03/01/18 04:18 Roxicodone - PO 5 mg Q4H PRN Administration PAIN LEVEL 6-10 Potassium Chloride 20 meq 02/26/18 10:00 03/01/18 09:26 K-Dur - PO 20 meq DAILY NIKUNJ Administration Rivaroxaban 20 mg 02/26/18 10:00 03/01/18 09:28 Xarelto - PO 20 mg DAILY NIKUNJ Administration Impression 1. DANIELA 2. av-malformation 3. HTN 4. a-fib 5. pleural effusion Plan - left kidney is mildly atrophic on ultrasound - renal function is improving - repeat labs in am - cardio follow up - bp is improved today - will follow
[2018-03-01] MEDS: VANCOMYCIN 1 GM PREMIX - 1 GM/200 ML BAG IVPB SCH (15:20)
--- NOTE | 2018-03-01 17:36 | PN ---
Progress Note, Physician History of Present Illness: Awake, alert in bed C/O foot pain No fever/ chills BC no growth - Current Medication List Current Medications: Active Medications Acetaminophen (Tylenol -) 650 mg PO Q6H PRN PRN Reason: PAIN LEVEL 7 - 10 Last Admin: 03/01/18 14:16 Dose: 650 mg Amiodarone HCl (Cordarone -) 400 mg PO BID [facility] Stop: 03/03/18 22:01 Last Admin: 03/01/18 09:25 Dose: 400 mg Amiodarone HCl (Cordarone -) 200 mg PO DAILY [facility] Amlodipine Besylate (Norvasc -) 5 mg PO DAILY [facility] Last Admin: 03/01/18 09:26 Dose: 5 mg Atorvastatin Calcium (Lipitor -) 40 mg PO [facility] Last Admin: 02/28/18 22:32 Dose: 40 mg Bacitracin (Bacitracin -) 1 applic TP DAILY [facility] Last Admin: 03/01/18 09:25 Dose: 1 applic Ferrous Sulfate (Feosol -) 325 mg PO BIDWM [facility] Last Admin: 03/01/18 08:30 Dose: 325 mg Vancomycin HCl (Vancomycin 1 Gm Premix -) 1 gm in 200 mls @ 200 mls/hr IVPB Q24H [facility]; Protocol Last Admin: 03/01/18 15:20 Dose: 200 mls/hr Ampicillin Sodium/Sulbactam (Sodium 1.5 gm/ Sodium Chloride) 100 mls @ 200 mls/ hr IVPB BID [facility] Last Admin: 03/01/18 09:27 Dose: 200 mls/hr Oxycodone HCl (Roxicodone -) 5 mg PO Q4H PRN PRN Reason: PAIN LEVEL 6-10 Last Admin: 03/01/18 04:18 Dose: 5 mg Potassium Chloride (K-Dur -) 20 meq PO DAILY [facility] Last Admin: 03/01/18 09:26 Dose: 20 meq Rivaroxaban (Xarelto -) 20 mg PO DAILY [facility] Last Admin: 03/01/18 09:28 Dose: 20 mg - Objective Vital Signs: Vital Signs Temperature 98.4 F 03/01/18 14:00 Pulse Rate 55 L 03/01/18 14:00 Respiratory Rate 18 03/01/18 09:36 Blood Pressure 142/58 03/01/18 14:00 O2 Sat by Pulse Oximetry (%) 98 05/23/18 09:00 Constitutional: Yes: No Distress Eyes: Yes: Conjunctiva Clear Cardiovascular: Yes: Regular Rate and Rhythm, S1, S2 Respiratory: Yes: CTA Bilaterally Gastrointestinal: Yes: Normal Bowel Sounds, Soft Extremities: Yes: Other (R foot less swollen. + hyperemia dorsum of foot/ toes. + necrotic ulcer great toe, plantar aspect) Labs: CBC, BMP 02/28/18 06:51 03/01/18 06:00 INR, PTT INR 1.08 (0.82-1.09) 02/25/18 11:25 Assessment/Plan Ischemia v. cellulitis R fot S/P coiling R foot AVM Chest pain syndrome Azotemia- improved Continue vancomycin/ unasyn
[2018-03-01] MEDS: ATORVASTATIN CA 40 MG TABLET (FP) PO SCH (21:15)
[2018-03-02] MEDS: ACETAMINOPHEN 325 MG TABLET (FP) PO PRN ×2 (05:42→20:11)
[2018-03-02 07:05] LABS: ANION GAP 8 (8-16); BLOOD UREA NITROGEN 14 mg/dL (7-18); CALCIUM 8.7 mg/dL (8.5-10.1); CHLORIDE 101 mmol/L (98-107); CO2 27 mmol/L (21-32); CREATININE 1.1 mg/dL (0.55-1.02); GLUCOSE,RANDOM 92 mg/dL (74-106); POTASSIUM 4.5 mmol/L (3.5-5.1); SODIUM 136 mmol/L (136-145)
[2018-03-02] MEDS ORDERED: AMPICILLIN NA/SULBACTAM NA 1.5 GM VIAL ONE (09:54)
[2018-03-02] MEDS ORDERED: SODIUM CHLORIDE 100 ML IVPB ONE (09:55)
[2018-03-02] MEDS: POTASSIUM CHLORIDE TABS 20 MEQ TABLET.ER (FP) PO SCH (10:51)
[2018-03-02] MEDS: RIVAROXABAN 20 MG TABLET PO SCH (10:51)
[2018-03-02] MEDS: AMIODARONE HCL 200 MG TABLET (FP) PO SCH ×2 (10:52→22:02)
[2018-03-02] MEDS: amLODIPine BESYLATE 5 MG TABLET (FP) PO SCH (10:52)
[2018-03-02] MEDS: BACITRACIN 15 GM TUBE TOPICAL OINTMENT TP SCH (10:52)
[2018-03-02] MEDS: FERROUS SO4 325 MG TABLET (FP) PO SCH ×3 (10:52→17:49)
[2018-03-02] MEDS: AMPICILLIN NA/SULBACTAM NA 1.5 GM in SODIUM CHLORIDE 100 ML IVPB SCH (10:53)
--- NOTE | 2018-03-02 12:21 | PN ---
Progress Note, Physician Chief Complaint: awake alert depression screening done patient crying and labile - Current Medication List Current Medications: Active Medications Acetaminophen (Tylenol -) 650 mg PO Q6H PRN PRN Reason: PAIN LEVEL 7 - 10 Last Admin: 03/02/18 05:42 Dose: 650 mg Amiodarone HCl (Cordarone -) 400 mg PO BID [facility] Stop: 03/03/18 22:01 Last Admin: 03/02/18 10:52 Dose: 400 mg Amiodarone HCl (Cordarone -) 200 mg PO DAILY [facility] Amlodipine Besylate (Norvasc -) 5 mg PO DAILY [facility] Last Admin: 03/02/18 10:52 Dose: 5 mg Atorvastatin Calcium (Lipitor -) 40 mg PO HS [facility] Last Admin: 03/01/18 21:15 Dose: 40 mg Bacitracin (Bacitracin -) 1 applic TP DAILY [facility] Last Admin: 03/02/18 10:52 Dose: 1 applic Ferrous Sulfate (Feosol -) 325 mg PO BIDWM [facility] Last Admin: 03/02/18 10:52 Dose: 325 mg Vancomycin HCl (Vancomycin 1 Gm Premix -) 1 gm in 200 mls @ 200 mls/hr IVPB Q24H [facility]; Protocol Last Admin: 03/01/18 15:20 Dose: 200 mls/hr Ampicillin Sodium/Sulbactam (Sodium 1.5 gm/ Sodium Chloride) 100 mls @ 200 mls/ hr IVPB BID [facility] Last Admin: 03/02/18 10:53 Dose: 200 mls/hr Oxycodone HCl (Roxicodone -) 5 mg PO Q4H PRN PRN Reason: PAIN LEVEL 6-10 Last Admin: 03/01/18 23:37 Dose: 5 mg Potassium Chloride (K-Dur -) 20 meq PO DAILY [facility] Last Admin: 03/02/18 10:51 Dose: 20 meq Rivaroxaban (Xarelto -) 20 mg PO DAILY [facility] Last Admin: 03/02/18 10:51 Dose: 20 mg - Objective Vital Signs: Vital Signs Temperature 97.7 F 03/02/18 05:00 Pulse Rate 53 L 03/02/18 05:00 Respiratory Rate 20 03/02/18 05:00 Blood Pressure 140/57 03/02/18 05:00 O2 Sat by Pulse Oximetry (%) 97 03/01/18 20:34 Constitutional: Yes: Mild Distress Eyes: Yes: WNL HENT: Yes: WNL Neck: Yes: WNL Cardiovascular: Yes: Bradycardia Respiratory: Yes: WNL Gastrointestinal: Yes: WNL Genitourinary: Yes: WNL Musculoskeletal: Yes: WNL, Muscle Weakness Extremities: Yes: Other Edema: No Peripheral Pulses WNL: No Integumentary: No: WNL Wound/Incision: Yes: Dressing Dry and Intact Neurological: Yes: Pre-Existing Deficit ...Motor Strength: RLE Psychiatric: Yes: Other Labs: CBC, BMP 02/28/18 06:51 03/02/18 06:10 INR, PTT INR 1.08 (0.82-1.09) 02/25/18 11:25 Problem List - Problems (1) Acute renal failure Code(s): N17.9 - ACUTE KIDNEY FAILURE, UNSPECIFIED (2) Anemia Code(s): D64.9 - ANEMIA, UNSPECIFIED Qualifiers: Anemia type: unspecified type Qualified Code(s): D64.9 - Anemia, unspecified (3) Chest pain Code(s): R07.9 - CHEST PAIN, UNSPECIFIED Qualifiers: Chest pain type: unspecified Qualified Code(s): R07.9 - Chest pain, unspecified (4) Elevated troponin Code(s): R74.8 - ABNORMAL LEVELS OF OTHER SERUM ENZYMES (5) Afib Code(s): I48.91 - UNSPECIFIED ATRIAL FIBRILLATION (6) Arteriovenous malformation Code(s): Q27.30 - ARTERIOVENOUS MALFORMATION, SITE UNSPECIFIED Assessment/Plan STILL WITH BRADYCARDIA STOPPING METOPROLOL ON AMIODARONE WOUND CARE PER SURGERY WILL F/U WITH [facility] starting lexapro for depression
--- NOTE | 2018-03-02 14:34 | PN ---
Progress Note, Physician History of Present Illness: Pt seen and examined at bedside. She denies shortness of breath. She says she feels better than yesterday. - Current Medication List Current Medications: Active Medications Acetaminophen (Tylenol -) 650 mg PO Q6H PRN PRN Reason: PAIN LEVEL 7 - 10 Last Admin: 03/02/18 05:42 Dose: 650 mg Amiodarone HCl (Cordarone -) 400 mg PO BID [facility] Stop: 03/03/18 22:01 Last Admin: 03/02/18 10:52 Dose: 400 mg Amiodarone HCl (Cordarone -) 200 mg PO DAILY [facility] Amlodipine Besylate (Norvasc -) 5 mg PO DAILY [facility] Last Admin: 03/02/18 10:52 Dose: 5 mg Atorvastatin Calcium (Lipitor -) 40 mg PO HS [facility] Last Admin: 03/01/18 21:15 Dose: 40 mg Bacitracin (Bacitracin -) 1 applic TP DAILY [facility] Last Admin: 03/02/18 10:52 Dose: 1 applic Ferrous Sulfate (Feosol -) 325 mg PO BIDWM [facility] Last Admin: 03/02/18 10:52 Dose: 325 mg Vancomycin HCl (Vancomycin 1 Gm Premix -) 1 gm in 200 mls @ 200 mls/hr IVPB Q24H [facility]; Protocol Last Admin: 03/01/18 15:20 Dose: 200 mls/hr Ampicillin Sodium/Sulbactam (Sodium 1.5 gm/ Sodium Chloride) 100 mls @ 200 mls/ hr IVPB BID [facility] Last Admin: 03/02/18 10:53 Dose: 200 mls/hr Oxycodone HCl (Roxicodone -) 5 mg PO Q4H PRN PRN Reason: PAIN LEVEL 6-10 Last Admin: 03/01/18 23:37 Dose: 5 mg Potassium Chloride (K-Dur -) 20 meq PO DAILY [facility] Last Admin: 03/02/18 10:51 Dose: 20 meq Rivaroxaban (Xarelto -) 20 mg PO DAILY [facility] Last Admin: 03/02/18 10:51 Dose: 20 mg - Objective Vital Signs: Vital Signs Temperature 97.7 F 03/02/18 05:00 Pulse Rate 53 L 03/02/18 05:00 Respiratory Rate 20 03/02/18 05:00 Blood Pressure 140/57 03/02/18 05:00 O2 Sat by Pulse Oximetry (%) 97 03/01/18 20:34 Constitutional: Yes: Calm Eyes: Yes: Conjunctiva Clear HENT: Yes: Atraumatic Neck: Yes: Supple Cardiovascular: Yes: S1, S2 Respiratory: Yes: CTA Bilaterally Gastrointestinal: Yes: Soft Genitourinary: Yes: WNL Edema: No Wound/Incision: Yes: Dressing Dry and Intact Neurological: Yes: Oriented Psychiatric: Yes: Oriented Labs: CBC, BMP 02/28/18 06:51 03/02/18 06:10 INR, PTT INR 1.08 (0.82-1.09) 02/25/18 11:25 Problem List - Problems (1) Acute renal failure Code(s): N17.9 - ACUTE KIDNEY FAILURE, UNSPECIFIED (2) Chest pain Code(s): R07.9 - CHEST PAIN, UNSPECIFIED Qualifiers: Chest pain type: unspecified Qualified Code(s): R07.9 - Chest pain, unspecified (3) Pleural effusion Code(s): J90 - PLEURAL EFFUSION, NOT ELSEWHERE CLASSIFIED (4) Afib Code(s): I48.91 - UNSPECIFIED ATRIAL FIBRILLATION (5) Arteriovenous malformation Code(s): Q27.30 - ARTERIOVENOUS MALFORMATION, SITE UNSPECIFIED Assessment/Plan Current Medications Generic Name Dose Route Start Last Admin Trade Name Freq PRN Reason Stop Dose Admin Acetaminophen 650 mg 02/25/18 20:16 03/02/18 05:42 Tylenol - PO 650 mg Q6H PRN Administration PAIN LEVEL 7 - 10 Amiodarone HCl 400 mg 02/27/18 16:00 03/02/18 10:52 Cordarone - PO 03/03/18 22:01 400 mg BID NIKUNJ Administration Amiodarone HCl 200 mg 03/04/18 10:00 Cordarone - PO DAILY [facility] Amlodipine Besylate 5 mg 03/01/18 10:00 03/02/18 10:52 Norvasc - PO 5 mg DAILY NIKUNJ Administration Atorvastatin Calcium 40 mg 02/26/18 22:00 03/01/18 21:15 Lipitor - PO 40 mg HS NIKUNJ Administration Bacitracin 1 applic 02/28/18 10:00 03/02/18 10:52 Bacitracin - TP 1 applic DAILY NIKUNJ Administration Ferrous Sulfate 325 mg 02/25/18 17:30 03/02/18 10:52 Feosol - PO 325 mg BIDWM NIKUNJ Administration Vancomycin HCl 1 gm in 200 mls @ 200 mls/hr 02/28/18 16:15 03/01/18 15:20 Vancomycin 1 Gm Premix - IVPB 200 mls/hr Q24H NIKUNJ Administration Protocol Ampicillin Sodium/Sulbactam 100 mls @ 200 mls/hr 02/28/18 16:45 03/02/18 10: 53 Sodium 1.5 gm/ Sodium Chloride IVPB 200 mls/hr BID NIKUNJ Administration Oxycodone HCl 5 mg 02/26/18 09:48 03/01/18 23:37 Roxicodone - PO 5 mg Q4H PRN Administration PAIN LEVEL 6-10 Potassium Chloride 20 meq 02/26/18 10:00 03/02/18 10:51 K-Dur - PO 20 meq DAILY NIKUNJ Administration Rivaroxaban 20 mg 02/26/18 10:00 03/02/18 10:51 Xarelto - PO 20 mg DAILY NIKUNJ Administration Impression 1. DANIELA 2. av-malformation 3. HTN 4. a-fib 5. pleural effusion Plan - renal function is improving - repeat labs in am - vascular follow up - cardio follow up - monitor bp - will need outpt follow up - will follow
[2018-03-02] MEDS: VANCOMYCIN 1 GM PREMIX - 1 GM/200 ML BAG IVPB SCH (16:02)
--- NOTE | 2018-03-02 16:59 | PN ---
Progress Note, Physician History of Present Illness: seen and examined today in nad. pts brother at bedside. nad, no overnight events. - Current Medication List Current Medications: Active Medications Acetaminophen (Tylenol -) 650 mg PO Q6H PRN PRN Reason: PAIN LEVEL 7 - 10 Last Admin: 03/02/18 05:42 Dose: 650 mg Amiodarone HCl (Cordarone -) 400 mg PO BID [facility] Stop: 03/03/18 22:01 Last Admin: 03/02/18 10:52 Dose: 400 mg Amiodarone HCl (Cordarone -) 200 mg PO DAILY [facility] Amlodipine Besylate (Norvasc -) 5 mg PO DAILY [facility] Last Admin: 03/02/18 10:52 Dose: 5 mg Atorvastatin Calcium (Lipitor -) 40 mg PO HS [facility] Last Admin: 03/01/18 21:15 Dose: 40 mg Bacitracin (Bacitracin -) 1 applic TP DAILY [facility] Last Admin: 03/02/18 10:52 Dose: 1 applic Ferrous Sulfate (Feosol -) 325 mg PO BIDWM [facility] Last Admin: 03/02/18 16:02 Dose: 325 mg Vancomycin HCl (Vancomycin 1 Gm Premix -) 1 gm in 200 mls @ 200 mls/hr IVPB Q24H [facility]; Protocol Last Admin: 03/02/18 16:02 Dose: 200 mls/hr Ampicillin Sodium/Sulbactam (Sodium 1.5 gm/ Sodium Chloride) 100 mls @ 200 mls/ hr IVPB BID [facility] Last Admin: 03/02/18 10:53 Dose: 200 mls/hr Oxycodone HCl (Roxicodone -) 5 mg PO Q4H PRN PRN Reason: PAIN LEVEL 6-10 Last Admin: 03/01/18 23:37 Dose: 5 mg Potassium Chloride (K-Dur -) 20 meq PO DAILY [facility] Last Admin: 03/02/18 10:51 Dose: 20 meq Rivaroxaban (Xarelto -) 20 mg PO DAILY [facility] Last Admin: 03/02/18 10:51 Dose: 20 mg - Objective Vital Signs: Vital Signs Temperature 98.3 F 03/02/18 14:53 Pulse Rate 61 03/02/18 14:53 Respiratory Rate 18 03/02/18 14:53 Blood Pressure 157/59 03/02/18 14:53 O2 Sat by Pulse Oximetry (%) 97 03/01/18 20:34 Constitutional: Yes: No Distress, Calm Eyes: Yes: Conjunctiva Clear, EOM Intact, PERRL HENT: Yes: Atraumatic, Normocephalic Neck: Yes: Supple, Trachea Midline Cardiovascular: Yes: Regular Rate and Rhythm, S1, S2. No: Bradycardia, Tachycardia, Pulse Irregular, Bruit, JVD, Gallop, Murmur, Rub, S3, S4, Varicosities Respiratory: Yes: Regular. No: Rales, Rhonchi, Wheezes Gastrointestinal: Yes: Normal Bowel Sounds, Soft Edema: No Neurological: Yes: Alert, Oriented Psychiatric: Yes: Alert, Oriented Labs: CBC, BMP 02/28/18 06:51 03/02/18 06:10 INR, PTT INR 1.08 (0.82-1.09) 02/25/18 11:25 - ....Imaging Chest X-ray: Report Reviewed, Image Reviewed EKG: Report Reviewed, Image Reviewed Other: Report Reviewed, Image Reviewed (tele-NSR PVCs, 4 beats NSVT) Assessment/Plan 82 y/o mexican speaking female with PMH paroxysmal afib , HTN, RLE AV malformation folllowed by Dr. Wren in [facility] and is post surgical interventuion on 02/24/18 was admitted for dyspnea and rapid Afib. She has frequent palpitations and dyspnea with effort. Reporting difficulty with laying flat due to her SOB. After her operation, Dr. Wren cleared her for full anticoagulation (my phone conversation with Dr. Wren). Has had admissions for rapid Afib in the past managed with metoprolol. Echocardiogram 12/2017 showed normal LV function witohut valvular pathology and elevated LA pressure. Massive Rt leg AV malformation. Has been advised to consider Rt leg amputation. Had surgery on 02/24 Afib-converted to Sinus 02/27, now Sinus monalisa 50s -Cardizem Dcd -Digoxin dcd -dcd metoprolol for now given bradycardia,HR currently in 60s -Known paroxysmal Afib. Rapid vent response resulting in heart failure. -Had recent echocardiogram 12/25 showing normal LV function. -cont AC with Xarelto (deemed safe by vascular) -Cont Amiodarone 400mg bid for now with plan for 200mg daily maintenance after loading (5 days loading total 4gm) to help maintain NSR CHF (congestive heart failure) -Acute on chronic diastolic CHF likely secondary to Afib -maintain NSR as above -euvolemic and creat improving now that has been in NSR -can hold off on Lasix for now Elevated troponin Minimally elevated TP level in setting of acute heart failure. COntinue medical management. At this time pt is acceptable for discharge from a cardiac standpoint with a plan for close outpatient f/up. She is currently on IV Abx, if she remains inpatient plan to cont Amio load as ordered. If outpatient can cont load and transition to maintenance 200mg daily as ordered.
[2018-03-02] MEDS: oxyCODONE HCL 5 MG TABLET PO PRN ×2 (17:48→22:01)
--- NOTE | 2018-03-02 19:49 | PN ---
Progress Note, Physician History of Present Illness: Awake, alert in bed Reports less foot pain No fever/ chills Afebriel WBC WNL BC no growth - Current Medication List Current Medications: Active Medications Acetaminophen (Tylenol -) 650 mg PO Q6H PRN PRN Reason: PAIN LEVEL 7 - 10 Last Admin: 03/02/18 05:42 Dose: 650 mg Amiodarone HCl (Cordarone -) 400 mg PO BID [facility] Stop: 03/03/18 22:01 Last Admin: 03/02/18 10:52 Dose: 400 mg Amiodarone HCl (Cordarone -) 200 mg PO DAILY [facility] Amlodipine Besylate (Norvasc -) 5 mg PO DAILY [facility] Last Admin: 03/02/18 10:52 Dose: 5 mg Atorvastatin Calcium (Lipitor -) 40 mg PO HS [facility] Last Admin: 03/01/18 21:15 Dose: 40 mg Bacitracin (Bacitracin -) 1 applic TP DAILY [facility] Last Admin: 03/02/18 10:52 Dose: 1 applic Ferrous Sulfate (Feosol -) 325 mg PO BIDWM [facility] Last Admin: 03/02/18 17:49 Dose: Not Given Vancomycin HCl (Vancomycin 1 Gm Premix -) 1 gm in 200 mls @ 200 mls/hr IVPB Q24H [facility]; Protocol Last Admin: 03/02/18 16:02 Dose: 200 mls/hr Ampicillin Sodium/Sulbactam (Sodium 1.5 gm/ Sodium Chloride) 100 mls @ 200 mls/ hr IVPB BID [facility] Last Admin: 03/02/18 10:53 Dose: 200 mls/hr Oxycodone HCl (Roxicodone -) 5 mg PO Q4H PRN PRN Reason: PAIN LEVEL 6-10 Last Admin: 03/02/18 17:48 Dose: 5 mg Potassium Chloride (K-Dur -) 20 meq PO DAILY [facility] Last Admin: 03/02/18 10:51 Dose: 20 meq Rivaroxaban (Xarelto -) 20 mg PO DAILY [facility] Last Admin: 03/02/18 10:51 Dose: 20 mg - Objective Vital Signs: Vital Signs Temperature 98.3 F 03/02/18 14:53 Pulse Rate 61 03/02/18 14:53 Respiratory Rate 18 03/02/18 14:53 Blood Pressure 157/59 03/02/18 14:53 O2 Sat by Pulse Oximetry (%) 97 03/01/18 20:34 Constitutional: Yes: No Distress Eyes: Yes: Conjunctiva Clear Cardiovascular: Yes: Regular Rate and Rhythm, S1, S2 Respiratory: Yes: CTA Bilaterally Gastrointestinal: Yes: Normal Bowel Sounds, Soft. No: Tenderness Extremities: Yes: Other (Foot less swollen. erythema resolved. Dry eschar great toe and plantar aspect of foot. No drainage) Labs: CBC, BMP 02/28/18 06:51 03/02/18 06:10 INR, PTT INR 1.08 (0.82-1.09) 02/25/18 11:25 Assessment/Plan Ischemia v. cellulitis R foot S/P coiling R foot AVM Chest pain syndrome Azotemia- improved Discontinue vancomycin/ unasyn Augmentin po x 7d Outpatient follow up [facility]
[2018-03-02] MEDS: ATORVASTATIN CA 40 MG TABLET (FP) PO SCH (22:02)
--- NOTE | 2018-03-03 07:29 | PN ---
Progress Note, Physician - Current Medication List Current Medications: Active Medications Acetaminophen (Tylenol -) 650 mg PO Q6H PRN PRN Reason: PAIN LEVEL 7 - 10 Last Admin: 03/02/18 20:11 Dose: 650 mg Amiodarone HCl (Cordarone -) 400 mg PO BID [facility] Stop: 03/03/18 22:01 Last Admin: 03/02/18 22:02 Dose: 400 mg Amiodarone HCl (Cordarone -) 200 mg PO DAILY [facility] Amlodipine Besylate (Norvasc -) 5 mg PO DAILY [facility] Last Admin: 03/02/18 10:52 Dose: 5 mg Amoxicillin/Clavulanate Potassium (Augmentin - 500mg Tablet) 1 tab PO BID@0800, 1730 [facility] Atorvastatin Calcium (Lipitor -) 40 mg PO HS [facility] Last Admin: 03/02/18 22:02 Dose: 40 mg Bacitracin (Bacitracin -) 1 applic TP DAILY [facility] Last Admin: 03/02/18 10:52 Dose: 1 applic Escitalopram Oxalate (Lexapro -) 5 mg PO DAILY [facility] Ferrous Sulfate (Feosol -) 325 mg PO BIDWM [facility] Last Admin: 03/02/18 17:49 Dose: Not Given Oxycodone HCl (Roxicodone -) 5 mg PO Q4H PRN PRN Reason: PAIN LEVEL 6-10 Last Admin: 03/02/18 22:01 Dose: 5 mg Potassium Chloride (K-Dur -) 20 meq PO DAILY [facility] Last Admin: 03/02/18 10:51 Dose: 20 meq Rivaroxaban (Xarelto -) 20 mg PO DAILY [facility] Last Admin: 03/02/18 10:51 Dose: 20 mg - Objective Vital Signs: Vital Signs Temperature 98.2 F 03/03/18 05:00 Pulse Rate 53 L 03/03/18 05:00 Respiratory Rate 20 03/03/18 05:00 Blood Pressure 164/59 03/03/18 05:00 O2 Sat by Pulse Oximetry (%) 94 L 03/02/18 21:00 Labs: CBC, BMP 02/28/18 06:51 03/02/18 06:10 INR, PTT INR 1.08 (0.82-1.09) 02/25/18 11:25 Problem List - Problems (1) Afib Assessment/Plan: -Rapid--now controlled -on metoprolol 50 bid -xarelto -continue with dig- -cardio Code(s): I48.91 - UNSPECIFIED ATRIAL FIBRILLATION (2) Chest pain Assessment/Plan: -Resolved -Maybe due to rapid afib -monitor ekg and trop Code(s): R07.9 - CHEST PAIN, UNSPECIFIED Qualifiers: Chest pain type: unspecified Qualified Code(s): R07.9 - Chest pain, unspecified (3) Elevated troponin Assessment/Plan: -as above -prob demand ischemia Code(s): R74.8 - ABNORMAL LEVELS OF OTHER SERUM ENZYMES (4) CHF (congestive heart failure) Assessment/Plan: -IV Lasix -follow cxr -monitor labs Code(s): I50.9 - HEART FAILURE, UNSPECIFIED (5) Arteriovenous malformation Assessment/Plan: -S/P foot surgery-coiling -surgical consult noted--follow up- Code(s): Q27.30 - ARTERIOVENOUS MALFORMATION, SITE UNSPECIFIED (6) Cellulitis, wound, post-operative Assessment/Plan: -IV Abx per id -ID follow up Code(s): T81.4XXA - INFECTION FOLLOWING A PROCEDURE, INITIAL ENCOUNTER
[2018-03-03 08:19] LABS: EOS % 2.4 % (0-4.5); HEMATOCRIT 27.9 % (32.4-45.2); HEMOGLOBIN 9.2 GM/dL (10.7-15.3); LYMPH % 12.8 % (8-40); MCHC 32.9 g/dl (32.0-36.0); MEAN PLT VOLUME 8.7 fl (7.5-11.1); MONO % 9.5 % (3.8-10.2); NEUT % 74.3 % (42.8-82.8); PLATELET COUNT 221 K/MM3 (134-434); RBC 2.97 M/mm3 (3.60-5.2); RDW 15.8 % (11.6-15.6)
--- NOTE | 2018-03-03 09:45 | PN ---
Progress Note, Physician History of Present Illness: seen and examined today in [facility]. no overnight events. no new complaints - Current Medication List Current Medications: Active Medications Acetaminophen (Tylenol -) 650 mg PO Q6H PRN PRN Reason: PAIN LEVEL 7 - 10 Last Admin: 03/02/18 20:11 Dose: 650 mg Amiodarone HCl (Cordarone -) 400 mg PO BID [facility] Stop: 03/03/18 22:01 Last Admin: 03/02/18 22:02 Dose: 400 mg Amiodarone HCl (Cordarone -) 200 mg PO DAILY [facility] Amlodipine Besylate (Norvasc -) 5 mg PO DAILY [facility] Last Admin: 03/02/18 10:52 Dose: 5 mg Amoxicillin/Clavulanate Potassium (Augmentin - 500mg Tablet) 1 tab PO BID@0800, 1730 [facility] Atorvastatin Calcium (Lipitor -) 40 mg PO HS [facility] Last Admin: 03/02/18 22:02 Dose: 40 mg Bacitracin (Bacitracin -) 1 applic TP DAILY [facility] Last Admin: 03/02/18 10:52 Dose: 1 applic Escitalopram Oxalate (Lexapro -) 5 mg PO DAILY [facility] Ferrous Sulfate (Feosol -) 325 mg PO BIDWM [facility] Last Admin: 03/02/18 17:49 Dose: Not Given Oxycodone HCl (Roxicodone -) 5 mg PO Q4H PRN PRN Reason: PAIN LEVEL 6-10 Last Admin: 03/02/18 22:01 Dose: 5 mg Potassium Chloride (K-Dur -) 20 meq PO DAILY [facility] Last Admin: 03/02/18 10:51 Dose: 20 meq Rivaroxaban (Xarelto -) 20 mg PO DAILY [facility] Last Admin: 03/02/18 10:51 Dose: 20 mg - Objective Vital Signs: Vital Signs Temperature 98.2 F 03/03/18 05:00 Pulse Rate 53 L 03/03/18 05:00 Respiratory Rate 20 03/03/18 05:00 Blood Pressure 164/59 03/03/18 05:00 O2 Sat by Pulse Oximetry (%) 94 L 03/02/18 21:00 Constitutional: Yes: No Distress, Calm Eyes: Yes: Conjunctiva Clear, EOM Intact, PERRL HENT: Yes: Atraumatic, Normocephalic Neck: Yes: Supple, Trachea Midline Cardiovascular: Yes: Regular Rate and Rhythm, S1, S2. No: Bradycardia, Tachycardia, Pulse Irregular, Bruit, JVD, Gallop, Murmur, Rub, S3, S4, Varicosities Respiratory: Yes: Regular. No: Rales, Rhonchi, Wheezes Gastrointestinal: Yes: Normal Bowel Sounds, Soft. No: Distention, Tenderness Edema: No Neurological: Yes: Alert, Oriented Psychiatric: Yes: Alert, Oriented Labs: CBC, BMP 03/03/18 07:45 INR, PTT INR 1.08 (0.82-1.09) 02/25/18 11:25 - ....Imaging Chest X-ray: Report Reviewed, Image Reviewed EKG: Report Reviewed, Image Reviewed Other: Report Reviewed, Image Reviewed (tele-nsr, SB 50-60s no further afib) Assessment/Plan 82 y/o aust[place]ian speaking female with PMH paroxysmal afib , HTN, RLE AV malformation folllowed by Dr. Wren in [facility] and is post surgical interventuion on 02/24/18 was admitted for dyspnea and rapid Afib. She has frequent palpitations and dyspnea with effort. Reporting difficulty with laying flat due to her SOB. After her operation, Dr. Wren cleared her for full anticoagulation (my phone conversation with Dr. Wren). Has had admissions for rapid Afib in the past managed with metoprolol. Echocardiogram 12/2017 showed normal LV function witohut valvular pathology and elevated LA pressure. Massive Rt leg AV malformation. Has been advised to consider Rt leg amputation. Had surgery on 02/24 Afib-converted to Sinus 02/27, now Sinus monalisa 50s -Cardizem Dcd -Digoxin dcd -dcd metoprolol for now given bradycardia,HR currently in 60s -Known paroxysmal Afib. Rapid vent response resulting in heart failure. -Had recent echocardiogram 12/25 showing normal LV function. -cont AC with Xarelto (deemed safe by vascular) -Cont Amiodarone 400mg bid today and plan to change to 200mg daily maintenance tomorrow as ordered to help maintain NSR Pt is acceptable for discharge home from cardiac standpoint. If discharged please Rx amiodarone 200mg daily to start tomorrow. Pt should f/up as outpatient CHF (congestive heart failure) -Acute on chronic diastolic CHF likely secondary to Afib -maintain NSR as above -euvolemic and creat improving now that has been in NSR -can hold off on Lasix for now Elevated troponin Minimally elevated TP level in setting of acute heart failure. COntinue medical management. At this time pt is acceptable for discharge from a cardiac standpoint with a plan for close outpatient f/up. Please call with any additional questions
[2018-03-03 09:46] LABS: ALBUMIN 3.3 g/dl (3.4-5.0); ANION GAP 6 (8-16); BILIRUBIN,TOTAL 0.6 mg/dL (0.2-1.0); BLOOD UREA NITROGEN 10 mg/dL (7-18); CALCIUM 8.7 mg/dL (8.5-10.1); CHLORIDE 103 mmol/L (98-107); CO2 28 mmol/L (21-32); GLUCOSE,RANDOM 98 mg/dL (74-106); POTASSIUM 4.4 mmol/L (3.5-5.1); SGOT/AST 12 U/L (15-37); SGPT/ALT 12 U/L (12-78); SODIUM 137 mmol/L (136-145); TOT PROT 6.5 g/dl (6.4-8.2)
[2018-03-03 09:49] LABS: ALK PHOS 114 U/L (45-117)
[2018-03-03] MEDS: RIVAROXABAN 20 MG TABLET PO SCH (10:14)
[2018-03-03] MEDS: FERROUS SO4 325 MG TABLET (FP) PO SCH ×2 (10:15→16:42)
[2018-03-03] MEDS: AMIODARONE HCL 200 MG TABLET (FP) PO SCH ×2 (10:20→21:18)
[2018-03-03] MEDS: ESCITALOPRAM OXALATE 10 MG TABLET (FP) PO SCH (10:20)
[2018-03-03] MEDS: amLODIPine BESYLATE 5 MG TABLET (FP) PO SCH (10:21)
[2018-03-03] MEDS: AMOX TR/POT CLAV 500MG/125MG TABLETS (FP) PO SCH ×2 (10:21→16:42)
[2018-03-03] MEDS: POTASSIUM CHLORIDE TABS 20 MEQ TABLET.ER (FP) PO SCH (10:21)
[2018-03-03] MEDS: BACITRACIN 15 GM TUBE TOPICAL OINTMENT TP SCH (10:21)
--- NOTE | 2018-03-03 14:51 | PN ---
Progress Note, Physician History of Present Illness: Pt seen and examined at bedside. She is awake and alert. She denies dysuria. - Current Medication List Current Medications: Active Medications Acetaminophen (Tylenol -) 650 mg PO Q6H PRN PRN Reason: PAIN LEVEL 7 - 10 Last Admin: 03/02/18 20:11 Dose: 650 mg Amiodarone HCl (Cordarone -) 400 mg PO BID [facility] Stop: 03/03/18 22:01 Last Admin: 03/03/18 10:20 Dose: 400 mg Amiodarone HCl (Cordarone -) 200 mg PO DAILY [facility] Amlodipine Besylate (Norvasc -) 5 mg PO DAILY [facility] Last Admin: 03/03/18 10:21 Dose: 5 mg Amoxicillin/Clavulanate Potassium (Augmentin - 500mg Tablet) 1 tab PO BID@0800, 1730 [facility] Last Admin: 03/03/18 10:21 Dose: 1 tab Atorvastatin Calcium (Lipitor -) 40 mg PO HS [facility] Last Admin: 03/02/18 22:02 Dose: 40 mg Bacitracin (Bacitracin -) 1 applic TP DAILY [facility] Last Admin: 03/03/18 10:21 Dose: 1 applic Escitalopram Oxalate (Lexapro -) 5 mg PO DAILY [facility] Last Admin: 03/03/18 10:20 Dose: 5 mg Ferrous Sulfate (Feosol -) 325 mg PO BIDWM [facility] Last Admin: 03/03/18 10:15 Dose: 325 mg Oxycodone HCl (Roxicodone -) 5 mg PO Q4H PRN PRN Reason: PAIN LEVEL 6-10 Last Admin: 03/02/18 22:01 Dose: 5 mg Potassium Chloride (K-Dur -) 20 meq PO DAILY [facility] Last Admin: 03/03/18 10:21 Dose: 20 meq Rivaroxaban (Xarelto -) 20 mg PO DAILY [facility] Last Admin: 03/03/18 10:14 Dose: 20 mg - Objective Vital Signs: Vital Signs Temperature 98.2 F 03/03/18 05:00 Pulse Rate 53 L 03/03/18 05:00 Respiratory Rate 20 03/03/18 05:00 Blood Pressure 164/59 03/03/18 05:00 O2 Sat by Pulse Oximetry (%) 94 L 03/02/18 21:00 Constitutional: Yes: Calm Eyes: Yes: Conjunctiva Clear HENT: Yes: Atraumatic Cardiovascular: Yes: S1, S2 Respiratory: Yes: CTA Bilaterally Gastrointestinal: Yes: Soft Musculoskeletal: Yes: WNL Extremities: Yes: Erythema Edema: RLE: Trace Neurological: Yes: Oriented Psychiatric: Yes: Oriented Labs: CBC, BMP 03/03/18 07:45 03/03/18 07:30 INR, PTT INR 1.08 (0.82-1.09) 02/25/18 11:25 Problem List - Problems (1) Acute renal failure Code(s): N17.9 - ACUTE KIDNEY FAILURE, UNSPECIFIED (2) Chest pain Code(s): R07.9 - CHEST PAIN, UNSPECIFIED Qualifiers: Chest pain type: unspecified Qualified Code(s): R07.9 - Chest pain, unspecified (3) Pleural effusion Code(s): J90 - PLEURAL EFFUSION, NOT ELSEWHERE CLASSIFIED (4) Afib Code(s): I48.91 - UNSPECIFIED ATRIAL FIBRILLATION (5) Arteriovenous malformation Code(s): Q27.30 - ARTERIOVENOUS MALFORMATION, SITE UNSPECIFIED Assessment/Plan Current Medications Generic Name Dose Route Start Last Admin Trade Name Freq PRN Reason Stop Dose Admin Acetaminophen 650 mg 02/25/18 20:16 03/02/18 20:11 Tylenol - PO 650 mg Q6H PRN Administration PAIN LEVEL 7 - 10 Amiodarone HCl 400 mg 02/27/18 16:00 03/03/18 10:20 Cordarone - PO 03/03/18 22:01 400 mg BID [facility]IKUNJ Administration Amiodarone HCl 200 mg 03/04/18 10:00 Cordarone - PO DAILY [facility] Amlodipine Besylate 5 mg 03/01/18 10:00 03/03/18 10:21 Norvasc - PO 5 mg DAILY [facility] Administration Amoxicillin/Clavulanate Potassium 1 tab 03/03/18 08:00 03/03/18 10:21 Augmentin - 500mg Tablet PO 1 tab BID@0800,1730 [facility]J Administration Atorvastatin Calcium 40 mg 02/26/18 22:00 03/02/18 22:02 Lipitor - PO 40 mg HS [facility]IKUNJ Administration Bacitracin 1 applic 02/28/18 10:00 03/03/18 10:21 Bacitracin - TP 1 applic DAILY [facility] Administration Escitalopram Oxalate 5 mg 03/03/18 10:00 03/03/18 10:20 Lexapro - PO 5 mg DAILY [facility] Administration Ferrous Sulfate 325 mg 02/25/18 17:30 03/03/18 10:15 Feosol - PO 325 mg BIDWM [facility]IKUNJ Administration Oxycodone HCl 5 mg 02/26/18 09:48 03/02/18 22:01 Roxicodone - PO 5 mg Q4H PRN Administration PAIN LEVEL 6-10 Potassium Chloride 20 meq 02/26/18 10:00 03/03/18 10:21 K-Dur - PO 20 meq DAILY [facility] Administration Rivaroxaban 20 mg 02/26/18 10:00 03/03/18 10:14 Xarelto - PO 20 mg DAILY [facility] Administration Impression 1. DANIELA 2. av-malformation 3. HTN 4. a-fib 5. pleural effusion Plan - renal function continues to improve - will need outpt workup - vascular follow up - monitor bp - will follow
[2018-03-03] MEDS ORDERED: oxyCODONE HCL 5 MG TABLET PO PRN (16:33)
[2018-03-03] MEDS: MAGNESIUM HYDROX 2400MG/30ML ORAL SUSPENSION 30 ML CUP PO PRN (16:42)
[2018-03-03] MEDS: SENNOSIDES 8.6MG TABLET (FP) PO SCH (21:14)
[2018-03-03] MEDS: NIFEdipine E.R 60 MG TABLET (UD) PO SCH (21:15)
[2018-03-03] MEDS: ATORVASTATIN CA 40 MG TABLET (FP) PO SCH (21:16)
--- NOTE | 2018-03-04 08:52 | EKG ---
Test Reason : Blood Pressure : / mmHG Vent. Rate : 055 BPM Atrial Rate : 055 BPM P-R Int : 164 ms QRS Dur : 130 ms QT Int : 450 ms P-R-T Axes : 049 069 017 degrees QTc Int : 430 ms SINUS BRADYCARDIA RIGHT BUNDLE BRANCH BLOCK ABNORMAL ECG WHEN COMPARED WITH ECG OF 25-FEB-2018 09:05, RIGHT BUNDLE BRANCH BLOCK HAS REPLACED RSR' PATTERN IN V1 NONSPECIFIC T WAVE ABNORMALITY, IMPROVED IN LATERAL LEADS Confirmed by SUSSY ROSADO, CHRISTIANO ([id number]) on 03/04/2018 8:52:28 AM Referred By: Confirmed By:CHRISTIANO HI MD
[2018-03-04] MEDS: MAGNESIUM HYDROX 2400MG/30ML ORAL SUSPENSION 30 ML CUP PO PRN (09:42)
[2018-03-04] MEDS: NIFEdipine E.R 60 MG TABLET (UD) PO SCH (09:42)
[2018-03-04] MEDS: FERROUS SO4 325 MG TABLET (FP) PO SCH ×3 (09:43→17:23)
[2018-03-04] MEDS: AMIODARONE HCL 200 MG TABLET (FP) PO SCH (09:43)
[2018-03-04] MEDS: BACITRACIN 15 GM TUBE TOPICAL OINTMENT TP SCH (09:43)
[2018-03-04] MEDS: RIVAROXABAN 20 MG TABLET PO SCH (09:43)
[2018-03-04] MEDS: POTASSIUM CHLORIDE TABS 20 MEQ TABLET.ER (FP) PO SCH (09:43)
[2018-03-04] MEDS: ESCITALOPRAM OXALATE 10 MG TABLET (FP) PO SCH (09:43)
[2018-03-04] MEDS: AMOX TR/POT CLAV 500MG/125MG TABLETS (FP) PO SCH ×2 (09:44→17:23)
[2018-03-04] MEDS: SENNOSIDES 8.6MG TABLET (FP) PO SCH ×2 (09:50→21:09)
[2018-03-04] MEDS ORDERED: PT OWN MED DRAWER 7, Y5N ONE (15:30)
--- NOTE | 2018-03-04 15:45 | PN ---
Progress Note, Physician Chief Complaint: Reconsult for elevated BP. The patient appears comfortable. She reports no chest pain, SOB at rest, dizziness or palpitation. Tele shows sinus rhythm with episodes of bradycardia to mid 40's. Rare VPCs. History of Present Illness: 82 year-old vincentian speaking female with PMH paroxysmal afib , HTN, RLE AV malformation folllowed by Dr. Wren in [facility] and is post surgical interventuion on 02/24/18 was admitted for dyspnea and rapid Afib. Echocardiogram 12/2017 showed normal LV function witohut valvular pathology and elevated LA pressure. Massive Rt leg AV malformation. Has been advised to consider Rt leg amputation. Had surgery on 02/24 Afib-converted to Sinus 02/27, now sinus monalisa high 40s to 50s. - Current Medication List Current Medications: Active Medications Acetaminophen (Tylenol -) 650 mg PO Q6H PRN PRN Reason: PAIN LEVEL 7 - 10 Last Admin: 03/02/18 20:11 Dose: 650 mg Amiodarone HCl (Cordarone -) 200 mg PO DAILY [facility] Last Admin: 03/04/18 09:43 Dose: 200 mg Amoxicillin/Clavulanate Potassium (Augmentin - 500mg Tablet) 1 tab PO BID@0800, 1730 [facility] Last Admin: 03/04/18 09:44 Dose: 1 tab Atorvastatin Calcium (Lipitor -) 40 mg PO HS [facility] Last Admin: 03/03/18 21:16 Dose: 40 mg Bacitracin (Bacitracin -) 1 applic TP DAILY [facility] Last Admin: 03/04/18 09:43 Dose: 1 applic Escitalopram Oxalate (Lexapro -) 5 mg PO DAILY [facility] Last Admin: 03/04/18 09:43 Dose: 5 mg Ferrous Sulfate (Feosol -) 325 mg PO BIDWM [facility] Last Admin: 03/04/18 09:46 Dose: Not Given Magnesium Hydroxide (Milk Of Magnesia -) 30 ml PO Q8H PRN PRN Reason: CONSTIPATION Last Admin: 03/04/18 09:42 Dose: 30 ml Nifedipine (Procardia Xl -) 60 mg PO DAILY [facility] Last Admin: 03/04/18 09:42 Dose: 60 mg Oxycodone HCl (Roxicodone -) 5 mg PO Q4H PRN PRN Reason: PAIN LEVEL 6-10 Potassium Chloride (K-Dur -) 20 meq PO DAILY [facility] Last Admin: 03/04/18 09:43 Dose: 20 meq Rivaroxaban (Xarelto -) 20 mg PO DAILY [facility] Last Admin: 03/04/18 09:43 Dose: 20 mg Senna (Senna -) 1 tab PO BID [facility] Last Admin: 03/04/18 09:50 Dose: 1 tab - Objective Vital Signs: Vital Signs Temperature 98.4 F 03/04/18 10:00 Pulse Rate 61 03/04/18 10:00 Respiratory Rate 18 03/04/18 10:00 Blood Pressure 133/49 03/04/18 10:00 O2 Sat by Pulse Oximetry (%) 98 03/04/18 10:00 General: Well developed. Well nourished. No acute distress. Head: Normocephalic. Atraumatic, Eyes: PERRLA, EOMI. Sclerae anicteric. Conjunctivae clear. Neck: Supple. No JVD. No bruits. Heart: Normal S1, S2: Regular rhythm and bradycardia. II/ WAYLON. No gallop or rub. Lungs: Symmetrical air entry. Clear to auscultation. No crackle. No wheezing or rhonchi. Abdomen: Soft. Bowel sound positive. Non tender. No masses. Extremities: Trace to 1+ edema. Toe amputation site clean. Labs: CBC, BMP 03/03/18 07:45 03/03/18 07:30 INR, PTT INR 1.08 (0.82-1.09) 02/25/18 11:25 Assessment/Plan 82 year-old vincentian speaking female with PMH paroxysmal afib , HTN, RLE AV malformation folllowed by Dr. Wren in [facility] and is post surgical interventuion on 02/24/18 was admitted for dyspnea and rapid Afib. Echocardiogram 12/2017 showed normal LV function witohut valvular pathology and elevated LA pressure. Massive Rt leg AV malformation. Has been advised to consider Rt leg amputation. Had surgery on 02/24 1) Hypertension: BP is under control with Nifedipine 60 mg daily. May decrease Nifedipine back to 30 mg daily if diastolic BP remains low. 2) Afib-converted to Sinus 02/27, now sinus monalisa 50s, -Cardizem, digoxin and metoprolol were discontinued due to bradycardia. -Continue Amiodarone 200 mg daily for rhythm control. -Continue AC with Xarelto (deemed safe by vascular). 3) CHF (congestive heart failure) -Acute on chronic diastolic CHF likely secondary to Afib -maintain NSR as above -euvolemic except mild leg edema and creat improving now that has been in NSR -can hold off on Lasix for now 4) Elevated troponin Minimally elevated TP level in setting of acute heart failure. Continue medical management. The patient is stable cardiac standpoint for discharge with a plan for close outpatient f/up. Pt should f/up as outpatient. Please call with any additional questions.
--- NOTE | 2018-03-04 16:42 | PN ---
Physical Exam: SUBJECTIVE: Patient seen and examined. She complains of cramps in her left leg when she stands and so she is having difficulty ambulating and needs assistance. She says she has not had a bowel movement in 7 days. Yesterday, she had 2 episodes of nausea and sweats. OBJECTIVE: Vital Signs Period Temp Pulse Resp BP Sys/Hu Pulse Ox Last 24 Hr 98.1 F-99.1 F 59-72 18-20 118-178/49-75 98-98 GENERAL: The patient is awake, alert, and fully oriented, in no acute distress. LUNGS: Breath sounds equal, clear to auscultation bilaterally, no wheezes, no crackles, no accessory muscle use. HEART: Regular rate and rhythm, S1, S2 without murmur, rub or gallop. ABDOMEN: Soft, mild diffuse tenderness, nondistended, normoactive bowel sounds, no guarding, no rebound, no hepatosplenomegaly, no masses. EXTREMITIES: 2+ pulses, warm, well-perfused, trace edema. Active Medications Generic Name Dose Route Start Last Admin Trade Name Freq PRN Reason Stop Dose Admin Acetaminophen 650 mg 02/25/18 20:16 03/02/18 20:11 Tylenol - PO 650 mg Q6H PRN Administration PAIN LEVEL 7 - 10 Amiodarone HCl 200 mg 03/04/18 10:00 03/04/18 09:43 Cordarone - PO 200 mg DAILY [facility]IKUNJ Administration Amoxicillin/Clavulanate Potassium 1 tab 03/03/18 08:00 03/04/18 09:44 Augmentin - 500mg Tablet PO 1 tab BID@0800,1730 [facility]J Administration Atorvastatin Calcium 40 mg 02/26/18 22:00 03/03/18 21:16 Lipitor - PO 40 mg HS [facility]IKUNJ Administration Bacitracin 1 applic 02/28/18 10:00 03/04/18 09:43 Bacitracin - TP 1 applic DAILY [facility]UNJ Administration Escitalopram Oxalate 5 mg 03/03/18 10:00 03/04/18 09:43 Lexapro - PO 5 mg DAILY [facility]J Administration Ferrous Sulfate 325 mg 02/25/18 17:30 03/04/18 09:46 Feosol - PO Not Given BIDWM N[facility]J Magnesium Hydroxide 30 ml 03/03/18 16:33 03/04/18 09:42 Milk Of Magnesia - PO 30 ml Q8H PRN Administration CONSTIPATION Nifedipine 60 mg 03/03/18 21:00 03/04/18 09:42 Procardia Xl - PO 60 mg DAILY [facility]J Administration Oxycodone HCl 5 mg 03/03/18 16:33 Roxicodone - PO Q4H PRN PAIN LEVEL 6-10 Potassium Chloride 20 meq 02/26/18 10:00 03/04/18 09:43 K-Dur - PO 20 meq DAILY [facility]IKUNJ Administration Rivaroxaban 20 mg 02/26/18 10:00 03/04/18 09:43 Xarelto - PO 20 mg DAILY [facility]J Administration Senna 1 tab 03/03/18 22:00 03/04/18 09:50 Senna - PO 1 tab BID [facility]J Administration ASSESSMENT/PLAN: 1. Paroxysmal atrial fib - Currently in sinus rhythm - Continue Amiodarone, Procardia, Xarelto - Lopressor, Digoxin discontinued secondary to bradycardia 2. Chest pain - Resolved - Likely secondary to rapid atrial fib 3. Demand ischemia secondary to rapid atrial fib 4. Acute on chronic diastolic heart failure - Improved 5. Arteriovenous malformation of right foot - Had recent coiling on 02/24 6. Cellulitis of right foot - Unasyn and Vancomycin changed to Augmentin x 7 days 7. HTN - Continue Procardia 8. Acute kidney injury - Resolved 9. Constipation - Continue Senna - No improvement with MOM - Add Miralax 10. Disposition - Physical therapy - Will likely need short term rehab Visit type - Emergency Visit Emergency Visit: Yes ED Registration Date: 02/25/18 Care time: The patient presented to the Emergency Department on the above date and was hospitalized for further evaluation of their emergent condition. - New Patient This patient is new to me today: Yes Date on this admission: 03/04/18 - Critical Care Critical Care patient: No - Discharge Referral Referred to [facility] Med [facility] No
[2018-03-04] MEDS: POLYETHYLENE GLYCOL 3350 119 GM BTL PO SCH (17:23)
--- NOTE | 2018-03-04 19:37 | PN ---
Progress Note (short form) - Note Progress Note: Problems 1. DANIELA 2. av-malformation 3. HTN 4. a-fib 5. pleural effusion Active Medications Acetaminophen (Tylenol -) 650 mg PO Q6H PRN PRN Reason: PAIN LEVEL 7 - 10 Last Admin: 03/02/18 20:11 Dose: 650 mg Amiodarone HCl (Cordarone -) 200 mg PO DAILY [facility] Last Admin: 03/04/18 09:43 Dose: 200 mg Amoxicillin/Clavulanate Potassium (Augmentin - 500mg Tablet) 1 tab PO BID@0800, 1730 [facility] Last Admin: 03/04/18 17:23 Dose: 1 tab Atorvastatin Calcium (Lipitor -) 40 mg PO HS [facility] Last Admin: 03/03/18 21:16 Dose: 40 mg Bacitracin (Bacitracin -) 1 applic TP DAILY [facility] Last Admin: 03/04/18 09:43 Dose: 1 applic Escitalopram Oxalate (Lexapro -) 5 mg PO DAILY [facility] Last Admin: 03/04/18 09:43 Dose: 5 mg Ferrous Sulfate (Feosol -) 325 mg PO BIDWM [facility] Last Admin: 03/04/18 17:23 Dose: Not Given Nifedipine (Procardia Xl -) 60 mg PO DAILY [facility] Last Admin: 03/04/18 09:42 Dose: 60 mg Oxycodone HCl (Roxicodone -) 5 mg PO Q4H PRN PRN Reason: PAIN LEVEL 6-10 Polyethylene Glycol (Miralax (For Daily Use) -) 17 gm PO DAILY [facility] Last Admin: 03/04/18 17:23 Dose: 17 gm Potassium Chloride (K-Dur -) 20 meq PO DAILY [facility] Last Admin: 03/04/18 09:43 Dose: 20 meq Rivaroxaban (Xarelto -) 20 mg PO DAILY [facility] Last Admin: 03/04/18 09:43 Dose: 20 mg Senna (Senna -) 1 tab PO BID [facility] Last Admin: 03/04/18 09:50 Dose: 1 tab Last Vital Signs Temp Pulse Resp BP Pulse Ox 98.2 F 61 20 127/56 98 03/04/18 17:00 03/04/18 17:00 03/04/18 17:00 03/04/18 17:00 03/04/18 10:00 CBC, BMP 03/03/18 07:45 03/03/18 07:30 Plan - renal function continues to improve - will need outpt workup - vascular follow up - monitor bp - will follow
[2018-03-04] MEDS: ATORVASTATIN CA 40 MG TABLET (FP) PO SCH (21:09)
[2018-03-04] MEDS: ACETAMINOPHEN 325 MG TABLET (FP) PO PRN (22:57)
[2018-03-05] MEDS ORDERED: PT OWN MED DRAWER 7, Y5N ONE (08:42)
[2018-03-05] MEDS: POTASSIUM CHLORIDE TABS 20 MEQ TABLET.ER (FP) PO SCH (09:12)
[2018-03-05] MEDS: AMOX TR/POT CLAV 500MG/125MG TABLETS (FP) PO SCH ×2 (09:12→18:11)
[2018-03-05] MEDS: AMIODARONE HCL 200 MG TABLET (FP) PO SCH (09:12)
[2018-03-05] MEDS: ESCITALOPRAM OXALATE 10 MG TABLET (FP) PO SCH (09:12)
[2018-03-05] MEDS: RIVAROXABAN 20 MG TABLET PO SCH (09:13)
[2018-03-05] MEDS: FERROUS SO4 325 MG TABLET (FP) PO SCH ×2 (09:13→18:11)
[2018-03-05] MEDS: SENNOSIDES 8.6MG TABLET (FP) PO SCH ×2 (09:13→21:53)
[2018-03-05] MEDS: NIFEdipine E.R 60 MG TABLET (UD) PO SCH (09:13)
[2018-03-05] MEDS: POLYETHYLENE GLYCOL 3350 119 GM BTL PO SCH (09:13)
[2018-03-05] MEDS: BACITRACIN 15 GM TUBE TOPICAL OINTMENT TP SCH (09:13)
--- NOTE | 2018-03-05 15:00 | PN ---
Physical Exam: SUBJECTIVE: Patient seen and examined. She has no complaints. Had bowel movement today. OBJECTIVE: Vital Signs Period Temp Pulse Resp BP Sys/Hu Pulse Ox Last 24 Hr 98 F-98.7 F 61-73 18-20 127-136/51-60 95-97 GENERAL: The patient is awake, alert, and fully oriented, in no acute distress. LUNGS: Breath sounds equal, clear to auscultation bilaterally, no wheezes, no crackles, no accessory muscle use. HEART: Regular rate and rhythm, S1, S2 without murmur, rub or gallop. ABDOMEN: Soft, mild diffuse tenderness, nondistended, normoactive bowel sounds, no guarding, no rebound, no hepatosplenomegaly, no masses. EXTREMITIES: 2+ pulses, warm, well-perfused, trace edema. Active Medications Generic Name Dose Route Start Last Admin Trade Name Freq PRN Reason Stop Dose Admin Acetaminophen 650 mg 02/25/18 20:16 03/04/18 22:57 Tylenol - PO 650 mg Q6H PRN Administration PAIN LEVEL 7 - 10 Amiodarone HCl 200 mg 03/04/18 10:00 03/05/18 09:12 Cordarone - PO 200 mg DAILY NIKUNJ Administration Amoxicillin/Clavulanate Potassium 1 tab 03/03/18 08:00 03/05/18 09:12 Augmentin - 500mg Tablet PO 1 tab BID@0800,1730 NIKUNJ Administration Atorvastatin Calcium 40 mg 02/26/18 22:00 03/04/18 21:09 Lipitor - PO 40 mg HS NIKUNJ Administration Bacitracin 1 applic 02/28/18 10:00 03/05/18 09:13 Bacitracin - TP 1 applic DAILY NIKUNJ Administration Escitalopram Oxalate 5 mg 03/03/18 10:00 03/05/18 09:12 Lexapro - PO 5 mg DAILY NIKUNJ Administration Ferrous Sulfate 325 mg 02/25/18 17:30 03/05/18 09:13 Feosol - PO Not Given BIDWM NIKUNJ Nifedipine 60 mg 03/03/18 21:00 03/05/18 09:13 Procardia Xl - PO 60 mg DAILY NIKUNJ Administration Oxycodone HCl 5 mg 03/03/18 16:33 Roxicodone - PO Q4H PRN PAIN LEVEL 6-10 Polyethylene Glycol 17 gm 03/04/18 16:45 03/05/18 09:13 Miralax (For Daily Use) - PO 17 gm DAILY NIKUNJ Administration Potassium Chloride 20 meq 02/26/18 10:00 03/05/18 09:12 K-Dur - PO 20 meq DAILY NIKUNJ Administration Rivaroxaban 20 mg 02/26/18 10:00 03/05/18 09:13 Xarelto - PO 20 mg DAILY NIKUNJ Administration Senna 1 tab 03/03/18 22:00 03/05/18 09:13 Senna - PO 1 tab BID NIKUNJ Administration ASSESSMENT/PLAN: 1. Paroxysmal atrial fib - Currently in sinus rhythm - Continue Amiodarone, Procardia, Xarelto - Lopressor, Digoxin discontinued secondary to bradycardia 2. Chest pain - Resolved - Likely secondary to rapid atrial fib 3. Demand ischemia secondary to rapid atrial fib 4. Acute on chronic diastolic heart failure - Improved 5. Arteriovenous malformation of right foot - Had recent coiling on 02/24 6. Cellulitis of right foot - Unasyn and Vancomycin changed to Augmentin x 7 days 7. HTN - Continue Procardia 8. Acute kidney injury - Resolved 9. Constipation - Had BM today - Continue Senna, Miralax 10. Disposition - Physical therapy - Will likely need short term rehab Visit type - Emergency Visit Emergency Visit: Yes ED Registration Date: 02/25/18 Care time: The patient presented to the Emergency Department on the above date and was hospitalized for further evaluation of their emergent condition. - New Patient This patient is new to me today: No - Critical Care Critical Care patient: No - Discharge Referral Referred to [facility] No
--- NOTE | 2018-03-05 19:01 | PN ---
Progress Note (short form) - Note Progress Note: Problems 1. DANIELA 2. av-malformation 3. HTN 4. a-fib 5. pleural effusion Current Medications Acetaminophen (Tylenol -) 650 mg PO Q6H PRN PRN Reason: PAIN LEVEL 7 - 10 Amiodarone HCl (Cordarone -) 200 mg PO DAILY [facility] Amoxicillin/Clavulanate Potassium (Augmentin - 500mg Tablet) 1 tab PO BID@0800, 1730 [facility] Last Admin: 03/05/18 18:11 Dose: 1 tab Atorvastatin Calcium (Lipitor -) 40 mg PO HS [facility] Bacitracin (Bacitracin -) 1 applic TP DAILY [facility] Escitalopram Oxalate (Lexapro -) 5 mg PO DAILY [facility] Ferrous Sulfate (Feosol -) 325 mg PO BIDWM [facility] Last Admin: 03/05/18 18:11 Dose: Not Given Nifedipine (Procardia Xl -) 60 mg PO DAILY [facility] Oxycodone HCl (Roxicodone -) 5 mg PO Q4H PRN PRN Reason: PAIN LEVEL 6-10 Polyethylene Glycol (Miralax (For Daily Use) -) 17 gm PO DAILY [facility] Potassium Chloride (K-Dur -) 20 meq PO DAILY [facility] Rivaroxaban (Xarelto -) 20 mg PO DAILY [facility] Senna (Senna -) 1 tab PO BID [facility] Last Vital Signs Temp Pulse Resp BP Pulse Ox 98.4 F 72 8 L 144/65 95 03/05/18 18:00 03/05/18 18:00 03/05/18 18:00 03/05/18 18:00 03/05/18 10:00 lungs clear heart reg abd soft nontender ext no edema CBC, BMP 03/03/18 07:45 03/03/18 07:30 IMP- daniela underlying CKD Plan - renal function back to baseline - will need outpt workup - vascular follow up - monitor bp - will sign off today
[2018-03-05] MEDS ORDERED: ONDANSETRON 4 MG/2 ML VIAL IVPUSH PRN (20:09)
[2018-03-05] MEDS: ATORVASTATIN CA 40 MG TABLET (FP) PO SCH (21:53)
[2018-03-06 07:21] LABS: HEMATOCRIT 29.5 % (32.4-45.2); HEMOGLOBIN 9.8 GM/dL (10.7-15.3); MCH 31.1 pg (25.7-33.7); MCHC 33.1 g/dl (32.0-36.0); MEAN PLT VOLUME 8.8 fl (7.5-11.1); PLATELET COUNT 270 K/MM3 (134-434); RBC 3.14 M/mm3 (3.60-5.2); RDW 15.5 % (11.6-15.6); WHITE BLOOD COUNT 6.7 K/mm3 (4.0-10.0)
[2018-03-06 07:48] LABS: CHLORIDE 102 mmol/L (98-107); POTASSIUM 5.2 mmol/L (3.5-5.1); SODIUM 136 mmol/L (136-145)
[2018-03-06 07:54] LABS: ANION GAP 8 (8-16); BLOOD UREA NITROGEN 10 mg/dL (7-18); CALCIUM 8.9 mg/dL (8.5-10.1); CO2 26 mmol/L (21-32); CREATININE 1.1 mg/dL (0.55-1.02); GLUCOSE,RANDOM 97 mg/dL (74-106)
[2018-03-06] MEDS ORDERED: PT OWN MED DRAWER 7, Y5N ONE (08:48)
[2018-03-06] MEDS: SENNOSIDES 8.6MG TABLET (FP) PO SCH ×2 (09:01→21:43)
[2018-03-06] MEDS: POTASSIUM CHLORIDE TABS 20 MEQ TABLET.ER (FP) PO SCH (09:01)
[2018-03-06] MEDS: FERROUS SO4 325 MG TABLET (FP) PO SCH ×2 (09:01→16:31)
[2018-03-06] MEDS: RIVAROXABAN 20 MG TABLET PO SCH (09:01)
[2018-03-06] MEDS: NIFEdipine E.R 60 MG TABLET (UD) PO SCH (09:01)
[2018-03-06] MEDS: ESCITALOPRAM OXALATE 10 MG TABLET (FP) PO SCH (09:01)
[2018-03-06] MEDS: BACITRACIN 15 GM TUBE TOPICAL OINTMENT TP SCH (09:02)
[2018-03-06] MEDS: AMOX TR/POT CLAV 500MG/125MG TABLETS (FP) PO SCH ×2 (09:02→16:31)
[2018-03-06] MEDS: AMIODARONE HCL 200 MG TABLET (FP) PO SCH (09:02)
[2018-03-06] MEDS: POLYETHYLENE GLYCOL 3350 119 GM BTL PO SCH (09:03)
--- NOTE | 2018-03-06 10:21 | PN ---
Progress Note, Physician - Current Medication List Current Medications: Active Medications Acetaminophen (Tylenol -) 650 mg PO Q6H PRN PRN Reason: PAIN LEVEL 7 - 10 Amiodarone HCl (Cordarone -) 200 mg PO DAILY [facility] Last Admin: 03/06/18 09:02 Dose: 200 mg Amoxicillin/Clavulanate Potassium (Augmentin - 500mg Tablet) 1 tab PO BID@0800, 1730 [facility] Last Admin: 03/06/18 09:02 Dose: 1 tab Atorvastatin Calcium (Lipitor -) 40 mg PO HS [facility] Last Admin: 03/05/18 21:53 Dose: Not Given Bacitracin (Bacitracin -) 1 applic TP DAILY [facility] Last Admin: 03/06/18 09:02 Dose: 1 applic Escitalopram Oxalate (Lexapro -) 5 mg PO DAILY [facility] Last Admin: 03/06/18 09:01 Dose: 5 mg Ferrous Sulfate (Feosol -) 325 mg PO BIDWM [facility] Last Admin: 03/06/18 09:01 Dose: 325 mg Nifedipine (Procardia Xl -) 60 mg PO DAILY [facility] Last Admin: 03/06/18 09:01 Dose: 60 mg Ondansetron HCl (Zofran Injection) 4 mg IVPUSH Q8H PRN PRN Reason: NAUSEA Last Admin: 03/05/18 20:15 Dose: 4 mg Oxycodone HCl (Roxicodone -) 5 mg PO Q4H PRN PRN Reason: PAIN LEVEL 6-10 Polyethylene Glycol (Miralax (For Daily Use) -) 17 gm PO DAILY [facility] Last Admin: 03/06/18 09:03 Dose: Not Given Potassium Chloride (K-Dur -) 20 meq PO DAILY [facility] Last Admin: 03/06/18 09:01 Dose: 20 meq Rivaroxaban (Xarelto -) 20 mg PO DAILY [facility] Last Admin: 03/06/18 09:01 Dose: 20 mg Senna (Senna -) 1 tab PO BID [facility] Last Admin: 03/06/18 09:01 Dose: 1 tab - Objective Vital Signs: Vital Signs Temperature 98.4 F 03/06/18 09:00 Pulse Rate 64 03/06/18 09:00 Respiratory Rate 20 03/06/18 09:00 Blood Pressure 130/54 03/06/18 09:00 O2 Sat by Pulse Oximetry (%) 98 03/06/18 09:00 Cardiovascular: Yes: S1, S2 Respiratory: Yes: Regular, CTA Bilaterally Gastrointestinal: Yes: Normal Bowel Sounds, Soft Labs: CBC, BMP 03/06/18 06:37 03/06/18 06:37 INR, PTT INR 1.08 (0.82-1.09) 02/25/18 11:25 Problem List - Problems (1) Afib Code(s): I48.91 - UNSPECIFIED ATRIAL FIBRILLATION (2) Chest pain Code(s): R07.9 - CHEST PAIN, UNSPECIFIED Qualifiers: Chest pain type: unspecified Qualified Code(s): R07.9 - Chest pain, unspecified (3) Elevated troponin Code(s): R74.8 - ABNORMAL LEVELS OF OTHER SERUM ENZYMES (4) CHF (congestive heart failure) Code(s): I50.9 - HEART FAILURE, UNSPECIFIED (5) Arteriovenous malformation Code(s): Q27.30 - ARTERIOVENOUS MALFORMATION, SITE UNSPECIFIED (6) Cellulitis, wound, post-operative Code(s): T81.4XXA - INFECTION FOLLOWING A PROCEDURE, INITIAL ENCOUNTER Assessment/Plan 1. Paroxysmal atrial fib - Currently in sinus rhythm - Continue Amiodarone, Procardia, Xarelto - Lopressor, Digoxin discontinued secondary to bradycardia 2. Chest pain - Resolved - Likely secondary to rapid atrial fib 3. Demand ischemia secondary to rapid atrial fib 4. Acute on chronic diastolic heart failure - Improved 5. Arteriovenous malformation of right foot - Had recent coiling on 02/24 6. Cellulitis of right foot - Unasyn and Vancomycin changed to Augmentin x 7 days 7. HTN - Continue Procardia 8. Acute kidney injury - Resolved 9. Constipation - Had BM today - Continue Senna, Miralax 10. Disposition - Physical therapy - Will likely need short term rehab
[2018-03-06] MEDS: oxyCODONE HCL 5 MG TABLET PO PRN ×2 (10:53→21:43)
[2018-03-06] MEDS: ACETAMINOPHEN 325 MG TABLET (FP) PO PRN ×2 (10:53→21:43)
[2018-03-06] MEDS: ATORVASTATIN CA 40 MG TABLET (FP) PO SCH (21:45)
[2018-03-07] MEDS: AMOX TR/POT CLAV 500MG/125MG TABLETS (FP) PO SCH ×3 (08:30→18:03)
[2018-03-07] MEDS ORDERED: PT OWN MED DRAWER 7, Y5N ONE (10:01)
[2018-03-07] MEDS: BACITRACIN 15 GM TUBE TOPICAL OINTMENT TP SCH (10:15)
[2018-03-07] MEDS: FERROUS SO4 325 MG TABLET (FP) PO SCH ×2 (10:15→18:04)
[2018-03-07] MEDS: POTASSIUM CHLORIDE TABS 20 MEQ TABLET.ER (FP) PO SCH (10:15)
[2018-03-07] MEDS: AMIODARONE HCL 200 MG TABLET (FP) PO SCH (10:15)
[2018-03-07] MEDS: ESCITALOPRAM OXALATE 10 MG TABLET (FP) PO SCH (10:16)
[2018-03-07] MEDS: NIFEdipine E.R 60 MG TABLET (UD) PO SCH (10:17)
[2018-03-07] MEDS: SENNOSIDES 8.6MG TABLET (FP) PO SCH ×3 (10:17→21:59)
[2018-03-07] MEDS: RIVAROXABAN 20 MG TABLET PO SCH (10:17)
[2018-03-07] MEDS: POLYETHYLENE GLYCOL 3350 119 GM BTL PO SCH (10:21)
--- NOTE | 2018-03-07 11:11 | DS ---
Physical Examination Vital Signs: Vital Signs Temperature 97.9 F 03/07/18 05:00 Pulse Rate 63 03/07/18 05:00 Respiratory Rate 18 03/07/18 05:00 Blood Pressure 128/53 03/07/18 05:00 O2 Sat by Pulse Oximetry (%) 98 03/06/18 21:00 Constitutional: Yes: Well Nourished, No Distress, Calm Cardiovascular: Yes: Pulse Irregular Respiratory: Yes: Regular Gastrointestinal: Yes: Normal Bowel Sounds, Soft Musculoskeletal: Yes: WNL Extremities: Yes: Amputation (right toe) Edema: No Peripheral Pulses WNL: Yes Wound/Incision: Yes: Dressing Dry and Intact Neurological: Yes: Alert, Oriented Psychiatric: Yes: Alert, Oriented Labs: CBC, BMP 03/06/18 06:37 03/06/18 06:37 Discharge Summary Reason For Visit: CHEST PAIN,ELEVATED TROPONIN, ANEMIA Current Active Problems Acute renal failure (Acute) Anemia (Acute) Cellulitis, wound, post-operative (Acute) Chest pain (Acute) Elevated troponin (Acute) Pleural effusion (Acute) Hospital Course: 82 y/o afebrile, ukrainian speaking female with PMH afib (on xarelto), HTN, RLE AV malformation (corrective surgical procedure on 02/24 at [facility]) c/o high blood pressure, GUILLEN, CP and SOB this morning. the patient had surgery on her right foot to correct an AV malformation. the surgery was performed at [facility]. She states her blood pressure was high after the surgery but they discharged her anyway. She states this morning she woke up with high blood pressure, a headache, anterior chest pain and SOB. She does admit she has not been on Xarelto for some time because the AV malformation in her foot was bleeding spontaneously. She denies fever, hemoptysis, vomiting, diarrhea, abd pain, back pain, left arm pain, facial droop , slurred speech, hematuria, dysuria. Her chest pain was relieved by Nitro SL and oxygen in the ambulance. This am pt c/o chest tightness and palpitations Condition: Fair - Instructions Referrals: ON STAFF,NOT [Primary Care Provider] - Disposition: VNS/HOME HEALTH CARE - Home Medications Comprehensive Discharge Medication List: Ambulatory Orders Rivaroxaban [Xarelto -] 20 mg PO DAILY 09/13/17 Ferrous Sulfate [Feosol] 325 mg PO BIDWM #30 ud MDD 2 09/19/17 Methyl Salicylate/Menthol Oint [Analgesic [place] -] 1 applic TP BID #1 tube MDD 2 09/19/17 Potassium Chloride [K-Dur -] 20 meq PO DAILY #10 tablet.er MDD 1 09/19/17 Simvastatin 40 mg PO ASDIR 11/11/17 Acetaminophen [Tylenol .Regular Strength -] 650 mg PO Q6H PRN tablet 03/07/18 Amiodarone HCl [Cordarone -] 200 mg PO DAILY #30 tablet 03/07/18 Amox-Tr/K Cl [Augmentin 500-125mg Tablet -] 1 tab PO BID@0800,1730 #14 tablet Bacitracin - [Bacitracin Topical Ointment -] 1 applic TP DAILY #1 tube 03/07/18 Escitalopram Oxalate [Lexapro -] 5 mg PO DAILY #30 tablet 03/07/18 Nifedipine ER [Procardia XL -] 60 mg PO DAILY #30 tab.er.24 03/07/18 Polyethylene Glycol 3350 [Miralax 119 gm Btl -] 17 gm PO DAILY #1 bottle Sennosides [Senna -] 1 tab PO BID #30 tablet 03/07/18 oxyCODONE HCL [Roxicodone -] 5 mg PO Q4H PRN #30 tablet MDD 6 03/07/18
--- NOTE | 2018-03-07 12:44 | CONS ---
DATE OF CONSULTATION: 03/07/2018 REFERRING PHYSICIAN: Brandi Kemp MD HISTORY OF PRESENT ILLNESS: The patient is an 82-year-old woman with extensive past medical history including paroxysmal atrial fibrillation, heart failure, right foot AV malformation recently done at [facility] who was admitted with chest pain and tightness. The patient evidently had a recent procedure at [facility], which reportedly was a coiling of the AV malformation in the right lower extremity. She developed chest pain and was brought to [facility]. She had slight evaluation in troponin. She underwent a CT of the head, which showed no acute intracranial pathology on February [address] of the chest, which showed no evidence of pulmonary embolism. There was cardiomegaly and pleural effusion noted. Moderate-sized bilateral pleural effusions were also noted. The patient was treated medically and also diagnosed with cellulitis involving the right foot and started on Unasyn and vancomycin. Started on anticoagulation, which apparently had been stopped for the procedure. Blood work on admission showed WBCs normal 8.3, hemoglobin low at 8.8, platelet count 195, chemistry mainly within normal limits, although on February 27 her creatinine was elevated at 1.6. Last blood work on March 06 showed a stable CBC with WBCs 6.7, hemoglobin 9.8, platelet count 270, and chemistry showed slight elevation of potassium 5.2 and creatinine borderline at 1.1 but improved over previous creatinine. Her albumin was low at 3.3. The patient also complains of some left knee pain in addition to pain in the right foot. She was evaluated by physical therapy but only able to ambulate a few steps with the walker, required contact guard assist, and has been refusing physical therapy when attempted on March 02 and March 03. Disposition, per medical record, is most likely short-term rehabilitation in a correction facility. The patient is on Xarelto for the atrial fibrillation in addition to amiodarone. PAST MEDICAL HISTORY: As above. Hypertension, chronic kidney disease, right foot AV malformation status post surgery, congestive heart failure. PAST SURGICAL HISTORY: As above. SOCIAL HISTORY: Lives in an apartment with an elevator. She premorbidly used a walker. Current function as above. REVIEW OF SYSTEMS: No lightheadedness, dizziness. No headache, no blurry vision or double vision. No nausea, vomiting, difficulty swallowing, difficulty chewing. No chest pain, shortness of breath, fevers, chills, bowel or bladder incontinence. No upper extremity numbness, tingling, or weakness. In the lower extremities, left knee pain and right foot pain but no complaints of back pain. No complaints of right knee pain. No other complaints of numbness or tingling. PHYSICAL EXAMINATION: General: An overweight woman seen lying in bed. She has her right foot elevated with the distal aspect wrapped in gauze. In no acute distress. HEENT: She is normocephalic and atraumatic. Extraocular muscles appear intact. Neck: Supple. Extremities: She has some ecchymosis in the distal right lower extremity but no definite edema. Again, unable to examine the distal part of her foot due to gauze dressing. Otherwise, no heel breakdown. No pitting edema or calf tenderness. Neuromuscular: Awake, alert, cooperative. Her cranial nerves 2-12 appear grossly intact. She has minimal arthritic changes in the hands, which is not limiting. Good strength throughout the upper extremities. Normal sensation to light touch. In the lower extremities, she has some crepitus. Medial joint line tenderness in the left knee. None in the right knee but good range of motion in both knees. Antigravity strength in both lower extremities. Fairly good dorsiflexion and plantar flexion despite right lower extremity pain. Full range in the left lower extremity. Normal sensation to light touch. OVERALL IMPRESSION: 1. Deficits in mobility and activities of daily living. 2. Right lower extremity cellulitis. 3. Status post coiling of right atrioventricular malfunction recently at [facility]. 4. Paroxysmal atrial fibrillation. 5. Acute on chronic diastolic heart failure. 6. Status post chest pain. 7. Status post elevated creatinine with borderline elevation. 8. Hypertension. 9. Elevated body mass index. 10. History of constipation, resolved on bowel regimen. PLAN/SUGGESTION: 1. Continue physical therapy if the patient is agreeable. 2. Out of bed to chair. 3. Elevation of right lower extremity. 4. Pain control. 5. The patient is anticoagulated on Xarelto. No further DVT prophylaxis is noted. 6. Skin precautions. Avoid heel and sacral pressure. Monitor for erythema or breakdown. 7. Continue bowel regimen. 8. Agree with short-term rehabilitation in a correction facility once the patient is medically stable. Thank you for this referral. TAMIA PEREZ M.D. [id number]
[2018-03-07] MEDS: oxyCODONE HCL 5 MG TABLET PO PRN ×2 (13:32→21:56)
[2018-03-07] MEDS: ACETAMINOPHEN 325 MG TABLET (FP) PO PRN (21:56)
[2018-03-07] MEDS: ATORVASTATIN CA 40 MG TABLET (FP) PO SCH ×2 (21:57→21:59)
[2018-03-08 05:34] VITALS: BP 144/58; PULSE 60; TEMP 97.7
[2018-03-08] MEDS: AMOX TR/POT CLAV 500MG/125MG TABLETS (FP) PO SCH (08:00)
[2018-03-08] MEDS: POLYETHYLENE GLYCOL 3350 119 GM BTL PO SCH (10:00)
[2018-03-08] MEDS: oxyCODONE HCL 5 MG TABLET PO PRN (10:06)
[2018-03-08] MEDS: ACETAMINOPHEN 325 MG TABLET (FP) PO PRN (10:07)
[2018-03-08] MEDS: RIVAROXABAN 20 MG TABLET PO SCH (10:08)
[2018-03-08] MEDS: NIFEdipine E.R 60 MG TABLET (UD) PO SCH (10:08)
[2018-03-08] MEDS: ESCITALOPRAM OXALATE 10 MG TABLET (FP) PO SCH (10:09)
[2018-03-08] MEDS: POTASSIUM CHLORIDE TABS 20 MEQ TABLET.ER (FP) PO SCH (10:10)
[2018-03-08] MEDS: FERROUS SO4 325 MG TABLET (FP) PO SCH (10:10)
[2018-03-08] MEDS: SENNOSIDES 8.6MG TABLET (FP) PO SCH (10:11)
[2018-03-08] MEDS ORDERED: PT OWN MED DRAWER 7, Y5N ONE (10:14)
[2018-03-08] MEDS: BACITRACIN 15 GM TUBE TOPICAL OINTMENT TP SCH (10:16)
[2018-03-08] MEDS: AMIODARONE HCL 200 MG TABLET (FP) PO SCH (10:16)
--- NOTE | 2018-03-08 11:18 | PN ---
Progress Note, Physician Chief Complaint: Diabetic ulcer History of Present Illness: NAD refusing physical therapy daughter couldn't pick her up yesterday K borderline on 03/06- repeat bmp stat, if normal can go home - Current Medication List Current Medications: Active Medications Acetaminophen (Tylenol -) 650 mg PO Q6H PRN PRN Reason: PAIN LEVEL 7 - 10 Last Admin: 03/08/18 10:07 Dose: 650 mg Amiodarone HCl (Cordarone -) 200 mg PO DAILY [facility] Last Admin: 03/08/18 10:16 Dose: 200 mg Amoxicillin/Clavulanate Potassium (Augmentin - 500mg Tablet) 1 tab PO BID@0800, 1730 [facility] Last Admin: 03/08/18 08:00 Dose: Not Given Atorvastatin Calcium (Lipitor -) 40 mg PO HS [facility] Last Admin: 03/07/18 21:59 Dose: Not Given Bacitracin (Bacitracin -) 1 applic TP DAILY [facility] Last Admin: 03/08/18 10:16 Dose: 1 applic Escitalopram Oxalate (Lexapro -) 5 mg PO DAILY [facility] Last Admin: 03/08/18 10:09 Dose: 5 mg Ferrous Sulfate (Feosol -) 325 mg PO BIDWM [facility] Last Admin: 03/08/18 10:10 Dose: 325 mg Nifedipine (Procardia Xl -) 60 mg PO DAILY [facility] Last Admin: 03/08/18 10:08 Dose: 60 mg Ondansetron HCl (Zofran Injection) 4 mg IVPUSH Q8H PRN PRN Reason: NAUSEA Last Admin: 03/05/18 20:15 Dose: 4 mg Polyethylene Glycol (Miralax (For Daily Use) -) 17 gm PO DAILY [facility] Last Admin: 03/07/18 10:21 Dose: Not Given Rivaroxaban (Xarelto -) 20 mg PO DAILY [facility] Last Admin: 03/08/18 10:08 Dose: 20 mg Senna (Senna -) 1 tab PO BID [facility] Last Admin: 03/08/18 10:11 Dose: 1 tab - Objective Vital Signs: Vital Signs Temperature 97.7 F 03/08/18 05:32 Pulse Rate 60 03/08/18 05:32 Respiratory Rate 18 03/08/18 05:32 Blood Pressure 144/58 03/08/18 05:32 O2 Sat by Pulse Oximetry (%) 96 03/08/18 08:16 Constitutional: Yes: Well Nourished, No Distress, Calm Cardiovascular: Yes: Regular Rate and Rhythm Respiratory: Yes: Regular Gastrointestinal: Yes: Normal Bowel Sounds, Soft Musculoskeletal: Yes: WNL Neurological: Yes: Alert, Oriented Psychiatric: Yes: Alert, Oriented Labs: CBC, BMP 03/06/18 06:37 03/06/18 06:37 INR, PTT INR 1.08 (0.82-1.09) 02/25/18 11:25 Problem List - Problems (1) Acute renal failure Assessment/Plan: -resolved -Cr improved -repeat BMP stat, if K+ normal, discharge home Code(s): N17.9 - ACUTE KIDNEY FAILURE, UNSPECIFIED (2) Anemia Assessment/Plan: -chronic -had Iron deficiency in the past -multifactorial -Venofer 300 mg once IVPB -Stool OB Code(s): D64.9 - ANEMIA, UNSPECIFIED Qualifiers: Anemia type: unspecified type Qualified Code(s): D64.9 - Anemia, unspecified (3) Cellulitis, wound, post-operative Assessment/Plan: -seen by podiatry -to see podiatry at wound care center outpatient -[facility] services for home Code(s): T81.4XXA - INFECTION FOLLOWING A PROCEDURE, INITIAL ENCOUNTER Assessment/Plan see problem list
[2018-03-08] MEDS ORDERED: IRON SUCROSE INJECTION 300 MG in SODIUM CHLORIDE 235 ML IVPB ONE (11:50)
== END 2018-03-08 11:29 | disposition home health service (06) | DRG 308 ==
LOC: JER 08:52 → JERBED 15:14 → J4W 17:27 → J7W 03-05 13:27
PROVIDERS: ADMIT Family Medicine; ATTEND Family Medicine
DX: I48.0 Paroxysmal atrial fibrillation (principal); I50.33 Acute on chronic diastolic (congestive) heart failure; T81.4XXA Infection following a procedure, initial encounter; J90 Pleural effusion, not elsewhere classified; N17.9 Acute kidney failure, unspecified; Q27.30 Arteriovenous malformation, site unspecified; L03.115 Cellulitis of right lower limb; I24.8 Other forms of acute ischemic heart disease; Y83.9 Surgical procedure, unspecified as the cause of abnormal reaction of the patient, or of later complication, without mention of misadventure at the time of the procedure; R07.9 Chest pain, unspecified; I11.0 Hypertensive heart disease with heart failure; D64.9 Anemia, unspecified; K59.00 Constipation, unspecified
CPT/HCPCS: 36415; 70450-TC; 71046-TC-FY; 71275-TC; 76775-TC; 80048; 80053; 80061; 80162; 81003; 81015; 82436; 82550; 82553; 83036; 83721; 83735; 83880; 84133; 84300; 84439; 84443; 84484; 85025; 85027; 85610; 85730; 86850; 86900; 86901; 87040; 87086; 93005; 93010; 97116-GP; 97161-GP; 99284-25; J0131

== ENCOUNTER 2018-05-18 12:42 | Inpatient (IN) | payer OTHER ==
--- NOTE | 2018-05-18 13:26 | PDOC ---
History of Present Illness - General Chief Complaint: Shortness of Breath Stated Complaint: CHEST PAIN Time Seen by Provider: 05/18/18 13:22 - History of Present Illness Initial Comments: 82yo F with PMH of Afib, HTN, R. LE AV malformation complaining of shortness of breath x 3 days. Patient endorses dyspnea on exertion and nonproductive cough. Nonsmoker and no known pulmonary disease. She uses two pillow at night. Patient also reports left foot swelling x 2-3 weeks, but denies calf tenderness. Patient had been prescribed an diuretic, but ran out yesterday and does not remember what she took. Not taking hormones, no recent surgeries, no hemoptysis , no PE/DVT or malignancy history. Patient also endorses lower back pain, but denies pain shooting down her legs, saddle anesthesia, or urinary/fecal incontinence. Denies fever, chills, chest pain, headache. 05/18/18 13:59 Past History - Past Medical History Allergies/Adverse Reactions: Allergies Allergy/AdvReac Type Severity Reaction Status Date / Time No Known Allergies Allergy Verified 05/18/18 13:02 Home Medications: Ambulatory Orders Acetaminophen [Tylenol .Regular Strength -] 650 mg PO Q6H PRN tablet 03/07/18 Amiodarone HCl [Cordarone -] 200 mg PO DAILY #30 tablet 03/07/18 Escitalopram Oxalate [Lexapro -] 5 mg PO DAILY #30 tablet 03/07/18 Nifedipine ER [Procardia XL -] 60 mg PO DAILY #30 tab.er.24 03/07/18 Anemia: Yes Cardiac Disorders: Yes COPD: No CHF: Yes Disorders: (Chronic renal insufficiency) HTN: Yes Hypercholesterolemia: Yes - Surgical History Abdominal Surgery: Yes (Tubal ligation) Cholecystectomy: Yes Orthopedic Surgery: (R 2nd toe amputaion, R foot AV malformation corrective Sx) - Immunization History Immunization Up to Date: Yes - Suicide/Smoking/Psychosocial Hx Smoking History: Never smoked Have you smoked in the past 12 months: No Information on smoking cessation initiated: No Hx Alcohol Use: No Drug/Substance Use Hx: No Substance Use Type: None Review of Systems - Review of Systems Comments:: Constitutional: no fever, no chills HEENT: no throat pain, no dysphagia Cardiovascular: no chest pain, no palpitations Respiratory: +cough, +shortness of breath Gastrointestinal: no abdominal pain, no nausea, no vomiting, no diarrhea, no constipation Genitourinary: no dysuria, no frequency Musculoskeletal: no myalgia, no arthralgia Skin: no rash, no itching Neurologic: no headache, no dizziness *Physical Exam - Vital Signs Last Vital Signs Temp Pulse Resp BP Pulse Ox 98.3 F 68 20 157/62 95 05/18/18 13:00 05/18/18 13:00 05/18/18 13:00 05/18/18 13:00 05/18/18 13:00 - Physical Exam Comments: General: Awake, alert, and fully oriented, in no acute distress Head: No signs of trauma Eyes: PERRL, EOMI, sclera anicteric ENT: Moist mucus membranes, Neck: Normal ROM, supple, no lymphadenopathy, JVD, or masses Lungs: RLL base with faint crackles, otherwise normal breath sounds Cardio: Regular rhythm, S1 and S2 present, no murmurs, rubs, or gallops Abdomen: Soft, nontender, normal bowel sounds. No guarding, no rebound, no masses Extremities: LE edema, L>R; Normal range of motion, Distal pulses present. No cords or tenderness SKIN: Warm, Dry, normal turgor, no rashes or lesions noted Neurologic: Cranial nerves II through XII grossly intact. Normal speech ED Treatment Course - LABORATORY CBC & Chemistry Diagram: 05/21/18 06:05 05/21/18 06:05 Medical Decision Making - Medical Decision Making 82yo F with SOB x 3 days. EKG, rate 65, RBBB, comparable to past EKG on 02/26/18. Labs ordered: CBC, CMP, UA/UCx, CXR, BNP, Trp, PT/INR. Differential includes CHF, PNA, PE Spoke with daughter, Nathaly, on the phone, who would like to be updated: 05/18/18 14:36 BNP 1131.79 which is elevated, but consistent with patient's baseline from previous lab work. D-Dimer 1187 which is elevated. CTA ordered. Patient reluctant to get CTA because she is worried about the contrast. Explained the benefits and risks. Patient agreed to get CTA. 05/18/18 17:45 CXR portable: "The heart size is enlarged with pulmonary vascular congestion and bilateral pleural effusions. IMPRESSION: CHF" 05/18/18 18:25 Lasiks 20 ordered. CTA negative for PE: "No evidence of pulmonary embolism. CHF with bilateral pleural effusions and lower lobe atelectasis." Dr. Nagy spoke with inpatient team who will accept patient for admission. 05/18/18 18:51 Updated the patient's daughter, Nathaly, regarding the patient's admission. 05/18/18 19:51 *DC/Admit/Observation/Transfer Diagnosis at time of Disposition: CHF (congestive heart failure), CHF exacerbation - Discharge Dispostion Condition at time of disposition: Stable - Referrals - Patient Instructions - Post Discharge Activity
[2018-05-18 14:28] LABS: BASO % 0.9 % (0-2.0); EOS % 0.7 % (0-4.5); HEMATOCRIT 30.5 % (32.4-45.2); LYMPH % 10.2 % (8-40); MCH 29.3 pg (25.7-33.7); MCHC 32.9 g/dl (32.0-36.0); MEAN CELL VOLUME 89.1 fl (80-96); MEAN PLT VOLUME 8.6 fl (7.5-11.1); MONO % 6.6 % (3.8-10.2); NEUT % 81.6 % (42.8-82.8); PLATELET COUNT 254 K/MM3 (134-434); RBC 3.42 M/mm3 (3.60-5.2); RDW 16.6 % (11.6-15.6); WHITE BLOOD COUNT 6.5 K/mm3 (4.0-10.0)
--- NOTE | 2018-05-18 14:39 | PDOC ---
Attending Attestation - Resident Resident Name: Yelena Hernandez - ED Attending Attestation I have performed the following: I have examined & evaluated the patient, The case was reviewed & discussed with the resident, I agree w/resident's findings & plan, Exceptions are as noted - HPI HPI: 05/18/18 14:41 82-year-old female with a history of A. fib on amiodarone, hypertension, right foot AVM presents emergency Department with 3 days of progressive shortness of breath and dyspnea on exertion. She reports two-pillow orthopnea and left lower extremity swelling worse on the left. Denies current chest pain. Denies fevers, chills. Denies abd pain, focal weakness/numbness. - Physicial Exam PE: 05/18/18 14:48 GENERAL: Awake, alert, and fully oriented, in no acute distress HEAD: No signs of trauma EYES: PERRLA, EOMI, sclera anicteric, conjunctiva clear ENT: Auricles normal inspection, hearing grossly normal, nares patent, oropharynx clear without exudates. Moist mucosa NECK: Normal ROM, supple, no lymphadenopathy, JVD, or masses LUNGS: Diminished BS at the bases with rales at the L base, no wheezes, and no crackles HEART: Regular rate and rhythm, normal S1 and S2, no murmurs, rubs or gallops ABDOMEN: Soft, nontender, normoactive bowel sounds. No guarding, no rebound. No masses EXTREMITIES: Normal range of motion, no edema. No clubbing or cyanosis. No cords, erythema, or tenderness BACK: no midline cervical, thoracic, lumbar ttp NEUROLOGICAL: Normal speech, cranial nerves intact, 5/5 strength in all 4 extremities, normal sensation to light touch in all 4 extremities, normal cerebellar exam, normal reflexes and tone SKIN: Warm, Dry, normal turgor, no rashes or lesions noted. - Medical Decision Making 05/18/18 14:50 82yo F presents to the ED with SOB, EGAN. Vitals unremarkable. 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 Patient ordered for Lasix 20 mg IV. Case discussed with Dr. Dean, patient accepted for inpatient admission. Case discussed in detail with admitting physician including history, physical exam and ancillary studies. Admitting physician has assumed care for the patient, will follow all pending diagnostics and will complete the evaluation and treatment. Discharge Disposition - Diagnosis CHF (congestive heart failure) - Discharge Dispostion Condition at time of disposition: Stable Last Admission D/C Date: 03/08/18 Decision to Admit order: Yes - Referrals - Patient Instructions - Post Discharge Activity Heart Score/ECG Review - History History: Moderately suspicious - Electrocardiogram EKG: Non specific repolarization disturbance - Age Age: >/= 65 - Risk Factors Based on the list above the patient has:: >/=3 risk factors or Hx atherosclerotic disease - Troponin Troponin: </= normal limit - Score Heart Score - Total: 6 #1 05/18/18 14:50 Twelve-lead EKG was performed and reviewed by me. Normal sinus rhythm, rate 65. Normal axis.+ Right bundle branch block. No ST elevations.
[2018-05-18 14:49] LABS: INR 1.03 (0.83-1.09); PROTHROMBIN TIME (PATIENT) 11.6 SEC (9.7-13.0)
[2018-05-18 14:50] LABS: ALBUMIN 3.7 g/dl (3.4-5.0); ANION GAP 9 (8-16); BILIRUBIN,TOTAL 0.6 mg/dL (0.2-1.0); BLOOD UREA NITROGEN 15 mg/dL (7-18); CALCIUM 8.9 mg/dL (8.5-10.1); CHLORIDE 105 mmol/L (98-107); CO2 28 mmol/L (21-32); CREATININE 1.3 mg/dL (0.55-1.02); GLUCOSE,RANDOM 105 mg/dL (74-106); POTASSIUM 4.2 mmol/L (3.5-5.1); SGOT/AST 12 U/L (15-37); SGPT/ALT 14 U/L (12-78); SODIUM 142 mmol/L (136-145); TOT PROT 7.3 g/dl (6.4-8.2)
[2018-05-18 14:53] LABS: ALK PHOS 108 U/L (45-117); N-TERMINAL BNP 1131.79 pg/ml (5-450)
[2018-05-18 16:54] LABS: URINE APPEARANCE CLEAR; URINE BILIRUBIN NEGATIVE (<2.0 mg/dL); URINE COLOR YELLOW; URINE GLUCOSE (UA) NEGATIVE (NEGATIVE); URINE KETONE NEGATIVE (NEGATIVE); URINE LEUK ESTERASE TRACE (NEGATIVE); URINE NITRITE NEGATIVE (NEGATIVE); URINE UROBILINOGEN NEGATIVE mg/dL (0.2-1.0)
[2018-05-18 17:06] LABS: URINE PROTEIN 2+ (NEGATIVE)
[2018-05-18 17:13] LABS: EPI CELLS RARE /HPF (FEW); URINE HYALINE CAST 13 /lpf; URINE MUCUS RARE
[2018-05-18] MEDS ORDERED: FUROSEMIDE 40 MG/4 ML INJECTABLE VIAL IVPUSH ONE (18:50)
[2018-05-18] MEDS ORDERED: FUROSEMIDE 40 MG/4 ML INJECTABLE VIAL ONE (18:53)
--- NOTE | 2018-05-18 21:20 | HP ---
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 Who presents to the ED with SOB, EGAN and orthopnea x 1day. Patient is Malay speaking, [employer] used #[id number]. Patient also reports having chest tightness which started with the increased SOB. Patient reports running out of her "water pill" 1 day ago. Patient denies fever, chills, dizziness, palpitations, AP, N/V/D, constipation, dysuria. History Source: Patient, Medical Record Limitations to Obtaining History: Language Barrier - Past Medical History Cardiovascular: Yes: AFIB, CAD, HTN, Hyperlipdemia Pulmonary: Yes: Pneumonia - Past Surgical History Past Surgical History: Yes: Tubal Ligation Additional Past Surgical History: R 2nd Toe Amputation R- Foot AV Malformation - Smoking History Smoking history: Never smoked Have you smoked in the past 12 months: No - Alcohol/Substance Use Hx Alcohol Use: No History of Substance Use: reports: None - Social History Usual Living Arrangement: Yes: With Child ADL: Independent History of Recent Travel: No Home Medications - Allergies Allergies/Adverse Reactions: Allergies Allergy/AdvReac Type Severity Reaction Status Date / Time No Known Allergies Allergy Verified 05/18/18 13:02 - Home Medications Home Medications: Ambulatory Orders Acetaminophen [Tylenol .Regular Strength -] 650 mg PO Q6H PRN tablet 03/07/18 Amiodarone HCl [Cordarone -] 200 mg PO DAILY #30 tablet 03/07/18 Escitalopram Oxalate [Lexapro -] 5 mg PO DAILY #30 tablet 03/07/18 Nifedipine ER [Procardia XL -] 60 mg PO DAILY #30 tab.er.24 03/07/18 Family Disease History - Family Disease History Family History: Unable to Obtain Review of Systems - Review of Systems Constitutional: reports: No Symptoms Eyes: reports: No Symptoms HENT: reports: No Symptoms Neck: reports: No Symptoms Cardiovascular: reports: Chest Pain, Shortness of Breath Respiratory: reports: Cough, Orthopnea, SOB, SOB on Exertion Gastrointestinal: reports: No Symptoms Genitourinary: reports: No Symptoms Breasts: reports: No Symptoms Reported Musculoskeletal: reports: No Symptoms Integumentary: reports: No Symptoms Neurological: reports: No Symptoms Endocrine: reports: No Symptoms Hematology/Lymphatic: reports: No Symptoms Psychiatric: reports: No Symptoms Physical Examination Vital Signs: Vital Signs Temperature 97.8 F 05/18/18 19:01 Pulse Rate 63 05/18/18 19:35 Respiratory Rate 18 05/18/18 19:35 Blood Pressure 157/57 05/18/18 19:35 O2 Sat by Pulse Oximetry (%) 95 05/18/18 19:35 Constitutional: Yes: Well Nourished, No Distress, Calm Eyes: Yes: WNL, Conjunctiva Clear, EOM Intact, PERRL HENT: Yes: WNL, Atraumatic, Normocephalic Neck: Yes: WNL, Supple, Trachea Midline Cardiovascular: Yes: Regular Rate and Rhythm, Murmur, S1, S2 Respiratory: Yes: Diminished, On Nasal O2, Rales, Rhonchi, SOB on Exertion Gastrointestinal: Yes: WNL, Normal Bowel Sounds, Soft Renal/: Yes: WNL Breast(s): Yes: WNL Musculoskeletal: Yes: WNL Extremities: Yes: Amputation (R- 2nd toe) Edema: Yes Edema: LLE: 2+, RLE: 2+ Peripheral Pulses WNL: Yes Neurological: Yes: WNL, Alert, Oriented ...Motor Strength: WNL Psychiatric: Yes: WNL, Alert, Oriented Labs: CBC, BMP 05/18/18 14:17 05/18/18 14:07 Laboratory Results - last 24 hr 05/18/18 05/18/18 05/18/18 14:07 14:07 14:07 WBC RBC Hgb Hct MCV MCH MCHC RDW Plt Count MPV Absolute Neuts (auto) Neutrophils % Lymphocytes % Monocytes % Eosinophils % Basophils % Nucleated RBC % PT with INR 11.60 INR 1.03 D-Dimer 1187 H Sodium 142 Potassium 4.2 Chloride 105 Carbon Dioxide 28 Anion Gap 9 BUN 15 Creatinine 1.3 H Creat Clearance w eGFR 39.21 Random Glucose 105 Calcium 8.9 Total Bilirubin 0.6 AST 12 L ALT 14 Alkaline Phosphatase 108 Creatine Kinase Troponin I 0.02 B-Natriuretic Peptide 1131.79 H Total Protein 7.3 Albumin 3.7 Urine Color Urine Appearance Urine pH Ur Specific [place] Urine Protein Urine Glucose (UA) Urine Ketones Urine Blood Urine Nitrite Urine Bilirubin Urine Urobilinogen Ur Leukocyte Esterase Urine WBC (Auto) Urine RBC (Auto) Ur Epithelial Cells Hyaline Casts Urine Mucus 05/18/18 05/18/18 05/18/18 14:17 16:10 21:30 WBC 6.5 RBC 3.42 L Hgb 10.0 L Hct 30.5 L MCV 89.1 MCH 29.3 MCHC 32.9 RDW 16.6 H Plt Count 254 MPV 8.6 Absolute Neuts (auto) 5.3 Neutrophils % 81.6 Lymphocytes % 10.2 D Monocytes % 6.6 Eosinophils % 0.7 Basophils % 0.9 Nucleated RBC % 0 PT with INR INR D-Dimer Sodium Potassium Chloride Carbon Dioxide Anion Gap BUN Creatinine Creat Clearance w eGFR Random Glucose Calcium Total Bilirubin AST ALT Alkaline Phosphatase Creatine Kinase 45 Troponin I 0.02 B-Natriuretic Peptide Total Protein Albumin Urine Color Yellow Urine Appearance Clear Urine pH 5.0 Ur Specific [place] 1.015 Urine Protein 2+ H D Urine Glucose (UA) Negative Urine Ketones Negative Urine Blood Negative Urine Nitrite Negative Urine Bilirubin Negative Urine Urobilinogen Negative Ur Leukocyte Esterase Trace Urine WBC (Auto) 3 Urine RBC (Auto) 2 Ur Epithelial Cells Rare Hyaline Casts 13 Urine Mucus Rare 05/19/18 04:33 WBC 7.1 RBC 3.06 L Hgb 9.2 L Hct 27.3 L MCV 89.1 MCH 30.0 MCHC 33.6 RDW 16.4 H Plt Count 205 MPV 9.1 Absolute Neuts (auto) 5.5 Neutrophils % 77.8 Lymphocytes % 13.5 D Monocytes % 6.9 Eosinophils % 1.0 Basophils % 0.8 Nucleated RBC % 0 PT with INR INR D-Dimer Sodium Potassium Chloride Carbon Dioxide Anion Gap BUN Creatinine Creat Clearance w eGFR Random Glucose Calcium Total Bilirubin AST ALT Alkaline Phosphatase Creatine Kinase Troponin I B-Natriuretic Peptide Total Protein Albumin Urine Color Urine Appearance Urine pH Ur Specific [place] Urine Protein Urine Glucose (UA) Urine Ketones Urine Blood Urine Nitrite Urine Bilirubin Urine Urobilinogen Ur Leukocyte Esterase Urine WBC (Auto) Urine RBC (Auto) Ur Epithelial Cells Hyaline Casts Urine Mucus Intake & Output 05/16/18 05/17/18 05/18/18 05/19/18 23:59 23:59 23:59 23:59 Weight 71.214 kg Current Medications Generic Name Dose Route Start Last Admin Trade Name Freq PRN Reason Stop Dose Admin Amiodarone HCl 200 mg 05/19/18 10:00 Cordarone - PO DAILY NIKUNJ Escitalopram Oxalate 5 mg 05/19/18 10:00 Lexapro - PO DAILY NIKUNJ Nifedipine 60 mg 05/19/18 10:00 Procardia Xl - PO DAILY NIKUNJ Imaging - Results Chest X-ray: Report Reviewed (Cardiomegaly, pulmonary vascular congestion, B/L Pleural Effusion), Image Reviewed Cat Scan: Report Reviewed (neg PE, CHF, B/L Pleural Effusions, LLL atelectasis) , Image Reviewed EKG: Image Reviewed Problem List - Problems (1) CHF exacerbation Assessment/Plan: - Cardiac monitoring - Chest xray- cardiomegaly, pulmonary vascular congestion, B/L pleural effusion - CTA- showed neg PE, CHF, B/L Pleural Effusions, LLL atelectasis - BNP 1137, ?baseline no avail study - Lasix given in ED will continue - Strict INOs - Daily weights - Appreciate Cardiology consult - Last echo 12/2017 showed normal LV function - Monitor CBC, BMP in am - Low Na Diet Code(s): I50.9 - HEART FAILURE, UNSPECIFIED (2) Dyspnea Assessment/Plan: - Likely secondary to Acute HF - BNP 1137 - Cr 1.3 - Will give Lasix judiciously - Appreciate Cardiology consult - O2 - Monitor vitals Code(s): R06.00 - DYSPNEA, UNSPECIFIED (3) Pleural effusion Assessment/Plan: - CTA reviewed - Continue Lasix - Consider IR - Monitor vitals - O2 Code(s): J90 - PLEURAL EFFUSION, NOT ELSEWHERE CLASSIFIED (4) Acute renal failure Assessment/Plan: - Cr 1.3 at baseline - +protein in urine - Consider Nephrology consult if Cr trends upwards - Monitor BMP - Avoid Nephrotoxic agents - Monitor vitals Code(s): N17.9 - ACUTE KIDNEY FAILURE, UNSPECIFIED (5) Afib Assessment/Plan: - rate controlled - [id number] 5 - EKG- NSR, no ST or TWI - Will restart Xarelto Code(s): I48.91 - UNSPECIFIED ATRIAL FIBRILLATION (6) CAD (coronary artery disease) Assessment/Plan: - stable - Serial Enzymes - Continue home meds Code(s): I25.10 - ATHSCL HEART DISEASE OF [place] CORONARY ARTERY W/O ANG PCTRS (7) HLD (hyperlipidemia) Assessment/Plan: - stable - Continue Statin Code(s): E78.5 - HYPERLIPIDEMIA, UNSPECIFIED Qualifiers: (8) HTN (hypertension) Assessment/Plan: - stable - Continue home meds Code(s): I10 - ESSENTIAL (PRIMARY) HYPERTENSION Qualifiers: (9) PVD (peripheral vascular disease) Assessment/Plan: - Chronic - Appreciate Vascular consult - Duplex B/L LE- neg DVT Code(s): I73.9 - PERIPHERAL VASCULAR DISEASE, UNSPECIFIED Assessment/Plan This is a 82 y/o woman admitted to Telemetry for Acute CHF Exacerbation, Chronic Lower Extremity Edema/Pain for further evaluation of their emergent condition. Plan: FEN - Fluid Restriction 1L - Replete lytes prn - Low Na Diet DVT ppx - OOB - SCDs - Continue Xarelto Code Status: Full Code Dispo: Requires Inpatient Care Visit type - Emergency Visit Emergency Visit: Yes ED Registration Date: 05/18/18 Care time: The patient presented to the Emergency Department on the above date and was hospitalized for further evaluation of their emergent condition. - New Patient This patient is new to me today: Yes Date on this admission: 05/18/18 - Critical Care Critical Care patient: No Hospitalist Screening - Colonoscopy Questionnaire Colonoscopy Questionnaire: Colonoscopy Questionnaire - Patient: 50 - 75 years old and never had a screening colonoscopy: Unknown History of colon or rectal polyps, or CA: Unknown History of IBD, Crohn's disease or UC: Unknown History of abdominal radiation therapy as a child: Unknown - Relative: 1 with colon or rectal CA, or polyps at age 60 or younger: Unknown Colon or rectal CA diagnosed at age 45 or younger: Unknown Multiple relatives with colon or rectal CA: Unknown - Outcome: Screening Result: Negative Screen
[2018-05-19 05:00] LABS: BASO % 0.8 % (0-2.0); HEMATOCRIT 27.3 % (32.4-45.2); HEMOGLOBIN 9.2 GM/dL (10.7-15.3); LYMPH % 13.5 % (8-40); MCHC 33.6 g/dl (32.0-36.0); MEAN CELL VOLUME 89.1 fl (80-96); MEAN PLT VOLUME 9.1 fl (7.5-11.1); MONO % 6.9 % (3.8-10.2); NEUT % 77.8 % (42.8-82.8); PLATELET COUNT 205 K/MM3 (134-434); RBC 3.06 M/mm3 (3.60-5.2); RDW 16.4 % (11.6-15.6); WHITE BLOOD COUNT 7.1 K/mm3 (4.0-10.0)
[2018-05-19 05:34] LABS: ANION GAP 10 (8-16); BLOOD UREA NITROGEN 13 mg/dL (7-18); CALCIUM 8.8 mg/dL (8.5-10.1); CHLORIDE 105 mmol/L (98-107); CHOLESTEROL 194 mg/dL (50-200); CO2 28 mmol/L (21-32); GLUCOSE,RANDOM 101 mg/dL (74-106); MAGNESIUM 2.1 mg/dL (1.8-2.4); PHOSPHOROUS 4.4 mg/dL (2.5-4.9); POTASSIUM 4.3 mmol/L (3.5-5.1); SODIUM 143 mmol/L (136-145); TRIGLYCERIDES 84 mg/dL (35-160)
[2018-05-19 05:36] LABS: HDL CHOLESTEROL 48 mg/dL (40-60)
[2018-05-19] MEDS ORDERED: FUROSEMIDE 40 MG/4 ML INJECTABLE VIAL ONE (06:35)
[2018-05-19] MEDS: FUROSEMIDE 40 MG/4 ML INJECTABLE VIAL IVPUSH SCH ×2 (06:39→14:01)
--- NOTE | 2018-05-19 08:34 | EKG ---
Test Reason : Blood Pressure : / mmHG Vent. Rate : 065 BPM Atrial Rate : 065 BPM P-R Int : 162 ms QRS Dur : 148 ms QT Int : 446 ms P-R-T Axes : 074 075 008 degrees QTc Int : 463 ms NORMAL SINUS RHYTHM RIGHT BUNDLE BRANCH BLOCK NONSPECIFIC ST ABNORMALITY Confirmed by NAYELY BENZ MD ([id number]) on 05/19/2018 8:34:20 AM Referred By: Confirmed By:NAYELY BENZ MD
[2018-05-19] MEDS: AMIODARONE HCL 200 MG TABLET (FP) PO SCH (10:34)
[2018-05-19] MEDS: NIFEdipine E.R 60 MG TABLET (UD) PO SCH (10:34)
[2018-05-19] MEDS: ESCITALOPRAM OXALATE 10 MG TABLET (FP) PO SCH (10:34)
--- NOTE | 2018-05-19 11:06 | CON.CARD ---
Consult Consult Specialty:: Cardiology Referred by:: Dr Kemp Reason for Consultation:: sob - History of Present Illness Chief Complaint: sob History of Present Illness: 82 year-old polish speaking female with PMH paroxysmal afib , HTN, RLE AV malformation folllowed by Dr. Wren in [facility] and is post surgical intervention in february 2018 now admitted for dyspnea, edema and orthopnea. She ran out of diuretics at home. No chest pain. No palpitations, dizziness or syncope. Echocardiogram 12/2017 showed normal LV function witohut valvular pathology and elevated LA pressure. - History Source History Provided By: Patient, Medical Record - Past Medical History Cardio/Vascular: Yes: AFIB, CAD, HTN, Hyperlipdemia Pulmonary: Yes: Pneumonia - Past Surgical History Past Surgical History: Yes: Tubal Ligation - Alcohol/Substance Use Hx Alcohol Use: No History of Substance Use: reports: None - Smoking History Smoking history: Never smoked Have you smoked in the past 12 months: No - Social History ADL: Independent History of Recent Travel: No Home Medications - Allergies Allergies/Adverse Reactions: Allergies Allergy/AdvReac Type Severity Reaction Status Date / Time No Known Allergies Allergy Verified 05/18/18 13:02 - Home Medications Home Medications: Ambulatory Orders Acetaminophen [Tylenol .Regular Strength -] 650 mg PO Q6H PRN tablet 03/07/18 Amiodarone HCl [Cordarone -] 200 mg PO DAILY #30 tablet 03/07/18 Escitalopram Oxalate [Lexapro -] 5 mg PO DAILY #30 tablet 03/07/18 Nifedipine ER [Procardia XL -] 60 mg PO DAILY #30 tab.er.24 03/07/18 Vital Signs: Vital Signs Temperature 98.1 F 05/19/18 07:00 Pulse Rate 69 05/19/18 07:00 Respiratory Rate 20 05/19/18 07:00 Blood Pressure 154/69 05/19/18 07:00 O2 Sat by Pulse Oximetry (%) 98 05/19/18 07:00 Constitutional: Yes: No Distress, Calm Eyes: Yes: Conjunctiva Clear, EOM Intact HENT: Yes: Atraumatic, Normocephalic Neck: Yes: Trachea Midline Respiratory: Yes: Rales (bilateral bases.) Gastrointestinal: Yes: Normal Bowel Sounds, Soft Renal/: Yes: WNL Cardiovascular: Yes: Regular Rate and Rhythm JVD: Yes Carotid Bruit: No PMI: Non-Displaced Heart Sounds: Yes: S1, S2 Musculoskeletal: Yes: WNL Edema: Yes Edema: RLE: 2+ - Other Data Labs, Other Data: CBC, BMP 05/19/18 04:33 05/19/18 04:33 INR, PTT INR 1.03 (0.83-1.09) 05/18/18 14:07 Troponin, BNP 05/18/18 05/18/18 05/19/18 14:07 21:30 04:33 Troponin I 0.02 0.02 0.02 B-Natriuretic Peptide 1131.79 H Troponin, BNP 05/18/18 05/18/18 05/19/18 14:07 21:30 04:33 Troponin I 0.02 0.02 0.02 B-Natriuretic Peptide 1131.79 H Imaging - Results Chest X-ray: Report Reviewed (chf) Cat Scan: Report Reviewed (no pe. +CHF) EKG: Report Reviewed (nsr rbbb) Other: Report Reviewed (duplex no dvt) Assessment/Plan 1) Hypertension: BP is under control. 2) Afib-stable in nsr. Resume Xarelto if no contraindications. Continue amiodarone. She is in nsr at present. There is no need for telemetry monitoring at present. 3) CHF (congestive heart failure) -Acute on chronic diastolic CHF due to medication and likely dietary indescretion. -restart lasix. daily wts, I/O.
--- NOTE | 2018-05-19 13:10 | PN ---
Progress Note, Physician Chief Complaint: EVENTS AND NOTES REVIEWED AWAKE ALERT PROGRESSIVE CHEST PAIN/SOB - Current Medication List Current Medications: Active Medications Amiodarone HCl (Cordarone -) 200 mg PO DAILY [facility] Last Admin: 05/19/18 10:34 Dose: 200 mg Escitalopram Oxalate (Lexapro -) 5 mg PO DAILY [facility] Last Admin: 05/19/18 10:34 Dose: 5 mg Furosemide (Lasix Injection -) 20 mg IVPUSH BID@0600,1400 [facility] Last Admin: 05/19/18 06:39 Dose: 20 mg Nifedipine (Procardia Xl -) 60 mg PO DAILY [facility] Last Admin: 05/19/18 10:34 Dose: 60 mg Rivaroxaban (Xarelto -) 20 mg PO DAILY@1800 [facility] - Objective Vital Signs: Vital Signs Temperature 97.8 F 05/19/18 10:34 Pulse Rate 74 05/19/18 10:34 Respiratory Rate 20 05/19/18 07:00 Blood Pressure 134/50 05/19/18 10:34 O2 Sat by Pulse Oximetry (%) 98 05/19/18 10:34 Constitutional: Yes: Mild Distress Eyes: Yes: WNL HENT: Yes: WNL Neck: Yes: WNL Cardiovascular: Yes: Pulse Irregular Respiratory: Yes: On Nasal O2, SOB Gastrointestinal: Yes: WNL Genitourinary: Yes: WNL Musculoskeletal: Yes: Muscle Weakness Extremities: Yes: WNL Edema: No Peripheral Pulses WNL: Yes Integumentary: Yes: WNL Wound/Incision: Yes: Clean/Dry Neurological: Yes: WNL ...Motor Strength: WNL Psychiatric: Yes: WNL Labs: CBC, BMP 05/19/18 04:33 05/19/18 04:33 INR, PTT INR 1.03 (0.83-1.09) 05/18/18 14:07 Problem List - Problems (1) CHF (congestive heart failure) Code(s): I50.9 - HEART FAILURE, UNSPECIFIED (2) CHF exacerbation Code(s): I50.9 - HEART FAILURE, UNSPECIFIED (3) Acute renal failure Code(s): N17.9 - ACUTE KIDNEY FAILURE, UNSPECIFIED (4) Afib Code(s): I48.91 - UNSPECIFIED ATRIAL FIBRILLATION (5) Anemia Code(s): D64.9 - ANEMIA, UNSPECIFIED Qualifiers: Anemia type: unspecified type Qualified Code(s): D64.9 - Anemia, unspecified (6) CAD (coronary artery disease) Code(s): I25.10 - ATHSCL HEART DISEASE OF [place] CORONARY ARTERY W/O ANG PCTRS Assessment/Plan CARDIAC WORKUP IN PROGRESS MONITOR IN TELE CHECK ENZYMES X 3 MAY NEED STRESS TEST OOB TO CHAIR ON ELIQUIS FOR AFIB CONT CURRENT MEDS
[2018-05-19] MEDS: RIVAROXABAN 20 MG TABLET PO SCH (20:58)
[2018-05-19] MEDS ORDERED: ROSUVASTATIN CA 10 MG TABLET (FP) PO SCH (22:00)
[2018-05-20 00:05] VITALS: BMI 31.1
[2018-05-20] MEDS: FUROSEMIDE 40 MG/4 ML INJECTABLE VIAL IVPUSH SCH ×2 (06:37→14:37)
[2018-05-20] MEDS: AMIODARONE HCL 200 MG TABLET (FP) PO SCH (09:58)
[2018-05-20] MEDS: ESCITALOPRAM OXALATE 10 MG TABLET (FP) PO SCH (09:58)
[2018-05-20] MEDS: NIFEdipine E.R 60 MG TABLET (UD) PO SCH (09:59)
--- NOTE | 2018-05-20 12:35 | PN ---
Progress Note, Physician Chief Complaint: Shortness of breath History of Present Illness: Elderly female with multiple medical problems, now admitted with shortness of breath and pulmonary congestion. - Current Medication List Current Medications: Active Medications Amiodarone HCl (Cordarone -) 200 mg PO DAILY [facility] Last Admin: 05/20/18 09:58 Dose: 200 mg Escitalopram Oxalate (Lexapro -) 5 mg PO DAILY [facility] Last Admin: 05/20/18 09:58 Dose: 5 mg Furosemide (Lasix Injection -) 20 mg IVPUSH BID@0600,1400 [facility] Last Admin: 05/20/18 06:37 Dose: 20 mg Nifedipine (Procardia Xl -) 60 mg PO DAILY [facility] Last Admin: 05/20/18 09:59 Dose: 60 mg Rivaroxaban (Xarelto -) 20 mg PO DAILY@1800 [facility] Last Admin: 05/19/18 20:58 Dose: 20 mg Rosuvastatin Calcium (Crestor -) 10 mg PO HS [facility] Last Admin: 05/19/18 21:24 Dose: 10 mg - Objective Vital Signs: Vital Signs Temperature 98 F 05/20/18 10:00 Pulse Rate 78 05/20/18 10:00 Respiratory Rate 18 05/20/18 10:00 Blood Pressure 164/74 05/20/18 10:00 O2 Sat by Pulse Oximetry (%) 94 L 05/19/18 22:00 Constitutional: Yes: Well Nourished, No Distress, Calm Eyes: Yes: WNL, Conjunctiva Clear, EOM Intact HENT: Yes: WNL, Atraumatic, Normocephalic Neck: Yes: WNL, Supple, Trachea Midline Cardiovascular: Yes: WNL, Regular Rate and Rhythm, S1, S2 Respiratory: Yes: Regular, Rales, SOB Gastrointestinal: Yes: WNL, Normal Bowel Sounds, Soft ...Rectal Exam: Yes: Deferred Genitourinary: Yes: WNL Musculoskeletal: Yes: WNL Extremities: Yes: WNL Edema: LLE: Trace, RLE: Trace Peripheral Pulses WNL: Yes Neurological: Yes: WNL, Alert, Oriented ...Motor Strength: WNL Labs: CBC, BMP 05/19/18 04:33 05/19/18 04:33 INR, PTT INR 1.03 (0.83-1.09) 05/18/18 14:07 Assessment/Plan The patient is clinically and symptomatically better. Her breathing is significantly improved. She looks quite comfortable and has no specific complaints. The blood pressure needs better control. May increase nifedipine from 60-90 mg daily. Continue intravenous Lasix for the time being. Consider switching to oral Lasix tomorrow. No need for further cardiac workup at this point. May stop telemetry. Salt and fluid restrictions. The patient is stable. Please do not hesitate to call us PRN
--- NOTE | 2018-05-20 13:03 | PN ---
Progress Note, Physician Chief Complaint: CHF History of Present Illness: NAD family at bedside seen by cardiology IV diuretics - Current Medication List Current Medications: Active Medications Amiodarone HCl (Cordarone -) 200 mg PO DAILY [facility] Last Admin: 05/20/18 09:58 Dose: 200 mg Escitalopram Oxalate (Lexapro -) 5 mg PO DAILY [facility] Last Admin: 05/20/18 09:58 Dose: 5 mg Furosemide (Lasix Injection -) 20 mg IVPUSH BID@0600,1400 [facility] Last Admin: 05/20/18 06:37 Dose: 20 mg Nifedipine (Procardia Xl -) 60 mg PO DAILY [facility] Last Admin: 05/20/18 09:59 Dose: 60 mg Rivaroxaban (Xarelto -) 20 mg PO DAILY@1800 [facility] Last Admin: 05/19/18 20:58 Dose: 20 mg Rosuvastatin Calcium (Crestor -) 10 mg PO HS [facility] Last Admin: 05/19/18 21:24 Dose: 10 mg - Objective Vital Signs: Vital Signs Temperature 98 F 05/20/18 10:00 Pulse Rate 78 05/20/18 10:00 Respiratory Rate 18 05/20/18 10:00 Blood Pressure 164/74 05/20/18 10:00 O2 Sat by Pulse Oximetry (%) 94 L 05/19/18 22:00 Constitutional: Yes: Well Nourished, No Distress, Calm Cardiovascular: Yes: Regular Rate and Rhythm Respiratory: Yes: Regular Gastrointestinal: Yes: Normal Bowel Sounds, Soft Musculoskeletal: Yes: WNL Extremities: Yes: WNL Edema: No Neurological: Yes: Alert Psychiatric: Yes: Alert Labs: CBC, BMP 05/19/18 04:33 05/19/18 04:33 INR, PTT INR 1.03 (0.83-1.09) 05/18/18 14:07 Problem List - Problems (1) CHF exacerbation Assessment/Plan: -Seen by Cardiology -IV Furosemide 40 mg daily, change to PO in AM -Monitor I&O -daily weight -low sodium diet -D/C tele Code(s): I50.9 - HEART FAILURE, UNSPECIFIED (2) Afib Assessment/Plan: -Chronic -On Xarelto Code(s): I48.91 - UNSPECIFIED ATRIAL FIBRILLATION Qualifiers: Atrial fibrillation type: paroxysmal Qualified Code(s): I48.0 - Paroxysmal atrial fibrillation (3) Anemia Assessment/Plan: -Check Iron, thyroid profile, B12, stool OB -monitor trend Code(s): D64.9 - ANEMIA, UNSPECIFIED Qualifiers: Anemia type: unspecified type Qualified Code(s): D64.9 - Anemia, unspecified Assessment/Plan see problem list Physical therapy Dispo: d/c home in AM if stable
[2018-05-20] MEDS: RIVAROXABAN 20 MG TABLET PO SCH (17:27)
[2018-05-20] MEDS: ROSUVASTATIN CA 10 MG TABLET (FP) PO SCH (21:38)
[2018-05-21] MEDS ORDERED: PT OWN MED DRAWER 7, Y5N ONE ×2 (05:30→09:57)
[2018-05-21] MEDS ORDERED: FUROSEMIDE 40 MG/4 ML INJECTABLE VIAL IVPUSH SCH (06:00)
[2018-05-21 06:51] LABS: BASO % 0.7 % (0-2.0); EOS % 2.3 % (0-4.5); HEMATOCRIT 26.8 % (32.4-45.2); LYMPH % 14.4 % (8-40); MCHC 33.4 g/dl (32.0-36.0); MEAN CELL VOLUME 89.6 fl (80-96); MEAN PLT VOLUME 8.6 fl (7.5-11.1); MONO % 8.5 % (3.8-10.2); NEUT % 74.1 % (42.8-82.8); PLATELET COUNT 215 K/MM3 (134-434); RBC 2.99 M/mm3 (3.60-5.2); RDW 16.4 % (11.6-15.6); WHITE BLOOD COUNT 4.5 K/mm3 (4.0-10.0)
[2018-05-21 07:17] LABS: ALBUMIN 3.2 g/dl (3.4-5.0); ANION GAP 8 (8-16); BLOOD UREA NITROGEN 7 mg/dL (7-18); CALCIUM 8.9 mg/dL (8.5-10.1); CHLORIDE 102 mmol/L (98-107); CO2 33 mmol/L (21-32); GLUCOSE,RANDOM 86 mg/dL (74-106); POTASSIUM 3.7 mmol/L (3.5-5.1); SODIUM 143 mmol/L (136-145)
[2018-05-21 07:29] LABS: ALK PHOS 95 U/L (45-117); BILIRUBIN,TOTAL 0.8 mg/dL (0.2-1.0); CREATININE 0.9 mg/dL (0.55-1.02); SGOT/AST 11 U/L (15-37); SGPT/ALT 11 U/L (12-78); TOT PROT 6.5 g/dl (6.4-8.2)
--- NOTE | 2018-05-21 08:56 | PN ---
Progress Note, Physician Chief Complaint: CHF History of Present Illness: NAD family at bedside seen by cardiology IV diuretics - Current Medication List Current Medications: Active Medications Amiodarone HCl (Cordarone -) 200 mg PO DAILY [facility] Escitalopram Oxalate (Lexapro -) 5 mg PO DAILY [facility] Furosemide (Lasix Injection -) 20 mg IVPUSH BID@0600,1400 [facility] Last Admin: 05/21/18 05:59 Dose: 20 mg Nifedipine (Procardia Xl -) 60 mg PO DAILY [facility] Rivaroxaban (Xarelto -) 20 mg PO DAILY@1800 [facility] Rosuvastatin Calcium (Crestor -) 10 mg PO HS [facility] Last Admin: 05/20/18 21:38 Dose: 10 mg - Objective Vital Signs: Vital Signs Temperature 98.3 F 05/21/18 08:48 Pulse Rate 68 05/21/18 08:48 Respiratory Rate 18 05/21/18 08:48 Blood Pressure 150/66 05/21/18 08:48 O2 Sat by Pulse Oximetry (%) 95 05/20/18 20:41 Constitutional: Yes: Well Nourished, No Distress, Calm Cardiovascular: Yes: Regular Rate and Rhythm Respiratory: Yes: Regular Gastrointestinal: Yes: Normal Bowel Sounds, Soft Musculoskeletal: Yes: WNL Extremities: Yes: WNL Edema: No Neurological: Yes: Alert, Oriented Psychiatric: Yes: Alert, Oriented Labs: CBC, BMP 05/21/18 06:05 05/21/18 06:05 INR, PTT INR 1.03 (0.83-1.09) 05/18/18 14:07 Problem List - Problems (1) CHF exacerbation Assessment/Plan: -Seen by Cardiology -Furosemide 40 mg po bid -Monitor I&O -daily weight -low sodium diet Code(s): I50.9 - HEART FAILURE, UNSPECIFIED (2) Afib Assessment/Plan: -Chronic -On Xarelto Code(s): I48.91 - UNSPECIFIED ATRIAL FIBRILLATION Qualifiers: Atrial fibrillation type: paroxysmal Qualified Code(s): I48.0 - Paroxysmal atrial fibrillation (3) Anemia Assessment/Plan: -Iron profile pending -thyroid profile unemarkable -B12 extremely low, would replenish -stool OB pending -monitor trend Code(s): D64.9 - ANEMIA, UNSPECIFIED Qualifiers: Anemia type: unspecified type Qualified Code(s): D64.9 - Anemia, unspecified Assessment/Plan see problem list Physical therapy Dispo: d/c home in AM if stable
[2018-05-21] MEDS: NIFEdipine E.R 60 MG TABLET (UD) PO SCH (10:03)
[2018-05-21] MEDS: AMIODARONE HCL 200 MG TABLET (FP) PO SCH (10:03)
[2018-05-21] MEDS: ESCITALOPRAM OXALATE 10 MG TABLET (FP) PO SCH (10:04)
[2018-05-21] MEDS: CYANOCOBALAMIN (VITAMIN B-12) 1000 MCG/1 ML VIAL IM SCH (10:05)
[2018-05-21] MEDS: FUROSEMIDE 40 MG TABLET (FP) PO SCH (13:41)
--- NOTE | 2018-05-21 15:30 | DS ---
Physical Examination Vital Signs: Vital Signs Temperature 98.5 F 05/21/18 14:50 Pulse Rate 56 L 05/21/18 14:50 Respiratory Rate 18 05/21/18 14:50 Blood Pressure 132/51 05/21/18 14:50 O2 Sat by Pulse Oximetry (%) 95 05/20/18 20:41 Findings/Remarks: This is a 82 y/o woman with a PMHx of: Afib (on Xarelto), HLD, HTN, RLE AV malformation (s/p corrective surgical procedure 02/2018 [place]. Who presents to the ED with SOB, EGAN and orthopnea x 1day. Patient is Nigerian speaking, [employer]kerwang line used #[id number]. Patient also reports having chest tightness which started with the increased SOB. Patient reports running out of her "water pill" 1 day ago. Patient denies fever, chills, dizziness, palpitations, AP, N/V/D, constipation, dysuria. Constitutional: Yes: Well Nourished, No Distress, Calm Cardiovascular: Yes: Pulse Irregular Respiratory: Yes: Regular Gastrointestinal: Yes: Normal Bowel Sounds, Soft, Abdomen, Obese Neurological: Yes: Alert, Oriented Psychiatric: Yes: Alert, Oriented Labs: CBC, BMP 05/21/18 06:05 05/21/18 06:05 Discharge Summary Reason For Visit: CONGESTIVE HEART FAILURE Current Active Problems CHF (congestive heart failure) (Acute) CHF exacerbation (Acute) Condition: Stable - Instructions Disposition: VNS/HOME HEALTH CARE - Home Medications Comprehensive Discharge Medication List: Ambulatory Orders Acetaminophen [Tylenol .Regular Strength -] 650 mg PO Q6H PRN tablet 03/07/18 Amiodarone HCl [Cordarone -] 200 mg PO DAILY #30 tablet 03/07/18 Escitalopram Oxalate [Lexapro -] 5 mg PO DAILY #30 tablet 03/07/18 Nifedipine ER [Procardia XL -] 60 mg PO DAILY #30 tab.er.24 03/07/18 Cyanocobalamin (Vitamin B-12) [B-12] 2,500 mcg SL DAILY #30 tab.subl 05/21/18 Furosemide [Lasix -] 40 mg PO BID@0600,1400 #60 tablet 05/21/18 Rivaroxaban [Xarelto -] 20 mg PO DAILY@1800 #30 tablet 05/21/18 Rosuvastatin [Crestor -] 10 mg PO HS #30 tablet 05/21/18
[2018-05-21] MEDS ORDERED: RIVAROXABAN 20 MG TABLET PO SCH (18:00)
[2018-05-21] MEDS: ROSUVASTATIN CA 10 MG TABLET (FP) PO SCH (21:12)
[2018-05-22 06:06] LABS: SERUM IRON SATURATION 11 % (15-55); TOTAL IRON BINDING CAPACITY 311 ug/dL (250-450); UIBC 278 ug/dL (118-369)
[2018-05-22] MEDS: FUROSEMIDE 40 MG TABLET (FP) PO SCH ×2 (06:19→14:51)
[2018-05-22] MEDS ORDERED: PT OWN MED DRAWER 7, Y5N ONE (09:41)
[2018-05-22] MEDS: ESCITALOPRAM OXALATE 10 MG TABLET (FP) PO SCH (09:43)
[2018-05-22] MEDS: NIFEdipine E.R 60 MG TABLET (UD) PO SCH (09:44)
[2018-05-22] MEDS: AMIODARONE HCL 200 MG TABLET (FP) PO SCH (09:44)
[2018-05-22] MEDS: CYANOCOBALAMIN (VITAMIN B-12) 1000 MCG/1 ML VIAL IM SCH (09:45)
[2018-05-22 11:23] VITALS: TEMP 97.7
[2018-05-22 12:11] VITALS: PULSE 65
[2018-05-22 15:27] VITALS: BP 120/7
--- NOTE | 2018-05-22 18:14 | PN ---
Progress Note (short form) - Note Progress Note: PATIENT SEEN AND EXAMINED WILL NEED HOME 02 FOR 02 SAT 86% ON ROOM AIR. PRE AND POST 02 SAT DONE HOME CARE SERVICE WITH PT SEE YOUR PMD IN 1-2 DAYS OUTPATIENT Problem List - Problems (1) CHF (congestive heart failure) Code(s): I50.9 - HEART FAILURE, UNSPECIFIED (2) CHF exacerbation Code(s): I50.9 - HEART FAILURE, UNSPECIFIED (3) Acute renal failure Code(s): N17.9 - ACUTE KIDNEY FAILURE, UNSPECIFIED (4) Afib Code(s): I48.91 - UNSPECIFIED ATRIAL FIBRILLATION Qualifiers: Atrial fibrillation type: paroxysmal Qualified Code(s): I48.0 - Paroxysmal atrial fibrillation (5) Anemia Code(s): D64.9 - ANEMIA, UNSPECIFIED Qualifiers: Anemia type: unspecified type Qualified Code(s): D64.9 - Anemia, unspecified (6) CAD (coronary artery disease) Code(s): I25.10 - ATHSCL HEART DISEASE OF [place] CORONARY ARTERY W/O ANG PCTRS
== END 2018-05-22 18:08 | disposition home health service (06) | DRG 292 ==
LOC: JER 12:42 → JERBED 18:55 → UNDOADMIN 19:52 → J4W 05-19 21:58 → J5S 05-20 21:03
PROVIDERS: ADMIT Internal Medicine; ATTEND Family Medicine
DX: I11.0 Hypertensive heart disease with heart failure (principal); N17.9 Acute kidney failure, unspecified; J98.11 Atelectasis; I50.33 Acute on chronic diastolic (congestive) heart failure; I48.0 Paroxysmal atrial fibrillation; E78.5 Hyperlipidemia, unspecified; I73.9 Peripheral vascular disease, unspecified; I25.10 Atherosclerotic heart disease of native coronary artery without angina pectoris; D64.9 Anemia, unspecified
CPT/HCPCS: 36415; 71045-TC-FY; 71275-TC; 80048; 80053; 80061; 81003; 81015; 82550; 82607; 82728; 83540; 83550; 83721; 83735; 83880; 84100; 84439; 84443; 84484; 85025; 85379; 85610; 86340; 87086; 93005; 93010; 93970-TC; 94761; 97116-GP; 97161-GP; 99285-25

== ENCOUNTER 2018-05-30 11:39 | Inpatient (IN) | payer OTHER ==
--- NOTE | 2018-05-30 12:21 | PDOC ---
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 The patient denies nausea, diaphoresis, fevers, abdominal pain, dysuria, hematuria, diarrhea or constipation. The patient notes that she has had similar episodes of these symptoms and has come to the ED multiple times for this same complaint. She states that her current symptoms are no different than her past episodes both in character and duration. PMHX: as in HPI PSHX: Meds: Allergies: Tob: none Etoh: none Rec drugs: none PCP: Justo Transportation Technician: [id number] Past History - Past Medical History Allergies/Adverse Reactions: Allergies Allergy/AdvReac Type Severity Reaction Status Date / Time No Known Allergies Allergy Verified 05/18/18 13:02 Home Medications: Ambulatory Orders Acetaminophen [Tylenol .Regular Strength -] 650 mg PO Q6H PRN tablet 03/07/18 Amiodarone HCl [Cordarone -] 200 mg PO DAILY #30 tablet 03/07/18 Escitalopram Oxalate [Lexapro -] 5 mg PO DAILY #30 tablet 03/07/18 Nifedipine ER [Procardia XL -] 60 mg PO DAILY #30 tab.er.24 03/07/18 Cyanocobalamin (Vitamin B-12) [B-12] 2,500 mcg SL DAILY #30 tab.subl 05/21/18 Rivaroxaban [Xarelto -] 20 mg PO DAILY@1800 #30 tablet 05/21/18 Rosuvastatin [Crestor -] 10 mg PO HS #30 tablet 05/21/18 Furosemide [Lasix -] 40 mg PO DAILY 05/30/18 Anemia: Yes Cardiac Disorders: Yes COPD: No CHF: Yes Disorders: (Chronic renal insufficiency) HTN: Yes Hypercholesterolemia: Yes - Surgical History Abdominal Surgery: Yes (Tubal ligation) Cholecystectomy: Yes Orthopedic Surgery: (R 2nd toe amputaion, R foot AV malformation corrective Sx) - Immunization History Immunization Up to Date: Yes - Suicide/Smoking/Psychosocial Hx Smoking History: Never smoked Have you smoked in the past 12 months: No Information on smoking cessation initiated: No Hx Alcohol Use: No Drug/Substance Use Hx: No Substance Use Type: None Review of Systems - Review of Systems Able to Perform ROS?: Yes Is the patient limited Vietnamese proficient: Yes Constitutional: No: Chills, Diaphoresis, Fever Respiratory: Yes: Shortness of Breath. No: Cough, Orthopnea Cardiac (ROS): Yes: Chest Pain. No: Palpitations, Chest Tightness ABD/GI: No: Constipated, Diarrhea, Nausea, Vomiting : No: Burning, Dysuria, Hematuria Musculoskeletal: Yes: Back Pain Neurological: No: Headache, Numbness, Tingling *Physical Exam - Vital Signs Last Vital Signs Temp Pulse Resp BP Pulse Ox 98.2 F 56 L 20 125/60 100 05/30/18 12:02 05/30/18 12:02 05/30/18 12:02 05/30/18 12:02 05/30/18 12:02 - Physical Exam Comments: 05/30/18 12:20 R foot 1-2 amputation L foot ankle fot 2+ pitting edema CTAB LUQ tenderness mildly dry mucos memnrbane palpable pulses bilateral CVA tenderness distant heart sounds excessive brping ED Treatment Course - LABORATORY CBC & Chemistry Diagram: 05/30/18 12:21 05/30/18 12:21 Medical Decision Making - Medical Decision Making 05/30/18 12:22 82 year old with past medical history of Afib (on Xarelto), HLD, HTN, 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 DDX: ACS vs CHF exacerbation vs aortic dissection vs PE W/U: - CXR - cbc, cmp, lipase, bnp - ua. ucx TX: - ED Course: Patient assessed. Stable at bedside, excessive burping. Sat 100% on 3L NC CXR: L pleural effusion BNP: 12 Cr: 1.4 05/30/18 14:05 Dr. Kemp contacted. Will accept. *DC/Admit/Observation/Transfer Diagnosis at time of Disposition: CHF (congestive heart failure) - Discharge Dispostion Condition at time of disposition: Stable Decision to Admit order: Yes - Referrals - Patient Instructions - Post Discharge Activity
--- NOTE | 2018-05-30 12:26 | PDOC ---
Attending Attestation - HPI HPI: 05/30/18 13:59 The patient is a 82 year old female with a significant PMH of hypertension, hypercholesterolemia, afib, ad RLE AV malfunction who presents to the emergency department with chest pain for 2 days. The patient describes her chest pain as pressure-like and, radiates from her back to her chest. She reports some associated shortness of breath and back pain with her chest pain. The patient states that she has experienced similar pain like this in the past with similar symptoms. She denies any other symptoms. She denies any fever, chills, nausea, vomit, diarrhea,constipation, abdominal pain or urinary symptoms. She denies any headache and dizziness. The patient denies any other complaints. PCP: Dr. Kemp Documentation prepared by Geneva Kwon, acting as medical payment poster for Nicole Shen MD. <Geneva Kwon - Last Filed: 05/30/18 13:59> - Resident Resident Name: Alejandra Martines - ED Attending Attestation I have performed the following: I have examined & evaluated the patient, The case was reviewed & discussed with the resident, I agree w/resident's findings & plan, Exceptions are as noted - Physicial Exam PE: 06/02/18 18:26 Constitutional: Yes: No Distress, Calm Cardiovascular: Regular Rate and Rhythm, WAYLON noted, S1/S2 nml Lung: Yes: Dullness (left base) Gastrointestinal: soft, non distended, non tender to palpation Extremities: warm and well perfused, Amputation site clean and dry, healing - Medical Decision Making 05/30/18 13:41 Laboratory Tests 05/21/18 05/21/18 05/30/18 06:05 06:05 12:21 WBC 4.5 6.9 Hgb 9.0 L 10.0 L Hct 26.8 L 30.2 L Plt Count 215 280 D Sodium Potassium Chloride Carbon Dioxide Anion Gap BUN 7 Creatinine 0.9 Random Glucose 86 Troponin I B-Natriuretic Peptide 05/30/18 12:21 WBC Hgb Hct Plt Count Sodium 138 Potassium 4.7 Chloride 102 Carbon Dioxide 27 Anion Gap 9 BUN 16 Creatinine 1.4 H Random Glucose 136 H Troponin I 0.03 B-Natriuretic Peptide 1215.45 H 06/02/18 18:25 will admit to tele Pt seen in the ER by Dr Marc Clinical impression: CHF, initial presentation <Nicole Shen - Last Filed: 06/02/18 18:27>
[2018-05-30 13:10] LABS: BASO % 1.5 % (0-2.0); EOS % 0.7 % (0-4.5); HEMATOCRIT 30.2 % (32.4-45.2); LYMPH % 11.8 % (8-40); MCH 29.5 pg (25.7-33.7); MCHC 33.3 g/dl (32.0-36.0); MEAN CELL VOLUME 88.7 fl (80-96); MEAN PLT VOLUME 8.4 fl (7.5-11.1); MONO % 8.9 % (3.8-10.2); NEUT % 77.1 % (42.8-82.8); PLATELET COUNT 280 K/MM3 (134-434); RBC 3.41 M/mm3 (3.60-5.2); RDW 16.5 % (11.6-15.6); WHITE BLOOD COUNT 6.9 K/mm3 (4.0-10.0)
[2018-05-30 13:28] LABS: ALBUMIN 3.6 g/dl (3.4-5.0); ANION GAP 9 (8-16); BILIRUBIN,TOTAL 0.5 mg/dL (0.2-1.0); BLOOD UREA NITROGEN 16 mg/dL (7-18); CALCIUM 8.6 mg/dL (8.5-10.1); CHLORIDE 102 mmol/L (98-107); CO2 27 mmol/L (21-32); CREATININE 1.4 mg/dL (0.55-1.02); GLUCOSE,RANDOM 136 mg/dL (74-106); LIPASE 99 U/L (73-393); SGPT/ALT 23 U/L (12-78); SODIUM 138 mmol/L (136-145); TOT PROT 7.8 g/dl (6.4-8.2)
[2018-05-30 13:31] LABS: ALK PHOS 104 U/L (45-117); N-TERMINAL BNP 1215.45 pg/ml (5-450)
[2018-05-30 13:36] LABS: POTASSIUM 4.7 mmol/L (3.5-5.1); SGOT/AST 53 U/L (15-37)
--- NOTE | 2018-05-30 14:20 | CON.CARD ---
Consult Consult Specialty:: Cardiology Referred by:: Dr Kemp Reason for Consultation:: CHF - History of Present Illness Chief Complaint: sob History of Present Illness: 82 year-old ivorian speaking female with PMH paroxysmal afib , HTN, RLE AV malformation followed by Dr. Wren in [facility] and is post surgical intervention in february 2018 now admitted for dyspnea, edema and orthopnea x 2-3 days, back pain and belching with tightness in the epigastric area. Stress test 2017 was essentially normal. CXR showed large left pleural effusion. BNP elevated. Echocardiogram 12/2017 showed normal LV function witohut valvular pathology and elevated LA pressure. - History Source History Provided By: Patient, Medical Record - Past Medical History Cardio/Vascular: Yes: AFIB, CAD, HTN, Hyperlipdemia Pulmonary: Yes: Pneumonia - Past Surgical History Past Surgical History: Yes: Tubal Ligation - Alcohol/Substance Use Hx Alcohol Use: No History of Substance Use: reports: None - Smoking History Smoking history: Never smoked Have you smoked in the past 12 months: No - Social History ADL: Independent History of Recent Travel: No Home Medications - Allergies Allergies/Adverse Reactions: Allergies Allergy/AdvReac Type Severity Reaction Status Date / Time No Known Allergies Allergy Verified 05/18/18 13:02 - Home Medications Home Medications: Ambulatory Orders Acetaminophen [Tylenol .Regular Strength -] 650 mg PO Q6H PRN tablet 03/07/18 Amiodarone HCl [Cordarone -] 200 mg PO DAILY #30 tablet 03/07/18 Escitalopram Oxalate [Lexapro -] 5 mg PO DAILY #30 tablet 03/07/18 Nifedipine ER [Procardia XL -] 60 mg PO DAILY #30 tab.er.24 03/07/18 Cyanocobalamin (Vitamin B-12) [B-12] 2,500 mcg SL DAILY #30 tab.subl 05/21/18 Rivaroxaban [Xarelto -] 20 mg PO DAILY@1800 #30 tablet 05/21/18 Rosuvastatin [Crestor -] 10 mg PO HS #30 tablet 05/21/18 Furosemide [Lasix -] 40 mg PO DAILY 05/30/18 Vital Signs: Vital Signs Temperature 98.2 F 05/30/18 12:02 Pulse Rate 56 L 05/30/18 12:02 Respiratory Rate 20 05/30/18 12:02 Blood Pressure 125/60 05/30/18 12:02 O2 Sat by Pulse Oximetry (%) 100 05/30/18 12:02 Constitutional: Yes: No Distress, Calm Eyes: Yes: Conjunctiva Clear, EOM Intact HENT: Yes: Atraumatic, Normocephalic Neck: Yes: Supple, Trachea Midline Respiratory: Yes: Dullness (left base) Gastrointestinal: Yes: Normal Bowel Sounds, Soft Cardiovascular: Yes: Regular Rate and Rhythm JVD: Yes Carotid Bruit: No PMI: Non-Displaced Heart Sounds: Yes: S1, S2 Murmur: Yes: Systolic Murmur Extremities: Yes: Amputation Peripheral Pulses WNL: Yes - Other Data Labs, Other Data: CBC, BMP 05/30/18 12:21 05/30/18 12:21 Troponin, BNP 05/30/18 12:21 Troponin I 0.03 B-Natriuretic Peptide 1215.45 H Troponin, BNP 05/30/18 12:21 Troponin I 0.03 B-Natriuretic Peptide 1215.45 H Imaging - Results Chest X-ray: Report Reviewed (left effusion) EKG: Report Reviewed (nsr irbbb) Problem List - Problems (1) CHF exacerbation Assessment/Plan: Acute on chronic diastolic CHF due to dietary indescretion. Needs 2 gm salt and 2 liter fluid restriction. Furosemide 40 mg IV bid. continue other outpatient medications. Code(s): I50.9 - HEART FAILURE, UNSPECIFIED Qualifiers: Heart failure type: diastolic Qualified Code(s): I50.33 - Acute on chronic diastolic (congestive) heart failure (2) Afib Assessment/Plan: Continue Xarelto. She has tachy monalisa syndrome. Continue current regimen. Code(s): I48.91 - UNSPECIFIED ATRIAL FIBRILLATION Qualifiers: Atrial fibrillation type: paroxysmal Qualified Code(s): I48.0 - Paroxysmal atrial fibrillation
[2018-05-30 16:55] VITALS: BMI 30.8
[2018-05-30] MEDS: ROSUVASTATIN CA 10 MG TABLET (FP) PO SCH (21:13)
[2018-05-30 23:53] LABS: URINE APPEARANCE CLEAR; URINE BILIRUBIN NEGATIVE (<2.0 mg/dL); URINE COLOR YELLOW; URINE GLUCOSE (UA) NEGATIVE (NEGATIVE); URINE KETONE NEGATIVE (NEGATIVE); URINE LEUK ESTERASE NEGATIVE (NEGATIVE); URINE NITRITE NEGATIVE (NEGATIVE); URINE UROBILINOGEN NEGATIVE mg/dL (0.2-1.0)
[2018-05-30 23:57] LABS: URINE PROTEIN 1+ (NEGATIVE)
[2018-05-31 00:54] LABS: EPI CELLS RARE /HPF (FEW); URINE HYALINE CAST 1 /lpf
[2018-05-31 06:29] LABS: BASO % 0.9 % (0-2.0); EOS % 0.7 % (0-4.5); HEMATOCRIT 26.5 % (32.4-45.2); HEMOGLOBIN 8.6 GM/dL (10.7-15.3); LYMPH % 14.5 % (8-40); MCH 28.7 pg (25.7-33.7); MCHC 32.5 g/dl (32.0-36.0); MEAN CELL VOLUME 88.4 fl (80-96); MEAN PLT VOLUME 8.4 fl (7.5-11.1); MONO % 8.2 % (3.8-10.2); NEUT % 75.7 % (42.8-82.8); PLATELET COUNT 221 K/MM3 (134-434); RDW 16.6 % (11.6-15.6); WHITE BLOOD COUNT 6.4 K/mm3 (4.0-10.0)
[2018-05-31 07:07] LABS: CHLORIDE 102 mmol/L (98-107); POTASSIUM 3.8 mmol/L (3.5-5.1); SODIUM 141 mmol/L (136-145)
[2018-05-31 07:26] LABS: SGPT/ALT 17 U/L (12-78)
[2018-05-31 08:33] LABS: ALBUMIN 3.2 g/dl (3.4-5.0); ALK PHOS 93 U/L (45-117); ANION GAP 10 MMOL/L (8-16); BILIRUBIN,TOTAL 0.6 mg/dL (0.2-1.0); BLOOD UREA NITROGEN 14 mg/dL (7-18); CALCIUM 8.5 mg/dL (8.5-10.1); CO2 29 mmol/L (21-32); GLUCOSE,RANDOM 90 mg/dL (74-106); MAGNESIUM 2.1 mg/dL (1.8-2.4); SGOT/AST 16 U/L (15-37); TOT PROT 6.4 g/dl (6.4-8.2)
--- NOTE | 2018-05-31 09:01 | HP ---
Admitting History and Physical - Past Medical History Cardiovascular: Yes: AFIB, CAD, HTN, Hyperlipdemia Pulmonary: Yes: Pneumonia ...: No - Past Surgical History Past Surgical History: Yes: Tubal Ligation - Smoking History Smoking history: Never smoked Have you smoked in the past 12 months: No - Alcohol/Substance Use Hx Alcohol Use: No History of Substance Use: reports: None - Social History ADL: Independent History of Recent Travel: No Home Medications - Allergies Allergies/Adverse Reactions: Allergies Allergy/AdvReac Type Severity Reaction Status Date / Time No Known Allergies Allergy Verified 05/18/18 13:02 - Home Medications Home Medications: Ambulatory Orders Acetaminophen [Tylenol .Regular Strength -] 650 mg PO Q6H PRN tablet 03/07/18 Amiodarone HCl [Cordarone -] 200 mg PO DAILY #30 tablet 03/07/18 Escitalopram Oxalate [Lexapro -] 5 mg PO DAILY #30 tablet 03/07/18 Nifedipine ER [Procardia XL -] 60 mg PO DAILY #30 tab.er.24 03/07/18 Cyanocobalamin (Vitamin B-12) [B-12] 2,500 mcg SL DAILY #30 tab.subl 05/21/18 Rivaroxaban [Xarelto -] 20 mg PO DAILY@1800 #30 tablet 05/21/18 Rosuvastatin [Crestor -] 10 mg PO HS #30 tablet 05/21/18 Furosemide [Lasix -] 40 mg PO DAILY 05/30/18 Physical Examination Vital Signs: Vital Signs Temperature 98.7 F 05/31/18 05:00 Pulse Rate 65 05/31/18 05:00 Respiratory Rate 18 05/31/18 05:00 Blood Pressure 136/50 05/31/18 05:00 O2 Sat by Pulse Oximetry (%) 99 05/30/18 21:00 Cardiovascular: Yes: S1, S2 Respiratory: Yes: Diminished, On Nasal O2, Rales, SOB, SOB on Exertion Gastrointestinal: Yes: Normal Bowel Sounds, Soft Edema: No Labs: CBC, BMP 05/31/18 05:30 05/31/18 05:30 Problem List - Problems (1) CHF (congestive heart failure) Assessment/Plan: -IV Lasix -follow Labs -Monitor -Cardio ion board -Ct of chest Code(s): I50.9 - HEART FAILURE, UNSPECIFIED (2) Afib Assessment/Plan: -On Xarelto -Monitor on tele Code(s): I48.91 - UNSPECIFIED ATRIAL FIBRILLATION Qualifiers: Atrial fibrillation type: paroxysmal Qualified Code(s): I48.0 - Paroxysmal atrial fibrillation (3) CAD (coronary artery disease) Assessment/Plan: -no cp -CE neg Code(s): I25.10 - ATHSCL HEART DISEASE OF [place] CORONARY ARTERY W/O ANG PCTRS (4) HTN (hypertension) Code(s): I10 - ESSENTIAL (PRIMARY) HYPERTENSION Qualifiers:
[2018-05-31] MEDS: PANTOPRAZOLE 40 MG TABLET (FP) PO SCH ×2 (09:35→21:10)
[2018-05-31] MEDS: AMIODARONE HCL 200 MG TABLET (FP) PO SCH (09:36)
[2018-05-31] MEDS: NIFEdipine E.R 60 MG TABLET (UD) PO SCH (09:36)
[2018-05-31] MEDS: ESCITALOPRAM OXALATE 10 MG TABLET (FP) PO SCH (09:36)
[2018-05-31 09:56] LABS: N-TERMINAL BNP 1540.95 pg/ml (5-450)
[2018-05-31] MEDS ORDERED: FUROSEMIDE 40 MG/4 ML INJECTABLE VIAL IVPUSH ONE ×2 (10:00→16:32)
[2018-05-31] MEDS: ALBUTEROL SO4 2.5/IPRATROPIUM 0.5 INH SOL 3 ML VIAL.NEB. NEB SCH ×3 (11:51→21:38)
--- NOTE | 2018-05-31 12:36 | PN ---
Progress Note (short form) - Note Progress Note: PULMONARY CONSULTATION DICTATED 05/31/18 IMP ACUTE HYPOXEMIC RESPIRATORY FAILURE ACUTE ON CHRONIC CHF AFIB BILATERAL PLEURAL EFFUSIONS PLAN IV LASIX O2 INHALED BRONCHODILATORS PRN DAILY WTS F/U CHEST X-RAYS AC DR BRIGGS Problem List - Problems (1) Acute hypoxemic respiratory failure Code(s): J96.01 - ACUTE RESPIRATORY FAILURE WITH HYPOXIA (2) Acute hypoxemic respiratory failure Code(s): J96.01 - ACUTE RESPIRATORY FAILURE WITH HYPOXIA (3) CHF (congestive heart failure) Code(s): I50.9 - HEART FAILURE, UNSPECIFIED (4) Afib Code(s): I48.91 - UNSPECIFIED ATRIAL FIBRILLATION Qualifiers: Atrial fibrillation type: paroxysmal Qualified Code(s): I48.0 - Paroxysmal atrial fibrillation (5) Arteriovenous malformation Code(s): Q27.30 - ARTERIOVENOUS MALFORMATION, SITE UNSPECIFIED (6) CAD (coronary artery disease) Code(s): I25.10 - ATHSCL HEART DISEASE OF [place] CORONARY ARTERY W/O ANG PCTRS (7) CHF exacerbation Code(s): I50.9 - HEART FAILURE, UNSPECIFIED Qualifiers: Heart failure type: diastolic Qualified Code(s): I50.33 - Acute on chronic diastolic (congestive) heart failure (8) Dyspnea Code(s): R06.00 - DYSPNEA, UNSPECIFIED (9) Pericardial effusion Code(s): I31.3 - PERICARDIAL EFFUSION (NONINFLAMMATORY) (10) Pleural effusion Code(s): J90 - PLEURAL EFFUSION, NOT ELSEWHERE CLASSIFIED (11) HTN (hypertension) Code(s): I10 - ESSENTIAL (PRIMARY) HYPERTENSION Qualifiers:
--- NOTE | 2018-05-31 13:17 | CONS ---
DATE OF CONSULTATION: 05/31/2018 REFERRING PHYSICIAN: Brandi Kemp MD HISTORY: The patient is an 82-year-old female known to me from previous hospitalizations with past medical history of atrial fibrillation maintained on Xarelto, hypertension, hyperlipidemia, right lower extremity AV malformation status post corrective surgical repair March 03, 2018, likely CHF, admitted to [facility] with complaint of 2-day history of pressure-like chest pain and shortness of breath. Patient denied any nausea, vomiting, or diaphoresis. Denied any hemoptysis. Apparently she has had similar episodes in the past and went to the emergency room. Of note, she has been hospitalized in the past for CHF. Patient denied any fevers or chills. She was subsequently admitted for likely CHF. She was started on IV Lasix. She was evaluated by Dr. Marc for cardiology consultation. Of note, she underwent a CT scan of the chest and was noted to have bilateral pulmonary vascular congestion, bilateral pleural effusions increased from previous. Of note, she had an echo performed in December which revealed normal LV function without valvular pathology. PAST MEDICAL HISTORY: Again includes hypertension, right lower extremity AV malformation status post surgery, paroxysmal atrial fibrillation on Xarelto, CHF. REVIEW OF SYSTEMS: Positive orthopnea, positive dyspnea, positive cough, positive chest tightness. No nausea, no vomiting, no diaphoresis, no hemoptysis. Positive lower extremity edema. SOCIAL HISTORY: Born in [place], moved to the [place] greater than 50 years ago. Nonsmoker. No occupational exposures. CURRENT MEDICATIONS: Include DuoNeb, Procardia, Crestor, Lasix, Protonix, Lexapro, Xarelto, Cordarone. PHYSICAL EXAMINATION: General: The patient is an elderly female, well developed, awake, alert, currently in no acute distress. Vital Signs: She is afebrile. Heart rate is 66. Blood pressure is 134/53. Respiratory rate is 20 and O2 saturation is 94% on 2 L. Of note is both patient 's room O2 saturation was 83% on room air. HEENT: Exam is normocephalic, atraumatic. Neck: Supple. Heart: Irregular, S1, S2. Lungs: Bilateral crackles one-third up. Abdomen: Soft. Bowel sounds are positive. Extremities: No cyanosis. Bilateral extremity edema. LABORATORY: WBC is 6.4, hemoglobin 8.6, hematocrit 26.5, with a platelet count of 221,000. BUN is 14. Creatinine is 1.0. BNP is 1540. Chest CT reveals bilateral pulmonary vascular congestion, bilateral pleural effusions. Small pericardial effusion is noted. IMPRESSION: Acute hypoxic respiratory failure secondary to: 1. Acute on chronic congestive heart failure. 2. Atrial fibrillation. 3. Bilateral pleural effusions secondary to congestive heart failure. 4. Hypertension. PLAN: IV Lasix, supplemental O2, daily weights, anticoagulation. Follow up chest x-ray. If pleural effusions persist, would consider diagnostic thoracentesis. Inhaled bronchodilators Jason Archuleta/[id number] MTDD
[2018-05-31] MEDS: FUROSEMIDE 40 MG/4 ML INJECTABLE VIAL IVPUSH SCH (13:39)
--- NOTE | 2018-05-31 13:48 | PN ---
Physical Exam: PROGRESS NOTE FOR CARDIOLOGY SUBJECTIVE: Patient seen and examined by me at bedside. No overnight events. 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 Upon my arrival patient was in NSR. Patient offers no complaints currently. OBJECTIVE: Vital Signs Period Temp Pulse Resp BP Sys/Hu Pulse Ox Last 24 Hr 97.8 F-98.7 F 60-68 18-20 118-157/50-78 83-100 GENERAL: The patient is awake, alert, and fully oriented, in no acute distress.. NECK: No JVD LUNGS: Bibasilar crackles HEART: Regular rate and rhythm, 2/6 systolic murmur in RUSB ABDOMEN: Soft, nontender, nondistended, normoactive bowel sounds EXTREMITIES: Chronic lymphedema. Amputation of left first and second toe NEUROLOGICAL: Normal Speech, no focal deficit Laboratory Results - last 24 hr CBC, BMP 05/31/18 05:30 05/31/18 05:30 Active Medications Generic Name Dose Route Start Last Admin Trade Name Freq PRN Reason Stop Dose Admin Albuterol/Ipratropium 1 amp 05/31/18 12:00 05/31/18 11:51 Duoneb - NEB 1 amp RQID NIKUNJ Administration Amiodarone HCl 200 mg 05/31/18 10:00 05/31/18 09:36 Cordarone - PO 200 mg DAILY NIKUNJ Administration Escitalopram Oxalate 5 mg 05/31/18 10:00 05/31/18 09:36 Lexapro - PO 5 mg DAILY NIKUNJ Administration Furosemide 40 mg 05/31/18 14:00 05/31/18 13:39 Lasix Injection - IVPUSH 40 mg BID@0600,1400 NIKUNJ Administration Nifedipine 60 mg 05/31/18 10:00 05/31/18 09:36 Procardia Xl - PO 60 mg DAILY NIKUNJ Administration Pantoprazole Sodium 40 mg 05/31/18 10:00 05/31/18 09:35 Protonix - PO 40 mg BID NIKUNJ Administration Rivaroxaban 20 mg 05/31/18 18:00 Xarelto - PO DAILY@1800 NIKUNJ Rosuvastatin Calcium 10 mg 05/30/18 22:00 05/30/18 21:13 Crestor - PO 10 mg HS NIKUNJ Administration IMAGES: Echocardiogram 12/2017: Normal LV function witohut valvular pathology and elevated LA pressure. Stress test [address] (05/31/18): Moderate Bilateral pleural effusions. Small pericardial effusion. Cardiomegaly with pulmonary venous congestion Chest X-Ray (05/30/18): Left pleural effusion ASSESSMENT/PLAN: Patient is an 82 year old female with a PMHx of Diastolic CHF, HLD, paroxysmal afib , HTN who presented for increasing dyspnea, orthopnea and edema. Patient was found to have Acute CHF exacerbation and Chest CT revealed moderate B/L pleural effusions Acute on Chronic Diastolic Heart Failure -Patient's weight continues to increase and there has been no record of output -Currently on 40MG IV Lasix but will likely need to increase dose as patient is having bibasilar crackles. -Continue Nifedipine 40mg -Daily weights and I&O's -Salt and fluid restrictions Paroxysmal Atrial Fibrillation -Continue Xarelto 20mg daily -Continue Amiodarone 200mg daily HTN -Continue Nifedipine 60mg daily HLD -Continue Crestor 10mg HS Visit type - Emergency Visit Emergency Visit: Yes ED Registration Date: 05/30/18 Care time: The patient presented to the Emergency Department on the above date and was hospitalized for further evaluation of their emergent condition. - New Patient This patient is new to me today: Yes Date on this admission: 05/31/18 - Critical Care Critical Care patient: No
[2018-05-31 14:29] LABS: HEMATOCRIT 27.7 % (32.4-45.2); HEMOGLOBIN 9.2 GM/dL (10.7-15.3); MCH 29.5 pg (25.7-33.7); MCHC 33.3 g/dl (32.0-36.0); MEAN CELL VOLUME 88.6 fl (80-96); MEAN PLT VOLUME 8.7 fl (7.5-11.1); PLATELET COUNT 279 K/MM3 (134-434); RBC 3.12 M/mm3 (3.60-5.2); RDW 16.8 % (11.6-15.6); WHITE BLOOD COUNT 8.8 K/mm3 (4.0-10.0)
--- NOTE | 2018-05-31 16:32 | PN ---
Progress Note, Physician History of Present Illness: seen and examined today. appears more sob. - Current Medication List Current Medications: Active Medications Albuterol/Ipratropium (Duoneb -) 1 amp NEB RQID [facility] Last Admin: 05/31/18 11:51 Dose: 1 amp Amiodarone HCl (Cordarone -) 200 mg PO DAILY [facility] Last Admin: 05/31/18 09:36 Dose: 200 mg Escitalopram Oxalate (Lexapro -) 5 mg PO DAILY [facility] Last Admin: 05/31/18 09:36 Dose: 5 mg Furosemide (Lasix Injection -) 40 mg IVPUSH BID@0600,1400 [facility] Last Admin: 05/31/18 13:39 Dose: 40 mg Nifedipine (Procardia Xl -) 60 mg PO DAILY [facility] Last Admin: 05/31/18 09:36 Dose: 60 mg Pantoprazole Sodium (Protonix -) 40 mg PO BID [facility] Last Admin: 05/31/18 09:35 Dose: 40 mg Rivaroxaban (Xarelto -) 20 mg PO DAILY@1800 [facility] Rosuvastatin Calcium (Crestor -) 10 mg PO HS [facility] Last Admin: 05/30/18 21:13 Dose: 10 mg - Objective Vital Signs: Vital Signs Temperature 97.8 F 05/31/18 14:00 Pulse Rate 63 05/31/18 14:00 Respiratory Rate 20 05/31/18 09:00 Blood Pressure 132/54 05/31/18 14:00 O2 Sat by Pulse Oximetry (%) 94 L 05/31/18 10:00 Constitutional: Yes: Well Nourished, No Distress, Calm Eyes: Yes: Conjunctiva Clear, EOM Intact, PERRL HENT: Yes: Atraumatic, Normocephalic Neck: Yes: Supple, Trachea Midline Cardiovascular: Yes: Pulse Irregular, Murmur, S1, S2. No: Regular Rate and Rhythm, Bradycardia, Tachycardia, Bruit, JVD, Gallop, Rub, S3, S4, Varicosities Respiratory: Yes: Regular, Diminished, On Nasal O2, Rales, SOB. No: Rhonchi, Wheezes Gastrointestinal: Yes: Normal Bowel Sounds, Soft. No: Distention, Tenderness Musculoskeletal: Yes: WNL Extremities: Yes: WNL Edema: Yes Edema: LLE: Trace, RLE: Trace Peripheral Pulses WNL: Yes Peripheral Pulses: Left Doralis Pedis: 2+, Right Dorsalis Pedis: 2+ Neurological: Yes: Alert, Oriented Psychiatric: Yes: Alert, Oriented Labs: CBC, BMP 05/31/18 13:30 05/31/18 05:30 - ....Imaging Chest X-ray: Report Reviewed, Image Reviewed EKG: Report Reviewed, Image Reviewed Other: Report Reviewed, Image Reviewed (tele-nsr, sb, pvcs) Assessment/Plan 82 year-old danish speaking female with PMH paroxysmal afib , HTN, RLE AV malformation followed by Dr. Wren in [facility] and is post surgical intervention in february 2018 now admitted for dyspnea, edema and orthopnea x 2-3 days, back pain and belching with tightness in the epigastric area. Stress test 2016 was essentially normal. CXR showed large left pleural effusion. BNP elevated. Echocardiogram 12/2017 showed normal LV function witohut valvular pathology and elevated LA pressure. CHF exacerbation Acute on chronic diastolic CHF due to dietary indescretion. Needs 2 gm salt and 2 liter fluid restriction. Cont IV lasix, may need to increase dose to achieve adequate urine output, currently on 40mg IV BID -will order extra dose now -monitor strict I/Os and daily weights -monitor bun/creat electrolytes and replete as needed PAfib-currently sinus rhythm, sinus monalisa Continue Xarelto. Cont amiodarone Hold other AV ly blockers
[2018-05-31] MEDS: RIVAROXABAN 20 MG TABLET PO SCH (17:19)
--- NOTE | 2018-05-31 20:12 | EKG ---
Test Reason : Blood Pressure : / mmHG Vent. Rate : 063 BPM Atrial Rate : 063 BPM P-R Int : 166 ms QRS Dur : 152 ms QT Int : 488 ms P-R-T Axes : 062 068 002 degrees QTc Int : 499 ms NORMAL SINUS RHYTHM RIGHT BUNDLE BRANCH BLOCK ABNORMAL ECG WHEN COMPARED WITH ECG OF 30-MAY-2018 13:52, RIGHT BUNDLE BRANCH BLOCK HAS REPLACED NON-SPECIFIC INTRA-VENTRICULAR CONDUCTION BLOCK Confirmed by BLAKE ROSADO, CLAUDETTE ([id number]) on 05/31/2018 8:12:04 PM Referred By: Melania LEE Confirmed By:CLAUDETTE LOZANO MD
[2018-05-31] MEDS: ROSUVASTATIN CA 10 MG TABLET (FP) PO SCH (21:10)
--- NOTE | 2018-05-31 22:10 | EKG ---
Test Reason : Blood Pressure : / mmHG Vent. Rate : 050 BPM Atrial Rate : 050 BPM P-R Int : 162 ms QRS Dur : 132 ms QT Int : 486 ms P-R-T Axes : 039 062 012 degrees QTc Int : 443 ms SINUS BRADYCARDIA NON-SPECIFIC INTRA-VENTRICULAR CONDUCTION BLOCK T WAVE ABNORMALITY, CONSIDER ANTERIOR ISCHEMIA ABNORMAL ECG WHEN COMPARED WITH ECG OF 18-MAY-2018 13:09, NON-SPECIFIC INTRA-VENTRICULAR CONDUCTION BLOCK HAS REPLACED RIGHT BUNDLE BRANCH BLOCK Confirmed by CLAUDETTE LOZANO MD ([id number]) on 05/31/2018 10:10:26 PM Referred By: Confirmed By:CLAUDETTE LOZANO MD
[2018-06-01] MEDS: FUROSEMIDE 40 MG/4 ML INJECTABLE VIAL IVPUSH SCH ×2 (06:54→14:18)
[2018-06-01 07:18] LABS: BASO % 0.8 % (0-2.0); EOS % 0.7 % (0-4.5); HEMATOCRIT 25.1 % (32.4-45.2); HEMOGLOBIN 8.3 GM/dL (10.7-15.3); LYMPH % 12.6 % (8-40); MCH 29.3 pg (25.7-33.7); MCHC 33.1 g/dl (32.0-36.0); MEAN CELL VOLUME 88.5 fl (80-96); MEAN PLT VOLUME 8.5 fl (7.5-11.1); MONO % 7.5 % (3.8-10.2); NEUT % 78.4 % (42.8-82.8); PLATELET COUNT 201 K/MM3 (134-434); RBC 2.84 M/mm3 (3.60-5.2); RDW 16.6 % (11.6-15.6); WHITE BLOOD COUNT 6.5 K/mm3 (4.0-10.0)
[2018-06-01 07:42] LABS: ALBUMIN 3.1 g/dl (3.4-5.0); ANION GAP 6 MMOL/L (8-16); BLOOD UREA NITROGEN 12 mg/dL (7-18); CALCIUM 8.3 mg/dL (8.5-10.1); CHLORIDE 100 mmol/L (98-107); CO2 33 mmol/L (21-32); GLUCOSE,RANDOM 96 mg/dL (74-106); POTASSIUM 3.9 mmol/L (3.5-5.1); SGOT/AST 13 U/L (15-37); SODIUM 139 mmol/L (136-145)
[2018-06-01 07:45] LABS: ALK PHOS 95 U/L (45-117); BILIRUBIN,TOTAL 0.7 mg/dL (0.2-1.0); CREATININE 1.1 mg/dL (0.55-1.02); SGPT/ALT 14 U/L (12-78); TOT PROT 6.5 g/dl (6.4-8.2)
[2018-06-01] MEDS: PANTOPRAZOLE 40 MG TABLET (FP) PO SCH ×2 (09:00→22:47)
[2018-06-01] MEDS: NIFEdipine E.R 60 MG TABLET (UD) PO SCH (09:00)
[2018-06-01] MEDS: AMIODARONE HCL 200 MG TABLET (FP) PO SCH (09:00)
[2018-06-01] MEDS: ALBUTEROL SO4 2.5/IPRATROPIUM 0.5 INH SOL 3 ML VIAL.NEB. NEB SCH ×3 (09:01→20:29)
[2018-06-01] MEDS: ESCITALOPRAM OXALATE 10 MG TABLET (FP) PO SCH (09:01)
--- NOTE | 2018-06-01 09:23 | PN ---
Progress Note, Physician - Current Medication List Current Medications: Active Medications Albuterol/Ipratropium (Duoneb -) 1 amp NEB RQID [facility] Last Admin: 06/01/18 09:01 Dose: 1 amp Amiodarone HCl (Cordarone -) 200 mg PO DAILY [facility] Last Admin: 06/01/18 09:00 Dose: 200 mg Escitalopram Oxalate (Lexapro -) 5 mg PO DAILY [facility] Last Admin: 06/01/18 09:01 Dose: 5 mg Furosemide (Lasix Injection -) 40 mg IVPUSH BID@0600,1400 [facility] Last Admin: 06/01/18 06:54 Dose: 40 mg Nifedipine (Procardia Xl -) 60 mg PO DAILY [facility] Last Admin: 06/01/18 09:00 Dose: 60 mg Pantoprazole Sodium (Protonix -) 40 mg PO BID [facility] Last Admin: 06/01/18 09:00 Dose: 40 mg Rivaroxaban (Xarelto -) 20 mg PO DAILY@1800 [facility] Last Admin: 05/31/18 17:19 Dose: 20 mg Rosuvastatin Calcium (Crestor -) 10 mg PO HS [facility] Last Admin: 05/31/18 21:10 Dose: 10 mg - Objective Vital Signs: Vital Signs Temperature 98.0 F 06/01/18 06:00 Pulse Rate 74 06/01/18 06:00 Respiratory Rate 20 06/01/18 06:00 Blood Pressure 144/62 06/01/18 06:00 O2 Sat by Pulse Oximetry (%) 98 05/31/18 21:00 Cardiovascular: Yes: S1, S2 Respiratory: Yes: Regular, CTA Bilaterally Labs: CBC, BMP 06/01/18 06:41 06/01/18 06:41 Problem List - Problems (1) CHF (congestive heart failure) Assessment/Plan: -IV Lasix -follow Labs -Monitor -Cardio ion board -Ct of chest Code(s): I50.9 - HEART FAILURE, UNSPECIFIED (2) Afib Assessment/Plan: -On Xarelto -Monitor on tele Code(s): I48.91 - UNSPECIFIED ATRIAL FIBRILLATION Qualifiers: Atrial fibrillation type: paroxysmal Qualified Code(s): I48.0 - Paroxysmal atrial fibrillation (3) CAD (coronary artery disease) Assessment/Plan: -no cp -CE neg Code(s): I25.10 - ATHSCL HEART DISEASE OF [place] CORONARY ARTERY W/O ANG PCTRS (4) HTN (hypertension) Assessment/Plan: -monitor Code(s): I10 - ESSENTIAL (PRIMARY) HYPERTENSION Qualifiers: (5) Pleural effusion Assessment/Plan: -IV lasix -Cardio and pulm follow up Code(s): J90 - PLEURAL EFFUSION, NOT ELSEWHERE CLASSIFIED
--- NOTE | 2018-06-01 10:27 | PN ---
Progress Note, Physician History of Present Illness: PULMONARY ALERT,FEELING BETTER,LESS DYSPNEIC - Current Medication List Current Medications: Active Medications Albuterol/Ipratropium (Duoneb -) 1 amp NEB RQID [facility] Last Admin: 06/01/18 09:01 Dose: 1 amp Amiodarone HCl (Cordarone -) 200 mg PO DAILY [facility] Last Admin: 06/01/18 09:00 Dose: 200 mg Escitalopram Oxalate (Lexapro -) 5 mg PO DAILY [facility] Last Admin: 06/01/18 09:01 Dose: 5 mg Furosemide (Lasix Injection -) 40 mg IVPUSH BID@0600,1400 [facility] Last Admin: 06/01/18 06:54 Dose: 40 mg Nifedipine (Procardia Xl -) 60 mg PO DAILY [facility] Last Admin: 06/01/18 09:00 Dose: 60 mg Pantoprazole Sodium (Protonix -) 40 mg PO BID [facility] Last Admin: 06/01/18 09:00 Dose: 40 mg Rivaroxaban (Xarelto -) 20 mg PO DAILY@1800 [facility] Last Admin: 05/31/18 17:19 Dose: 20 mg Rosuvastatin Calcium (Crestor -) 10 mg PO HS [facility] Last Admin: 05/31/18 21:10 Dose: 10 mg - Objective Vital Signs: Vital Signs Temperature 98.1 F 06/01/18 10:00 Pulse Rate 66 06/01/18 10:00 Respiratory Rate 20 06/01/18 10:00 Blood Pressure 142/60 06/01/18 10:00 O2 Sat by Pulse Oximetry (%) 98 06/01/18 09:00 Constitutional: Yes: Well Nourished, Calm Eyes: Yes: WNL HENT: Yes: WNL Neck: Yes: WNL Cardiovascular: Yes: Pulse Irregular, S1, S2 Respiratory: Yes: Rales (FEW BIBASAILR RALES) Gastrointestinal: Yes: Normal Bowel Sounds, Soft Extremities: Yes: WNL Edema: Yes Labs: CBC, BMP 06/01/18 06:41 06/01/18 06:41 Problem List - Problems (1) Acute hypoxemic respiratory failure Code(s): J96.01 - ACUTE RESPIRATORY FAILURE WITH HYPOXIA (2) Acute hypoxemic respiratory failure Code(s): J96.01 - ACUTE RESPIRATORY FAILURE WITH HYPOXIA (3) CHF (congestive heart failure) Code(s): I50.9 - HEART FAILURE, UNSPECIFIED (4) Afib Code(s): I48.91 - UNSPECIFIED ATRIAL FIBRILLATION Qualifiers: Atrial fibrillation type: paroxysmal Qualified Code(s): I48.0 - Paroxysmal atrial fibrillation (5) Arteriovenous malformation Code(s): Q27.30 - ARTERIOVENOUS MALFORMATION, SITE UNSPECIFIED (6) CAD (coronary artery disease) Code(s): I25.10 - ATHSCL HEART DISEASE OF [place] CORONARY ARTERY W/O ANG PCTRS (7) CHF exacerbation Code(s): I50.9 - HEART FAILURE, UNSPECIFIED Qualifiers: Heart failure type: diastolic Qualified Code(s): I50.33 - Acute on chronic diastolic (congestive) heart failure (8) Dyspnea Code(s): R06.00 - DYSPNEA, UNSPECIFIED (9) Pericardial effusion Code(s): I31.3 - PERICARDIAL EFFUSION (NONINFLAMMATORY) (10) Pleural effusion Code(s): J90 - PLEURAL EFFUSION, NOT ELSEWHERE CLASSIFIED (11) HTN (hypertension) Code(s): I10 - ESSENTIAL (PRIMARY) HYPERTENSION Qualifiers: Assessment/Plan IMP ACUTE HYPOXEMIC RESPIRATORY FAILURE ACUTE ON CHRONIC CHF AFIB BILATERAL PLEURAL EFFUSIONS ANEMIA PLAN CONTINUE IV LASIX O2 INHALED BRONCHODILATORS PRN DAILY WTS F/U CHEST X-RAYS AC DR BRIGGS Problem List - Problems (1) Acute hypoxemic respiratory failure Code(s): J96.01 - ACUTE RESPIRATORY FAILURE WITH HYPOXIA (2) Acute hypoxemic respiratory failure Code(s): J96.01 - ACUTE RESPIRATORY FAILURE WITH HYPOXIA (3) CHF (congestive heart failure) Code(s): I50.9 - HEART FAILURE, UNSPECIFIED (4) Afib Code(s): I48.91 - UNSPECIFIED ATRIAL FIBRILLATION Qualifiers: Atrial fibrillation type: paroxysmal Qualified Code(s): I48.0 - Paroxysmal atrial fibrillation (5) Arteriovenous malformation Code(s): Q27.30 - ARTERIOVENOUS MALFORMATION, SITE UNSPECIFIED (6) CAD (coronary artery disease) Code(s): I25.10 - ATHSCL HEART DISEASE OF [place] CORONARY ARTERY W/O ANG PCTRS (7) CHF exacerbation Code(s): I50.9 - HEART FAILURE, UNSPECIFIED Qualifiers: Heart failure type: diastolic Qualified Code(s): I50.33 - Acute on chronic diastolic (congestive) heart failure (8) Dyspnea Code(s): R06.00 - DYSPNEA, UNSPECIFIED (9) Pericardial effusion Code(s): I31.3 - PERICARDIAL EFFUSION (NONINFLAMMATORY) (10) Pleural effusion Code(s): J90 - PLEURAL EFFUSION, NOT ELSEWHERE CLASSIFIED (11) HTN (hypertension) Code(s): I10 - ESSENTIAL (PRIMARY) HYPERTENSION Qualifiers:
--- NOTE | 2018-06-01 14:52 | PN ---
Progress Note, Physician Chief Complaint: still sob but improving. tele neg History of Present Illness: 82 year-old yoruba speaking female with PMH paroxysmal afib , HTN, RLE AV malformation followed by Dr. Wren in [facility] and is post surgical intervention in february 2018 now admitted for dyspnea, edema and orthopnea x 2-3 days, back pain and belching with tightness in the epigastric area. Stress test 2016 was essentially normal. CXR showed large left pleural effusion. BNP elevated. Echocardiogram 12/2017 showed normal LV function witohut valvular pathology and elevated LA pressure. - Current Medication List Current Medications: Active Medications Albuterol/Ipratropium (Duoneb -) 1 amp NEB RQID [facility] Last Admin: 06/01/18 09:01 Dose: 1 amp Amiodarone HCl (Cordarone -) 200 mg PO DAILY [facility] Last Admin: 06/01/18 09:00 Dose: 200 mg Escitalopram Oxalate (Lexapro -) 5 mg PO DAILY [facility] Last Admin: 06/01/18 09:01 Dose: 5 mg Furosemide (Lasix Injection -) 40 mg IVPUSH BID@0600,1400 [facility] Last Admin: 06/01/18 14:18 Dose: 40 mg Nifedipine (Procardia Xl -) 60 mg PO DAILY [facility] Last Admin: 06/01/18 09:00 Dose: 60 mg Pantoprazole Sodium (Protonix -) 40 mg PO BID [facility] Last Admin: 06/01/18 09:00 Dose: 40 mg Rivaroxaban (Xarelto -) 20 mg PO DAILY@1800 [facility] Last Admin: 05/31/18 17:19 Dose: 20 mg Rosuvastatin Calcium (Crestor -) 10 mg PO HS [facility] Last Admin: 05/31/18 21:10 Dose: 10 mg - Objective Vital Signs: Vital Signs Temperature 98.1 F 06/01/18 10:00 Pulse Rate 66 06/01/18 10:00 Respiratory Rate 20 06/01/18 10:00 Blood Pressure 142/60 06/01/18 10:00 O2 Sat by Pulse Oximetry (%) 98 06/01/18 09:00 Constitutional: Yes: No Distress, Calm Eyes: Yes: EOM Intact HENT: Yes: Normocephalic Neck: Yes: Trachea Midline Cardiovascular: Yes: Regular Rate and Rhythm Respiratory: Yes: Rales (bilat L>R. dull left base.) Extremities: Yes: Amputation Edema: Yes Edema: LLE: 2+, RLE: 2+ Labs: CBC, BMP 06/01/18 06:41 06/01/18 06:41 Problem List - Problems (1) CHF exacerbation Code(s): I50.9 - HEART FAILURE, UNSPECIFIED Qualifiers: Heart failure type: diastolic Qualified Code(s): I50.33 - Acute on chronic diastolic (congestive) heart failure (2) Afib Code(s): I48.91 - UNSPECIFIED ATRIAL FIBRILLATION Qualifiers: Atrial fibrillation type: paroxysmal Qualified Code(s): I48.0 - Paroxysmal atrial fibrillation Assessment/Plan 82 year-old yoruba speaking female with PMH paroxysmal afib , HTN, RLE AV malformation followed by Dr. Wren in [facility] and is post surgical intervention in february 2018 now admitted for dyspnea, edema and orthopnea x 2-3 days, back pain and belching with tightness in the epigastric area. Stress test 2016 was essentially normal. CXR showed large left pleural effusion. BNP elevated. Echocardiogram 12/2017 showed normal LV function witohut valvular pathology and elevated LA pressure. CHF exacerbation Acute on chronic diastolic CHF due to dietary indescretion. Needs 2 gm salt and 2 liter fluid restriction. Cont IV lasix, add spironolactone 25 mg bid. PAfib-currently sinus rhythm, sinus monalisa Continue Xarelto. Cont amiodarone Hold other AV ly blockers
[2018-06-01] MEDS: RIVAROXABAN 20 MG TABLET PO SCH (17:15)
[2018-06-01] MEDS: SPIRONOLACTONE 25 MG TABLET (FP) PO SCH (22:46)
[2018-06-01] MEDS: ROSUVASTATIN CA 10 MG TABLET (FP) PO SCH (22:47)
[2018-06-02] MEDS: FUROSEMIDE 40 MG/4 ML INJECTABLE VIAL IVPUSH SCH ×2 (05:53→14:12)
[2018-06-02] MEDS: ALBUTEROL SO4 2.5/IPRATROPIUM 0.5 INH SOL 3 ML VIAL.NEB. NEB SCH ×4 (07:47→21:00)
[2018-06-02 08:06] LABS: SERUM IRON SATURATION 17 % (15-55); TOTAL IRON BINDING CAPACITY 335 ug/dL (250-450); UIBC 279 ug/dL (118-369)
[2018-06-02] MEDS: ESCITALOPRAM OXALATE 10 MG TABLET (FP) PO SCH (09:19)
[2018-06-02] MEDS: PANTOPRAZOLE 40 MG TABLET (FP) PO SCH ×2 (09:19→21:31)
[2018-06-02] MEDS: AMIODARONE HCL 200 MG TABLET (FP) PO SCH (09:20)
[2018-06-02] MEDS: SPIRONOLACTONE 25 MG TABLET (FP) PO SCH ×2 (09:23→21:31)
[2018-06-02] MEDS: NIFEdipine E.R 60 MG TABLET (UD) PO SCH (09:23)
--- NOTE | 2018-06-02 09:27 | PN ---
Progress Note, Physician - Current Medication List Current Medications: Active Medications Albuterol/Ipratropium (Duoneb -) 1 amp NEB RQID [facility] Last Admin: 06/02/18 07:47 Dose: 1 amp Amiodarone HCl (Cordarone -) 200 mg PO DAILY [facility] Last Admin: 06/02/18 09:20 Dose: 200 mg Escitalopram Oxalate (Lexapro -) 5 mg PO DAILY [facility] Last Admin: 06/02/18 09:19 Dose: 5 mg Furosemide (Lasix Injection -) 40 mg IVPUSH BID@0600,1400 [facility] Last Admin: 06/02/18 05:53 Dose: 40 mg Nifedipine (Procardia Xl -) 60 mg PO DAILY [facility] Last Admin: 06/02/18 09:23 Dose: 60 mg Pantoprazole Sodium (Protonix -) 40 mg PO BID [facility] Last Admin: 06/02/18 09:19 Dose: 40 mg Rivaroxaban (Xarelto -) 20 mg PO DAILY@1800 [facility] Last Admin: 06/01/18 17:15 Dose: 20 mg Rosuvastatin Calcium (Crestor -) 10 mg PO HS [facility] Last Admin: 06/01/18 22:47 Dose: 10 mg Spironolactone (Aldactone -) 25 mg PO BID [facility] Last Admin: 06/02/18 09:23 Dose: 25 mg - Objective Vital Signs: Vital Signs Temperature 98.1 F 06/02/18 08:03 Pulse Rate 63 06/02/18 08:03 Respiratory Rate 16 06/02/18 08:05 Blood Pressure 139/55 06/02/18 08:03 O2 Sat by Pulse Oximetry (%) 98 06/02/18 08:05 Cardiovascular: Yes: S1, S2 Respiratory: Yes: On Nasal O2, Rales Gastrointestinal: Yes: Normal Bowel Sounds, Soft Labs: CBC, BMP 06/01/18 06:41 06/01/18 06:41 Problem List - Problems (1) CHF (congestive heart failure) Assessment/Plan: -IV Lasix -follow Labs -Monitor -Cardio ion board -Ct of chest Code(s): I50.9 - HEART FAILURE, UNSPECIFIED (2) Afib Assessment/Plan: -On Xarelto -Monitor on tele Code(s): I48.91 - UNSPECIFIED ATRIAL FIBRILLATION Qualifiers: Atrial fibrillation type: paroxysmal Qualified Code(s): I48.0 - Paroxysmal atrial fibrillation (3) CAD (coronary artery disease) Assessment/Plan: -no cp -CE neg Code(s): I25.10 - ATHSCL HEART DISEASE OF [place] CORONARY ARTERY W/O ANG PCTRS (4) HTN (hypertension) Assessment/Plan: -monitor Code(s): I10 - ESSENTIAL (PRIMARY) HYPERTENSION Qualifiers: (5) Pleural effusion Assessment/Plan: -IV lasix -Cardio and pulm follow up Code(s): J90 - PLEURAL EFFUSION, NOT ELSEWHERE CLASSIFIED
--- NOTE | 2018-06-02 11:04 | CON.GI ---
Consult Consult Specialty:: GI Reason for Consultation:: Anemia - History of Present Illness History of Present Illness: Chart reviewed. Events noted. Cardiology and pulmonary assessments and recommendations noted. The pt is hospitalized for acute on chronic diastolic CHF exacerbation. Gi called for evaluation of normocytic, normochromic anemia with normal Iron profile. Per initial intake on : 82 year old with past medical history of Afib (on Xarelto), HLD, HTN, RLE AV malformation (s/p corrective surgical procedure 2017) who presents with approx 2 days of gradual pressure-like chest pain, back pain and shortness of breath with associated burping. The patient denies nausea , diaphoresis, fevers, abdominal pain, dysuria, hematuria, diarrhea or constipation. The patient notes that she has had similar episodes of these symptoms and has come to the ED multiple times for this same complaint. She states that her current symptoms are no different than her past episodes both in character and duration. At the time of this exam, the pt appeared minimally dyspneic on NC O2, otherwise comfortable. No dysphagia, dyspepsia, obdynophagia, abdominal pain, melena, hematochezia, or hematemesis reported. - History Source History Provided By: Patient, Medical Record - Past Medical History Cardio/Vascular: Yes: AFIB, CAD, HTN, Hyperlipdemia Pulmonary: Yes: Pneumonia ...: No - Past Surgical History Past Surgical History: Yes: Tubal Ligation - Alcohol/Substance Use Hx Alcohol Use: No History of Substance Use: reports: None - Smoking History Smoking history: Never smoked Have you smoked in the past 12 months: No - Social History ADL: Independent History of Recent Travel: No Home Medications - Allergies Allergies/Adverse Reactions: Allergies Allergy/AdvReac Type Severity Reaction Status Date / Time No Known Allergies Allergy Verified 05/18/18 13:02 - Home Medications Home Medications: Ambulatory Orders Acetaminophen [Tylenol .Regular Strength -] 650 mg PO Q6H PRN tablet 03/07/18 Amiodarone HCl [Cordarone -] 200 mg PO DAILY #30 tablet 03/07/18 Escitalopram Oxalate [Lexapro -] 5 mg PO DAILY #30 tablet 03/07/18 Nifedipine ER [Procardia XL -] 60 mg PO DAILY #30 tab.er.24 03/07/18 Cyanocobalamin (Vitamin B-12) [B-12] 2,500 mcg SL DAILY #30 tab.subl 05/21/18 Rivaroxaban [Xarelto -] 20 mg PO DAILY@1800 #30 tablet 05/21/18 Rosuvastatin [Crestor -] 10 mg PO HS #30 tablet 05/21/18 Furosemide [Lasix -] 40 mg PO DAILY 05/30/18 Family Disease History - Family Disease History Family History: Unremarkable Review of Systems Findings/Remarks: as per HPI, ED, H&P Physical Exam-GI Vital Signs: Vital Signs Temperature 98.1 F 06/02/18 08:03 Pulse Rate 63 06/02/18 08:03 Respiratory Rate 16 06/02/18 08:05 Blood Pressure 139/55 06/02/18 08:03 O2 Sat by Pulse Oximetry (%) 98 06/02/18 08:05 Constitutional: Yes: Well Nourished, No Distress, Calm Eyes: Yes: Conjunctiva Clear HENT: Yes: Atraumatic Neck: Yes: Supple Cardiovascular: No: Bradycardia, Tachycardia Respiratory: Yes: Regular, Other (mild dyspnea with NC O2) Gastrointestinal Inspection: No: Ascites, Distention ...Auscultate: Yes: Normoactive Bowel Sounds ...Palpate: Yes: Soft. No: Firm/Rigid, Guarding, Mass, Tenderness, Tenderness, Epigastium, Tenderness, Rebound Neurological: Yes: Alert, Oriented Labs: CBC, BMP 06/01/18 06:41 06/01/18 06:41 Laboratory Last Values WBC 6.5 K/mm3 (4.0-10.0) 06/01/18 06:41 RBC 2.84 M/mm3 (3.60-5.2) L 06/01/18 06:41 Hgb 8.3 GM/dL (10.7-15.3) L 06/01/18 06:41 Hct 25.1 % (32.4-45.2) L 06/01/18 06:41 MCV 88.5 fl (80-96) 06/01/18 06:41 MCH 29.3 pg (25.7-33.7) 06/01/18 06:41 MCHC 33.1 g/dl (32.0-36.0) 06/01/18 06:41 RDW 16.6 % (11.6-15.6) H 06/01/18 06:41 Plt Count 201 K/MM3 (134-434) D 06/01/18 06:41 MPV 8.5 fl (7.5-11.1) 06/01/18 06:41 Absolute Neuts (auto) 5.1 K/mm3 (1.5-8.0) 06/01/18 06:41 Neutrophils % 78.4 % (42.8-82.8) 06/01/18 06:41 Lymphocytes % 12.6 % (8-40) 06/01/18 06:41 Monocytes % 7.5 % (3.8-10.2) 06/01/18 06:41 Eosinophils % 0.7 % (0-4.5) 06/01/18 06:41 Basophils % 0.8 % (0-2.0) 06/01/18 06:41 Nucleated RBC % 0 % (0-0) 06/01/18 06:41 Sodium 139 mmol/L (136-145) 06/01/18 06:41 Potassium 3.9 mmol/L (3.5-5.1) 06/01/18 06:41 Chloride 100 mmol/L (98-107) 06/01/18 06:41 Carbon Dioxide 33 mmol/L (21-32) H 06/01/18 06:41 Anion Gap 6 MMOL/L (8-16) L 06/01/18 06:41 BUN 12 mg/dL (7-18) 06/01/18 06:41 Creatinine 1.1 mg/dL (0.55-1.02) H 06/01/18 06:41 Creat Clearance w eGFR 47.55 (>60) 06/01/18 06:41 Random Glucose 96 mg/dL (74-106) 06/01/18 06:41 Calcium 8.3 mg/dL (8.5-10.1) L 06/01/18 06:41 Magnesium 2.1 mg/dL (1.8-2.4) 05/31/18 05:30 Iron 56 ug/dL (27-139) 05/31/18 09:00 TIBC 335 ug/dL (250-450) 05/31/18 09:00 Iron Saturation 17 % (15-55) 05/31/18 09:00 Ferritin Cancelled 05/31/18 09:00 Total Bilirubin 0.7 mg/dL (0.2-1.0) 06/01/18 06:41 AST 13 U/L (15-37) L 06/01/18 06:41 ALT 14 U/L (12-78) 06/01/18 06:41 Alkaline Phosphatase 95 U/L (45-117) 06/01/18 06:41 Creatine Kinase Cancelled 05/31/18 09:00 Troponin I 0.03 ng/ml (0.00-0.05) 05/31/18 05:30 B-Natriuretic Peptide 1540.95 pg/ml (5-450) H 05/31/18 05:30 Total Protein 6.5 g/dl (6.4-8.2) 06/01/18 06:41 Albumin 3.1 g/dl (3.4-5.0) L 06/01/18 06:41 Lipase 99 U/L (73-393) 05/30/18 12:21 Urine Color Yellow 05/30/18 12:20 Urine Appearance Clear 05/30/18 12:20 Urine pH 5.0 (5.0-8.0) 05/30/18 12:20 Ur Specific [place] 1.013 (1.001-1.035) 05/30/18 12:20 Urine Protein 1+ (NEGATIVE) H 05/30/18 12:20 Urine Glucose (UA) Negative (NEGATIVE) 05/30/18 12:20 Urine Ketones Negative (NEGATIVE) 05/30/18 12:20 Urine Blood 1+ (NEGATIVE) H 05/30/18 12:20 Urine Nitrite Negative (NEGATIVE) 05/30/18 12:20 Urine Bilirubin Negative (<2.0 mg/dL) 05/30/18 12:20 Urine Urobilinogen Negative mg/dL (0.2-1.0) 05/30/18 12:20 Ur Leukocyte Esterase Negative (NEGATIVE) 05/30/18 12:20 Urine WBC (Auto) 1 /hpf (3-5) 05/30/18 12:20 Urine RBC (Auto) 1 /hpf (0-3) 05/30/18 12:20 Ur Epithelial Cells Rare /HPF (FEW) 05/30/18 12:20 Hyaline Casts 1 /lpf 05/30/18 12:20 Laboratory Last Values WBC 6.5 K/mm3 (4.0-10.0) 06/01/18 06:41 RBC 2.84 M/mm3 (3.60-5.2) L 06/01/18 06:41 Hgb 8.3 GM/dL (10.7-15.3) L 06/01/18 06:41 Hct 25.1 % (32.4-45.2) L 06/01/18 06:41 MCV 88.5 fl (80-96) 06/01/18 06:41 MCH 29.3 pg (25.7-33.7) 06/01/18 06:41 MCHC 33.1 g/dl (32.0-36.0) 06/01/18 06:41 RDW 16.6 % (11.6-15.6) H 06/01/18 06:41 Plt Count 201 K/MM3 (134-434) D 06/01/18 06:41 MPV 8.5 fl (7.5-11.1) 06/01/18 06:41 Absolute Neuts (auto) 5.1 K/mm3 (1.5-8.0) 06/01/18 06:41 Neutrophils % 78.4 % (42.8-82.8) 06/01/18 06:41 Lymphocytes % 12.6 % (8-40) 06/01/18 06:41 Monocytes % 7.5 % (3.8-10.2) 06/01/18 06:41 Eosinophils % 0.7 % (0-4.5) 06/01/18 06:41 Basophils % 0.8 % (0-2.0) 06/01/18 06:41 Nucleated RBC % 0 % (0-0) 06/01/18 06:41 Retic Count 2.41 % (0.5-1.5) H 06/02/18 10:03 Sodium 139 mmol/L (136-145) 06/01/18 06:41 Potassium 3.9 mmol/L (3.5-5.1) 06/01/18 06:41 Chloride 100 mmol/L (98-107) 06/01/18 06:41 Carbon Dioxide 33 mmol/L (21-32) H 06/01/18 06:41 Anion Gap 6 MMOL/L (8-16) L 06/01/18 06:41 BUN 12 mg/dL (7-18) 06/01/18 06:41 Creatinine 1.1 mg/dL (0.55-1.02) H 06/01/18 06:41 Creat Clearance w eGFR 47.55 (>60) 06/01/18 06:41 Random Glucose 96 mg/dL (74-106) 06/01/18 06:41 Calcium 8.3 mg/dL (8.5-10.1) L 06/01/18 06:41 Magnesium 2.1 mg/dL (1.8-2.4) 05/31/18 05:30 Iron 56 ug/dL (27-139) 05/31/18 09:00 TIBC 335 ug/dL (250-450) 05/31/18 09:00 Iron Saturation 17 % (15-55) 05/31/18 09:00 Ferritin Cancelled 05/31/18 09:00 Total Bilirubin 0.7 mg/dL (0.2-1.0) 06/01/18 06:41 AST 13 U/L (15-37) L 06/01/18 06:41 ALT 14 U/L (12-78) 06/01/18 06:41 Alkaline Phosphatase 95 U/L (45-117) 06/01/18 06:41 LD Total 186 U/L (84-246) 06/02/18 10:03 Creatine Kinase Cancelled 05/31/18 09:00 Troponin I 0.03 ng/ml (0.00-0.05) 05/31/18 05:30 B-Natriuretic Peptide 1540.95 pg/ml (5-450) H 05/31/18 05:30 Total Protein 6.5 g/dl (6.4-8.2) 06/01/18 06:41 Albumin 3.1 g/dl (3.4-5.0) L 06/01/18 06:41 Lipase 99 U/L (73-393) 05/30/18 12:21 Vitamin B12 439 pg/ml (180-914) 06/02/18 10:03 Urine Color Yellow 05/30/18 12:20 Urine Appearance Clear 05/30/18 12:20 Urine pH 5.0 (5.0-8.0) 05/30/18 12:20 Ur Specific [place] 1.013 (1.001-1.035) 05/30/18 12:20 Urine Protein 1+ (NEGATIVE) H 05/30/18 12:20 Urine Glucose (UA) Negative (NEGATIVE) 05/30/18 12:20 Urine Ketones Negative (NEGATIVE) 05/30/18 12:20 Urine Blood 1+ (NEGATIVE) H 05/30/18 12:20 Urine Nitrite Negative (NEGATIVE) 05/30/18 12:20 Urine Bilirubin Negative (<2.0 mg/dL) 05/30/18 12:20 Urine Urobilinogen Negative mg/dL (0.2-1.0) 05/30/18 12:20 Ur Leukocyte Esterase Negative (NEGATIVE) 05/30/18 12:20 Urine WBC (Auto) 1 /hpf (3-5) 05/30/18 12:20 Urine RBC (Auto) 1 /hpf (0-3) 05/30/18 12:20 Ur Epithelial Cells Rare /HPF (FEW) 05/30/18 12:20 Hyaline Casts 1 /lpf 05/30/18 12:20 Imaging - Results Chest X-ray: Report Reviewed Cat Scan: Report Reviewed (chest) Problem List - Problems (1) Normocytic normochromic anemia Code(s): D64.9 - ANEMIA, UNSPECIFIED (2) Acute hypoxemic respiratory failure Code(s): J96.01 - ACUTE RESPIRATORY FAILURE WITH HYPOXIA (3) CHF (congestive heart failure) Code(s): I50.9 - HEART FAILURE, UNSPECIFIED Assessment/Plan An 82F with the above acute and chronic medical issues noted to have a normocytic, normochromic anemia with normal iron profile and no stigmata of recent, or ongoing GI bleeding. Continue current cardiac care. Stool heme studies ordered. The pt will need outpatient EGD and colonoscopy when cardiac status improves.
--- NOTE | 2018-06-02 11:05 | PN ---
Progress Note, Physician History of Present Illness: PULMONARY ALERT,FEELING BETTER,LESS DYSPNEIC - Current Medication List Current Medications: Active Medications Albuterol/Ipratropium (Duoneb -) 1 amp NEB RQID [facility] Last Admin: 06/02/18 07:47 Dose: 1 amp Amiodarone HCl (Cordarone -) 200 mg PO DAILY [facility] Last Admin: 06/02/18 09:20 Dose: 200 mg Escitalopram Oxalate (Lexapro -) 5 mg PO DAILY [facility] Last Admin: 06/02/18 09:19 Dose: 5 mg Furosemide (Lasix Injection -) 40 mg IVPUSH BID@0600,1400 [facility] Last Admin: 06/02/18 05:53 Dose: 40 mg Nifedipine (Procardia Xl -) 60 mg PO DAILY [facility] Last Admin: 06/02/18 09:23 Dose: 60 mg Pantoprazole Sodium (Protonix -) 40 mg PO BID [facility] Last Admin: 06/02/18 09:19 Dose: 40 mg Rivaroxaban (Xarelto -) 20 mg PO DAILY@1800 [facility] Last Admin: 06/01/18 17:15 Dose: 20 mg Rosuvastatin Calcium (Crestor -) 10 mg PO [facility] Last Admin: 06/01/18 22:47 Dose: 10 mg Spironolactone (Aldactone -) 25 mg PO BID [facility] Last Admin: 06/02/18 09:23 Dose: 25 mg - Objective Vital Signs: Vital Signs Temperature 98.1 F 06/02/18 08:03 Pulse Rate 63 06/02/18 08:03 Respiratory Rate 16 06/02/18 08:05 Blood Pressure 139/55 06/02/18 08:03 O2 Sat by Pulse Oximetry (%) 98 06/02/18 08:05 Constitutional: Yes: Well Nourished, Calm Eyes: Yes: WNL HENT: Yes: WNL Neck: Yes: WNL Cardiovascular: Yes: Regular Rate and Rhythm, S1, S2 Respiratory: Yes: Rales (BIBASAILR CRACKLES) Gastrointestinal: Yes: Normal Bowel Sounds, Soft Extremities: Yes: WNL Edema: Yes Labs: CBC, BMP Problem List - Problems (1) Acute hypoxemic respiratory failure Code(s): J96.01 - ACUTE RESPIRATORY FAILURE WITH HYPOXIA (2) Acute hypoxemic respiratory failure Code(s): J96.01 - ACUTE RESPIRATORY FAILURE WITH HYPOXIA (3) CHF (congestive heart failure) Code(s): I50.9 - HEART FAILURE, UNSPECIFIED (4) Afib Code(s): I48.91 - UNSPECIFIED ATRIAL FIBRILLATION Qualifiers: Qualified Code(s): I48.0 - Paroxysmal atrial fibrillation (5) Arteriovenous malformation Code(s): Q27.30 - ARTERIOVENOUS MALFORMATION, SITE UNSPECIFIED (6) CAD (coronary artery disease) Code(s): I25.10 - ATHSCL HEART DISEASE OF [place] CORONARY ARTERY W/O ANG PCTRS (7) CHF exacerbation Code(s): I50.9 - HEART FAILURE, UNSPECIFIED Qualifiers: Qualified Code(s): I50.33 - Acute on chronic diastolic (congestive) heart failure (8) Dyspnea Code(s): R06.00 - DYSPNEA, UNSPECIFIED (9) Pericardial effusion Code(s): I31.3 - PERICARDIAL EFFUSION (NONINFLAMMATORY) (10) Pleural effusion Code(s): J90 - PLEURAL EFFUSION, NOT ELSEWHERE CLASSIFIED (11) HTN (hypertension) Code(s): I10 - ESSENTIAL (PRIMARY) HYPERTENSION Qualifiers: Assessment/Plan IMP ACUTE HYPOXEMIC RESPIRATORY FAILURE ACUTE ON CHRONIC CHF AFIB BILATERAL PLEURAL EFFUSIONS ANEMIA PLAN IV LASIX,ALDACTONE O2 INHALED BRONCHODILATORS PRN DAILY WTS F/U CHEST X-RAYS AC DR BRIGGS Problem List - Problems (1) Acute hypoxemic respiratory failure Code(s): J96.01 - ACUTE RESPIRATORY FAILURE WITH HYPOXIA (2) Acute hypoxemic respiratory failure Code(s): J96.01 - ACUTE RESPIRATORY FAILURE WITH HYPOXIA (3) CHF (congestive heart failure) Code(s): I50.9 - HEART FAILURE, UNSPECIFIED (4) Afib Code(s): I48.91 - UNSPECIFIED ATRIAL FIBRILLATION Qualifiers: Atrial fibrillation type: paroxysmal Qualified Code(s): I48.0 - Paroxysmal atrial fibrillation (5) Arteriovenous malformation Code(s): Q27.30 - ARTERIOVENOUS MALFORMATION, SITE UNSPECIFIED (6) CAD (coronary artery disease) Code(s): I25.10 - ATHSCL HEART DISEASE OF [place] CORONARY ARTERY W/O ANG PCTRS (7) CHF exacerbation Code(s): I50.9 - HEART FAILURE, UNSPECIFIED Qualifiers: Heart failure type: diastolic Qualified Code(s): I50.33 - Acute on chronic diastolic (congestive) heart failure (8) Dyspnea Code(s): R06.00 - DYSPNEA, UNSPECIFIED (9) Pericardial effusion Code(s): I31.3 - PERICARDIAL EFFUSION (NONINFLAMMATORY) (10) Pleural effusion Code(s): J90 - PLEURAL EFFUSION, NOT ELSEWHERE CLASSIFIED (11) HTN (hypertension) Code(s): I10 - ESSENTIAL (PRIMARY) HYPERTENSION Qualifiers:
[2018-06-02 12:20] LABS: LDH 186 U/L (84-246)
--- NOTE | 2018-06-02 14:08 | PN ---
Progress Note, Physician Chief Complaint: less sob. tele neg History of Present Illness: 82 year-old kinyarwanda speaking female with PMH paroxysmal afib , HTN, RLE AV malformation followed by Dr. Wren in [facility] and is post surgical intervention in february 2018 now admitted for dyspnea, edema and orthopnea x 2-3 days, back pain and belching with tightness in the epigastric area. Stress test 2017 was essentially normal. CXR showed large left pleural effusion. BNP elevated. Echocardiogram 12/2017 showed normal LV function witohut valvular pathology and elevated LA pressure. - Current Medication List Current Medications: Active Medications Albuterol/Ipratropium (Duoneb -) 1 amp NEB RQID [facility] Last Admin: 06/02/18 11:58 Dose: 1 amp Amiodarone HCl (Cordarone -) 200 mg PO DAILY [facility] Last Admin: 06/02/18 09:20 Dose: 200 mg Escitalopram Oxalate (Lexapro -) 5 mg PO DAILY [facility] Last Admin: 06/02/18 09:19 Dose: 5 mg Furosemide (Lasix Injection -) 40 mg IVPUSH BID@0600,1400 [facility] Last Admin: 06/02/18 05:53 Dose: 40 mg Nifedipine (Procardia Xl -) 60 mg PO DAILY [facility] Last Admin: 06/02/18 09:23 Dose: 60 mg Pantoprazole Sodium (Protonix -) 40 mg PO BID [facility] Last Admin: 06/02/18 09:19 Dose: 40 mg Rivaroxaban (Xarelto -) 20 mg PO DAILY@1800 [facility] Last Admin: 06/01/18 17:15 Dose: 20 mg Rosuvastatin Calcium (Crestor -) 10 mg PO HS [facility] Last Admin: 06/01/18 22:47 Dose: 10 mg Spironolactone (Aldactone -) 25 mg PO BID [facility] Last Admin: 06/02/18 09:23 Dose: 25 mg - Objective Vital Signs: Vital Signs Temperature 98.1 F 06/02/18 08:03 Pulse Rate 63 06/02/18 08:03 Respiratory Rate 16 06/02/18 08:05 Blood Pressure 139/55 06/02/18 08:03 O2 Sat by Pulse Oximetry (%) 98 06/02/18 08:05 Constitutional: Yes: No Distress, Calm Eyes: Yes: Conjunctiva Clear, EOM Intact HENT: Yes: Atraumatic, Normocephalic Neck: Yes: Trachea Midline Cardiovascular: Yes: Regular Rate and Rhythm Respiratory: Yes: Dullness, Rales (bilat bases) Gastrointestinal: Yes: Normal Bowel Sounds, Soft Musculoskeletal: Yes: WNL Extremities: Yes: WNL Edema: Yes Edema: LLE: Trace, RLE: Trace Peripheral Pulses WNL: Yes Labs: CBC, BMP 06/01/18 06:41 06/01/18 06:41 Problem List - Problems (1) CHF exacerbation Code(s): I50.9 - HEART FAILURE, UNSPECIFIED Qualifiers: Qualified Code(s): I50.33 - Acute on chronic diastolic (congestive) heart failure (2) Afib Code(s): I48.91 - UNSPECIFIED ATRIAL FIBRILLATION Qualifiers: Qualified Code(s): I48.0 - Paroxysmal atrial fibrillation Assessment/Plan 82 year-old kinyarwanda speaking female with PMH paroxysmal afib , HTN, RLE AV malformation followed by Dr. Wren in [facility] and is post surgical intervention in february 2018 now admitted for dyspnea, edema and orthopnea x 2-3 days, back pain and belching with tightness in the epigastric area. Stress test 2016 was essentially normal. CXR showed large left pleural effusion. BNP elevated. Echocardiogram 12/2017 showed normal LV function witohut valvular pathology and elevated LA pressure. CHF exacerbation Acute on chronic diastolic CHF due to dietary indescretion. Needs 2 gm salt and 2 liter fluid restriction. Cont IV lasix, spironolactone 25 mg bid. May be able to change to PO lasix 1-2 days. PAfib-currently sinus rhythm, sinus monalisa Continue Xarelto. Cont amiodarone Hold other AV ly blockers
[2018-06-02] MEDS: RIVAROXABAN 20 MG TABLET PO SCH (17:12)
[2018-06-02] MEDS: ROSUVASTATIN CA 10 MG TABLET (FP) PO SCH (21:31)
[2018-06-03] MEDS: FUROSEMIDE 40 MG/4 ML INJECTABLE VIAL IVPUSH SCH ×2 (06:26→13:25)
[2018-06-03 06:54] LABS: BASO % 0.8 % (0-2.0); EOS % 2.8 % (0-4.5); HEMATOCRIT 24.8 % (32.4-45.2); HEMOGLOBIN 8.1 GM/dL (10.7-15.3); LYMPH % 13.2 % (8-40); MCH 29.2 pg (25.7-33.7); MCHC 32.8 g/dl (32.0-36.0); MEAN PLT VOLUME 8.7 fl (7.5-11.1); MONO % 8.8 % (3.8-10.2); NEUT % 74.4 % (42.8-82.8); PLATELET COUNT 194 K/MM3 (134-434); RBC 2.79 M/mm3 (3.60-5.2); RDW 17.1 % (11.6-15.6); WHITE BLOOD COUNT 5.8 K/mm3 (4.0-10.0)
[2018-06-03 07:23] LABS: ANION GAP 7 MMOL/L (8-16); BLOOD UREA NITROGEN 15 mg/dL (7-18); CALCIUM 8.6 mg/dL (8.5-10.1); CHLORIDE 98 mmol/L (98-107); CO2 35 mmol/L (21-32); GLUCOSE,RANDOM 92 mg/dL (74-106); POTASSIUM 3.9 mmol/L (3.5-5.1); SODIUM 140 mmol/L (136-145)
[2018-06-03 07:26] LABS: ALK PHOS 80 U/L (45-117); BILIRUBIN,TOTAL 0.7 mg/dL (0.2-1.0); SGOT/AST 10 U/L (15-37); SGPT/ALT 11 U/L (12-78); TOT PROT 6.3 g/dl (6.4-8.2)
[2018-06-03] MEDS: ALBUTEROL SO4 2.5/IPRATROPIUM 0.5 INH SOL 3 ML VIAL.NEB. NEB SCH ×4 (08:40→19:21)
--- NOTE | 2018-06-03 09:12 | PN ---
Progress Note, Physician History of Present Illness: PULMONARY ALERT,FEELING BETTER,LESS DYSPNEIC. - Current Medication List Current Medications: Active Medications Albuterol/Ipratropium (Duoneb -) 1 amp NEB RQID [facility] Last Admin: 06/03/18 08:40 Dose: 1 amp Amiodarone HCl (Cordarone -) 200 mg PO DAILY [facility] Last Admin: 06/02/18 09:20 Dose: 200 mg Escitalopram Oxalate (Lexapro -) 5 mg PO DAILY [facility] Last Admin: 06/02/18 09:19 Dose: 5 mg Furosemide (Lasix Injection -) 40 mg IVPUSH BID@0600,1400 [facility] Last Admin: 06/03/18 06:26 Dose: 40 mg Nifedipine (Procardia Xl -) 60 mg PO DAILY [facility] Last Admin: 06/02/18 09:23 Dose: 60 mg Pantoprazole Sodium (Protonix -) 40 mg PO BID [facility] Last Admin: 06/02/18 21:31 Dose: 40 mg Rivaroxaban (Xarelto -) 20 mg PO DAILY@1800 [facility] Last Admin: 06/02/18 17:12 Dose: 20 mg Rosuvastatin Calcium (Crestor -) 10 mg PO HS [facility] Last Admin: 06/02/18 21:31 Dose: 10 mg Spironolactone (Aldactone -) 25 mg PO BID [facility] Last Admin: 06/02/18 21:31 Dose: 25 mg - Objective Vital Signs: Vital Signs Temperature 98 F 06/03/18 05:00 Pulse Rate 63 06/03/18 05:00 Respiratory Rate 18 06/03/18 05:00 Blood Pressure 145/60 06/03/18 05:00 O2 Sat by Pulse Oximetry (%) 98 06/02/18 20:50 Constitutional: Yes: Well Nourished, Calm Eyes: Yes: WNL HENT: Yes: WNL Neck: Yes: WNL Cardiovascular: Yes: Pulse Irregular, S1, S2 Respiratory: Yes: Rales (BILATERAL RALES 1/3 UP) Gastrointestinal: Yes: Normal Bowel Sounds, Soft Extremities: Yes: WNL Edema: Yes Labs: CBC, BMP 06/03/18 05:30 06/03/18 05:30 Problem List - Problems (1) Acute hypoxemic respiratory failure Code(s): J96.01 - ACUTE RESPIRATORY FAILURE WITH HYPOXIA (2) Acute hypoxemic respiratory failure Code(s): J96.01 - ACUTE RESPIRATORY FAILURE WITH HYPOXIA (3) CHF (congestive heart failure) Code(s): I50.9 - HEART FAILURE, UNSPECIFIED (4) Afib Code(s): I48.91 - UNSPECIFIED ATRIAL FIBRILLATION Qualifiers: Atrial fibrillation type: paroxysmal Qualified Code(s): I48.0 - Paroxysmal atrial fibrillation (5) Arteriovenous malformation Code(s): Q27.30 - ARTERIOVENOUS MALFORMATION, SITE UNSPECIFIED (6) CAD (coronary artery disease) Code(s): I25.10 - ATHSCL HEART DISEASE OF [place] CORONARY ARTERY W/O ANG PCTRS (7) CHF exacerbation Code(s): I50.9 - HEART FAILURE, UNSPECIFIED Qualifiers: Heart failure type: diastolic Qualified Code(s): I50.33 - Acute on chronic diastolic (congestive) heart failure (8) Dyspnea Code(s): R06.00 - DYSPNEA, UNSPECIFIED (9) Pericardial effusion Code(s): I31.3 - PERICARDIAL EFFUSION (NONINFLAMMATORY) (10) Pleural effusion Code(s): J90 - PLEURAL EFFUSION, NOT ELSEWHERE CLASSIFIED (11) HTN (hypertension) Code(s): I10 - ESSENTIAL (PRIMARY) HYPERTENSION Qualifiers: Assessment/Plan IMP ACUTE HYPOXEMIC RESPIRATORY FAILURE IMPROVED ACUTE ON CHRONIC CHF IMPROVING AFIB BILATERAL PLEURAL EFFUSIONS ANEMIA PLAN IV LASIX,ALDACTONE O2 INHALED BRONCHODILATORS PRN DAILY WTS F/U CHEST X-RAYS DR BRIGGS Problem List - Problems (1) Acute hypoxemic respiratory failure Code(s): J96.01 - ACUTE RESPIRATORY FAILURE WITH HYPOXIA (2) Acute hypoxemic respiratory failure Code(s): J96.01 - ACUTE RESPIRATORY FAILURE WITH HYPOXIA (3) CHF (congestive heart failure) Code(s): I50.9 - HEART FAILURE, UNSPECIFIED (4) Afib Code(s): I48.91 - UNSPECIFIED ATRIAL FIBRILLATION Qualifiers: Atrial fibrillation type: paroxysmal Qualified Code(s): I48.0 - Paroxysmal atrial fibrillation (5) Arteriovenous malformation Code(s): Q27.30 - ARTERIOVENOUS MALFORMATION, SITE UNSPECIFIED (6) CAD (coronary artery disease) Code(s): I25.10 - ATHSCL HEART DISEASE OF [place] CORONARY ARTERY W/O ANG PCTRS (7) CHF exacerbation Code(s): I50.9 - HEART FAILURE, UNSPECIFIED Qualifiers: Heart failure type: diastolic Qualified Code(s): I50.33 - Acute on chronic diastolic (congestive) heart failure (8) Dyspnea Code(s): R06.00 - DYSPNEA, UNSPECIFIED (9) Pericardial effusion Code(s): I31.3 - PERICARDIAL EFFUSION (NONINFLAMMATORY) (10) Pleural effusion Code(s): J90 - PLEURAL EFFUSION, NOT ELSEWHERE CLASSIFIED (11) HTN (hypertension) Code(s): I10 - ESSENTIAL (PRIMARY) HYPERTENSION Qualifiers:
[2018-06-03] MEDS: PANTOPRAZOLE 40 MG TABLET (FP) PO SCH ×2 (10:16→21:00)
[2018-06-03] MEDS: AMIODARONE HCL 200 MG TABLET (FP) PO SCH (10:16)
[2018-06-03] MEDS: SPIRONOLACTONE 25 MG TABLET (FP) PO SCH ×2 (10:16→21:00)
[2018-06-03] MEDS: ESCITALOPRAM OXALATE 10 MG TABLET (FP) PO SCH (10:17)
[2018-06-03] MEDS: NIFEdipine E.R 60 MG TABLET (UD) PO SCH (10:17)
--- NOTE | 2018-06-03 12:30 | PN ---
Progress Note, Physician Chief Complaint: EVENTS AND NOTES REVIEWED COMFORTABLE STILL HAS MILD DYSPNEA AT REST ON - Current Medication List Current Medications: Active Medications Albuterol/Ipratropium (Duoneb -) 1 amp NEB RQID [facility] Last Admin: 06/03/18 11:38 Dose: 1 amp Amiodarone HCl (Cordarone -) 200 mg PO DAILY [facility] Last Admin: 06/03/18 10:16 Dose: 200 mg Escitalopram Oxalate (Lexapro -) 5 mg PO DAILY [facility] Last Admin: 06/03/18 10:17 Dose: 5 mg Furosemide (Lasix Injection -) 40 mg IVPUSH BID@0600,1400 [facility] Last Admin: 06/03/18 06:26 Dose: 40 mg Nifedipine (Procardia Xl -) 60 mg PO DAILY [facility] Last Admin: 06/03/18 10:17 Dose: 60 mg Pantoprazole Sodium (Protonix -) 40 mg PO BID [facility] Last Admin: 06/03/18 10:16 Dose: 40 mg Rivaroxaban (Xarelto -) 20 mg PO DAILY@1800 [facility] Last Admin: 06/02/18 17:12 Dose: 20 mg Rosuvastatin Calcium (Crestor -) 10 mg PO HS [facility] Last Admin: 06/02/18 21:31 Dose: 10 mg Spironolactone (Aldactone -) 25 mg PO BID [facility] Last Admin: 06/03/18 10:16 Dose: 25 mg - Objective Vital Signs: Vital Signs Temperature 98.6 F 06/03/18 09:12 Pulse Rate 65 06/03/18 09:12 Respiratory Rate 20 06/03/18 09:12 Blood Pressure 138/59 06/03/18 09:12 O2 Sat by Pulse Oximetry (%) 98 06/02/18 20:50 Constitutional: Yes: Mild Distress Eyes: Yes: WNL HENT: Yes: WNL Neck: Yes: WNL Cardiovascular: Yes: Pulse Irregular Respiratory: Yes: Diminished, On Nasal O2, SOB Gastrointestinal: Yes: WNL Genitourinary: Yes: WNL Musculoskeletal: Yes: WNL Extremities: Yes: Deformity Edema: Yes Edema: LLE: Trace, RLE: Trace Peripheral Pulses WNL: Yes Integumentary: Yes: Venous Stasis Changes Wound/Incision: Yes: Clean/Dry Neurological: Yes: Pre-Existing Deficit ...Motor Strength: LLE, RLE Psychiatric: Yes: WNL Labs: CBC, BMP 06/03/18 05:30 06/03/18 05:30 Problem List - Problems (1) Acute hypoxemic respiratory failure Code(s): J96.01 - ACUTE RESPIRATORY FAILURE WITH HYPOXIA (2) CHF (congestive heart failure) Code(s): I50.9 - HEART FAILURE, UNSPECIFIED (3) Acute renal failure Code(s): N17.9 - ACUTE KIDNEY FAILURE, UNSPECIFIED (4) Afib Code(s): I48.91 - UNSPECIFIED ATRIAL FIBRILLATION Qualifiers: Atrial fibrillation type: paroxysmal Qualified Code(s): I48.0 - Paroxysmal atrial fibrillation (5) Anemia Code(s): D64.9 - ANEMIA, UNSPECIFIED Qualifiers: Anemia type: unspecified type Qualified Code(s): D64.9 - Anemia, unspecified (6) Arteriovenous malformation Code(s): Q27.30 - ARTERIOVENOUS MALFORMATION, SITE UNSPECIFIED Assessment/Plan IV LASIX DVT PROPHYLAXIS/AC 02 SUPPORT PT EVAL CARDIO/PULM F/U CHECK LABS
[2018-06-03] MEDS: RIVAROXABAN 20 MG TABLET PO SCH (17:01)
[2018-06-03] MEDS: ROSUVASTATIN CA 10 MG TABLET (FP) PO SCH (21:00)
--- NOTE | 2018-06-03 23:47 | CONSULT ---
Consult - text type - Consultation Consultation Note: 82 year old thai speaking female with past medical history of Afib (on Xarelto), HLD, HTN, RLE AV malformation (s/p corrective surgical procedure 2017) who presents with approx 2 days of gradual pressure-like chest pain, back pain and shortness of breath. She is being treated for CHF. We have been consulted regarding anemia she denies pain/fever/overt bleeding - History Source History Provided By: Patient, Medical Record - Past Medical History Cardio/Vascular: Yes: AFIB, CAD, HTN, Hyperlipdemia Pulmonary: Yes: Pneumonia - Past Surgical History Past Surgical History: Yes: Tubal Ligation - Smoking History Smoking history: Never smoked - Social History ADL: Independent - Allergies Allergies/Adverse Reactions: Allergies Allergy/AdvReac Type Severity Reaction Status Date / Time No Known Allergies Allergy Verified 05/18/18 13:02 - Home Medications Home Medications: Ambulatory Orders Acetaminophen [Tylenol .Regular Strength -] 650 mg PO Q6H PRN tablet 03/07/18 Amiodarone HCl [Cordarone -] 200 mg PO DAILY #30 tablet 03/07/18 Escitalopram Oxalate [Lexapro -] 5 mg PO DAILY #30 tablet 03/07/18 Nifedipine ER [Procardia XL -] 60 mg PO DAILY #30 tab.er.24 03/07/18 Cyanocobalamin (Vitamin B-12) [B-12] 2,500 mcg SL DAILY #30 tab.subl 05/21/18 Rivaroxaban [Xarelto -] 20 mg PO DAILY@1800 #30 tablet 05/21/18 Rosuvastatin [Crestor -] 10 mg PO HS #30 tablet 05/21/18 Furosemide [Lasix -] 40 mg PO DAILY 05/30/18 Active Medications Generic Name Dose Route Start Last Admin Trade Name Freq PRN Reason Stop Dose Admin Albuterol/Ipratropium 1 amp 05/31/18 12:00 06/04/18 08:21 Duoneb - NEB 1 amp RQID NIKUNJ Administration Amiodarone HCl 200 mg 05/31/18 10:00 06/03/18 10:16 Cordarone - PO 200 mg DAILY NIKUNJ Administration Escitalopram Oxalate 5 mg 05/31/18 10:00 06/03/18 10:17 Lexapro - PO 5 mg DAILY NIKUNJ Administration Furosemide 40 mg 05/31/18 14:00 06/04/18 05:34 Lasix Injection - IVPUSH 40 mg BID@0600,1400 NIKUNJ Administration Nifedipine 60 mg 05/31/18 10:00 06/03/18 10:17 Procardia Xl - PO 60 mg DAILY NIKUNJ Administration Pantoprazole Sodium 40 mg 05/31/18 10:00 06/03/18 21:00 Protonix - PO 40 mg BID NIKUNJ Administration Rivaroxaban 20 mg 05/31/18 18:00 06/03/18 17:01 Xarelto - PO 20 mg DAILY@1800 NIKUNJ Administration Rosuvastatin Calcium 10 mg 05/30/18 22:00 06/03/18 21:00 Crestor - PO 10 mg HS NIKUNJ Administration Spironolactone 25 mg 06/01/18 22:00 06/03/18 21:00 Aldactone - PO 25 mg BID NIKUNJ Administration Family Disease History - Family Disease History Family History: Unremarkable Physical Exam-GI Vital Signs: AFVSS Constitutional: Yes: Well Nourished, No Distress, Calm Eyes: Yes: Conjunctiva Clear Neck: Yes: Supple Cardiovascular: No: Bradycardia, Tachycardia Respiratory: Yes: Regular, Other (mild dyspnea with NC O2) Gastrointestinal Inspection: No: Ascites, Distention No edema 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 Dryed scab Problem List - Problems (1) Normocytic normochromic anemia Code(s): D64.9 - ANEMIA, UNSPECIFIED (2) Acute hypoxemic respiratory failure Code(s): J96.01 - ACUTE RESPIRATORY FAILURE WITH HYPOXIA (3) CHF (congestive heart failure) Code(s): I50.9 - HEART FAILURE, UNSPECIFIED Assessment/Plan 82F with the above acute and chronic medical issues noted to have a normocytic, normochromic anemia. Being trdeated for CHF . Anemia of chronic disease +/- gi loss componenet WBC/Platelets nl Ferritin 28 B12/folate/TSH--nl Protein studies pending will check flow/FISH/[employer] GI team following patient to coordinate w/u Will request ID consult to check rt. foot --no obvious cellulitis --but will request opinion.
[2018-06-04] MEDS: FUROSEMIDE 40 MG/4 ML INJECTABLE VIAL IVPUSH SCH ×2 (05:34→13:57)
[2018-06-04 07:00] LABS: HEMATOCRIT 25.7 % (32.4-45.2); HEMOGLOBIN 8.5 GM/dL (10.7-15.3); MCH 29.3 pg (25.7-33.7); MCHC 32.9 g/dl (32.0-36.0); MEAN CELL VOLUME 89.3 fl (80-96); MEAN PLT VOLUME 8.8 fl (7.5-11.1); PLATELET COUNT 220 K/MM3 (134-434); RBC 2.88 M/mm3 (3.60-5.2); RDW 17.1 % (11.6-15.6); WHITE BLOOD COUNT 7.1 K/mm3 (4.0-10.0)
[2018-06-04] MEDS: ALBUTEROL SO4 2.5/IPRATROPIUM 0.5 INH SOL 3 ML VIAL.NEB. NEB SCH ×4 (08:21→19:14)
[2018-06-04 08:23] LABS: CALCIUM 8.6 mg/dL (8.5-10.1); CHLORIDE 98 mmol/L (98-107); POTASSIUM 4.3 mmol/L (3.5-5.1); SODIUM 140 mmol/L (136-145)
[2018-06-04 08:27] LABS: ANION GAP 9 MMOL/L (8-16); BLOOD UREA NITROGEN 16 mg/dL (7-18); CO2 33 mmol/L (21-32); CREATININE 1.2 mg/dL (0.55-1.02); GLUCOSE,RANDOM 88 mg/dL (74-106); MAGNESIUM 2.1 mg/dL (1.8-2.4)
--- NOTE | 2018-06-04 08:54 | PN ---
Progress Note, Physician History of Present Illness: PULMONARY COMFORTABLE,NO DISTRESS,-CP,-SOB - Current Medication List Current Medications: Active Medications Albuterol/Ipratropium (Duoneb -) 1 amp NEB RQID [facility] Last Admin: 06/04/18 08:21 Dose: 1 amp Amiodarone HCl (Cordarone -) 200 mg PO DAILY [facility] Last Admin: 06/03/18 10:16 Dose: 200 mg Escitalopram Oxalate (Lexapro -) 5 mg PO DAILY [facility] Last Admin: 06/03/18 10:17 Dose: 5 mg Furosemide (Lasix Injection -) 40 mg IVPUSH BID@0600,1400 [facility] Last Admin: 06/04/18 05:34 Dose: 40 mg Nifedipine (Procardia Xl -) 60 mg PO DAILY [facility] Last Admin: 06/03/18 10:17 Dose: 60 mg Pantoprazole Sodium (Protonix -) 40 mg PO BID [facility] Last Admin: 06/03/18 21:00 Dose: 40 mg Rivaroxaban (Xarelto -) 20 mg PO DAILY@1800 [facility] Last Admin: 06/03/18 17:01 Dose: 20 mg Rosuvastatin Calcium (Crestor -) 10 mg PO HS [facility] Last Admin: 06/03/18 21:00 Dose: 10 mg Spironolactone (Aldactone -) 25 mg PO BID [facility] Last Admin: 06/03/18 21:00 Dose: 25 mg - Objective Vital Signs: Vital Signs Temperature 98.5 F 06/04/18 08:42 Pulse Rate 63 06/04/18 08:42 Respiratory Rate 20 06/04/18 08:42 Blood Pressure 147/58 06/04/18 08:42 O2 Sat by Pulse Oximetry (%) 98 06/03/18 20:26 Constitutional: Yes: Well Nourished, Calm Eyes: Yes: WNL HENT: Yes: WNL Neck: Yes: WNL Cardiovascular: Yes: Pulse Irregular, S1, S2 Respiratory: Yes: Rales (BIBASAILAR RALES) Gastrointestinal: Yes: Normal Bowel Sounds, Soft Extremities: Yes: WNL Edema: Yes Labs: CBC, BMP 06/04/18 05:30 06/04/18 05:30 Problem List - Problems (1) Acute hypoxemic respiratory failure Code(s): J96.01 - ACUTE RESPIRATORY FAILURE WITH HYPOXIA (2) Acute hypoxemic respiratory failure Code(s): J96.01 - ACUTE RESPIRATORY FAILURE WITH HYPOXIA (3) CHF (congestive heart failure) Code(s): I50.9 - HEART FAILURE, UNSPECIFIED (4) Afib Code(s): I48.91 - UNSPECIFIED ATRIAL FIBRILLATION Qualifiers: Atrial fibrillation type: paroxysmal Qualified Code(s): I48.0 - Paroxysmal atrial fibrillation (5) Arteriovenous malformation Code(s): Q27.30 - ARTERIOVENOUS MALFORMATION, SITE UNSPECIFIED (6) CAD (coronary artery disease) Code(s): I25.10 - ATHSCL HEART DISEASE OF [place] CORONARY ARTERY W/O ANG PCTRS (7) CHF exacerbation Code(s): I50.9 - HEART FAILURE, UNSPECIFIED Qualifiers: Heart failure type: diastolic Qualified Code(s): I50.33 - Acute on chronic diastolic (congestive) heart failure (8) Dyspnea Code(s): R06.00 - DYSPNEA, UNSPECIFIED (9) Pericardial effusion Code(s): I31.3 - PERICARDIAL EFFUSION (NONINFLAMMATORY) (10) Pleural effusion Code(s): J90 - PLEURAL EFFUSION, NOT ELSEWHERE CLASSIFIED (11) HTN (hypertension) Code(s): I10 - ESSENTIAL (PRIMARY) HYPERTENSION Qualifiers: Assessment/Plan IMP ACUTE HYPOXEMIC RESPIRATORY FAILURE IMPROVED ACUTE ON CHRONIC CHF IMPROVING AFIB BILATERAL PLEURAL EFFUSIONS ANEMIA PLAN IV LASIX,ALDACTONE O2 INHALED BRONCHODILATORS PRN DAILY WTS F/U CHEST X-RAY AM AC MONITOR H+H DR BRIGGS Problem List - Problems (1) Acute hypoxemic respiratory failure Code(s): J96.01 - ACUTE RESPIRATORY FAILURE WITH HYPOXIA (2) Acute hypoxemic respiratory failure Code(s): J96.01 - ACUTE RESPIRATORY FAILURE WITH HYPOXIA (3) CHF (congestive heart failure) Code(s): I50.9 - HEART FAILURE, UNSPECIFIED (4) Afib Code(s): I48.91 - UNSPECIFIED ATRIAL FIBRILLATION Qualifiers: Atrial fibrillation type: paroxysmal Qualified Code(s): I48.0 - Paroxysmal atrial fibrillation (5) Arteriovenous malformation Code(s): Q27.30 - ARTERIOVENOUS MALFORMATION, SITE UNSPECIFIED (6) CAD (coronary artery disease) Code(s): I25.10 - ATHSCL HEART DISEASE OF [place] CORONARY ARTERY W/O ANG PCTRS (7) CHF exacerbation Code(s): I50.9 - HEART FAILURE, UNSPECIFIED Qualifiers: Heart failure type: diastolic Qualified Code(s): I50.33 - Acute on chronic diastolic (congestive) heart failure (8) Dyspnea Code(s): R06.00 - DYSPNEA, UNSPECIFIED (9) Pericardial effusion Code(s): I31.3 - PERICARDIAL EFFUSION (NONINFLAMMATORY) (10) Pleural effusion Code(s): J90 - PLEURAL EFFUSION, NOT ELSEWHERE CLASSIFIED (11) HTN (hypertension) Code(s): I10 - ESSENTIAL (PRIMARY) HYPERTENSION Qualifiers:
[2018-06-04] MEDS: SPIRONOLACTONE 25 MG TABLET (FP) PO SCH ×2 (09:31→21:20)
[2018-06-04] MEDS: ESCITALOPRAM OXALATE 10 MG TABLET (FP) PO SCH (09:32)
[2018-06-04] MEDS: NIFEdipine E.R 60 MG TABLET (UD) PO SCH (09:32)
[2018-06-04] MEDS: AMIODARONE HCL 200 MG TABLET (FP) PO SCH (09:33)
[2018-06-04] MEDS: PANTOPRAZOLE 40 MG TABLET (FP) PO SCH ×2 (09:33→21:20)
--- NOTE | 2018-06-04 11:35 | PN ---
Progress Note, Physician Chief Complaint: AWAKE ALERT NAD - Current Medication List Current Medications: Active Medications Albuterol/Ipratropium (Duoneb -) 1 amp NEB RQID [facility] Last Admin: 06/04/18 08:21 Dose: 1 amp Amiodarone HCl (Cordarone -) 200 mg PO DAILY [facility] Last Admin: 06/04/18 09:33 Dose: 200 mg Escitalopram Oxalate (Lexapro -) 5 mg PO DAILY [facility] Last Admin: 06/04/18 09:32 Dose: 5 mg Furosemide (Lasix Injection -) 40 mg IVPUSH BID@0600,1400 [facility] Last Admin: 06/04/18 05:34 Dose: 40 mg Nifedipine (Procardia Xl -) 60 mg PO DAILY [facility] Last Admin: 06/04/18 09:32 Dose: 60 mg Pantoprazole Sodium (Protonix -) 40 mg PO BID [facility] Last Admin: 06/04/18 09:33 Dose: 40 mg Rivaroxaban (Xarelto -) 20 mg PO DAILY@1800 [facility] Last Admin: 06/03/18 17:01 Dose: 20 mg Rosuvastatin Calcium (Crestor -) 10 mg PO [facility] Last Admin: 06/03/18 21:00 Dose: 10 mg Spironolactone (Aldactone -) 25 mg PO BID [facility] Last Admin: 06/04/18 09:31 Dose: 25 mg - Objective Vital Signs: Vital Signs Temperature 98.5 F 06/04/18 08:42 Pulse Rate 63 06/04/18 08:42 Respiratory Rate 20 06/04/18 08:42 Blood Pressure 147/58 06/04/18 08:42 O2 Sat by Pulse Oximetry (%) 98 06/03/18 20:26 Constitutional: Yes: Mild Distress Eyes: Yes: WNL HENT: Yes: WNL Neck: Yes: WNL Cardiovascular: Yes: WNL, Pulse Irregular Respiratory: Yes: WNL Gastrointestinal: Yes: WNL Genitourinary: Yes: WNL Musculoskeletal: Yes: Muscle Weakness Edema: No Peripheral Pulses WNL: Yes Integumentary: Yes: Other Wound/Incision: Yes: Dressing Dry and Intact Neurological: Yes: Pre-Existing Deficit ...Motor Strength: RLE Psychiatric: Yes: WNL Labs: CBC, BMP 06/04/18 05:30 06/04/18 05:30 Problem List - Problems (1) Acute hypoxemic respiratory failure Code(s): J96.01 - ACUTE RESPIRATORY FAILURE WITH HYPOXIA (2) CHF (congestive heart failure) Code(s): I50.9 - HEART FAILURE, UNSPECIFIED (3) Acute renal failure Code(s): N17.9 - ACUTE KIDNEY FAILURE, UNSPECIFIED (4) Afib Code(s): I48.91 - UNSPECIFIED ATRIAL FIBRILLATION Qualifiers: Atrial fibrillation type: paroxysmal Qualified Code(s): I48.0 - Paroxysmal atrial fibrillation (5) Anemia Code(s): D64.9 - ANEMIA, UNSPECIFIED Qualifiers: Anemia type: unspecified type Qualified Code(s): D64.9 - Anemia, unspecified (6) Arteriovenous malformation Code(s): Q27.30 - ARTERIOVENOUS MALFORMATION, SITE UNSPECIFIED Assessment/Plan IV LASIX DVT PROPHYLAXIS/AC 02 SUPPORT PT EVAL CARDIO/PULM F/U CHECK LABS
--- NOTE | 2018-06-04 14:03 | PN ---
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 and in April amputation of the first toe she reports foot is 80% better then it was and that she is following up with her doctor at [facility] for this no erythema to suggest cellulitis would defer management of the foot to her doctor at [facility] chf anemia afib Problem List - Problems (1) CHF exacerbation Code(s): I50.9 - HEART FAILURE, UNSPECIFIED Qualifiers: Heart failure type: diastolic Qualified Code(s): I50.33 - Acute on chronic diastolic (congestive) heart failure (2) Cellulitis, wound, post-operative Code(s): T81.4XXA - INFECTION FOLLOWING A PROCEDURE, INITIAL ENCOUNTER (3) Anemia Code(s): D64.9 - ANEMIA, UNSPECIFIED Qualifiers: Anemia type: unspecified type Qualified Code(s): D64.9 - Anemia, unspecified
[2018-06-04] MEDS: RIVAROXABAN 20 MG TABLET PO SCH (17:47)
--- NOTE | 2018-06-04 19:33 | PN ---
Progress Note, Physician Chief Complaint: Patient appears comfortable at the time of exam. She has no SOB at rest, chest pain or palpitation. History of Present Illness: 82 year-old gibraltarian speaking female with a PMHx of paroxysmal afib , HTN, RLE AV malformation followed by Dr. Wren at [facility] and is post surgical intervention in february 2018 admitted for dyspnea, edema and orthopnea x 2-3 days, back pain and belching with tightness in the epigastric area. She has been treated with IV Lasix with improvement. Stress test 2016 was essentially normal. CXR showed large left pleural effusion. BNP elevated. Echocardiogram 12/2017 showed normal LV function without valvular pathology and elevated LA pressure. - Current Medication List Current Medications: Active Medications Albuterol/Ipratropium (Duoneb -) 1 amp NEB RQID [facility] Last Admin: 06/04/18 19:14 Dose: 1 amp Amiodarone HCl (Cordarone -) 200 mg PO DAILY [facility] Last Admin: 06/04/18 09:33 Dose: 200 mg Escitalopram Oxalate (Lexapro -) 5 mg PO DAILY [facility] Last Admin: 06/04/18 09:32 Dose: 5 mg Furosemide (Lasix Injection -) 40 mg IVPUSH BID@0600,1400 [facility] Last Admin: 06/04/18 13:57 Dose: 40 mg Nifedipine (Procardia Xl -) 60 mg PO DAILY [facility] Last Admin: 06/04/18 09:32 Dose: 60 mg Pantoprazole Sodium (Protonix -) 40 mg PO BID [facility] Last Admin: 06/04/18 09:33 Dose: 40 mg Rivaroxaban (Xarelto -) 20 mg PO DAILY@1800 [facility] Last Admin: 06/04/18 17:47 Dose: 20 mg Rosuvastatin Calcium (Crestor -) 10 mg PO HS [facility] Last Admin: 06/03/18 21:00 Dose: 10 mg Spironolactone (Aldactone -) 25 mg PO BID [facility] Last Admin: 06/04/18 09:31 Dose: 25 mg - Objective Vital Signs: Vital Signs Temperature 98.1 F 06/04/18 17:00 Pulse Rate 67 06/04/18 17:00 Respiratory Rate 19 06/04/18 17:00 Blood Pressure 144/63 06/04/18 17:00 O2 Sat by Pulse Oximetry (%) 96 06/04/18 09:00 General: Well developed. Well nourished. No acute distress. Head: Normocephalic. Atraumatic, Eyes: PERRLA, EOMI. Sclerae anicteric. Conjunctivae clear. Neck: Supple. No JVD. No bruits. Heart: Normal S1, S2: Regular rhythm and rate. II/ WAYLON. No gallop or rub. Lungs: Symmetrical air entry. Clear to auscultation. No crackle. No wheezing or rhonchi. Abdomen: Soft. Bowel sound positive. Non tender. No masses. Extremities: No edema. No clubbing or cyanosis. PD 2+, equal bilaterally. Neuro: Intact, no focal findings. AAO X3. Labs: CBC, BMP 06/04/18 05:30 06/04/18 05:30 Assessment/Plan 82 year-old gibraltarian speaking female with a PMHx of paroxysmal afib , HTN, RLE AV malformation followed by Dr. Wren at [facility] and is post surgical intervention in february 2018 admitted for dyspnea, edema and orthopnea x 2-3 days, back pain and belching with tightness in the epigastric area. She has been treated with IV Lasix with improvement. Stress test 2016 was essentially normal. CXR showed large left pleural effusion. BNP elevated. Echocardiogram 12/2017 showed normal LV function without valvular pathology and elevated LA pressure. 1) CHF exacerbation: Acute on chronic diastolic CHF due to dietary indiscretion. Improved with IV Lasix. Physical signs of fluid overload resolved. May change IV Lasix to PO 40 mg BID. Needs 2 gm salt and 2 liter fluid restriction. PAfib-currently sinus rhythm, no significant bradycardia or pauses. Continue Xarelto. Continue amiodarone Hold other AV ly blockers May discontinue tele. Please call us for reconsult as needed.
[2018-06-04] MEDS: ROSUVASTATIN CA 10 MG TABLET (FP) PO SCH (21:20)
[2018-06-05] MEDS: FUROSEMIDE 40 MG/4 ML INJECTABLE VIAL IVPUSH SCH (05:55)
[2018-06-05] MEDS: ALBUTEROL SO4 2.5/IPRATROPIUM 0.5 INH SOL 3 ML VIAL.NEB. NEB SCH ×2 (07:47→11:19)
[2018-06-05 07:48] LABS: HEMATOCRIT 27.6 % (32.4-45.2); HEMOGLOBIN 8.9 GM/dL (10.7-15.3); MCH 28.9 pg (25.7-33.7); MCHC 32.1 g/dl (32.0-36.0); MEAN PLT VOLUME 8.7 fl (7.5-11.1); PLATELET COUNT 224 K/MM3 (134-434); RBC 3.07 M/mm3 (3.60-5.2); RDW 17.1 % (11.6-15.6); WHITE BLOOD COUNT 5.6 K/mm3 (4.0-10.0)
[2018-06-05 08:07] LABS: ANION GAP 5 MMOL/L (8-16); BLOOD UREA NITROGEN 18 mg/dL (7-18); CALCIUM 8.7 mg/dL (8.5-10.1); CHLORIDE 97 mmol/L (98-107); CO2 36 mmol/L (21-32); CREATININE 1.3 mg/dL (0.55-1.02); GLUCOSE,RANDOM 99 mg/dL (74-106); POTASSIUM 3.9 mmol/L (3.5-5.1); SODIUM 138 mmol/L (136-145)
[2018-06-05 08:43] VITALS: PULSE 64
[2018-06-05] MEDS: PANTOPRAZOLE 40 MG TABLET (FP) PO SCH (09:09)
[2018-06-05] MEDS: AMIODARONE HCL 200 MG TABLET (FP) PO SCH (09:10)
[2018-06-05] MEDS: ESCITALOPRAM OXALATE 10 MG TABLET (FP) PO SCH (09:10)
[2018-06-05] MEDS: SPIRONOLACTONE 25 MG TABLET (FP) PO SCH (09:10)
[2018-06-05] MEDS: NIFEdipine E.R 60 MG TABLET (UD) PO SCH (09:10)
--- NOTE | 2018-06-05 09:54 | PN ---
Progress Note, Physician History of Present Illness: pulmonary alert,no distress,-sob,-cp - Current Medication List Current Medications: Active Medications Albuterol/Ipratropium (Duoneb -) 1 amp NEB RQID [facility] Last Admin: 06/05/18 07:47 Dose: 1 amp Amiodarone HCl (Cordarone -) 200 mg PO DAILY [facility] Last Admin: 06/05/18 09:10 Dose: 200 mg Escitalopram Oxalate (Lexapro -) 5 mg PO DAILY [facility] Last Admin: 06/05/18 09:10 Dose: 5 mg Furosemide (Lasix Injection -) 40 mg IVPUSH BID@0600,1400 [facility] Last Admin: 06/05/18 05:55 Dose: 40 mg Nifedipine (Procardia Xl -) 60 mg PO DAILY [facility] Last Admin: 06/04/18 09:32 Dose: 60 mg Pantoprazole Sodium (Protonix -) 40 mg PO BID [facility] Last Admin: 06/05/18 09:09 Dose: 40 mg Rivaroxaban (Xarelto -) 20 mg PO DAILY@1800 [facility] Last Admin: 06/04/18 17:47 Dose: 20 mg Rosuvastatin Calcium (Crestor -) 10 mg PO HS [facility] Last Admin: 06/04/18 21:20 Dose: 10 mg Spironolactone (Aldactone -) 25 mg PO BID [facility] Last Admin: 06/05/18 09:10 Dose: 25 mg - Objective Vital Signs: Vital Signs Temperature 98.0 F 06/05/18 08:43 Pulse Rate 64 06/05/18 08:43 Respiratory Rate 18 06/05/18 08:43 Blood Pressure 142/56 06/05/18 08:43 O2 Sat by Pulse Oximetry (%) 96 06/04/18 21:00 Constitutional: Yes: Well Nourished, Calm Eyes: Yes: WNL HENT: Yes: WNL Neck: Yes: WNL Cardiovascular: Yes: Pulse Irregular, S1, S2 Respiratory: Yes: Rales (few bibasasilar crackles) Gastrointestinal: Yes: Normal Bowel Sounds, Soft Extremities: Yes: WNL Edema: Yes Labs: CBC, BMP 06/05/18 06:00 06/05/18 06:00 Problem List - Problems (1) Acute hypoxemic respiratory failure Code(s): J96.01 - ACUTE RESPIRATORY FAILURE WITH HYPOXIA (2) Acute hypoxemic respiratory failure Code(s): J96.01 - ACUTE RESPIRATORY FAILURE WITH HYPOXIA (3) CHF (congestive heart failure) Code(s): I50.9 - HEART FAILURE, UNSPECIFIED (4) Afib Code(s): I48.91 - UNSPECIFIED ATRIAL FIBRILLATION Qualifiers: Atrial fibrillation type: paroxysmal Qualified Code(s): I48.0 - Paroxysmal atrial fibrillation (5) Arteriovenous malformation Code(s): Q27.30 - ARTERIOVENOUS MALFORMATION, SITE UNSPECIFIED (6) CAD (coronary artery disease) Code(s): I25.10 - ATHSCL HEART DISEASE OF [place] CORONARY ARTERY W/O ANG PCTRS (7) CHF exacerbation Code(s): I50.9 - HEART FAILURE, UNSPECIFIED Qualifiers: Heart failure type: diastolic Qualified Code(s): I50.33 - Acute on chronic diastolic (congestive) heart failure (8) Dyspnea Code(s): R06.00 - DYSPNEA, UNSPECIFIED (9) Pericardial effusion Code(s): I31.3 - PERICARDIAL EFFUSION (NONINFLAMMATORY) (10) Pleural effusion Code(s): J90 - PLEURAL EFFUSION, NOT ELSEWHERE CLASSIFIED (11) HTN (hypertension) Code(s): I10 - ESSENTIAL (PRIMARY) HYPERTENSION Qualifiers: Assessment/Plan IMP ACUTE HYPOXEMIC RESPIRATORY FAILURE IMPROVED ACUTE ON CHRONIC CHF IMPROVING AFIB BILATERAL PLEURAL EFFUSIONS ANEMIA PLAN LASIX,ALDACTONE O2 INHALED BRONCHODILATORS PRN DAILY WTS F/U CHEST X-RAY AM AC MONITOR H+H DR BRIGGS Problem List - Problems (1) Acute hypoxemic respiratory failure Code(s): J96.01 - ACUTE RESPIRATORY FAILURE WITH HYPOXIA (2) Acute hypoxemic respiratory failure Code(s): J96.01 - ACUTE RESPIRATORY FAILURE WITH HYPOXIA (3) CHF (congestive heart failure) Code(s): I50.9 - HEART FAILURE, UNSPECIFIED (4) Afib Code(s): I48.91 - UNSPECIFIED ATRIAL FIBRILLATION Qualifiers: Atrial fibrillation type: paroxysmal Qualified Code(s): I48.0 - Paroxysmal atrial fibrillation (5) Arteriovenous malformation Code(s): Q27.30 - ARTERIOVENOUS MALFORMATION, SITE UNSPECIFIED (6) CAD (coronary artery disease) Code(s): I25.10 - ATHSCL HEART DISEASE OF [place] CORONARY ARTERY W/O ANG PCTRS (7) CHF exacerbation Code(s): I50.9 - HEART FAILURE, UNSPECIFIED Qualifiers: Heart failure type: diastolic Qualified Code(s): I50.33 - Acute on chronic diastolic (congestive) heart failure (8) Dyspnea Code(s): R06.00 - DYSPNEA, UNSPECIFIED (9) Pericardial effusion Code(s): I31.3 - PERICARDIAL EFFUSION (NONINFLAMMATORY) (10) Pleural effusion Code(s): J90 - PLEURAL EFFUSION, NOT ELSEWHERE CLASSIFIED (11) HTN (hypertension) Code(s): I10 - ESSENTIAL (PRIMARY) HYPERTENSION Qualifiers:
--- NOTE | 2018-06-05 10:08 | DS ---
Physical Examination Vital Signs: Vital Signs Temperature 98.0 F 06/05/18 08:43 Pulse Rate 64 06/05/18 08:43 Respiratory Rate 18 06/05/18 08:43 Blood Pressure 142/56 06/05/18 08:43 O2 Sat by Pulse Oximetry (%) 96 06/04/18 21:00 Findings/Remarks: 82 year-old kinyarwanda speaking female with a PMHx of paroxysmal afib , HTN, RLE AV malformation followed by Dr. Wren at [facility] and is post surgical intervention in february 2018 admitted for dyspnea, edema and orthopnea x 2-3 days, back pain and belching with tightness in the epigastric area. She has been treated with IV Lasix with improvement. Cardiovascular: Yes: S1, S2 Respiratory: Yes: Regular, On Nasal O2, Rales (at the bases) Edema: No Labs: CBC, BMP 06/05/18 06:00 06/05/18 06:00 Discharge Summary Reason For Visit: CONGESTIVE HEART FAILURE Current Active Problems Acute hypoxemic respiratory failure (Acute) Acute hypoxemic respiratory failure (Acute) CHF (congestive heart failure) (Acute) Normocytic normochromic anemia (Acute) Hospital Course: - Problems (1) CHF (congestive heart failure) Assessment/Plan: - Problems Stress test 2017 was essentially normal. CXR showed large left pleural effusion. BNP elevated. Echocardiogram 12/2017 showed normal LV function without valvular pathology and elevated LA pressure. Acute on chronic diastolic CHF due to dietary indiscretion. Improved with IV Lasix. Physical signs of fluid overload resolved. May change IV Lasix to PO 80 daily Needs 2 gm salt and 2 liter fluid restriction. -follow Labs -Monitor -Cardio ion board -Ct of chest noted--cxr Code(s): I50.9 - HEART FAILURE, UNSPECIFIED (2) Afib Assessment/Plan: -On Xarelto -Monitor Continue amiodarone Hold other AV ly blockers May discontinue tele. Please call us for reconsult as needed. 91 - UNSPECIFIED ATRIAL FIBRILLATION Qualifiers: Atrial fibrillation type: paroxysmal Qualified Code(s): I48.0 - Paroxysmal atrial fibrillation (3) CAD (coronary artery disease) Assessment/Plan: -no cp -CE neg Code(s): I25.10 - ATHSCL HEART DISEASE OF THREE AFFILIATED CORONARY ARTERY W/O ANG PCTRS (4) HTN (hypertension) Assessment/Plan: -monitor Code(s): I10 - ESSENTIAL (PRIMARY) HYPERTENSION Qualifiers: (5) Pleural effusion Assessment/Plan: -IV lasix--to po -Cardio and pulm follow up Code(s): J90 - PLEURAL EFFUSION, NOT ELSEWHERE CLASSIFIED Condition: Stable - Instructions Referrals: Brandi Kemp MD [Staff Physician] - 1 Week - Home Medications Comprehensive Discharge Medication List: Ambulatory Orders Acetaminophen [Tylenol .Regular Strength -] 650 mg PO Q6H PRN tablet 03/07/18 Amiodarone HCl [Cordarone -] 200 mg PO DAILY #30 tablet 03/07/18 Escitalopram Oxalate [Lexapro -] 5 mg PO DAILY #30 tablet 03/07/18 Nifedipine ER [Procardia XL -] 60 mg PO DAILY #30 tab.er.24 03/07/18 Cyanocobalamin (Vitamin B-12) [B-12] 2,500 mcg SL DAILY #30 tab.subl 05/21/18 Rivaroxaban [Xarelto -] 20 mg PO DAILY@1800 #30 tablet 05/21/18 Rosuvastatin [Crestor -] 10 mg PO HS #30 tablet 05/21/18 Albuterol 2.5/Ipratropium 0.5 [Duoneb -] 1 amp NEB RQID #120 amp 06/05/18 Furosemide [Lasix -] 80 mg PO DAILY tablet 06/05/18 Pantoprazole Sodium [Protonix -] 40 mg PO BID #60 tablet.ec 06/05/18 Spironolactone [Aldactone -] 25 mg PO BID #60 tablet 06/05/18
[2018-06-05] MEDS ORDERED: FUROSEMIDE 40 MG TABLET (FP) PO SCH (10:15)
[2018-06-05 13:09] VITALS: BP 140/55; TEMP 98.5
[2018-06-05] MEDS: RIVAROXABAN 20 MG TABLET PO SCH (17:01)
--- NOTE | 2018-06-05 17:43 | CONS ---
DATE OF CONSULTATION: DATE OF DICTATION: 06/05/2018 REQUESTING PHYSICIAN: Dr. Plascencia HISTORY: This is an 82-year-old woman who was admitted on the for evaluation for chest pain and shortness of breath. She has no fevers. She has longstanding problems with her right lower extremity. She is status post embolization of the right lower extremity at the end of February followed by apparently an amputation of the first toe. I am asked to see her regarding the foot. She reports the leg is markedly improved. Her friend is with her who goes with her to all of her appointments, and he confirms the same. Reports it is 80% better than it was and that she is following up with her doctor regularly for this. She has no fevers or chills, and she is, otherwise, well. PAST MEDICAL HISTORY: Notable for atrial fibrillation, hyperlipidemia, right lower extremity AV malformation, CHF. PAST SURGICAL HISTORY: Notable for amputation of the first toe. She has as well a prior history of pneumonia. She has had tubal ligation in the past. She is status post cholecystectomy as well. SOCIAL HISTORY: She resides at home. No history of cigarettes or substance use. She is [place]-speaking. ALLERGIES: She has no known drug allergies. MEDICATIONS: Include Aldactone, Crestor, Xarelto, Protonix, Procardia, Lasix, Lexapro, vitamin B12, amiodarone, and DuoNebs. REVIEW OF SYSTEMS: Currently her shortness of breath is resolved. She is feeling much better. She has no chest pain, and she reports her feet is markedly improved. PHYSICAL EXAMINATION: Vital Signs: Temperature 98.3, pulse 72, blood pressure 130/54, respiratory rate 20. HEENT: Normocephalic. Eyes are anicteric. Neck: Supple. Lungs: Clear to auscultation. Heart: Regular rate and rhythm. Abdomen: Soft, nontender. Extremities: Notable for a dry amputation site on that right foot. There is no erythema to suggest cellulitis. LABORATORIES: Her labs are notable for a white count 7.1, hemoglobin 8.5, platelets 220, BUN 16, creatinine 1.2. In summary, this is an elderly woman admitted with CHF who I am asked to evaluate her right foot. There are no signs of erythema to suggest cellulitis. I would defer management of her foot to her doctor there. She has chronic anemia as well and a history of atrial fibrillation, which will be followed up as an outpatient. Please call back if needed. Jason [id number]
== END 2018-06-05 17:35 | disposition home health service (06) | DRG 291 ==
LOC: JER 11:39 → JERBED 14:14 → J4W 16:36
PROVIDERS: ADMIT Family Medicine; ATTEND Family Medicine
DX: I11.0 Hypertensive heart disease with heart failure (principal); J96.01 Acute respiratory failure with hypoxia; I31.3 Pericardial effusion (noninflammatory); N17.9 Acute kidney failure, unspecified; I50.33 Acute on chronic diastolic (congestive) heart failure; Z79.01 Long term (current) use of anticoagulants; E78.5 Hyperlipidemia, unspecified; I48.0 Paroxysmal atrial fibrillation; I25.10 Atherosclerotic heart disease of native coronary artery without angina pectoris; D64.9 Anemia, unspecified
CPT/HCPCS: 36415; 71045-TC-FY; 71046-TC-FY; 71250-TC; 80048; 80053; 81003; 81015; 82550; 82607; 82728; 82784; 82962; 83540; 83550; 83615; 83690; 83735; 83880; 84155; 84165; 84484; 85025; 85027; 85044; 86334; 87086; 93005; 93010; 94640; 99285-25; J7620